=== PATIENT | female | born 1940 | race Caucasian/White ===

== ENCOUNTER → 2017-02-11 | Outpatient (CLI) | payer MEDICARE, BC ==
--- NOTE | 2017-02-12 15:02 | XR ---
EXAMINATION TYPE: XR chest 2V DATE OF EXAM: 02/11/2017 10:11 AM COMPARISON: 02/04/2014 INDICATION: Cough TECHNIQUE: Single frontal view of the chest is obtained. FINDINGS: The heart size is normal. The pulmonary vasculature is normal. The lungs are clear. Previous pleural effusions have resolved. IMPRESSION: 1. No acute pulmonary process.
== END | disposition home or self-care (01) ==
LOC: RADXRYALE 09:43
PROVIDERS: ATTEND Physician Assistant Medical
DX: R05 Cough (principal)
CPT/HCPCS: 71020

== ENCOUNTER → 2017-06-07 | Outpatient (CLI) | payer MEDICARE, BC ==
--- NOTE | 2017-06-07 09:02 | BD ---
EXAMINATION TYPE: MG DEXA axial skeleton. DATE OF EXAM: 06/07/2017 COMPARISON: NONE CLINICAL HISTORY: M85.80 OSTEOPENIA Height: 64 Weight: 149 FRAX RISK QUESTIONS: Alcohol (3 or more units per day): NO Family History (Parent hip fracture): NO Glucocorticoids (More than 3mos): NO (Ex: prednisone, prednisolone, methylprednisolone, dexamethasone, and hydrocortisone). History of Fracture in Adulthood: YES Secondary Osteoporosis: NO 1. Type 1 Diabetes: NO 2. Hyperthyroidism: NO 3. Menopause before 45: NO 4. Malnutrition: NO 5. Chronic liver disease: NO Rheumatoid Arthritis: NO Current Tobacco Use: NO RISK FACTORS HISTORY OF: LT ELBOW...>49 YRS OLD AT TIME Active: YES, SHE TRIES Diet low in dairy products/other sources of calcium: NO Postmenopausal woman: AT 51 Lost more than 2 inches in height since high school: UNSURE Hyperparathyroidism: NO Adrenal Insufficiency: NO MEDICATIONS: Additional Medications: VIT D 3, STATINS FOR CHOLESTEROL, Additional History: NONE TO NOTE EXAM MEASUREMENTS: Bone mineral densitometry was performed using the Multichannel System. Bone mineral density as measured about the Lumbar spine is: ----- L1-L4(G/cm2): 1.157 T Score Values are as follows: ----- L1: -1.2 ----- L2: -0.2 ----- L3: 0.4 ----- L4: -0.1 ----- L1-L4: -0.2 Bone mineral density THIS IS HER FIRST BONE DENSITY SCAN AT [facility] Bone mineral density about the R hip (g/cm2): 0.825 Bone mineral density about the L hip (g/cm2): 0.817 T Score values are as follows: -----R Neck: -1.7 -----L Neck: -1.9 -----R Total: -1.5 -----L Total: -1.5 Bone mineral density THIS IS HER FIRST BONE DENSITY AT [facility] FRAX%'S: THERE IS A 21.2% CHANCE OF A MAJOR OSTEOPOROTIC FX AND A 5.3% FOR A HIP FX.....PROBABILIT Y OF FX IN 10 YRS TIME IMPRESSION: Osteopenia (T Score between -2.5 and -1 as noted by T score values is identified in both hips. Bone d ensity felt falsely elevated in the low back due to reactive sclerosis at L2-L3 level. There is sligh tly increased risk of fracture and the patient may be considered for treatment. Re-Screen 2-5 years NOTE: T-SCORE=SD OF THE YOUNG ADULT MEAN.
== END | disposition home or self-care (01) ==
LOC: RADBDWWP 07:38
PROVIDERS: ATTEND Family Medicine
DX: M85.851 Other specified disorders of bone density and structure, right thigh (principal); M85.852 Other specified disorders of bone density and structure, left thigh; M89.9 Disorder of bone, unspecified
CPT/HCPCS: 77080

== ENCOUNTER → 2018-12-06 | Outpatient (CLI) | payer MEDICARE, BC ==
--- NOTE | 2018-12-06 15:42 | MR ---
EXAMINATION TYPE: MR brain wo con DATE OF EXAM: 12/06/2018 COMPARISON: NONE HISTORY: Cognitive impairment. Prior CVA. TECHNIQUE: Multiplanar, multisequence images of the brain and brainstem is performed without intravenous contras t. FINDINGS: Diffusion weighted images demonstrate no evidence of a recent infarct or other diffusion ab normality. There is no extra-axial fluid collection. There are scattered foci of T2/FLAIR hyperinten sity throughout the periventricular and subcortical white matter, mild burden. Additionally foci with in the right external capsule and left basal ganglia may relate to prior lacunar infarcts The ventric ular system and cisternal spaces are symmetrically prominent compatible with age-related volume loss. Midline structures demonstrate normal morphology. The craniocervical junction appears within normal limits. The dural venous sinuses appear patent. The visualized sinuses demonstrate scant mucosal thic kening in the ethmoid sinuses and a small left-sided nasal uskhwinder bullosa. Other words the visualized paranasal sinuses and mastoid air cells are well aerated. The globes are intact. IMPRESSION: 1. Mild burden nonspecific white matter change with foci in the right external capsule and left basal ganglia likely related to old lacunar infarcts. No acute infarct, midline shift or mass effect. 2. Mild age-related volume loss is seen. This is not out of proportion to the patient's age.
== END | disposition home or self-care (01) ==
LOC: RADMRIMAIN 12:04
PROVIDERS: ATTEND Family Medicine
DX: R90.89 Other abnormal findings on diagnostic imaging of central nervous system (principal); I69.311 Memory deficit following cerebral infarction
CPT/HCPCS: 70551

== ENCOUNTER → 2018-12-19 | Outpatient (CLI) | payer MEDICARE, BC ==
--- NOTE | 2018-12-19 14:58 | US ---
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 EXAM MEASUREMENTS: RIGHT: Peak Systolic Velocity (PSV) cm/sec ----- Right CCA: 63.5 ----- Right ICA: 52.7 ----- Right ECA: 130.0 ICA/CCA ratio: 0.82 RIGHT: End Diastole cm/sec ----- Right CCA: 10.3 ----- Right ICA: 22.3 ----- Right ECA: 0.0 LEFT: Peak Systolic Velocity (PSV) cm/sec ----- Left CCA: 64.7 ----- Left ICA: 96.0 ----- Left ECA: 91.3 ICA/CCA ratio: 1.5 LEFT: End Diastole cm/sec ----- Left CCA: 12.4 ----- Left ICA: 24.9 ----- Left ECA: 3.8 VERTEBRALS (direction of flow): Right Vertebral: Antegrade Left Vertebral: Antegrade Rhythm: Normal Mild atherosclerotic changes with no significant velocity increases. IMPRESSION: Mild atherosclerotic change bilaterally without hemodynamically significant stenosis see n in either internal carotid artery. Criteria for Assigning % of Stenosis / Diameter reduction (Estimation based on the indirect measurements of the internal carotid artery velocities (ICA PSV). 1. Normal (no stenosis)=ICA PSV < 125 cm/s: ratio < 2.0: ICA EDV<40 cm/s. 2. Less than 50% stenosis=ICA PSV < 125 cm/s: ratio < 2.0: ICA EDV<40 cm/s. 3. 50 to 69% stenosis=ICA PSV of 125 to 230 cm/s: ration 2.0 ? 4.0: ICA EDV 40-100 cm/s. 4. Greater than 70% stenosis to near occlusion= ICA PSV > 230 cm/s: ratio > 4.0: ICA EDV > 100 cm/s. 5. Near occlusion= ICA PSV velocities may be low or undetectable: variable ratio and ICA EDV. 6. Total occlusion=unable to detect flow.
== END ==
LOC: RADUSWWP 14:11
PROVIDERS: ATTEND Family Medicine
DX: I65.23 Occlusion and stenosis of bilateral carotid arteries (principal); I69.311 Memory deficit following cerebral infarction; G93.1 Anoxic brain damage, not elsewhere classified
CPT/HCPCS: 93880

== ENCOUNTER 2024-12-22 14:15 | Inpatient (IN) | payer MEDICARE, BC ==
--- NOTE | 2024-12-22 14:48 | ED ---
General Adult HPI - General Chief complaint: Fall Stated complaint: Fall Time Seen by Provider: 12/22/24 14:24 Source: EMS Mode of arrival: EMS Limitations: no limitations - History of Present Illness Initial comments: 84-year-old female presents to the emergency department for evaluation of fall with left hip injury. Patient states that today she went to get up from the couch when she fell. She states that she is not sure why she fell. She denies any preceding symptoms including dizziness, lightheadedness, chest pain, shortness of breath. She states that she "just fell"she states that there is pain in her hip only with movement. She had to crawl to the couch and called her son for help. She denies any head injury. Denies any blood thinners. Denies pain anywhere else besides her hip. - Related Data Previous Rx's Medication Instructions Recorded Apixaban [Eliquis] 2.5 mg PO BID 30 Days #60 tab 12/24/24 HYDROcodone/APAP 5-325MG [[place] 1 tab PO Q6HR PRN #28 tab 12/24/24 5-325] Sennosides [Senokot] 2 tab PO DAILY PRN #60 tablet 12/24/24 Allergies Allergy/AdvReac Type Severity Reaction Status Date / Time Sulfa (Sulfonamide Allergy Unknown Unknown Verified 12/22/24 16:02 Antibiotics) Review of Systems ROS Statement: Those systems with pertinent positive or pertinent negative responses have been documented in the HPI. ROS Other: All systems not noted in ROS Statement are negative. Past Medical History Past Medical History: GERD/Reflux, Hyperlipidemia, Pneumonia Additional Past Medical History / Comment(s): PERFORATED BOWEL, STATES "MY STATED I FLAT LINE FOR 8 MIN WHEN I WAS IN THE HOSPITAL IN 2013 AND HAD TO HAVE A TUBE DOWN MY THROAT AND NOW I HAVE A LITTLE TROUBLE WITH MY SPEECH" History of Any Multi-Drug Resistant Organisms: None Reported Past Surgical History: Bowel Resection, Tonsillectomy Additional Past Surgical History / Comment(s): bowel resection 01/23/2014 W/ PEG TUB PLACEMENT, PEG TUBE REMOVAL, rt cataract Past Anesthesia/Blood Transfusion Reactions: No Reported Reaction Past Psychological History: No Psychological Hx Reported Past Alcohol Use History: None Reported Past Drug Use History: None Reported - Past Family History Father Family Medical History: Cancer Additional Family Medical History / Comment(s): PROSTATE Mother Additional Family Medical History / Comment(s): HEART PROBLEMS General Exam Limitations: no limitations General appearance: alert, in no apparent distress Head exam: Present: atraumatic, normocephalic, normal inspection Eye exam: Present: normal appearance, PERRL, EOMI. Absent: scleral icterus, conjunctival injection, periorbital swelling ENT exam: Present: normal exam, mucous membranes moist Respiratory exam: Present: normal lung sounds bilaterally. Absent: respiratory distress, wheezes, rales, rhonchi, stridor Cardiovascular Exam: Present: regular rate, normal rhythm, normal heart sounds. Absent: systolic murmur, diastolic murmur, rubs, gallop, clicks GI/Abdominal exam: Present: soft, normal bowel sounds. Absent: distended, tenderness, guarding, rebound, rigid Extremities exam: Present: tenderness, normal capillary refill. Absent: full ROM (Decreased range of motion at the left hip with flexion and extension), pedal edema, joint swelling, calf tenderness Neurological exam: Present: alert, oriented X3 Psychiatric exam: Present: normal affect, normal mood Skin exam: Present: warm, dry, intact, normal color. Absent: rash Course Vital Signs 12/22/24 12/22/24 12/22/24 14:25 16:39 17:46 Temperature 98.1 F Pulse Rate 98 76 98 Respiratory 18 18 16 Rate Blood Pressure 153/76 128/71 144/72 O2 Sat by Pulse 95 95 95 Oximetry Medical Decision Making - Medical Decision Making Was pt. sent in by a medical professional or institution (, PA, CADASTRAL SURVEYOR, urgent care, hospital, or skilled nursing...) When possible be specific @ -No Did you speak to anyone other than the patient for history (EMS, parent, family, police, friend...)? What history was obtained from this source @ -No Did you review nursing and triage notes (agree or disagree)? Why? @ -I reviewed and agree with nursing and triage notes Were old charts reviewed (outside hosp., previous admission, EMS record, old EKG, old radiological studies, urgent care reports/EKG's, skilled nursing records)? Report findings @ -No old charts were reviewed Differential Diagnosis (chest pain, altered mental status, abdominal pain women, abdominal pain men, vaginal bleeding, weakness, fever, dyspnea, syncope, headache, dizziness, GI bleed, back pain, seizure, CVA, palpatations, mental health, musculoskeletal)? @ -Differential Musculoskeletal Muscular strain, contusion, ligament sprain, fracture, arthritis, septic arthritis, bursitis, cellulitis, muscle spasm, nerve compression, DVT, arterial occlusion, herpes zoster, electrolyte abnormality, tumor.... This is not meant to be in all inclusive list EKG interpreted by me (3pts min.). @ -EKG at X-rays interpreted by me (1pt min.). @ -X-ray of the left hip and pelvis show an acute mildly displaced left subcapital proximal femur fracture with shortening CT interpreted by me (1pt min.). @ -None done U/S interpreted by me (1pt. min.). @ -None done What testing was considered but not performed or refused? (CT, X-rays, U/S, labs)? Why? @ -None What meds were considered but not given or refused? Why? @ -None Did you discuss the management of the patient with other professionals (pr ofessionals i.e. , PA, CADASTRAL SURVEYOR, lab, RT, psych nurse, social work program coordinator, direct marketing specialist, teacher, training and development officer, case filler)? Give summary @ -Case discussed with orthopedics, Dr. Villeda who is accepting of the admission with medical consultation. Was smoking cessation discussed for >3mins.? @ -No Was critical care preformed (if so, how long)? @ -No Were there social determinants of health that impacted care today? How? (Homelessness, low income, unemployed, alcoholism, drug addiction, transportation, low edu. Level, literacy, decrease access to med. care, senior living, rehab)? @ -No Was there de-escalation of care discussed even if they declined (Discuss DNR or withdrawal of care, Hospice)? DNR status @ -No What co-morbidities impacted this encounter? (DM, HTN, Smoking, COPD, CAD, Cancer, CVA, ARF, Chemo, Hep., AIDS, mental health diagnosis, sleep apnea, morbid obesity)? @ -None Was patient admitted / discharged? Hospital course, mention meds given and route, prescriptions, significant lab abnormalities, going to OR and other pertinent info. @ -Admitted patient presented the emergency department for evaluation of left hip pain following a fall. Patient states that she "just fell" laboratory studies obtained revealing mild leukocytosis at 11.8; normal coagulation studies; CMP on actionable at this time. Chest x-ray shows no acute process.x- ray of the left hip and pelvis shows a mildly displaced left subcapital proximal femur fracture with shortening. Patient distally neurovascularly intact. Case was discussed with orthopedics, Dr. Villeda who accepts admission with medical consultation. Case discussed with Dr. Oconnor. Undiagnosed new problem with uncertain prognosis? @ -No Drug Therapy requiring intensive monitoring for toxicity (Heparin, Nitro, Insulin, Cardizem)? @ -No Were any procedures done? @ -No Diagnosis/symptom? @ -Hip fracture Acute, or Chronic, or Acute on Chronic? @ -Acute Uncomplicated (without systemic symptoms) or Complicated (systemic symptoms)? @ -uncomplicated Side effects of treatment? @ -No Exacerbation, Progression, or Severe Exacerbation? @ -No Poses a threat to life or bodily function? How? (Chest pain, USA, DE, pneumonia, PE, COPD, DKA, ARF, appy, cholecystitis, CVA, Diverticulitis, Homicidal, Suicidal, threat to staff... and all critical care pts) @ -No - Lab Data Result diagrams: 12/24/24 06:06 12/22/24 14:55 Lab Results 12/22/24 12/22/24 12/22/24 Range/Units 14:55 14:55 14:55 WBC 11.8 H (3.8-10.6) k/uL RBC 5.09 (3.80-5.40) m/uL Hgb 15.1 (11.4-16.0) gm/dL Hct 45.2 (34.0-46.0) % MCV 88.8 (80.0-100.0) fL MCH 29.7 (25.0-35.0) pg MCHC 33.4 (31.0-37.0) g/dL RDW 12.9 (11.5-15.5) % Plt Count 190 (150-450) k/uL MPV 7.8 Neutrophils % 88 % Lymphocytes % 5 % Monocytes % 7 % Eosinophils % 0 % Basophils % 0 % Neutrophils # 10.4 H (1.3-7.7) k/uL Lymphocytes # 0.5 L (1.0-4.8) k/uL Monocytes # 0.8 (0-1.0) k/uL Eosinophils # 0.0 (0-0.7) k/uL Basophils # 0.0 (0-0.2) k/uL PT 11.5 (10.0-12.5) sec INR 1.1 (<1.2) APTT 22.3 (22.0-30.0) sec Sodium 140 (137-145) mmol/L Potassium 3.7 (3.5-5.1) mmol/L Chloride 103 (98-107) mmol/L Carbon Dioxide 28 (22-30) mmol/L Anion Gap 9 mmol/L BUN 44 H (7-17) mg/dL Creatinine 0.82 (0.52-1.04) mg/dL Est GFR (CKD-EPI)AfAm 76 (>60 ml/min/1.73 sqM) Est GFR (CKD-EPI)NonAf 66 (>60 ml/min/1.73 sqM) Glucose 81 (74-99) mg/dL Calcium 9.7 (8.4-10.2) mg/dL Total Bilirubin 2.0 H (0.2-1.3) mg/dL AST 33 (14-36) U/L ALT 20 (4-34) U/L Alkaline Phosphatase 48 (38-126) U/L Total Protein 6.9 (6.3-8.2) g/dL Albumin 4.3 (3.5-5.0) g/dL Disposition Clinical Impression: Subcapital fracture of femur Disposition: ADMITTED IP TO THIS HOSP Condition: Stable Is patient prescribed a controlled substance at d/c from ED?: No
[2024-12-22 15:02] LABS: Basophils % (A) 0 %; Eosinophils % (A) 0 %; HCT 45.2 % (34.0-46.0); HGB 15.1 gm/dL (11.4-16.0); Lymphocytes # (A) 0.5 k/uL (1.0-4.8); Lymphocytes % (A) 5 %; MCH 29.7 pg (25.0-35.0); MCHC 33.4 g/dL (31.0-37.0); MCV 88.8 fL (80.0-100.0); Mean Platelet Volume 7.8; Monocytes # (A) 0.8 k/uL (0-1.0); Monocytes % (A) 7 %; Neutrophils # (A) 10.4 k/uL (1.3-7.7); Neutrophils % (A) 88 %; Platelet Count 190 k/uL (150-450); RBC 5.09 m/uL (3.80-5.40); RDW 12.9 % (11.5-15.5); WBC 11.8 k/uL (3.8-10.6)
[2024-12-22 15:17] LABS: ALT 20 U/L (4-34); AST 33 U/L (14-36); African American GFR (CKD) 76 (>60 ml/min/1.73 sqM); Albumin 4.3 g/dL (3.5-5.0); Alkaline Phosphatase 48 U/L (38-126); Anion Gap 9 mmol/L; Blood Urea Nitrogen 44 mg/dL (7-17); Calcium 9.7 mg/dL (8.4-10.2); Carbon Dioxide 28 mmol/L (22-30); Chloride 103 mmol/L (98-107); Glucose 81 mg/dL (74-99); Non-African American GFR(CKD) 66 (>60 ml/min/1.73 sqM); Potassium 3.7 mmol/L (3.5-5.1); Sodium 140 mmol/L (137-145); Total Protein 6.9 g/dL (6.3-8.2)
[2024-12-22 15:30] LABS: INR 1.1 (<1.2); Prothrombin Time 11.5 sec (10.0-12.5)
[2024-12-22 15:31] LABS: Partial Thromboplastin Time 22.3 sec (22.0-30.0)
--- NOTE | 2024-12-22 15:38 | XR ---
EXAMINATION TYPE: XR chest 1V DATE OF EXAM: 12/22/2024 3:29 PM COMPARISON: Chest radiographs from 02/11/2017 TECHNIQUE: XR chest 1V Frontal view of the chest. CLINICAL INDICATION:Female, 84 years old with history of fall; pain FINDINGS: Lungs/Pleura: There is no evidence of pleural effusion, focal consolidation, or pneumothorax. Staple Laster al appearing opacity overlying the right upper chest. Pulmonary vascularity: Unremarkable. Heart/mediastinum: Cardiomediastinal silhouette is unremarkable. Atherosclerotic calcifications are seen in the aorta. Musculoskeletal: No acute osseous pathology. IMPRESSION: No acute cardiopulmonary disease/process. [facility], , 12/22/2024 3:36 PM
--- NOTE | 2024-12-22 15:41 | XR ---
EXAMINATION TYPE: XR Hip LT and AP Pelvis DATE OF EXAM: 12/22/2024 3:29 PM INDICATION: Patient age:Female; 84 years old; Reason for study: fall; PHH. pain COMPARISON: None. TECHNIQUE: The left hip was examined in the frontal and lateral projections and a AP pelvis. FINDINGS: Acute mildly displaced left subcapital proximal femur fracture with shortening. No dislocat ion. Mild degenerative changes of the pubic symphysis. Pelvic phleboliths. No soft tissue swelling. IMPRESSION: Acute mildly displaced left subcapital proximal femur fracture with shortening. [facility], , 12/22/2024 3:38 PM
[2024-12-22] MEDS ORDERED: MORPHINE SULFATE 4 MG/ML SYRINGE IV PRN (16:02)
[2024-12-22] MEDS ORDERED: NALOXONE 0.4 MG/ML 1 ML VIAL IV PRN (16:02)
[2024-12-22 18:58] LABS: Appearance,Urine Clear (Clear); Bacteria,Urine Many /hpf; Bilirubin,Urine Negative (Negative); Blood,Urine Trace (Negative); Color,Urine Yellow; Glucose,Urine (UA) 3+ (Negative); Ketones,Urine Trace (Negative); Leukocyte Esterase,Urine Negative (Negative); Mucus,Urine Few /hpf; Nitrite,Urine Positive (Negative); PH, Urine 5.5 (5.0-8.0); Protein,Urine 1+ (Negative); RBC,Urine 1 /hpf (0-5); Specific Gravity,Urine 1.031 (1.001-1.035); Squamous Epithelial Cell,Urine <1 /hpf (0-4); Urobilinogen,Urine <2.0 mg/dL (<2.0); WBC,Urine 3 /hpf (0-5)
--- NOTE | 2024-12-22 20:43 | P.CONS ---
History of Present Illness - Reason for Consult Consult date: 12/22/24 - Chief Complaint hip fracture - History of Present Illness Patient is a 84-year-old female with PMX of GERD, hyperlipidemia presenting with left hip injury. She states she got up from her couch and lost her footing. She denies tripping over anything and denies any history of falling. She does not use ambulatory assistance devices. She denies any lightheadedness, dizziness, syncope, chest pain, shortness of breath preceding the event. Her son came in for a routine daily visit and was able to help her and called EMS. She denies taking any medications states she regularly follows up with her PCP. At time of the interview patient states pain levels have mostly alleviated after being given medication and says it does not hurt unless she moves. Denies any fever, chills, abdominal pain, urinary symptoms. Pertinent positives and negatives as discussed above, a complete review of systems was performed and all other systems are negative. Vitals: Signs Reviewed Physical Exam: General: nontoxic, no distress, appears at stated age Derm: warm, dry, intact Head: atraumatic, normocephalic, symmetric Eyes: EOMI, anicteric sclera Mouth: no lip lesion, mucus membranes moist Cardiovascular: S1 S2 reg, no murmur, rubs, or gallops Lungs: CTA bilateral, no rhonchi, no rales, no accessory muscle use Abdominal: soft, non-tender to palpataion, no appreciable organomegaly Extremities: Left hip tenderness and decreased ROM without overlying skin abnormalities noted, strength 5/5 in all extremities except proximal LLE due to pain, no gross muscle atrophy, no edema, no contractures Neuro: Alert, Oriented, CNII-XII grossly intact, gait normal Psych: well appearing, appropriate affect Data Received Today: Pertinent Labs: WBC 11.8, Hgb 15.1, platelet 198, INR 1.1, sodium 140, potassium 3.7, CO2 28, BUN 44, creatinine 0.82, glucose 81, total bili 2.0 Imaging: XR Left hip displaying mildly displaced left subcapital proximal fracture with shortening CXR independently interpreted no acute cardiopulmonary process test results EKG interpreted interpreted displaying sinus rhythm, rate 71 bpm, QTc 381 ms Assessment and Plan: Asymptomatic bacteriuria Patient denies any urinary frequency, urgency, dysuria UA positive urine nitrite, many urine bacteria, trace urine blood, trace urine ketones, plus glucose 1+ protein Leukocytosis Likely reactive in the setting of hip fracture with acute stress Left hip fracture Pain management, antibiotics, DVT prophylaxis being managed by primary orthopedic team Preoperative evaluation The patient lives by herself and is independent in all of her ADLs. She does not use any ambulatory assistance devices. Reports that she is able to climb multiple flights of stairs without any difficulty. Denies experiencing exertional dyspnea or chest discomfort. Denies any chronic medical history and does not take any medications at home. METS greater than 4. Denies coronary artery disease or CHF history. Also free of any additional complaints at the time of interview aside from left hip pain upon movement. The patient is currently optimized for left hip fracture repair with no obvious modifiable risk factors. The patient is however at moderate risk for perioperative complications in light of her advanced age. Barbara Johnson MD PGY-1 IM Dictation was produced using [employer] dictation software. please excuse any grammatical, word or spelling errors. Past Medical History Past Medical History: GERD/Reflux, Hyperlipidemia, Pneumonia Additional Past Medical History / Comment(s): PERFORATED BOWEL, STATES "MY STATED I FLAT LINE FOR 8 MIN WHEN I WAS IN THE HOSPITAL IN 2013 AND HAD TO HAVE A TUBE DOWN MY THROAT AND NOW I HAVE A LITTLE TROUBLE WITH MY SPEECH" History of Any Multi-Drug Resistant Organisms: None Reported Past Surgical History: Bowel Resection, Tonsillectomy Additional Past Surgical History / Comment(s): bowel resection 01/23/2014 W/ PEG TUB PLACEMENT, PEG TUBE REMOVAL, rt cataract Past Anesthesia/Blood Transfusion Reactions: No Reported Reaction Past Psychological History: No Psychological Hx Reported Smoking Status: Never smoker Past Alcohol Use History: None Reported Additional Past Alcohol Use History / Comment(s): QUIT SMOKING APPROX STARTED SMOKING 1960 APPROX Past Drug Use History: None Reported - Past Family History Father Family Medical History: Cancer Additional Family Medical History / Comment(s): PROSTATE Mother Additional Family Medical History / Comment(s): HEART PROBLEMS Medications and Allergies Home Medications Medication Instructions Recorded Confirmed Type No Known Home Medications 12/22/24 12/22/24 History Allergies Allergy/AdvReac Type Severity Reaction Status Date / Time Sulfa (Sulfonamide Allergy Unknown Unknown Verified 12/22/24 16:02 Antibiotics) Physical Exam Vitals: Vital Signs Temp Pulse Pulse Resp BP BP Pulse Ox 12/22/24 19:00 97.3 F L 115 H 19 129/61 95 12/22/24 17:46 98 16 144/72 95 12/22/24 16:39 76 18 128/71 95 12/22/24 14:25 98.1 F 98 18 153/76 95 Intake and Output 12/22/24 12/22/24 12/22/24 06:59 14:59 22:59 Intake Total 200 Output Total 200 Balance 0 Intake: Oral 200 Output: Urine 200 Other: Weight 63.503 kg 63.503 kg Results CBC & Chem 7: 12/22/24 14:55 12/22/24 14:55 Labs: Abnormal Lab Results - Last 24 Hours (Table) 12/22/24 12/22/24 12/22/24 Range/Units 14:55 14:55 18:11 WBC 11.8 H (3.8-10.6) k/uL Neutrophils # 10.4 H (1.3-7.7) k/uL Lymphocytes # 0.5 L (1.0-4.8) k/uL BUN 44 H (7-17) mg/dL Total Bilirubin 2.0 H (0.2-1.3) mg/dL Urine Protein 1+ H (Negative) Urine Glucose (UA) 3+ H (Negative) Urine Ketones Trace H (Negative) Urine Blood Trace H (Negative) Urine Nitrite Positive H (Negative) Urine Bacteria Many H (None) /hpf Urine Mucus Few H (None) /hpf
[2024-12-23] MEDS: LACTATED RINGERS 1,000 ML IV SCH (07:48)
[2024-12-23] MEDS: KETOROLAC 15 MG/ML 1 ML VIAL IVP PRN (10:27)
--- NOTE | 2024-12-23 11:04 | P.PN ---
Subjective Progress Note Date: 12/23/24 Subjective: Patient was seen and examined at bedside, her son present during exam. She has no active complaints, her pain does not bother her, no chest pain, shortness of breath, abdominal discomfort, troubles with urination. Plan for surgery this afternoon Pertinent positives and negatives as discussed above, a complete review of systems was performed and all other systems are negative. Vitals Signs Reviewed. General: nontoxic, no distress, appears at stated age Derm: warm, dry, intact Head: atraumatic, normocephalic, symmetric Eyes: EOMI, anicteric sclera Mouth: no lip lesion, mucus membranes moist Cardiovascular: S1 S2 reg, no murmur, rubs, or gallops Lungs: CTA bilateral, no rhonchi, no rales, no accessory muscle use Abdominal: soft, non-tender to palpataion, no appreciable organomegaly Extremities: Left hip tenderness and decreased ROM without overlying skin abnormalities noted, strength 5/5 in all extremities except proximal LLE due to pain, no gross muscle atrophy, no edema, no contractures Neuro: Alert, Oriented, CNII-XII grossly intact, gait normal Psych: well appearing, appropriate affect Data Reviewed Today: Pertinent Labs: No new blood work today Assessment and Plan: Asymptomatic bacteriuria -Monitor off antibiotics Leukocytosis, likely reactive -Monitor CBC, order placed, monitor for fevers Status post mechanical fall Left hip fracture -Your surgical management, antibiotics, DVT prophylaxis, pain management Objective - Vital Signs Vital signs: Vital Signs Temp 98.5 F 12/23/24 07:10 Pulse 93 12/23/24 07:10 Resp 17 12/23/24 07:10 BP 132/71 12/23/24 07:10 Pulse Ox 93 L 12/23/24 07:10 FiO2 Intake & Output 12/22/24 12/23/24 12/23/24 18:59 06:59 18:59 Intake Total 200 Output Total 200 200 Balance 0 -200 Weight 63.503 kg Intake: Oral 200 Output: Urine 200 200 Uretheral ([place]) 200 Other: Voiding Method Indwelling Catheter Indwelling Catheter # Bowel Movements 1 - Labs CBC & Chem 7: 12/22/24 14:55 12/22/24 14:55 Labs: Abnormal Lab Results - Last 24 Hours (Table) 03/25/25 03/25/25 03/25/25 Range/Units 14:55 14:55 18:11 WBC 11.8 H (3.8-10.6) k/uL Neutrophils # 10.4 H (1.3-7.7) k/uL Lymphocytes # 0.5 L (1.0-4.8) k/uL BUN 44 H (7-17) mg/dL Total Bilirubin 2.0 H (0.2-1.3) mg/dL Urine Protein 1+ H (Negative) Urine Glucose (UA) 3+ H (Negative) Urine Ketones Trace H (Negative) Urine Blood Trace H (Negative) Urine Nitrite Positive H (Negative) Urine Bacteria Many H (None) /hpf Urine Mucus Few H (None) /hpf
--- NOTE | 2024-12-23 12:48 | P.HPOR ---
History of Present Illness H&P Date: 12/23/24 This is an 84-year-old female who is admitted for a left hip fracture. Patient is seen and evaluated at bedside today and states that she fell at home on 12/22/2024. Patient states that she lives alone. Patient denies any loss of consciousness or known head injury. Patient's past medical history is significant for GERD and hyperlipidemia. Patient denies any fever/chills, chest pain, shortness breath, abdominal pain, numbness, weakness or tingling. Review of Systems See HPI. Past Medical History Past Medical History: GERD/Reflux, Hyperlipidemia, Pneumonia Additional Past Medical History / Comment(s): PERFORATED BOWEL, STATES "MY STATED I FLAT LINE FOR 8 MIN WHEN I WAS IN THE HOSPITAL IN 2013 AND HAD TO HAVE A TUBE DOWN MY THROAT AND NOW I HAVE A LITTLE TROUBLE WITH MY SPEECH" History of Any Multi-Drug Resistant Organisms: None Reported Past Surgical History: Bowel Resection, Tonsillectomy Additional Past Surgical History / Comment(s): bowel resection 01/23/2014 W/ PEG TUB PLACEMENT, PEG TUBE REMOVAL, rt cataract Past Anesthesia/Blood Transfusion Reactions: No Reported Reaction Past Psychological History: No Psychological Hx Reported Smoking Status: Never smoker Past Alcohol Use History: None Reported Additional Past Alcohol Use History / Comment(s): QUIT SMOKING APPROX STARTED SMOKING 1959 APPROX Past Drug Use History: None Reported - Past Family History Father Family Medical History: Cancer Additional Family Medical History / Comment(s): PROSTATE Mother Additional Family Medical History / Comment(s): HEART PROBLEMS Medications and Allergies Home Medications Medication Instructions Recorded Confirmed Type No Known Home Medications 12/22/24 12/22/24 History Allergies Allergy/AdvReac Type Severity Reaction Status Date / Time Sulfa (Sulfonamide Allergy Unknown Unknown Verified 12/22/24 16:02 Antibiotics) Physical Examination On exam patient is resting comfortably in bed in no acute distress. Patient is alert and oriented 3. Left lower extremity: Shortened and externally rotated. Skin is intact. Mild tenderness to palpation over the left hip area. There is no erythema or ec chymosis. Calf is soft and nontender to palpation. Patient has full range of motion of the left foot and ankle. Sensation intact. Neurovascular status and circulatory status are intact. Exams of the right lower extremity, bilateral upper extremities, head and neck are within normal limits. Results X-rays of the left hip dated 12/22/2024 reveal a subcapital fracture of the left femur. - Labs Labs: Abnormal Lab Results - Last 24 Hours (Table) 12/22/24 12/22/24 12/22/24 Range/Units 14:55 14:55 18:11 WBC 11.8 H (3.8-10.6) k/uL Neutrophils # 10.4 H (1.3-7.7) k/uL Lymphocytes # 0.5 L (1.0-4.8) k/uL BUN 44 H (7-17) mg/dL Total Bilirubin 2.0 H (0.2-1.3) mg/dL Urine Protein 1+ H (Negative) Urine Glucose (UA) 3+ H (Negative) Urine Ketones Trace H (Negative) Urine Blood Trace H (Negative) Urine Nitrite Positive H (Negative) Urine Bacteria Many H (None) /hpf Urine Mucus Few H (None) /hpf H & H 12/22/24 Range/Units 14:55 Hgb 15.1 (11.4-16.0) gm/dL Hct 45.2 (34.0-46.0) % Coagulation 12/22/24 Range/Units 14:55 INR 1.1 (<1.2) Result Diagrams: 12/22/24 14:55 12/22/24 14:55 Assessment and Plan (1) Fall Current Visit: Yes Status: Acute Code(s): W19.XXXA - UNSPECIFIED FALL, INITIAL ENCOUNTER SNOMED Code(s): 9902820 (2) Subcapital fracture of femur Current Visit: Yes Status: Acute Code(s): S72.019A - UNSP INTRACAPSULAR FRACTURE OF UNSP FEMUR, INIT FOR CLOS FX SNOMED Code(s): 990279126 Plan: 1. NPO 2. Continue bedrest and pain control. 3. Appreciate input from internal medicine. Patient has been medically cleared . 4. Treatment plan is discussed at bedside today with the patient and all questions are addressed. Planning for left hip hemiarthroplasty later this afternoon by Dr. Kyree Villeda pending patient consent.
[2024-12-23] MEDS: IV FLUID CONTINUATION 1,000 ML IV ONE (15:18)
[2024-12-23] MEDS: ONDANSETRON 4 MG/2 ML VIAL IVP STA (15:24)
[2024-12-23] MEDS ORDERED: ONDANSETRON 4 MG/2 ML VIAL IVP PRN (15:48)
[2024-12-23] MEDS ORDERED: NALOXONE 0.4 MG/ML 1 ML VIAL IV PRN (15:48)
[2024-12-23] MEDS ORDERED: MAGNESIUM HYDROXIDE 2,400 MG/30 ML CUP PO PRN (15:48)
[2024-12-23] MEDS ORDERED: HYDROcodone/APAP 5-325MG 1 EACH TAB PO PRN (15:48)
[2024-12-23] MEDS ORDERED: HYDROmorphone 0.5 MG/0.5 ML SYRINGE IVP PRN ×3 (15:48)
[2024-12-23] MEDS ORDERED: ACETAMINOPHEN TAB 325 MG TAB PO PRN (15:52)
[2024-12-23] MEDS ORDERED: PHENYLEPHRINE 10 MG/ML VIAL ONE (16:29)
[2024-12-23] MEDS ORDERED: KETAMINE HCL IN 0.9 % NACL 50 MG/5 ML SYRINGE ONE (16:29)
[2024-12-23] MEDS ORDERED: MIDAZOLAM 2 MG/2 ML VIAL ONE (16:29)
[2024-12-23] MEDS ORDERED: GLYCOPYRROLATE 0.2 MG/ML 2 ML VIAL ONE (16:29)
[2024-12-23] MEDS ORDERED: PROPOFOL 10 MG/ML 20 ML VIAL IV ONE (16:29)
[2024-12-23] MEDS ORDERED: TRANEXAMIC 1,000 MG/100ML-NACL PREMIX BAG ONE (16:29)
[2024-12-23] MEDS: ROPIVACAINE 5 MG/ML 30 ML VIAL MISCELLANE ONE (17:09)
[2024-12-23] MEDS: LACTATED RINGERS 1,000 ML IV ONE (17:41)
--- NOTE | 2024-12-23 17:53 | P.OP ---
Date of Procedure: 12/23/24 Preoperative Diagnosis: Subcapital fracture left hip Postoperative Diagnosis: Subcapital fracture left hip Procedure(s) Performed: Left hip hemiarthroplasty with an anterior approach Implants: Green and nephew Polarstem size 3 standard with a collar Green & Nephew tandem unipolar, 44 mm Green [employer] Nephew tandem unipolar 12/14 taper sleeve, +0 mm All components were press-fit. Anesthesia: spinal Surgeon: Kyree Villeda Estimated Blood Loss (ml): 100 Pathology: none sent Condition: stable Disposition: PACU Indications for Procedure: This is an 84-year-old female that sustained a ground-level fall at home. X- rays demonstrated displaced subcapital fracture of her left hip. After discussing the surgical and nonsurgical treatment options with her and her family at length, I recommended a left hip hemiarthroplasty with an anterior approach. Informed consent was obtained. Operative Findings: The operative findings are consistent with a subcapital fracture of the left hip Description of Procedure: The patient was seen and evaluated in the preoperative area and the consent was reviewed. The operative site was marked with a skin marker. The patient verified the procedure and operative site. A TOREY block was placed by anesthesia in the preoperative area. The patient was then brought to the operating room and given preoperative antibiotics intravenously. 1 g of Tranexamic acid was also given intravenously. A spinal anesthetic was administered by the anesthesia department. The patient was then placed on the Roby table with the bony prominences well-padded. The hip area was then prepped with a ChloraPrep solution and draped in the usual sterile fashion. A universal timeout was then performed, which confirmed the patient's name, surgical site, ALLERGIES, and procedure being performed on the consent. Next the incision site was located at 1 cm distal and 4 cm lateral to the anterior superior iliac spine. The skin and subcutaneous tissues were sharply incised. Incision was carefully dissected down to the fascia overlying the tensor fascia pati muscle. This fascia was then incised in line with the muscle fibers. Care was taken to stay laterally in order to avoid injuring the lateral femoral cutaneous nerve. Next, using blunt finger dissection, the tensor fascia pati muscle was dissected off its investing fascia. The muscle was then carefully retracted laterally with a cobra retractor over the lateral neck of the femur. Next, the circumflex vessels were identified and cauterized using the Aquamantis device. The anterior hip capsule was then exposed. The capsule was then opened and an inverted T fashion. The retractors were then placed intracapsularly. The retractors were maintained intracapsular throughout the procedure. The proximal femur was then visualized. A small amount of traction was placed on the leg. The femoral neck was then osteotomized at the appropriate level above the lesser trochanter. A small wedge of bone was then removed from the remaining femoral head. Next, using a corkscrew the femoral head was removed from the acetabulum. The femoral head was then measured. Attention was then turned to the acetabulum. The acetabulum was exposed and inspected. There was no evidence of any significant arthrosis. Attention was then directed to the femur. With the aid of the Roby table, the femur was externally rotated to approximately 130, extended, and adducted under the opposite leg. A side hook was then placed under the proximal femur, and the side hook elevator was used to elevate the proximal femur while releasing the capsule. Retractors were then placed. A capsular release was performed, as well as a release of the conjoined tendon, which afforded excellent visualization of the proximal femur. Next, a box osteotome was used to lateralize the proximal femur. A block hand was then used to locate the femoral canal. Sequential broaching was then performed with appropriate size which afforded excellent fixation in the proximal femur. A trial was then placed with appropriate head and neck, and the hip was gently reduced with the aid of the Roby table. Fluoroscopy was then used to check position of the components, as well as to evaluate the leg lengths and offset. The leg lengths and offset were measured as closely as possible to ensure stability of the hip. The hip was then gently dislocated and the trials were then removed. Final implants were then impacted and the hip was again reduced. Final fluoroscopic x-rays confirmed that the components were in anatomic position. The leg lengths and offset were measured and were found to coincide with the trial measurements. The hip was also taken through range of motion, and found to be stable. The hip was then copiously irrigated with antibiotic solution with pulsatile lavage. The hip was then irrigated with Irrisept solution. The soft tissues were then injected with a ropivacaine solution. A second dose of 1 g of Tranexamic acid was also given intravenously. The fascia was then closed with 2-0 strata fix suture. The subcutaneous tissue was closed with 3-0 Vicryl. The subcuticular tissue was closed with 3-0 strata fix suture. The skin was then closed with Exofin skin glue. After the glue and dried, and Optifoam silver impregnated dressing was applied. The patient was then transferred to the recovery room in stable condition.
--- NOTE | 2024-12-23 18:25 | FL ---
EXAMINATION TYPE: FL guidance operating room, XR Hip Limited LT DATE OF EXAM: 12/23/2024 CLINICAL INDICATION: Female, 84 years old with history of LEFT MERI ANTERIOR HIP, TECHNIQUE: Fluoroscopy. Limited intraoperative views left hip. COMPARISON: Pelvic and left hip x-ray one day earlier. FINDINGS: Fluoroscopic guidance was provided during left hip replacement procedure performed by Dr. Villeda. A total of 17.4 seconds of fluoroscopic time was utilized during the procedure and 2 spot images was acquired. Intraoperative images acquired show metallic artifact from left hip arthroplasty satisfactory in posi tion on frontal projection. TOTAL DAP = 0.5252 Gycm2. IMPRESSION: As Above. [facility], , 12/23/2024 6:23 PM
--- NOTE | 2024-12-23 18:32 | XR ---
EXAMINATION TYPE: XR Hip Limited LT DATE OF EXAM: 12/23/2024 CLINICAL INDICATION: Female, 84 years old with history of Status post hip surgery, assess surgical al ignment, hip pain and osteoarthritis. pain. Fracture. TECHNIQUE: Single AP portable view of left hip is obtained immediately postoperatively. COMPARISON: Pelvic and left hip x-ray one day earlier. FINDINGS: Metallic hardware from left hip arthroplasty is seen and appears satisfactory in alignment and position. There is evidence of recent surgery with subcutaneous gas and soft tissue swelling not ed laterally. IMPRESSION: Metallic hardware from left hip arthroplasty is satisfactory in position. [facility], , 12/23/2024 6:30 PM
[2024-12-23] MEDS: TRANEXAMIC 1,000 MG/100ML-NACL 1,000 MG in SALINE 1 100ML.BAG IVPB ONE (21:24)
[2024-12-23] MEDS: SODIUM CHLORIDE 0.9% 1,000 ML IV SCH (22:29)
[2024-12-23] MEDS: SENNOSIDES-DOCUSATE SODIUM 1 EACH TAB PO SCH (22:36)
[2024-12-24] MEDS: HYDROcodone/APAP 5-325MG 1 EACH TAB PO PRN (06:53)
[2024-12-24 08:50] LABS: Basophils # (A) 0.02 X 10*3/uL (0.00-0.10); Basophils % (A) 0.2 %; Eosinophils # (A) 0.04 X 10*3/uL (0.04-0.35); Eosinophils % (A) 0.4 %; HCT 34.9 % (37.2-46.3); HGB 11.5 g/dL (12.0-15.0); Lymphocytes # (A) 0.75 X 10*3/uL (0.90-5.00); Lymphocytes % (A) 7.7 %; MCH 30.3 pg (27.0-32.0); MCV 92.1 FL (80.0-97.0); Mean Platelet Volume 10.8 FL (9.5-12.2); Monocytes # (A) 0.83 X 10*3/uL (0.20-1.00); Monocytes % (A) 8.5 %; NRBC Per 100 WBC 0 X 10*3/uL (0.00-0.01); Neutrophils # (A) 8.02 X 10*3/uL (1.80-7.70); Neutrophils % (A) 82.4 %; Platelet Count 126 X 10*3/uL (140-440); RBC 3.79 X 10*6/uL (4.10-5.20); RDW 12.8 % (11.5-14.5); WBC 9.74 X 10*3/uL (4.50-10.00)
[2024-12-24 09:28] VITALS: RESP 18
--- NOTE | 2024-12-24 12:51 | P.PN ---
Subjective Progress Note Date: 12/24/24 This is an 84-year-old [fe]male who is status post left hip hemiarthroplasty with anterior approach. This is postoperative day #1 and patient is seen and evaluated at bedside today. Patient states that her pain is well-controlled and she denies any new complaints today. Objective - Vital Signs Vital signs: Vital Signs Temp 98.1 F 12/24/24 07:54 Pulse 70 12/24/24 07:54 Resp 18 12/24/24 09:17 BP 113/55 12/24/24 07:54 Pulse Ox 93 L 12/24/24 00:41 FiO2 Intake & Output 12/23/24 12/24/24 12/24/24 18:59 06:59 18:59 Intake Total 1050 Output Total 100 Balance 950 Intake: IV 1050 Output: Estimated Blood Loss 100 Other: Voiding Method Indwelling Catheter Indwelling Catheter Indwelling Catheter # Bowel Movements 1 - Exam Vital signs are stable. Patient is in no acute distress and is alert and o riented 3. Calf is soft and nontender to palpation. Dressing is clean, dry, and intact. Patient has full foot and ankle motion without pain or difficulty. Sensation intact. Neurovascular status and circulatory status are intact. - Labs CBC & Chem 7: 12/24/24 06:06 12/22/24 14:55 Labs: Abnormal Lab Results - Last 24 Hours (Table) 12/24/24 Range/Units 06:06 RBC 3.79 L (4.10-5.20) X 10*6/uL Hgb 11.5 L (12.0-15.0) g/dL Hct 34.9 L (37.2-46.3) % Plt Count 126 L (140-440) X 10*3/uL Immature Gran # 0.08 H (0.00-0.04) X 10*3/uL Neutrophils # 8.02 H (1.80-7.70) X 10*3/uL Lymphocytes # 0.75 L (0.90-5.00) X 10*3/uL Assessment and Plan Assessment: Status post left hip hemiarthroplasty with anterior approach. (1) Fall Current Visit: Yes Status: Acute Code(s): W19.XXXA - UNSPECIFIED FALL, INITIAL ENCOUNTER SNOMED Code(s): 1876644 (2) Subcapital fracture of femur Current Visit: Yes Status: Acute Code(s): S72.019A - UNSP INTRACAPSULAR FRACTURE OF UNSP FEMUR, INIT FOR CLOS FX SNOMED Code(s): 197683512 Plan: Continue routine postop care and pain control. Continue anticoagulation with Eliquis. Weightbearing as tolerated with a walker. Leave dressing in place for 7 days. Appreciate input from internal medicine. Anticipate discharge to ECF in the next 24-48 hours.
--- NOTE | 2024-12-24 14:03 | P.PN ---
Subjective Progress Note Date: 12/24/24 Subjective: Patient was seen and examined at bedside, her son present during exam. She has no active complaints, her pain does not bother her, no chest pain, shortness of breath, abdominal discomfort, troubles with urination. She is status post left hip hemiarthroplasty with an anterior approach, her dressing looks clean and dry, she was sitting in the recliner, plan for SNF in 24 to 48 hours Lab work significant for acute blood loss anemia with hemoglobin 11.5, expected after surgery Pertinent positives and negatives as discussed above, a complete review of systems was performed and all other systems are negative. Vitals Signs Reviewed. General: nontoxic, no distress, appears at stated age Derm: warm, dry, intact Head: atraumatic, normocephalic, symmetric Eyes: EOMI, anicteric sclera Mouth: no lip lesion, mucus membranes moist Cardiovascular: S1 S2 reg, no murmur, rubs, or gallops Lungs: CTA bilateral, no rhonchi, no rales, no accessory muscle use Abdominal: soft, non-tender to palpataion, no appreciable organomegaly Extremities: Left hip tenderness dressing clean and dry, strength 5/5 in all extremities except proximal LLE due to pain, no gross muscle atrophy, no edema, no contractures Neuro: Alert, Oriented, CNII-XII grossly intact, gait normal Psych: well appearing, appropriate affect Data Reviewed Today: Pertinent Labs: CBC remarkable for normal WBC and hemoglobin dropped to 11.5, platelet count 126 Assessment and Plan: Acute blood loss anemia expected after surgery Thrombocytopenia -Monitor CBC -No signs of active bleeding -Can continue with DVT prophylaxis as per orthopedic surgery -Medically stable for discharge Asymptomatic bacteriuria -Monitor off antibiotics Leukocytosis, likely reactive, resolved Status post mechanical fall Left hip fracture status post left hip hemiarthroplasty with an anterior approach 12/23 -Your surgical management, antibiotics, DVT prophylaxis, pain management Objective - Vital Signs Vital signs: Vital Signs Temp 98.0 F 12/24/24 12:50 Pulse 76 12/24/24 12:50 Resp 18 12/24/24 12:50 BP 135/56 12/24/24 12:50 Pulse Ox 93 L 12/24/24 12:50 FiO2 Intake & Output 12/23/24 12/24/24 12/24/24 18:59 06:59 18:59 Intake Total 1050 Output Total 100 300 Balance 950 -300 Intake: IV 1050 Output: Urine 300 Estimated Blood Loss 100 Other: Voiding Method Indwelling Catheter Indwelling Catheter Indwelling Catheter # Bowel Movements 1 - Labs CBC & Chem 7: 12/24/24 06:06 12/22/24 14:55 Labs: Abnormal Lab Results - Last 24 Hours (Table) 12/24/24 Range/Units 06:06 RBC 3.79 L (4.10-5.20) X 10*6/uL Hgb 11.5 L (12.0-15.0) g/dL Hct 34.9 L (37.2-46.3) % Plt Count 126 L (140-440) X 10*3/uL Immature Gran # 0.08 H (0.00-0.04) X 10*3/uL Neutrophils # 8.02 H (1.80-7.70) X 10*3/uL Lymphocytes # 0.75 L (0.90-5.00) X 10*3/uL
[2024-12-24] MEDS: APIXABAN 2.5 MG TABLET PO SCH (20:07)
[2024-12-25 08:18] VITALS: BP 146/72; PULSE 104; TEMP 98.5
--- NOTE | 2024-12-25 08:24 | P.PN ---
Subjective Progress Note Date: 12/25/24 No acute events overnight. Patient is doing well this morning. The pain denies any hip pain at rest. Per nursing staff patient has been denying pain medication during the day but will take in the morning and evening. They have walked to the bathroom with a walker and to person assistance. They deny chest pain or shortness of breath. Objective - Vital Signs Vital signs: Vital Signs Temp 98.5 F 12/25/24 07:39 Pulse 104 H 12/25/24 07:39 Resp 18 12/25/24 07:39 BP 146/72 12/25/24 07:39 Pulse Ox 94 L 12/25/24 08:13 FiO2 Intake & Output 12/24/24 12/25/24 12/25/24 18:59 06:59 18:59 Output Total 300 Balance -300 Output: Urine 300 Other: Voiding Method Indwelling Catheter # Voids 1 3 - Exam Patient was examined at bedside. Patient is resting comfortably in bed. No apparent distress. They are awake, alert and able to answer questions. Inspection: The surgical dressing is intact over the left hip, there is no drainage. The skin surrounding the dressing is free of erythema. There is mild swelling in the operative thigh. Palpation: The operative calf is soft to compression. No calf tenderness. Neurovascular: Operative femoral nerve function is intact. The patient is able to actively plantarflex and dorsiflex their operative ankle and toes. Operative extremity sensation is intact to light touch throughout. Their operative foot appears well perfused, palpable dorsalis pedis pulse, and capillary refill under 2 seconds. - Labs CBC & Chem 7: 12/24/24 06:06 12/22/24 14:55 Labs: Abnormal Lab Results - Last 24 Hours (Table) 12/24/24 Range/Units 06:06 RBC 3.79 L (4.10-5.20) X 10*6/uL Hgb 11.5 L (12.0-15.0) g/dL Hct 34.9 L (37.2-46.3) % Plt Count 126 L (140-440) X 10*3/uL Immature Gran # 0.08 H (0.00-0.04) X 10*3/uL Neutrophils # 8.02 H (1.80-7.70) X 10*3/uL Lymphocytes # 0.75 L (0.90-5.00) X 10*3/uL Assessment and Plan Assessment: 12/23/2024 status post left direct anterior Jose Eduardo hip arthroplasty by Dr. Kyree Villeda. Status post fall Status post left subcapital femoral neck fracture Plan: Continue routine postop care and pain control. Continue anticoagulation with Eliquis. Weightbearing as tolerated with a walker. Leave dressing in place for 7 days. Appreciate input from internal medicine. Anticipate discharge to ECF in the next 24-48 hours.
--- NOTE | 2024-12-25 09:38 | P.DS ---
Providers Date of admission: 12/22/24 16:08 Attending physician: Kyree Villeda Consults: 12/22/24 16:02 Consult Physician Routine Consulting Provider: Rudy Murcia Consult Reason/Comments: med management, hip fx Do you want consulting provider notified?: Yes [facility] care physician[facility] Course: This is a very pleasant 84-year-old female who is status post ground-level fall. In the emergency department x-rays of the hip and pelvis were taken and it was determined the patient had a left subcapital femoral neck fracture. Patient underwent left direct anterior hip hemiarthroplasty by Dr. Kyree Villeda on 12/23/2024. Patient tolerated the procedure well. Patient was transferred to the floor. Patient had severe difficulty ambulating and rehab was recommended at time of discharge. Patient was examined at bedside this morning. Patient's pain has been controlled with oral pain medication. Patient has declined pain medication during the day but will take in the morning and afternoon. She states she has no pain at rest but per nursing staff has pain with ambulation. Patient is prescribed Eliquis for DVT prophylaxis. Assessment: Status post left hip hemiarthroplasty for left subcapital femoral neck fracture on 12/23/2024 Left hip pain, controlled Status post fall Patient Condition at Discharge: Stable Plan - Discharge Summary Discharge Rx Participant: Yes New Discharge Prescriptions: New HYDROcodone/APAP 5-325MG [[place] 5-325] 1 tab PO Q6HR PRN #28 tab PRN Reason: Pain Apixaban [Eliquis] 2.5 mg PO BID 30 Days #60 tab Sennosides [Senokot] 2 tab PO DAILY PRN #60 tablet PRN Reason: Constipation Discharge Medication List Apixaban [Eliquis] 2.5 mg PO BID 30 Days #60 tab 12/24/24 [Rx] HYDROcodone/APAP 5-325MG [[place] 5-325] 1 tab PO Q6HR PRN #28 tab 12/24/24 [Rx] Sennosides [Senokot] 2 tab PO DAILY PRN #60 tablet 12/24/24 [Rx] Follow up Appointment(s)/Referral(s): Kyree Villeda DO [Doctor of Osteopathic Medicine] - 2 Weeks Kyree Franco DO [Primary Care Provider] - 1-2 days Activity/Diet/Wound Care/Special Instructions: Weightbearing as tolerated with walker. Leave dressing intact. Dressing may be removed by home care nurse or by patient in 7 days. Then change dressing twice daily until follow up. May shower with initial dressing intact and after removal. If dressing become saturated, please remove. Please take Eliquis twice daily for 30 days to prevent blood clots. Recommend use of compression stockings daily until follow up to help prevent swelling and blood clots. May remove at night before sleeping. Please follow[facility]up with [facility] in 2 weeks and call with any questions or concerns, . Discharge Disposition: TRANSFER TO SNF/ECF
[2024-12-25 10:42] LABS: Basophils # (A) 0.02 X 10*3/uL (0.00-0.10); Basophils % (A) 0.3 %; Eosinophils # (A) 0.14 X 10*3/uL (0.04-0.35); HCT 33.9 % (37.2-46.3); HGB 11.1 g/dL (12.0-15.0); Lymphocytes # (A) 0.75 X 10*3/uL (0.90-5.00); Lymphocytes % (A) 10.6 %; MCH 30.1 pg (27.0-32.0); MCHC 32.7 g/dL (32.0-37.0); MCV 91.9 FL (80.0-97.0); Mean Platelet Volume 11.2 FL (9.5-12.2); Monocytes # (A) 0.72 X 10*3/uL (0.20-1.00); Monocytes % (A) 10.2 %; NRBC Per 100 WBC 0 X 10*3/uL (0.00-0.01); Neutrophils # (A) 5.38 X 10*3/uL (1.80-7.70); Neutrophils % (A) 76.2 %; Platelet Count 133 X 10*3/uL (140-440); RBC 3.69 X 10*6/uL (4.10-5.20); RDW 12.5 % (11.5-14.5); WBC 7.06 X 10*3/uL (4.50-10.00)
--- NOTE | 2024-12-25 11:34 | P.PN ---
Subjective Progress Note Date: 12/25/24 Subjective: Patient was seen and examined at bedside, her son present during exam. She has no active complaints, her pain does not bother her, no chest pain, shortness of breath, abdominal discomfort, troubles with urination. She is status post left hip hemiarthroplasty with an anterior approach, her dressing looks clean and dry, she was sitting in the recliner, plan for SNF 12/25 Pertinent positives and negatives as discussed above, a complete review of systems was performed and all other systems are negative. Vitals Signs Reviewed. General: nontoxic, no distress, appears at stated age Derm: warm, dry, intact Head: atraumatic, normocephalic, symmetric Eyes: EOMI, anicteric sclera Mouth: no lip lesion, mucus membranes moist Cardiovascular: S1 S2 reg, no murmur, rubs, or gallops Lungs: CTA bilateral, no rhonchi, no rales, no accessory muscle use Abdominal: soft, non-tender to palpataion, no appreciable organomegaly Extremities: Left hip tenderness dressing clean and dry, strength 5/5 in all extremities except proximal LLE due to pain, no gross muscle atrophy, no edema, no contractures Neuro: Alert, Oriented, CNII-XII grossly intact, gait normal Psych: well appearing, appropriate affect Data Reviewed Today: Pertinent Labs: CBC remarkable for normal WBC and stable hemoglobin 11.3, stable platelet count 133 Assessment and Plan: Acute blood loss anemia expected after surgery Thrombocytopenia Stable -No signs of active bleeding -Can continue with DVT prophylaxis as per orthopedic surgery -Medically stable for discharge Asymptomatic bacteriuria -Monitor off antibiotics Leukocytosis, likely reactive, resolved Status post mechanical fall Left hip fracture status post left hip hemiarthroplasty with an anterior approach 12/23 -Your surgical management, antibiotics, DVT prophylaxis, pain management -med rec completed for d/c Objective - Vital Signs Vital signs: Vital Signs Temp 98.5 F 12/25/24 07:39 Pulse 104 H 12/25/24 07:39 Resp 18 12/25/24 07:39 BP 146/72 12/25/24 07:39 Pulse Ox 94 L 12/25/24 08:13 FiO2 Intake & Output 12/24/24 12/25/24 12/25/24 18:59 06:59 18:59 Output Total 300 250 Balance -300 -250 Output: Urine 300 250 Other: Voiding Method Indwelling Catheter Toilet # Voids 1 3 - Labs CBC & Chem 7: 12/25/24 06:19 12/22/24 14:55 Labs: Abnormal Lab Results - Last 24 Hours (Table) 12/25/24 Range/Units 06:19 RBC 3.69 L (4.10-5.20) X 10*6/uL Hgb 11.1 L (12.0-15.0) g/dL Hct 33.9 L (37.2-46.3) % Plt Count 133 L (140-440) X 10*3/uL Immature Gran # 0.05 H (0.00-0.04) X 10*3/uL Lymphocytes # 0.75 L (0.90-5.00) X 10*3/uL
== END 2024-12-25 13:11 | DRG 522 ==
LOC: EC 14:15 → 4SSUR 16:08
PROVIDERS: ADMIT Orthopaedic Surgery; ATTEND Orthopaedic Surgery
PROC: 0SRS0JA Replacement of Left Hip Joint, Femoral Surface with Synthetic Substitute, Uncemented, Open Approach (ICD-10-PCS; principal; 2024-12-23 08:30)
DX: S72.012A Unspecified intracapsular fracture of left femur, initial encounter for closed fracture (principal); D62 Acute posthemorrhagic anemia; D69.6 Thrombocytopenia, unspecified; E78.5 Hyperlipidemia, unspecified; W18.30XA Fall on same level, unspecified, initial encounter; Y92.009 Unspecified place in unspecified non-institutional (private) residence as the place of occurrence of the external cause; D72.829 Elevated white blood cell count, unspecified; Z79.01 Long term (current) use of anticoagulants; K21.9 Gastro-esophageal reflux disease without esophagitis; Z90.49 Acquired absence of other specified parts of digestive tract; Z87.01 Personal history of pneumonia (recurrent); Z88.2 Allergy status to sulfonamides; Z87.891 Personal history of nicotine dependence
CPT/HCPCS: 36415; 71045; 73501; 73502; 80053; 81001; 85025; 85610; 85730; 93005; 94760; 99285

== ENCOUNTER 2025-01-22 07:39 | Inpatient (IN) | payer MEDICARE, BC ==
--- NOTE | 2025-01-22 08:02 | ED ---
General Adult HPI - General Stated complaint: Bowel issue Time Seen by Provider: 01/22/25 07:39 Source: patient, EMS, RN notes reviewed Mode of arrival: EMS Limitations: no limitations - History of Present Illness Initial comments: Patient is an 84-year-old female present to the emergency department with concerns for low oxygen level. Patient reportedly had an oxygen level with saturation in the 80s last night. EMS found similar findings. Patient denies any dyspnea. No chest pain. No abdominal pain. No nausea or vomiting. Patient recently had an abdominal x-ray showing dilated loops of small bowel concerning for ileus versus small bowel obstruction. Patient states she is fine and has no complaints at all. - Related Data Home Medications Medication Instructions Recorded Confirmed Apixaban [Eliquis] 2.5 mg PO BID@0900,2100 01/22/25 01/22/25 HYDROcodone/APAP 5-325MG [[place] 1 tab PO DAILY@0900 01/22/25 01/22/25 5-325] Lactose-Reduced Food [Ensure Plus] 1 can PO DAILY@0900 01/22/25 01/22/25 Ondansetron [Zofran] 4 mg PO Q8H PRN 01/22/25 01/22/25 Sennosides [Senokot] 8.6 mg PO BID@0900,2100 01/22/25 01/22/25 Previous Rx's Medication Instructions Recorded HYDROcodone/APAP 5-325MG [[place] 1 tab PO Q6HR PRN #28 tab 12/24/24 5-325] Allergies Allergy/AdvReac Type Severity Reaction Status Date / Time Sulfa (Sulfonamide Allergy Unknown Unknown Verified 01/22/25 08:00 Antibiotics) Review of Systems ROS Statement: Those systems with pertinent positive or pertinent negative responses have been documented in the HPI. ROS Other: All systems not noted in ROS Statement are negative. Constitutional: Denies: fever Eyes: Denies: eye pain Respiratory: Reports: as per HPI. Denies: cough, dyspnea Cardiovascular: Denies: chest pain Gastrointestinal: Reports: as per HPI. Denies: abdominal pain Musculoskeletal: Denies: back pain Past Medical History Past Medical History: GERD/Reflux, Hyperlipidemia, Pneumonia Additional Past Medical History / Comment(s): PERFORATED BOWEL, STATES "MY STATED I FLAT LINE FOR 8 MIN WHEN I WAS IN THE HOSPITAL IN 2013 AND HAD TO HAVE A TUBE DOWN MY THROAT AND NOW I HAVE A LITTLE TROUBLE WITH MY SPEECH" History of Any Multi-Drug Resistant Organisms: None Reported Past Surgical History: Bowel Resection, Tonsillectomy Additional Past Surgical History / Comment(s): bowel resection 01/23/2014 W/ PEG TUB PLACEMENT, PEG TUBE REMOVAL, rt cataract Past Anesthesia/Blood Transfusion Reactions: No Reported Reaction Past Psychological History: No Psychological Hx Reported Past Alcohol Use History: None Reported Past Drug Use History: None Reported - Past Family History Father Family Medical History: Cancer Additional Family Medical History / Comment(s): PROSTATE Mother Additional Family Medical History / Comment(s): HEART PROBLEMS General Exam Limitations: no limitations General appearance: alert, in no apparent distress Head exam: Present: normocephalic Eye exam: Present: normal appearance Neck exam: Present: normal inspection Respiratory exam: Present: normal lung sounds bilaterally Cardiovascular Exam: Present: irregular rhythm GI/Abdominal exam: Present: soft, tenderness (Mild diffuse tenderness), normal bowel sounds. Absent: pulsatile mass Extremities exam: Present: normal inspection. Absent: pedal edema, calf tenderness Neurological exam: Present: alert. Absent: motor sensory deficit Expanded Patient oriented to: Present: person, place Psychiatric exam: Present: normal affect, normal mood Skin exam: Present: normal color Course Vital Signs 01/22/25 01/22/25 01/22/25 07:42 08:22 08:26 Temperature 97.9 F Pulse Rate 86 Pulse Rate [ Pulse Oximetery ] Respiratory 16 Rate Blood Pressure 115/59 Blood Pressure [Right Arm] O2 Sat by Pulse 100 84 L 97 Oximetry Fraction of Inspired Oxygen (FIO2) 01/22/25 01/22/25 01/22/25 08:33 10:37 13:16 Temperature 97.2 F L Pulse Rate 106 H 70 Pulse Rate [ 114 H Pulse Oximetery ] Respiratory 16 18 14 Rate Blood Pressure 105/64 Blood Pressure 103/50 [Right Arm] O2 Sat by Pulse 87 L 100 Oximetry Fraction of 100 Inspired Oxygen (FIO2) 01/22/25 01/22/25 01/22/25 13:25 13:30 13:45 Temperature Pulse Rate 67 92 Pulse Rate [ Pulse Oximetery ] Respiratory 14 18 Rate Blood Pressure 93/50 Blood Pressure [Right Arm] O2 Sat by Pulse 100 99 Oximetry Fraction of 100 Inspired Oxygen (FIO2) 01/22/25 14:00 Temperature Pulse Rate 101 H Pulse Rate [ Pulse Oximetery ] Respiratory 14 Rate Blood Pressure Blood Pressure [Right Arm] O2 Sat by Pulse 99 Oximetry Fraction of 50 Inspired Oxygen (FIO2) EKG Findings - EKG Results: EKG: interpreted by ERMD (Right axis. Artifact is present.), normal QRS, normal ST/T EKG shows: atrial fibrillation Medical Decision Making - Medical Decision Making See paper chart for continuation of chart as computer system went down - Lab Data Result diagrams: 01/22/25 08:23 01/22/25 08:23 Lab Results 01/22/25 01/22/25 01/22/25 Range/Units 08:23 08:23 08:23 WBC 10.03 H (4.50-10.00) 10*3/uL RBC 6.04 H (4.10-5.20) 10*6/uL Hgb 18.2 H (12.0-15.0) g/dL Hct 53.7 H (37.2-46.3) % MCV 88.9 (80.0-97.0) fL MCH 30.1 (27.0-32.0) pg MCHC 33.9 (32.0-37.0) g/dL Plt Count 213 (140-440) 10*3/uL MPV 10.3 (9.5-12.2) fL Immature Gran % (Auto) 0.3 % Neutrophils % (Manual) 78 % Band Neuts % (Manual) 2 % Lymphocytes % (Manual) 7 % Monocytes % (Manual) 13 % Immature Gran # 0.03 (0.00-0.04) 10*3/uL Neutrophils # (Manual) 8.02 H (1.3-7.7) k/uL Lymphocytes # (Manual) 0.70 L (1.0-4.8) k/uL Monocytes # (Manual) 1.30 H (0-1.0) k/uL Nucleated RBCs 0 (0-0) /100 WBC Manual Slide Review Performed PT 13.0 H (10.0-12.5) sec INR 1.2 H (<1.2) APTT 23.1 (22.0-30.0) sec Sample Site ABG pH (7.35-7.45) ABG pCO2 (35-45) mmHg ABG pO2 (83-108) mmHg ABG HCO3 (21-25) mmol/L ABG Total CO2 (19-24) mmol/L ABG O2 Saturation (94-97) % ABG Base Excess mmol/L Renaldo Test Hemoglobin (11.4-16.0) gm/dL FiO2 % Sodium 132 L (137-145) mmol/L Potassium 4.1 (3.5-5.1) mmol/L Chloride 87 L (98-107) mmol/L Carbon Dioxide 32 H (22-30) mmol/L Anion Gap 13 mmol/L BUN 64 H (7-17) mg/dL Creatinine 1.73 H (0.52-1.04) mg/dL Est GFR (CKD-EPI)AfAm 31 (>60 ml/min/1.73 sqM) Est GFR (CKD-EPI)NonAf 27 (>60 ml/min/1.73 sqM) Glucose 149 H (74-99) mg/dL Lactic Ac Sepsis Rflx Plasma Lactic Acid Rip (0.7-2.0) mmol/L Calcium 8.0 L (8.4-10.2) mg/dL Magnesium 2.1 (1.6-2.3) mg/dL Total Bilirubin 1.8 H (0.2-1.3) mg/dL AST 51 H (14-36) U/L ALT 29 (4-34) U/L Alkaline Phosphatase 49 (38-126) U/L Troponin I (0.000-0.034) ng/mL NT-Pro-B Natriuret Pep 3230 pg/mL Total Protein 5.4 L (6.3-8.2) g/dL Albumin 2.9 L (3.5-5.0) g/dL TSH 1.750 (0.465-4.680) mIU/L Free T4 2.18 (0.78-2.19) ng/dL Influenza Type A (PCR) (Not Detectd) Influenza Type B (PCR) (Not Detectd) RSV (PCR) (Not Detectd) SARS-CoV-2 (PCR) (Not Detectd) 01/22/25 01/22/25 01/22/25 Range/Units 08:23 08:23 08:23 WBC (4.50-10.00) 10*3/uL RBC (4.10-5.20) 10*6/uL Hgb (12.0-15.0) g/dL Hct (37.2-46.3) % MCV (80.0-97.0) fL MCH (27.0-32.0) pg MCHC (32.0-37.0) g/dL Plt Count (140-440) 10*3/uL MPV (9.5-12.2) fL Immature Gran % (Auto) % Neutrophils % (Manual) % Band Neuts % (Manual) % Lymphocytes % (Manual) % Monocytes % (Manual) % Immature Gran # (0.00-0.04) 10*3/uL Neutrophils # (Manual) (1.3-7.7) k/uL Lymphocytes # (Manual) (1.0-4.8) k/uL Monocytes # (Manual) (0-1.0) k/uL Nucleated RBCs (0-0) /100 WBC Manual Slide Review PT (10.0-12.5) sec INR (<1.2) APTT (22.0-30.0) sec Sample Site ABG pH (7.35-7.45) ABG pCO2 (35-45) mmHg ABG pO2 (83-108) mmHg ABG HCO3 (21-25) mmol/L ABG Total CO2 (19-24) mmol/L ABG O2 Saturation (94-97) % ABG Base Excess mmol/L Renaldo Test Hemoglobin (11.4-16.0) gm/dL FiO2 % Sodium (137-145) mmol/L Potassium (3.5-5.1) mmol/L Chloride (98-107) mmol/L Carbon Dioxide (22-30) mmol/L Anion Gap mmol/L BUN (7-17) mg/dL Creatinine (0.52-1.04) mg/dL Est GFR (CKD-EPI)AfAm (>60 ml/min/1.73 sqM) Est GFR (CKD-EPI)NonAf (>60 ml/min/1.73 sqM) Glucose (74-99) mg/dL Lactic Ac Sepsis Rflx Plasma Lactic Acid Rip 4.5 H* (0.7-2.0) mmol/L Calcium (8.4-10.2) mg/dL Magnesium (1.6-2.3) mg/dL Total Bilirubin (0.2-1.3) mg/dL AST (14-36) U/L ALT (4-34) U/L Alkaline Phosphatase (38-126) U/L Troponin I 0.090 H* (0.000-0.034) ng/mL NT-Pro-B Natriuret Pep pg/mL Total Protein (6.3-8.2) g/dL Albumin (3.5-5.0) g/dL TSH (0.465-4.680) mIU/L Free T4 (0.78-2.19) ng/dL Influenza Type A (PCR) Not Detected (Not Detectd) Influenza Type B (PCR) Not Detected (Not Detectd) RSV (PCR) Not Detected (Not Detectd) SARS-CoV-2 (PCR) Not Detected (Not Detectd) 01/22/25 01/22/25 Range/Units 08:25 09:24 WBC (4.50-10.00) 10*3/uL RBC (4.10-5.20) 10*6/uL Hgb (12.0-15.0) g/dL Hct (37.2-46.3) % MCV (80.0-97.0) fL MCH (27.0-32.0) pg MCHC (32.0-37.0) g/dL Plt Count (140-440) 10*3/uL MPV (9.5-12.2) fL Immature Gran % (Auto) % Neutrophils % (Manual) % Band Neuts % (Manual) % Lymphocytes % (Manual) % Monocytes % (Manual) % Immature Gran # (0.00-0.04) 10*3/uL Neutrophils # (Manual) (1.3-7.7) k/uL Lymphocytes # (Manual) (1.0-4.8) k/uL Monocytes # (Manual) (0-1.0) k/uL Nucleated RBCs (0-0) /100 WBC Manual Slide Review PT (10.0-12.5) sec INR (<1.2) APTT (22.0-30.0) sec Sample Site Right Radial ABG pH 7.49 H (7.35-7.45) ABG pCO2 51 H (35-45) mmHg ABG pO2 49 L* (83-108) mmHg ABG HCO3 39 H (21-25) mmol/L ABG Total CO2 40 H (19-24) mmol/L ABG O2 Saturation 83.8 L (94-97) % ABG Base Excess 12.6 mmol/L Renaldo Test Yes Hemoglobin 17.0 H (11.4-16.0) gm/dL FiO2 21 % Sodium (137-145) mmol/L Potassium (3.5-5.1) mmol/L Chloride (98-107) mmol/L Carbon Dioxide (22-30) mmol/L Anion Gap mmol/L BUN (7-17) mg/dL Creatinine (0.52-1.04) mg/dL Est GFR (CKD-EPI)AfAm (>60 ml/min/1.73 sqM) Est GFR (CKD-EPI)NonAf (>60 ml/min/1.73 sqM) Glucose (74-99) mg/dL Lactic Ac Sepsis Rflx Y Plasma Lactic Acid Rip (0.7-2.0) mmol/L Calcium (8.4-10.2) mg/dL Magnesium (1.6-2.3) mg/dL Total Bilirubin (0.2-1.3) mg/dL AST (14-36) U/L ALT (4-34) U/L Alkaline Phosphatase (38-126) U/L Troponin I (0.000-0.034) ng/mL NT-Pro-B Natriuret Pep pg/mL Total Protein (6.3-8.2) g/dL Albumin (3.5-5.0) g/dL TSH (0.465-4.680) mIU/L Free T4 (0.78-2.19) ng/dL Influenza Type A (PCR) (Not Detectd) Influenza Type B (PCR) (Not Detectd) RSV (PCR) (Not Detectd) SARS-CoV-2 (PCR) (Not Detectd) Disposition Clinical Impression: Ischemic bowel disease Disposition: ADMITTED IP TO THIS HOSP Condition: Critical Is patient prescribed a controlled substance at d/c from ED?: No
[2025-01-22 08:27] LABS: ABG Base Excess 12.6 mmol/L; ABG HCO3 39 mmol/L (21-25); ABG Oxygen Saturation 83.8 % (94-97); ABG PCO2 51 mmHg (35-45); ABG PH 7.49 (7.35-7.45); ABG TCO2 40 mmol/L (19-24); Allen Test Performed? Yes
[2025-01-22 08:32] LABS: ABG PO2 49 mmHg (83-108)
[2025-01-22 08:53] LABS: HCT 53.7 % (37.2-46.3); HGB 18.2 g/dL (12.0-15.0); MCH 30.1 pg (27.0-32.0); MCHC 33.9 g/dL (32.0-37.0); MCV 88.9 fL (80.0-97.0); Mean Platelet Volume 10.3 fL (9.5-12.2); Platelet Count 213 10*3/uL (140-440); RBC 6.04 10*6/uL (4.10-5.20); RDW 14.2 % (11.5-14.5); WBC 10.03 10*3/uL (4.50-10.00)
[2025-01-22 08:56] LABS: African American GFR (CKD) 31 (>60 ml/min/1.73 sqM); Anion Gap 13 mmol/L; Blood Urea Nitrogen 64 mg/dL (7-17); Carbon Dioxide 32 mmol/L (22-30); Chloride 87 mmol/L (98-107); Glucose 149 mg/dL (74-99); Magnesium 2.1 mg/dL (1.6-2.3); Non-African American GFR(CKD) 27 (>60 ml/min/1.73 sqM); Sodium 132 mmol/L (137-145); Total Bilirubin 1.8 mg/dL (0.2-1.3)
[2025-01-22 09:04] LABS: NT-Pro-B-Type Natriuretic Pept 3230 pg/mL
[2025-01-22 09:07] LABS: INR 1.2 (<1.2); Partial Thromboplastin Time 23.1 sec (22.0-30.0)
[2025-01-22 09:15] LABS: Influenza A Not Detected (Not Detectd); Influenza B Not Detected (Not Detectd); RSV Not Detected (Not Detectd)
--- NOTE | 2025-01-22 09:17 | XR ---
EXAMINATION TYPE: XR chest 2V DATE OF EXAM: 01/22/2025 9:10 AM COMPARISON: 12/22/2024 CLINICAL INDICATION: Female, 84 years old with history of difficulty breathing, TECHNIQUE: XR chest 2V view(s) obtained. FINDINGS: The heart size is normal. The pulmonary vasculature is normal. The lungs are clear. IMPRESSION: 1. No acute pulmonary process. [facility], Workstation: [facility], 01/22/2025 9:15 AM
[2025-01-22 09:19] LABS: ALT 29 U/L (4-34); AST 51 U/L (14-36); Albumin 2.9 g/dL (3.5-5.0); Alkaline Phosphatase 49 U/L (38-126); Potassium 4.1 mmol/L (3.5-5.1); Total Protein 5.4 g/dL (6.3-8.2)
--- NOTE | 2025-01-22 09:29 | CT ---
EXAMINATION TYPE: CT abdomen pelvis wo con DATE OF EXAM: 01/22/2025 9:09 AM COMPARISON: 01/21/2014 CLINICAL INDICATION: Female, 84 years old with history of abp, history of bowel obstruction, pain TECHNIQUE: Axial images were obtained from above the diaphragm to the pubic rami in the axial plane a t 5 mm thick sections. Reconstructed images are reviewed on the computer in the coronal plane. CONTRAST: mL of . Study performed without Oral Contrast DLP: 529.2 mGycm, Automated exposure control for dose reduction was used. FINDINGS: Limited CT sections are obtained the lung bases. The lung bases are clear. CT ABDOMEN: Some intraluminal air is present in the stomach. Multiple dilated small bowel loops with air fluid levels are present. The sigmoid colon is dilated. Note is made of multiple diverticuli with in the sigmoid colon. Liver: There is some peripheral air within the left lobe liver. Mesenteric ischemia should be conside red. Report was called to the emergency room physician by Dr. Valerio by telephone at the time of int erpretation 0917 hours 01/22/2025. Spleen: Normal Pancreas: Atrophic Adrenal glands: The adrenal glands are normal. Gallbladder: Normal Kidneys: No masses are evident. No hydronephrosis is present. No cysts are present. No renal stone s are identified Aorta: Vascular calcification is within the aorta. Inferior vena cava: Normal. CT PELVIS: Limitation within the pelvis due to beam hardening artifact from left hip prosthesis Multiple dilated small bowel loops with air-fluid levels are present. Stomach appears to have intralu brian gas. There is a left inguinal hernia containing nondilated bowel. This potentially could be res ult of transition no oral contrast was utilized Appendix: Not identified. No dilated tubular structure or inflammatory change and Urinary bladder: Normal but with limited visualization. Genitourinary structures: Uterus and adnexa appear normal Osseous structures: No suspicious lytic or sclerotic lesions. IMPRESSION: 1. Biliary air within the liver with pneumatosis intestinalis within the stomach wall. Mesenteric is chemia should be considered. Report was called to the ER. 2. Dilated fluid-filled small bowel loops. Some of transition may be a left inguinal hernia. [facility], Workstation: [facility], 01/22/2025 9:27 AM
[2025-01-22 10:03] LABS: Band Neutrophils % 2 %; Neutrophils # (M) 8.02 k/uL (1.3-7.7); Neutrophils % (M) 78 %; Nucleated Red Blood Cells 0 /100 WBC (0-0); Total Cells Counted 100
[2025-01-22 10:25] LABS: T4, Free (Free Thyroxine) 2.18 ng/dL (0.78-2.19)
--- NOTE | 2025-01-22 10:48 | P.GSHP ---
History of Present Illness H&P Date: 01/22/25 CHIEF COMPLAINT: Abdominal pain HISTORY OF PRESENT ILLNESS: This is a 84-year-old female who presented with abdominal pain. And she was having low oxygen per ER report. Patient has history of dementia unable to obtain history from her. She is currently at [facility] on the [place] for rehab for her recent left hip replacement. She is on Eliquis for that left hip. Last dose of Eliquis was last night. She has been having nausea and vomiting for the last 3 days with abdominal pain. The son reports is unsure if she has been having diarrhea or no bowel movement. He notes that she had multiple bowel movements on Saturday when he saw her. There is been no reports of blood noted in the stool. She does have a history of a perforated bowel with bowel resection in 2013. Patient is CT scan abdomen and pelvis completed that reported biliary air within the liver with pneumatosis intestinalis within the stomach wall. Mesenteric ischemia should be considered. Dilated fluid-filled small bowel loops. Some of transition may be in left inguinal hernia. PAST MEDICAL HISTORY: GERD, hyperlipidemia, pneumonia, perforated bowel. PAST SURGICAL HISTORY: Bowel resection 2013, PEG tube with PEG tube removal, Tonsillectomy MEDICATIONS: See below ALLERGIES: See below SOCIAL HISTORY: No illicit drug use. REVIEW OF SYSTEMS: CONSTITUTIONAL: Denies fever or chills. HEENT: Denies blurred vision, vision changes, or eye pain. Denies hemoptysis CARDIOVASCULAR: Denies chest pain or pressure. RESPIRATORY: No shortness of breath. GASTROINTESTINAL: See HPI for pertinent findings HEMATOLOGIC: Denies bleeding disorders. GENITOURINARY: Denies any blood in urine or increased urinary frequency. SKIN: Denies pruitis. Denies rash. PHYSICAL EXAM: VITAL SIGNS: Reviewed GENERAL: Well-developed in no acute distress. HEENT: No sclera icterus. Extraocular movements grossly intact. Moist buccal mucosa. Head is atraumatic, normocephalic. No nasal drainage. ABDOMEN: Soft. Distended. Tenderness palpation lower abdomen. Old midline scar. No guarding noted NEUROLOGIC: Awake and alert. Pleasantly confused. LABORATORY DATA: WBC 10.03 Hgb 18.2 platelets 213 INR 1.2 Sodium is 132 potassium 4.1 creatinine 1.73 Lactic acid 4.5 magnesium is 2.1 total bilirubin is 1.8 AST 51 ALT 29 alk phos 4 9 Troponin 0.090 BNP 3230 IMAGING: CT scan abdomen pelvis reports of biliary air within the liver with pneumatosis intestinalis within the stomach wall. Mesenteric ischemia should be considered. Dilated fluid-filled small bowel loops. Some of transition may be at left inguinal hernia. ASSESSMENT: 1. Abdominal pain with CT scan reporting biliary air within the liver with pneumatosis intestinalis within the stomach wall. Mesenteric ischemia should be considered PLAN: - Patient scheduled for exploratory laparotomy today with Dr. Stone Physician Aviculturist note has been reviewed by physician. Signing provider agrees with the documented findings, assessment, and plan of care. Past Medical History Past Medical History: GERD/Reflux, Hyperlipidemia, Pneumonia Additional Past Medical History / Comment(s): PERFORATED BOWEL, STATES "MY STATED I FLAT LINE FOR 8 MIN WHEN I WAS IN THE HOSPITAL IN 2013 AND HAD TO HAVE A TUBE DOWN MY THROAT AND NOW I HAVE A LITTLE TROUBLE WITH MY SPEECH" History of Any Multi-Drug Resistant Organisms: None Reported Past Surgical History: Bowel Resection, Tonsillectomy Additional Past Surgical History / Comment(s): bowel resection 01/23/2014 W/ PEG TUB PLACEMENT, PEG TUBE REMOVAL, rt cataract Past Anesthesia/Blood Transfusion Reactions: No Reported Reaction Past Psychological History: No Psychological Hx Reported Past Alcohol Use History: None Reported Past Drug Use History: None Reported - Past Family History Father Family Medical History: Cancer Additional Family Medical History / Comment(s): PROSTATE Mother Additional Family Medical History / Comment(s): HEART PROBLEMS Medications and Allergies Home Medications Medication Instructions Recorded Confirmed Type Apixaban [Eliquis] 2.5 mg PO BID 30 Days #60 tab 12/24/24 Rx HYDROcodone/APAP 5-325MG [[place] 1 tab PO Q6HR PRN #28 tab 12/24/24 Rx 5-325] Sennosides [Senokot] 2 tab PO DAILY PRN #60 tablet 12/24/24 Rx Allergies Allergy/AdvReac Type Severity Reaction Status Date / Time Sulfa (Sulfonamide Allergy Unknown Unknown Verified 01/22/25 08:00 Antibiotics) Surgical - Exam Vital Signs Temp Pulse Resp BP Pulse Ox 97.9 F 86 16 115/59 100 01/22/25 07:42 01/22/25 07:42 01/22/25 07:42 01/22/25 07:42 01/22/25 07:42 Results - Labs 01/22/25 08:23 01/22/25 08:23 Abnormal Lab Results - Last 24 Hours (Table) 01/22/25 01/22/25 01/22/25 Range/Units 08:23 08:23 08:23 WBC 10.03 H (4.50-10.00) 10*3/uL RBC 6.04 H (4.10-5.20) 10*6/uL Hgb 18.2 H (12.0-15.0) g/dL Hct 53.7 H (37.2-46.3) % Neutrophils # (Manual) 8.02 H (1.3-7.7) k/uL Lymphocytes # (Manual) 0.70 L (1.0-4.8) k/uL Monocytes # (Manual) 1.30 H (0-1.0) k/uL PT 13.0 H (10.0-12.5) sec INR 1.2 H (<1.2) ABG pH (7.35-7.45) ABG pCO2 (35-45) mmHg ABG pO2 (83-108) mmHg ABG HCO3 (21-25) mmol/L ABG Total CO2 (19-24) mmol/L ABG O2 Saturation (94-97) % Hemoglobin (11.4-16.0) gm/dL Sodium 132 L (137-145) mmol/L Chloride 87 L (98-107) mmol/L Carbon Dioxide 32 H (22-30) mmol/L BUN 64 H (7-17) mg/dL Creatinine 1.73 H (0.52-1.04) mg/dL Glucose 149 H (74-99) mg/dL Plasma Lactic Acid Rip (0.7-2.0) mmol/L Calcium 8.0 L (8.4-10.2) mg/dL Total Bilirubin 1.8 H (0.2-1.3) mg/dL Troponin I (0.000-0.034) ng/mL 01/22/25 01/22/25 01/22/25 Range/Units 08:23 08:23 08:25 WBC (4.50-10.00) 10*3/uL RBC (4.10-5.20) 10*6/uL Hgb (12.0-15.0) g/dL Hct (37.2-46.3) % Neutrophils # (Manual) (1.3-7.7) k/uL Lymphocytes # (Manual) (1.0-4.8) k/uL Monocytes # (Manual) (0-1.0) k/uL PT (10.0-12.5) sec INR (<1.2) ABG pH 7.49 H (7.35-7.45) ABG pCO2 51 H (35-45) mmHg ABG pO2 49 L* (83-108) mmHg ABG HCO3 39 H (21-25) mmol/L ABG Total CO2 40 H (19-24) mmol/L ABG O2 Saturation 83.8 L (94-97) % Hemoglobin 17.0 H (11.4-16.0) gm/dL Sodium (137-145) mmol/L Chloride (98-107) mmol/L Carbon Dioxide (22-30) mmol/L BUN (7-17) mg/dL Creatinine (0.52-1.04) mg/dL Glucose (74-99) mg/dL Plasma Lactic Acid Rip 4.5 H* (0.7-2.0) mmol/L Calcium (8.4-10.2) mg/dL Total Bilirubin (0.2-1.3) mg/dL Troponin I 0.090 H* (0.000-0.034) ng/mL Diabetes panel 01/22/25 Range/Units 08:23 Sodium 132 L (137-145) mmol/L Chloride 87 L (98-107) mmol/L Carbon Dioxide 32 H (22-30) mmol/L BUN 64 H (7-17) mg/dL Creatinine 1.73 H (0.52-1.04) mg/dL Glucose 149 H (74-99) mg/dL Calcium 8.0 L (8.4-10.2) mg/dL Thyroid panel 01/22/25 Range/Units 08:23 TSH 1.750 (0.465-4.680) mIU/L Calcium panel 01/22/25 Range/Units 08:23 Calcium 8.0 L (8.4-10.2) mg/dL Pituitary panel 01/22/25 Range/Units 08:23 Sodium 132 L (137-145) mmol/L Chloride 87 L (98-107) mmol/L Carbon Dioxide 32 H (22-30) mmol/L BUN 64 H (7-17) mg/dL Creatinine 1.73 H (0.52-1.04) mg/dL Glucose 149 H (74-99) mg/dL Calcium 8.0 L (8.4-10.2) mg/dL TSH 1.750 (0.465-4.680) mIU/L Adrenal panel 01/22/25 Range/Units 08:23 Sodium 132 L (137-145) mmol/L Chloride 87 L (98-107) mmol/L Carbon Dioxide 32 H (22-30) mmol/L BUN 64 H (7-17) mg/dL Creatinine 1.73 H (0.52-1.04) mg/dL Glucose 149 H (74-99) mg/dL Calcium 8.0 L (8.4-10.2) mg/dL Total Bilirubin 1.8 H (0.2-1.3) mg/dL
[2025-01-22] MEDS: IV FLUID CONTINUATION 1,000 ML IV ONE ×8 (10:49→11:59)
[2025-01-22] MEDS ORDERED: ROCURONIUM 10 MG/ML (5 ML VIAL) IV ONE (11:00)
[2025-01-22] MEDS ORDERED: fentaNYL (PF) 50 MCG/ML 2 ML AMP ONE (11:00)
[2025-01-22] MEDS ORDERED: SUCCINYLCHOLINE CHLORIDE 200 MG/10 ML VIAL IV ONE (11:00)
[2025-01-22] MEDS ORDERED: PROPOFOL 10 MG/ML 20 ML VIAL IV ONE (11:00)
[2025-01-22] MEDS ORDERED: PHENYLEPHRINE 10 MG/ML VIAL ONE (11:00)
[2025-01-22] MEDS ORDERED: LIDOCAINE 1% INJ 10MG/ML (20 ML MDV) ONE (11:00)
[2025-01-22] MEDS: LACTATED RINGERS 1,000 ML BAG IV STA (11:56)
--- NOTE | 2025-01-22 12:32 | P.OP ---
Date of Procedure: 01/22/25 Preoperative Diagnosis: ischemic bowel Acute abdomen Postoperative Diagnosis: strangulated right inguinal hernia Ischemic small bowel Left we will hernia Incisional hernia Procedure(s) Performed: repair of strangulated right inguinal hernia with small bowel resection Repair of left internal hernia Repair of incisional hernia Anesthesia: JADIEL Surgeon: Fam Stoen Estimated Blood Loss (ml): 25 Pathology: other (infarcted small bowel) Condition: stable Disposition: ICU Description of Procedure: patient was placed on the operative table in supine position. She had been fluid resuscitated by anesthesia. Anesthesia placed arterial lines and central venous catheter.fashion. Patient had obvious incisional hernia.her abdomen was prepped and draped usual sterile fashion. The abdomen was entered through midline incision. The small bowel appeared be dilated and mildly ischemic. The Bookwalter specimen. The small bowel was run down and in the right lower quadrant there was an incarcerated inguinal hernia. Small bowel was reduced. The small bowel appeared to be strangulate it. There was also a left internal hernia palpated. At this point a smaller sections performed. The ischemic segment of small bowel was divided proximally distally using LIZETH stapler. Using the Enseal device the mesentery the bowel was divided. Specimens of pathology. and then using LIZETH and TA staplers a [id number] functional end-to-end staple anastomosis created. 3-0 GI silk sutures using a crotch stitch. The window in the mesentery was closed with 3-0 GI silk suture. The right inguinal hernia was then repaired. The peritoneum was elevated over top the hernia. The hernia sac was reduced. And then using the 3-D Max Prolene mesh this was inserted into the [id number]. Space was then closed by closing the peritoneum with 3-0 Vicryl. The left internal hernia was repaired in identical fashion using the 3-D Max Prolene mesh. The abdomen was irrigated there is no bleeding seen. The bowel appeared viable. The fascia was closed with looped #1 PDS suture. The incisional hernia was repaired. The fascial closure. Skin was closed farhat. Patient was sent to the ICU in critical condition on the ventilator.
[2025-01-22 13:19] LABS: Glucose,Whole Blood 104 mg/dL (70-110)
--- NOTE | 2025-01-22 13:25 | P.ANPRN ---
Procedure Note - Anesthesia - Invasive Line Right Arterial Line Time Out Performed: Yes (1114) Date of Procedure: 01/22/25 Time of Procedure: 11:15 Location of Patient: OR Preparation: Sterile Prep, Sterile Dressing Arterial Line Location: Briachial (right) Ultrasound Used: Yes Purpose - Visualization and Identification of Vasculature: Yes Needle Guage: 20g Image Stored and Saved: Yes Narrative: Invasive line placement per sterile protocol utilized. Left brachial art line placed in 1 attempt with ultrasound. Left radial was attempted x 3 with no avail. Lumen was blood and flushed. Secured and dressed
--- NOTE | 2025-01-22 13:26 | P.ANPRN ---
Procedure Note - Anesthesia - Invasive Line Right Central Line Time Out Performed: Yes (1240) Date of Procedure: 01/22/25 Time of Procedure: 12:41 Location of Patient: OR Preparation: Sterile Prep, Sterile Dressing Central Line Location: Internal Jugular (Right) Ultrasound Used: Yes Purpose - Visualization and Identification of Vasculature: Yes Needle Guage: 18-gauge Image Stored and Saved: Yes Narrative: Invasive line placement per sterile protocol utilized. Anesthesia note Procedure: Right internal jugular central venous catheter insertion: Triple- lumen catheter Sterile protocol followed. Right neck prepped. Ultrasound used. Lidocaine 1% used. Using ultrasound local anesthetic was instilled site over right Internal Jugular vein. Angiocath was used to gain access via ultrasound. Once free flow non-pulsatile blood flow was confirmed, 12 inch extension tubing was then placed on Angiocath. Once central venous pressure was confirmed, J-wire was then placed through Angiocath. Angiocath was then withdrawn. Local was instilled at J-wire site. Small skin jill was then made with provided sterile scalpel. IJ triple-lumen catheter was then inserted over the wire while maintaining control of wire at all times after Uneventful dilation. Free flow nonpulsatile blood flow through catheter. Secured with suture. Dressings applied. Drapes Removed. Attempts x1.
[2025-01-22] MEDS ORDERED: NALOXONE 0.4 MG/ML 1 ML VIAL IV PRN (13:29)
[2025-01-22] MEDS: NOREPINEPHRINE 4 MG in SODIUM CHLORIDE 0.9% 250 ML IV SCH (13:57)
[2025-01-22] MEDS: LACTATED RINGERS 1,000 ML IV SCH (13:59)
[2025-01-22 14:02] LABS: ABG HCO3 31 mmol/L (21-25); ABG Oxygen Saturation >100.0 % (94-97); ABG PCO2 43 mmHg (35-45); ABG PH 7.46 (7.35-7.45); ABG PO2 341 mmHg (83-108); ABG TCO2 32 mmol/L (19-24)
[2025-01-22 14:04] LABS: Allen Test Performed? no
--- NOTE | 2025-01-22 14:10 | XR ---
EXAMINATION TYPE: XR chest 1V portable DATE OF EXAM: 01/22/2025 2:04 PM COMPARISON: Chest radiographs from 01/22/2025 TECHNIQUE: XR chest 1V portable Portable AP radiograph of the chest. CLINICAL INDICATION:Female, 84 years old with history of sob; FINDINGS: Lungs/Pleura: There is no evidence of pleural effusion, focal consolidation, or pneumothorax. Pulmonary vascularity: Unremarkable. Heart/mediastinum: Cardiomediastinal silhouette is unremarkable. Atherosclerotic calcifications are seen in the aorta. Musculoskeletal: No acute osseous pathology. Other findings: None Lines/Tubes: Endotracheal tube with distal tip 0.3 cm above the tess Nasogastric tube with its distal tip and side-port projecting under the diaphragm. Right IJ central venous catheter with distal tip terminating at the mid SVC. IMPRESSION: Support lines and tubes as described above. Recommend retraction of the endotracheal tube approximate ly 1 cm. [facility], , 01/22/2025 2:08 PM
[2025-01-22 14:54] LABS: HCT 44.4 % (37.2-46.3); MCH 30.4 pg (27.0-32.0); MCV 89.5 fL (80.0-97.0); Mean Platelet Volume 10.8 fL (9.5-12.2); Platelet Count 201 10*3/uL (140-440); RBC 4.96 10*6/uL (4.10-5.20); RDW 14.2 % (11.5-14.5); WBC 7.54 10*3/uL (4.50-10.00)
[2025-01-22 14:57] LABS: HGB 15.1 g/dL (12.0-15.0)
[2025-01-22 15:05] LABS: African American GFR (CKD) 30 (>60 ml/min/1.73 sqM); Anion Gap 8 mmol/L; Blood Urea Nitrogen 61 mg/dL (7-17); Calcium 7.2 mg/dL (8.4-10.2); Carbon Dioxide 28 mmol/L (22-30); Chloride 98 mmol/L (98-107); Glucose 137 mg/dL (74-99); Non-African American GFR(CKD) 26 (>60 ml/min/1.73 sqM); Potassium 3.3 mmol/L (3.5-5.1); Sodium 134 mmol/L (137-145)
[2025-01-22] MEDS ORDERED: Potassium Replacement Protocol 1 EACH MISC MISCELLANE PRN (15:15)
[2025-01-22 15:17] LABS: Band Neutrophils % 3 %; Lymphocytes # (M) 1.06 k/uL (1.0-4.8); Monocytes # (M) 0.23 k/uL (0-1.0); Neutrophils # (M) 6.25 k/uL (1.3-7.7); Neutrophils % (M) 80 %; Nucleated Red Blood Cells 0 /100 WBC (0-0); Total Cells Counted 100
[2025-01-22] MEDS: POTASSIUM CHLORIDE 20 MEQ in WATER FOR INJECTION 1 100ML.BAG IVPB SCH (15:39)
--- NOTE | 2025-01-22 15:50 | P.CNPUL ---
History of Present Illness Consult date: 01/22/25 Chief complaint: Acute abdomen History of present illness: This is a 84-year-old female patient who presented to the emergency department with acute abdomen. The patient had abdominal pain and she had a CT scan of the abdomen and pelvis done in the Emergency Department that showed evidence of biliary air within the liver with pneumatosis intestinalis within the stomach wall. Patient also had dilated fluid-filled small bowel and transition at the left inguinal hernia level. Based on that, the patient was taken to the operating room. Noted the patient had a DNR/DNI CODE STATUS. The CODE STATUS was switched for the sake of the procedure and she was placed on a full code. In the operating room, the patient underwent a exploratory laparotomy and the patient was found to have strangulated right inguinal hernia, ischemic small bowel and incisional hernia. The patient underwent a repair of the strangulated right inguinal hernia with small bowel resection and repair of the left internal hernia repair of the incisional hernia. Estimated blood loss was 20 cc. Noted postop, the patient was kept intubated and she was brought into the intensive care unit for further monitoring. At this point in time, the patient remains intubated on the mechanical ventilator. She is on propofol running at 55 mcg/kg/min. She has already received a total of 2 L of IV fluids and she is currently on lactated Ringer at rate of 150 cc an hour. The patient is on a rate of 14, tidal volume of 400, FiO2 of 100% with a PEEP of 5. The blood gases showed a pH of 7.46 with a YLV717 and PO2 of 341. Chest x-ray postop showed adequate expansion of both lungs. Orotracheal tube was just above the tess. NG tube was in place. No airspace disease. No consolidation. No pneumothorax. No pleural effusion. No noted air under the diaphragm. The patient is currently on no pressors. Hemodynamically stable. She is on no antibiotics for now. Blood work from this morning showed a WBC count of 10, hemoglobin of 18 and a platelet count of 213. Sodium is at 132, BUN 64 with a creatinine of 1.7 and a potassium level of 4.1 and a chloride is 87 with a bicarb level of 32. Initial lactic acid level was at 4.5. proBNP level is 3230. TSH was 1.7 with a free T4 of 2.1. The viral screen was negative. LFTs were normal. Troponin was 0.09. Review of Systems ROS unobtainable: due to endotracheal tube Past Medical History Past Medical History: GERD/Reflux, Hyperlipidemia, Pneumonia Additional Past Medical History / Comment(s): PERFORATED BOWEL, STATES "MY STATED I FLAT LINE FOR 8 MIN WHEN I WAS IN THE HOSPITAL IN 2013 AND HAD TO HAVE A TUBE DOWN MY THROAT AND NOW I HAVE A LITTLE TROUBLE WITH MY SPEECH" History of Any Multi-Drug Resistant Organisms: None Reported Past Surgical History: Bowel Resection, Tonsillectomy Additional Past Surgical History / Comment(s): bowel resection 01/23/2014 W/ PEG TUB PLACEMENT, PEG TUBE REMOVAL, rt cataract Past Anesthesia/Blood Transfusion Reactions: No Reported Reaction Past Psychological History: No Psychological Hx Reported Past Alcohol Use History: None Reported Past Drug Use History: None Reported - Past Family History Father Family Medical History: Cancer Additional Family Medical History / Comment(s): PROSTATE Mother Additional Family Medical History / Comment(s): HEART PROBLEMS Medications and Allergies Home Medications Medication Instructions Recorded Confirmed Type HYDROcodone/APAP 5-325MG [[place]rae [place] 1 tab PO Q6HR PRN #28 tab 12/24/24 01/22/25 Rx 5-325] Apixaban [Eliquis] 2.5 mg PO BID@0900,2100 01/22/25 01/22/25 History HYDROcodone/APAP 5-325MG [[place]rae [place] 1 tab PO DAILY@0900 01/22/25 01/22/25 History 5-325] Lactose-Reduced Food [Ensure Plus] 1 can PO DAILY@0900 01/22/25 01/22/25 History Ondansetron [Zofran] 4 mg PO Q8H PRN 01/22/25 01/22/25 History Sennosides [Senokot] 8.6 mg PO BID@0900,2100 01/22/25 01/22/25 History Allergies Allergy/AdvReac Type Severity Reaction Status Date / Time Sulfa (Sulfonamide Allergy Unknown Unknown Verified 01/22/25 08:00 Antibiotics) Physical Exam Vitals: Vital Signs Temp Pulse Pulse Resp BP BP Pulse Ox 01/22/25 14:00 101 H 14 99 01/22/25 13:45 92 18 99 01/22/25 13:30 67 14 93/50 100 01/22/25 13:25 04/25/25 13:16 70 14 100 01/22/25 10:37 97.2 F L 114 H 18 103/50 87 L 01/22/25 08:33 106 H 16 105/64 01/22/25 08:26 97 01/22/25 08:22 84 L 01/22/25 07:42 97.9 F 86 16 115/59 100 FiO2 01/22/25 14:00 50 01/22/25 13:45 01/22/25 13:30 01/22/25 13:25 100 01/22/25 13:16 100 01/22/25 10:37 01/22/25 08:33 01/22/25 08:26 01/22/25 08:22 01/22/25 07:42 Intake and Output 01/21/25 01/22/25 01/22/25 22:59 06:59 14:59 Intake Total 3113.083 Output Total 1430 Balance 1683.083 Intake: IV 3100 Lactated Ringers 1,000 ml 300 @ 150 mls/hr IV .Q6H40M DOM Rx#:[id number] Intake, IV Titration 13.083 Amount Norepinephrine 4 mg In 2.232 Sodium Chloride 0.9% 250 ml @ 0.03 MCG/KG/MIN 6. 377 mls/hr IV .Q24H DOM Rx#:[id number] propofoL 1,000 mg In 10.851 Empty Bag 1 bag @ 15 MCG/ KG/MIN 5.021 mls/hr IV . [id number] DOM Rx#:[id number] Output: Gastric Drainage 1200 Urine 205 Estimated Blood Loss 25 Other: Weight 55.792 kg ABP, PAP, CO, CI - Last 8 Hours Arterial Blood Pressure 80/43 Arterial Blood Pressure 126/70 Arterial Blood Pressure 98/41 The patient appeared well nourished and normally developed. Vital signs as documented. The patient is calm and comfortable, sedated on propofol. Orog astric and orotracheal tube are both in place. Head exam is unremarkable. No scleral icterus or corneal arcus noted. Neck is without jugular venous distension, thyromegaly, or carotid bruits. Carotid upstrokes are brisk bilaterally. Lungs are clear to auscultation and percussion. Cardiac exam reveals the PMI to be normally sized and situated. Rhythm is regular. First and second heart sounds normal. No murmurs, rubs or gallops. Abdominal exam reveals no masses, no organomegaly and no aortic enlargement. The patient has a mid abdominal incision with a wound VAC being placed. Bowel sounds are absent. Extremities are nonedematous and both femoral and pedal pulses are normal. Examination of the skin revealed no evidence of significant rashes, suspicious appearing nevi or other concerning lesions. Neurologically, the patient is a sedated. The patient apparently has an underlying dementia. Results - Laboratory Findings CBC and BMP: 01/22/25 14:37 01/22/25 14:37 ABG ABG pH 7.46 (7.35-7.45) H 01/22/25 13:57 ABG pCO2 43 mmHg (35-45) 01/22/25 13:57 ABG pO2 341 mmHg (83-108) H 01/22/25 13:57 ABG O2 Saturation >100.0 % (94-97) H 01/22/25 13:57 PT/INR, D-dimer PT 13.0 sec (10.0-12.5) H 01/22/25 08:23 INR 1.2 (<1.2) H 01/22/25 08:23 Abnormal lab findings: Abnormal Labs 01/22/25 01/22/25 01/22/25 08:23 08:23 08:23 WBC 10.03 H RBC 6.04 H Hgb 18.2 H Hct 53.7 H Neutrophils # (Manual) 8.02 H Lymphocytes # (Manual) 0.70 L Monocytes # (Manual) 1.30 H PT 13.0 H INR 1.2 H ABG pH ABG pCO2 ABG pO2 ABG HCO3 ABG Total CO2 ABG O2 Saturation Hemoglobin Sodium 132 L Chloride 87 L Carbon Dioxide 32 H BUN 64 H Creatinine 1.73 H Glucose 149 H Plasma Lactic Acid Rip Calcium 8.0 L Total Bilirubin 1.8 H AST 51 H Troponin I Total Protein 5.4 L Albumin 2.9 L 01/22/25 01/22/25 01/22/25 08:23 08:23 08:25 WBC RBC Hgb Hct Neutrophils # (Manual) Lymphocytes # (Manual) Monocytes # (Manual) PT INR ABG pH 7.49 H ABG pCO2 51 H ABG pO2 49 L* ABG HCO3 39 H ABG Total CO2 40 H ABG O2 Saturation 83.8 L Hemoglobin 17.0 H Sodium Chloride Carbon Dioxide BUN Creatinine Glucose Plasma Lactic Acid Rip 4.5 H* Calcium Total Bilirubin AST Troponin I 0.090 H* Total Protein Albumin 01/22/25 13:57 WBC RBC Hgb Hct Neutrophils # (Manual) Lymphocytes # (Manual) Monocytes # (Manual) PT INR ABG pH 7.46 H ABG pCO2 ABG pO2 341 H ABG HCO3 31 H ABG Total CO2 32 H ABG O2 Saturation >100.0 H Hemoglobin Sodium Chloride Carbon Dioxide BUN Creatinine Glucose Plasma Lactic Acid Rip Calcium Total Bilirubin AST Troponin I Total Protein Albumin - Diagnostic Findings Chest x-ray: image reviewed Assessment and Plan Plan: Acute abdomen, related to strangulated right with small bowel resection and repair of a with ischemic small bowel and the patient was found to have an incisional hernia. The patient is post expiratory laparotomy with repair of a strangulated right inguinal hernia with small bowel resection and repair of a left internal hernia and repair of an incisional hernia. The patient is currently postop day #0. Estimated blood loss is 25 cc. Patient was kept intubated on the mechanical ventilator. The patient is currently hemodynamically stable on no pressors. Received IV fluids. Acute respiratory failure, nonhypoxic and the patient was kept intubated on mechanical ventilator postop. Acute leukocytosis secondary to above Acute kidney injury Acute lactic acidosis secondary to above Mild troponin leak secondary to sepsis, type II myocardial ischemia Dementia History of paroxysmal atrial fibrillation current rhythm is sinus and the patient has been taking Eliquis on outpatient basis Hyperlipidemia History of fall and the patient was undergoing rehabilitation at the [facility] on the [place] post left hip fracture Previous history of bowel resection back in 2013 for a bowel perforation requiri ng subsequent PEG tube insertion and removal Plan Continue vent support Wean down FiO2 as tolerated to maintain saturation above 90% Continue lactated Ringer at rate of 150 cc an hour start the patient on IV Zosyn as an empiric antibiotic coverage Pressors if needed Monitor renal function urine output Keep the patient n.p.o. for now Hold anticoagulants and put the patient on heparin subcu for DVT prophylaxis Condition remains critical and will continue to follow make further recommendations based on the progress. Time with Patient: Greater than 30
[2025-01-22] MEDS: IPRATROPIUM-ALBUTEROL 3 ML NEB INHALATION SCH (16:28)
[2025-01-22] MEDS: HEPARIN SODIUM,PORCINE 5,000 UNIT/ML 1 ML VIAL SQ SCH (16:52)
[2025-01-22] MEDS: PIPERACILLIN-TAZOBACTAM 3.375 GM in SODIUM CHLORIDE 0.9% 100 ML IVPB SCH (16:58)
[2025-01-22] MEDS: AMIODARONE 360 MG in DEXTROSE 5% IN WATER 200 ML IV ONE (17:07)
[2025-01-22] MEDS: DEXTROSE 5% IN WATER 100 ML with AMIODARONE 150 MG IV ONE (17:08)
[2025-01-22] MEDS: SODIUM CHLORIDE 0.9% 1,000 ML IV ONE ×2 (17:30→21:44)
[2025-01-22 18:22] LABS: Glucose,Whole Blood 99 mg/dL (70-110)
[2025-01-22 22:18] LABS: ALT 18 U/L (4-34); AST 24 U/L (14-36); African American GFR (CKD) 26 (>60 ml/min/1.73 sqM); Albumin 1.7 g/dL (3.5-5.0); Alkaline Phosphatase 36 U/L (38-126); Anion Gap 7 mmol/L; Blood Urea Nitrogen 57 mg/dL (7-17); Calcium 6.8 mg/dL (8.4-10.2); Carbon Dioxide 25 mmol/L (22-30); Chloride 101 mmol/L (98-107); Glucose 156 mg/dL (74-99); Non-African American GFR(CKD) 23 (>60 ml/min/1.73 sqM); Potassium 4.1 mmol/L (3.5-5.1); Sodium 133 mmol/L (137-145); Total Bilirubin 1.4 mg/dL (0.2-1.3); Total Protein 3.4 g/dL (6.3-8.2)
[2025-01-22 22:19] LABS: HCT 40.3 % (37.2-46.3); HGB 13.7 g/dL (12.0-15.0); MCH 30.8 pg (27.0-32.0); MCV 90.6 fL (80.0-97.0); Mean Platelet Volume 11.6 fL (9.5-12.2); Platelet Count 198 10*3/uL (140-440); RBC 4.45 10*6/uL (4.10-5.20); WBC 13.51 10*3/uL (4.50-10.00)
[2025-01-22] MEDS: CHLORHEXIDINE GLUCONATE 15 ML CUP MUCOUS MEM SCH (22:40)
[2025-01-22] MEDS: AMIODARONE 450 MG in DEXTROSE 5% IN WATER 250 ML IV SCH (22:40)
[2025-01-22 22:49] LABS: Band Neutrophils % 78 %; Lymphocytes # (M) 0.95 k/uL (1.0-4.8); Monocytes # (M) 0.14 k/uL (0-1.0); Neutrophils # (M) 12.42 k/uL (1.3-7.7); Neutrophils % (M) 14 %; Nucleated Red Blood Cells 0 /100 WBC (0-0); Total Cells Counted 200; Toxic Granulation Present; Toxic Vacuolation Present
[2025-01-22] MEDS: HYDROmorphone 2 MG/ML 1 ML SYRINGE IVP PRN (22:56)
[2025-01-23 00:14] LABS: Glucose,Whole Blood 205 mg/dL (70-110)
[2025-01-23 05:11] LABS: ABG Base Excess 0.4 mmol/L; ABG HCO3 27 mmol/L (21-25); ABG Oxygen Saturation 96.4 % (94-97); ABG PCO2 50 mmHg (35-45); ABG PH 7.34 (7.35-7.45); ABG PO2 86 mmHg (83-108); ABG TCO2 28 mmol/L (19-24)
[2025-01-23 05:12] LABS: Allen Test Performed? No
[2025-01-23 05:30] LABS: HCT 39.8 % (37.2-46.3); HGB 13.2 g/dL (12.0-15.0); MCH 30.3 pg (27.0-32.0); MCHC 33.2 g/dL (32.0-37.0); MCV 91.3 fL (80.0-97.0); Mean Platelet Volume 11.4 fL (9.5-12.2); Platelet Count 193 10*3/uL (140-440); RBC 4.36 10*6/uL (4.10-5.20); RDW 14.1 % (11.5-14.5); WBC 15.12 10*3/uL (4.50-10.00)
[2025-01-23 06:11] LABS: African American GFR (CKD) 27 (>60 ml/min/1.73 sqM); Anion Gap 9 mmol/L; Blood Urea Nitrogen 57 mg/dL (7-17); Calcium 7.3 mg/dL (8.4-10.2); Carbon Dioxide 25 mmol/L (22-30); Chloride 99 mmol/L (98-107); Glucose 172 mg/dL (74-99); Magnesium 1.7 mg/dL (1.6-2.3); Non-African American GFR(CKD) 24 (>60 ml/min/1.73 sqM); Potassium 3.5 mmol/L (3.5-5.1); Sodium 133 mmol/L (137-145)
--- NOTE | 2025-01-23 08:42 | XR ---
EXAMINATION TYPE: XR chest 1V portable DATE OF EXAM: 01/23/2025 5:34 AM COMPARISON: Chest radiographs from 01/22/2025 TECHNIQUE: XR chest 1V portable Portable AP radiograph of the chest. CLINICAL INDICATION:Female, 84 years old with history of Tube placement; FINDINGS: Lungs/Pleura: There is no evidence of pleural effusion, focal consolidation, or pneumothorax. Pulmonary vascularity: Unremarkable. Heart/mediastinum: Cardiomediastinal silhouette is prominent in size. Atherosclerotic calcifications are seen in the aorta. Musculoskeletal: No acute osseous pathology. Other findings: None Lines/Tubes: Endotracheal tube with distal tip 2.0 cm above the tess Nasogastric tube with its distal tip and side-port projecting under the diaphragm. Right IJ central venous catheter with distal tip terminating at the mid SVC. IMPRESSION: 1. Appropriate position of support lines and tubes. 2. No focal consolidation. [facility], , 01/23/2025 8:40 AM
--- NOTE | 2025-01-23 09:47 | P.CONS ---
History of Present Illness - Reason for Consult Consult date: 01/23/25 Medical management - History of Present Illness History of present illness; patient is a 84-year-old lady with past medical history significant for GERD, hyperlipidemia who is a resident of [facility] who initially presented to the ER for nausea vomiting nominal pain for the last 3 days. Workup in the ER showed a CT scan showing biliary air within the liver with pneumatosis intestinalis within the stomach wall, Mesenteric ischemia should be considered,Dilated fluid-filled small bowel loops,Some of transition may be in left inguinal hernia. Patient was admitted under surgery and was taken for emergent exploratory laparotomy with repair of strangulated right inguinal hernia with small bowel resection,repair of left internal hernia and repair of incisional hernia. Postoperatively patient was intubated and was admitted to ICU REVIEW OF SYSTEMS: Cannot be obtained as patient currently intubated PHYSICAL EXAMINATION: GENERAL: The patient is in intubated HEENT: Pupils are round and equally reacting to light. EOMI. No scleral icterus. No conjunctival pallor. Normocephalic, atraumatic. No pharyngeal erythema. No thyromegaly. CARDIOVASCULAR: S1 and S2 present. No murmurs, rubs, or gallops. PULMONARY: Chest is clear to auscultation, no wheezing or crackles. ABDOMEN: Soft, abdominal incisions seen, wound VAC in place MUSCULOSKELETAL: No joint swelling or deformity. EXTREMITIES: No cyanosis, clubbing, or pedal edema. NEUROLOGICAL: Intubated SKIN: No rashes. Assessment and plan Acute abdomen due to ischemic bowel status post post expiratory laparotomy with repair of a strangulated right inguinal hernia with small bowel resection and repair of a left internal hernia and repair of an incisional hernia. Acute respiratory failure, nonhypoxic and the patient was kept intubated on [facility] anical ventilator postop. Acute leukocytosis secondary to above Acute kidney injury Acute lactic acidosis Mild troponin leak secondary to sepsis, type II myocardial ischemia Dementia History of paroxysmal atrial fibrillation current rhythm is sinus and the patient has been taking Eliquis on outpatient basis Hyperlipidemia History of fall Previous history of bowel resection back in 2013 for a bowel perforation requiring subsequent PEG tube insertion and removal Monitor vital signs Monitor CBC Monitor CMP Continue vent management Serial ABGs Serial chest x-rays Currently on IV Zosyn Currently on Levophed Continue pain management Surgery following Critical care following Labs and medication were reviewed.. Continue same treatment. Continue with symptomatic treatment. Resume home medication. Monitor labs and vitals. DVT and GI prophylaxis. Further recommendations as per clinical course of the patient Dictation was produced using [employer] dictation software. please excuse any grammatical, word or spelling errors. Past Medical History Past Medical History: GERD/Reflux, Hyperlipidemia, Pneumonia Additional Past Medical History / Comment(s): PERFORATED BOWEL, STATES "MY STATED I FLAT LINE FOR 8 MIN WHEN I WAS IN THE HOSPITAL IN 2013 AND HAD TO HAVE A TUBE DOWN MY THROAT AND NOW I HAVE A LITTLE TROUBLE WITH MY SPEECH" History of Any Multi-Drug Resistant Organisms: None Reported Past Surgical History: Bowel Resection, Tonsillectomy Additional Past Surgical History / Comment(s): bowel resection 01/23/2014 W/ PEG TUB PLACEMENT, PEG TUBE REMOVAL, rt cataract Past Anesthesia/Blood Transfusion Reactions: No Reported Reaction Past Psychological History: No Psychological Hx Reported Past Alcohol Use History: None Reported Past Drug Use History: None Reported - Past Family History Father Family Medical History: Cancer Additional Family Medical History / Comment(s): PROSTATE Mother Additional Family Medical History / Comment(s): HEART PROBLEMS Medications and Allergies Home Medications Medication Instructions Recorded Confirmed Type HYDROcodone/APAP 5-325MG [[place] 1 tab PO Q6HR PRN #28 tab 12/24/24 01/22/25 Rx 5-325] Apixaban [Eliquis] 2.5 mg PO BID@0900,209901/22/25 01/22/25 History HYDROcodone/APAP 5-325MG [[place] 1 tab PO DAILY@0900 01/22/25 01/22/25 History 5-325] Lactose-Reduced Food [Ensure Plus] 1 can PO DAILY@0900 01/22/25 01/22/25 History Ondansetron [Zofran] 4 mg PO Q8H PRN 01/22/25 01/22/25 History Sennosides [Senokot] 8.6 mg PO BID@0900,209901/22/25 01/22/25 History Allergies Allergy/AdvReac Type Severity Reaction Status Date / Time Sulfa (Sulfonamide Allergy Unknown Unknown Verified 01/22/25 08:00 Antibiotics) Physical Exam Vitals: Vital Signs Temp Pulse Pulse Resp BP BP Pulse Ox 01/23/25 05:17 90 01/23/25 05:06 91 01/23/25 05:04 01/23/25 04:15 113 H 14 109/49 96 01/23/25 04:00 98.8 F 110 H 14 95 01/23/25 03:45 116 H 14 95 01/23/25 03:30 116 H 14 96 01/23/25 03:15 108 H 14 95 01/23/25 03:00 122 H 14 98/47 95 01/23/25 02:45 126 H 19 94 L 01/23/25 02:30 128 H 14 95 01/23/25 02:15 130 H 15 103/46 95 01/23/25 02:00 129 H 14 94 L 01/23/25 01:51 01/23/25 01:45 135 H 14 93 L 01/23/25 01:30 120 H 14 106/51 93 L 01/23/25 01:15 110 H 14 102/43 93 L 01/23/25 01:00 96 14 95 01/23/25 00:45 92 14 96 01/23/25 00:30 87 14 95 01/23/25 00:15 90 16 92/46 96 01/23/25 00:00 98.2 F 87 14 98 01/22/25 23:45 87 14 98 01/22/25 23:40 87 01/22/25 23:37 01/22/25 23:30 88 16 98 01/22/25 23:15 89 14 104/49 96 01/22/25 23:00 87 14 97 01/22/25 22:45 85 17 94 L 01/22/25 22:30 80 20 98 01/22/25 22:15 74 16 107/45 94 L 01/22/25 22:00 76 14 95 01/22/25 21:45 86 17 97 01/22/25 21:35 80 01/22/25 21:30 87 17 95 01/22/25 21:25 85 01/22/25 21:20 01/22/25 21:15 81 14 97 01/22/25 21:00 81 14 96 01/22/25 20:45 83 14 97 01/22/25 20:30 82 20 01/22/25 20:15 80 16 96 01/22/25 20:00 98.4 F 80 15 95 01/22/25 19:45 83 15 96 04/25/25 19:30 82 21 97 01/22/25 19:15 81 16 96 01/22/25 19:00 83 16 96 01/22/25 18:45 83 14 97 01/22/25 18:30 86 14 97 01/22/25 18:15 84 14 96 01/22/25 18:00 86 16 97 01/22/25 17:45 84 14 96 01/22/25 17:30 81 15 97 01/22/25 17:15 93 14 96 01/22/25 17:00 96 14 97 01/22/25 16:45 96 15 96 01/22/25 16:41 100 01/22/25 16:30 105 H 21 98 01/22/25 16:29 01/22/25 16:28 106 H 01/22/25 16:15 96 14 98 01/22/25 16:00 98.0 F 100 14 98 01/22/25 15:55 01/22/25 15:45 98 14 97 01/22/25 15:30 98 14 96 01/22/25 15:15 101 H 14 96 01/22/25 15:00 106 H 14 96 01/22/25 14:45 112 H 14 98 01/22/25 14:30 103 H 19 97 01/22/25 14:15 100 17 98 01/22/25 14:00 97.6 F 101 H 14 99 01/22/25 13:45 92 18 99 01/22/25 13:30 67 14 93/50 100 01/22/25 13:25 01/22/25 13:16 70 14 100 01/22/25 10:37 97.2 F L 114 H 18 103/50 87 L 01/22/25 08:33 106 H 16 105/64 01/22/25 08:26 97 01/22/25 08:22 84 L 01/22/25 07:42 97.9 F 86 16 115/59 100 FiO2 01/23/25 05:17 01/23/25 05:06 01/23/25 05:04 40 01/23/25 04:15 01/23/25 04:00 40 01/23/25 03:45 01/23/25 03:30 01/23/25 03:15 01/23/25 03:00 40 01/23/25 02:45 01/23/25 02:30 01/23/25 02:15 01/23/25 02:00 40 01/23/25 01:51 40 01/23/25 01:45 01/23/25 01:30 01/23/25 01:15 01/23/25 01:00 40 01/23/25 00:45 01/23/25 00:30 01/23/25 00:15 01/23/25 00:00 40 01/22/25 23:45 01/22/25 23:40 01/22/25 23:37 40 01/22/25 23:30 01/22/25 23:15 01/22/25 23:00 40 01/22/25 22:45 01/22/25 22:30 01/22/25 22:15 01/22/25 22:00 40 01/22/25 21:45 01/22/25 21:35 01/22/25 21:30 01/22/25 21:25 01/22/25 21:20 40 01/22/25 21:15 01/22/25 21:00 40 01/22/25 20:45 01/22/25 20:30 01/22/25 20:15 01/22/25 20:00 40 01/22/25 19:45 01/22/25 19:30 01/22/25 19:15 01/22/25 19:00 01/22/25 18:45 01/22/25 18:30 01/22/25 18:15 01/22/25 18:00 01/22/25 17:45 01/22/25 17:30 01/22/25 17:15 01/22/25 17:00 01/22/25 16:45 01/22/25 16:41 01/22/25 16:30 01/22/25 16:29 40 01/22/25 16:28 01/22/25 16:15 01/22/25 16:00 40 01/22/25 15:55 40 01/22/25 15:45 01/22/25 15:30 01/22/25 15:15 01/22/25 15:00 01/22/25 14:45 01/22/25 14:30 01/22/25 14:15 01/22/25 14:00 50 01/22/25 13:45 01/22/25 13:30 01/22/25 13:25 100 01/22/25 13:16 100 01/22/25 10:37 01/22/25 08:33 01/22/25 08:26 01/22/25 08:22 01/22/25 07:42 Intake and Output 01/22/25 01/22/25 01/23/25 14:59 22:59 06:59 Intake Total 3134.148 3902.440 813.674 Output Total 1430 120 85 Balance 7693.468 7082.440 728.674 Intake: IV 3100 3500 750 Lactated Ringers 1,000 ml 300 1200 750 @ 150 mls/hr IV .Q6H40M DOM Rx#:[id number] Piperacillin-Tazobactam 3 100 .375 gm In Sodium Chloride 0.9% 100 ml @ 25 mls/hr IVPB Q12H DOM Rx# :[id number] Potassium Chloride 20 meq 200 In Water For Injection 1 100ml.bag @ 50 mls/hr IVPB Q2H DOM Rx#: [id number] Sodium Chloride 0.9% 1, 2000 000 ml @ 999 mls/hr IV . Q1H1M [facility] Rx#:[id number] Intake, IV Titration 34.148 402.440 63.674 Amount Norepinephrine 4 mg In 17.997 339.116 9.193 Sodium Chloride 0.9% 250 ml @ 0.03 MCG/KG/MIN 6. 377 mls/hr IV .Q24H DOM Rx#:[id number] propofoL 1,000 mg In 16.151 63.324 54.481 Empty Bag 1 bag @ 15 MCG/ KG/MIN 5.021 mls/hr IV . [id number] DOM Rx#:[id number] Output: Gastric Drainage 1200 Urine 205 120 85 Estimated Blood Loss 25 Other: Voiding Method Indwelling Catheter Indwelling Catheter Weight 55.792 kg 64.3 kg ABP, PAP, CO, CI - Last 8 Hours Arterial Blood Pressure 107/36 Arterial Blood Pressure 106/36 Arterial Blood Pressure 103/37 Arterial Blood Pressure 102/35 Arterial Blood Pressure 99/35 Arterial Blood Pressure 98/35 Arterial Blood Pressure 98/36 Arterial Blood Pressure 97/35 Arterial Blood Pressure 98/34 Arterial Blood Pressure 104/36 Arterial Blood Pressure 105/39 Arterial Blood Pressure 110/38 Arterial Blood Pressure 105/35 Arterial Blood Pressure 104/34 Arterial Blood Pressure 104/33 Arterial Blood Pressure 99/32 Arterial Blood Pressure 104/38 Arterial Blood Pressure 98/33 Arterial Blood Pressure 96/32 Arterial Blood Pressure 94/32 Arterial Blood Pressure 102/34 Arterial Blood Pressure 110/38 Arterial Blood Pressure 112/39 Arterial Blood Pressure 105/39 Results CBC & Chem 7: 01/23/25 04:45 01/23/25 04:45 Labs: Abnormal Lab Results - Last 24 Hours (Table) 01/22/25 01/22/25 01/22/25 Range/Units 08:23 08:23 08:23 WBC 10.03 H (4.50-10.00) 10*3/uL RBC 6.04 H (4.10-5.20) 10*6/uL Hgb 18.2 H (12.0-15.0) g/dL Hct 53.7 H (37.2-46.3) % Immature Gran # (0.00-0.04) 10*3/uL Neutrophils # (Manual) 8.02 H (1.3-7.7) k/uL Lymphocytes # (Manual) 0.70 L (1.0-4.8) k/uL Monocytes # (Manual) 1.30 H (0-1.0) k/uL PT 13.0 H (10.0-12.5) sec INR 1.2 H (<1.2) ABG pH (7.35-7.45) ABG pCO2 (35-45) mmHg ABG pO2 (83-108) mmHg ABG HCO3 (21-25) mmol/L ABG Total CO2 (19-24) mmol/L ABG O2 Saturation (94-97) % Hemoglobin (11.4-16.0) gm/dL Sodium 132 L (137-145) mmol/L Potassium (3.5-5.1) mmol/L Chloride 87 L (98-107) mmol/L Carbon Dioxide 32 H (22-30) mmol/L BUN 64 H (7-17) mg/dL Creatinine 1.73 H (0.52-1.04) mg/dL Glucose 149 H (74-99) mg/dL POC Glucose (mg/dL) (70-110) mg/dL Plasma Lactic Acid Rip (0.7-2.0) mmol/L Calcium 8.0 L (8.4-10.2) mg/dL Total Bilirubin 1.8 H (0.2-1.3) mg/dL AST 51 H (14-36) U/L Alkaline Phosphatase (38-126) U/L Troponin I (0.000-0.034) ng/mL Total Protein 5.4 L (6.3-8.2) g/dL Albumin 2.9 L (3.5-5.0) g/dL Free T3 pg/mL 1.40 L (2.30-4.20) pg/mL 01/22/25 01/22/25 01/22/25 Range/Units 08:23 08:23 08:25 WBC (4.50-10.00) 10*3/uL RBC (4.10-5.20) 10*6/uL Hgb (12.0-15.0) g/dL Hct (37.2-46.3) % Immature Gran # (0.00-0.04) 10*3/uL Neutrophils # (Manual) (1.3-7.7) k/uL Lymphocytes # (Manual) (1.0-4.8) k/uL Monocytes # (Manual) (0-1.0) k/uL PT (10.0-12.5) sec INR (<1.2) ABG pH 7.49 H (7.35-7.45) ABG pCO2 51 H (35-45) mmHg ABG pO2 49 L* (83-108) mmHg ABG HCO3 39 H (21-25) mmol/L ABG Total CO2 40 H (19-24) mmol/L ABG O2 Saturation 83.8 L (94-97) % Hemoglobin 17.0 H (11.4-16.0) gm/dL Sodium (137-145) mmol/L Potassium (3.5-5.1) mmol/L Chloride (98-107) mmol/L Carbon Dioxide (22-30) mmol/L BUN (7-17) mg/dL Creatinine (0.52-1.04) mg/dL Glucose (74-99) mg/dL POC Glucose (mg/dL) (70-110) mg/dL Plasma Lactic Acid Rip 4.5 H* (0.7-2.0) mmol/L Calcium (8.4-10.2) mg/dL Total Bilirubin (0.2-1.3) mg/dL AST (14-36) U/L Alkaline Phosphatase (38-126) U/L Troponin I 0.090 H* (0.000-0.034) ng/mL Total Protein (6.3-8.2) g/dL Albumin (3.5-5.0) g/dL Free T3 pg/mL (2.30-4.20) pg/mL 01/22/25 01/22/25 01/22/25 Range/Units 13:57 14:37 14:37 WBC (4.50-10.00) 10*3/uL RBC (4.10-5.20) 10*6/uL Hgb 15.1 H D (12.0-15.0) g/dL Hct (37.2-46.3) % Immature Gran # (0.00-0.04) 10*3/uL Neutrophils # (Manual) (1.3-7.7) k/uL Lymphocytes # (Manual) (1.0-4.8) k/uL Monocytes # (Manual) (0-1.0) k/uL PT (10.0-12.5) sec INR (<1.2) ABG pH 7.46 H (7.35-7.45) ABG pCO2 (35-45) mmHg ABG pO2 341 H (83-108) mmHg ABG HCO3 31 H (21-25) mmol/L ABG Total CO2 32 H (19-24) mmol/L ABG O2 Saturation >100.0 H (94-97) % Hemoglobin (11.4-16.0) gm/dL Sodium 134 L (137-145) mmol/L Potassium 3.3 L (3.5-5.1) mmol/L Chloride (98-107) mmol/L Carbon Dioxide (22-30) mmol/L BUN 61 H (7-17) mg/dL Creatinine 1.74 H (0.52-1.04) mg/dL Glucose 137 H (74-99) mg/dL POC Glucose (mg/dL) (70-110) mg/dL Plasma Lactic Acid Rip (0.7-2.0) mmol/L Calcium 7.2 L (8.4-10.2) mg/dL Total Bilirubin (0.2-1.3) mg/dL AST (14-36) U/L Alkaline Phosphatase (38-126) U/L Troponin I (0.000-0.034) ng/mL Total Protein (6.3-8.2) g/dL Albumin (3.5-5.0) g/dL Free T3 pg/mL (2.30-4.20) pg/mL 01/22/25 01/22/25 01/22/25 Range/Units 21::: WBC 13.51 H (4.50-10.00) 10*3/uL RBC (4.10-5.20) 10*6/uL Hgb (12.0-15.0) g/dL Hct (37.2-46.3) % Immature Gran # 0.10 H (0.00-0.04) 10*3/uL Neutrophils # (Manual) 12.42 H (1.3-7.7) k/uL Lymphocytes # (Manual) 0.95 L (1.0-4.8) k/uL Monocytes # (Manual) (0-1.0) k/uL PT (10.0-12.5) sec INR (<1.2) ABG pH (7.35-7.45) ABG pCO2 (35-45) mmHg ABG pO2 (83-108) mmHg ABG HCO3 (21-25) mmol/L ABG Total CO2 (19-24) mmol/L ABG O2 Saturation (94-97) % Hemoglobin (11.4-16.0) gm/dL Sodium 133 L (137-145) mmol/L Potassium (3.5-5.1) mmol/L Chloride (98-107) mmol/L Carbon Dioxide (22-30) mmol/L BUN 57 H (7-17) mg/dL Creatinine 1.97 H (0.52-1.04) mg/dL Glucose 156 H (74-99) mg/dL POC Glucose (mg/dL) (70-110) mg/dL Plasma Lactic Acid Rip 2.9 H* (0.7-2.0) mmol/L Calcium 6.8 L (8.4-10.2) mg/dL Total Bilirubin 1.4 H (0.2-1.3) mg/dL AST (14-36) U/L Alkaline Phosphatase 36 L (38-126) U/L Troponin I (0.000-0.034) ng/mL Total Protein 3.4 L (6.3-8.2) g/dL Albumin 1.7 L (3.5-5.0) g/dL Free T3 pg/mL (2.30-4.20) pg/mL 01/23/25 01/23/25 01/23/25 Range/Units 00:13 01:05 04:45 WBC (4.50-10.00) 10*3/uL RBC (4.10-5.20) 10*6/uL Hgb (12.0-15.0) g/dL Hct (37.2-46.3) % Immature Gran # (0.00-0.04) 10*3/uL Neutrophils # (Manual) (1.3-7.7) k/uL Lymphocytes # (Manual) (1.0-4.8) k/uL Monocytes # (Manual) (0-1.0) k/uL PT (10.0-12.5) sec INR (<1.2) ABG pH (7.35-7.45) ABG pCO2 (35-45) mmHg ABG pO2 (83-108) mmHg ABG HCO3 (21-25) mmol/L ABG Total CO2 (19-24) mmol/L ABG O2 Saturation (94-97) % Hemoglobin (11.4-16.0) gm/dL Sodium 133 L (137-145) mmol/L Potassium (3.5-5.1) mmol/L Chloride (98-107) mmol/L Carbon Dioxide (22-30) mmol/L BUN 57 H (7-17) mg/dL Creatinine 1.91 H (0.52-1.04) mg/dL Glucose 172 H (74-99) mg/dL POC Glucose (mg/dL) 205 H (70-110) mg/dL Plasma Lactic Acid Rip 3.4 H* (0.7-2.0) mmol/L Calcium 7.3 L (8.4-10.2) mg/dL Total Bilirubin (0.2-1.3) mg/dL AST (14-36) U/L Alkaline Phosphatase (38-126) U/L Troponin I (0.000-0.034) ng/mL Total Protein (6.3-8.2) g/dL Albumin (3.5-5.0) g/dL Free T3 pg/mL (2.30-4.20) pg/mL 01/23/25 01/23/25 Range/Units 04:45 05:06 WBC 15.12 H (4.50-10.00) 10*3/uL RBC (4.10-5.20) 10*6/uL Hgb (12.0-15.0) g/dL Hct (37.2-46.3) % Immature Gran # (0.00-0.04) 10*3/uL Neutrophils # (Manual) (1.3-7.7) k/uL Lymphocytes # (Manual) (1.0-4.8) k/uL Monocytes # (Manual) (0-1.0) k/uL PT (10.0-12.5) sec INR (<1.2) ABG pH 7.34 L (7.35-7.45) ABG pCO2 50 H (35-45) mmHg ABG pO2 (83-108) mmHg ABG HCO3 27 H (21-25) mmol/L ABG Total CO2 28 H (19-24) mmol/L ABG O2 Saturation (94-97) % Hemoglobin (11.4-16.0) gm/dL Sodium (137-145) mmol/L Potassium (3.5-5.1) mmol/L Chloride (98-107) mmol/L Carbon Dioxide (22-30) mmol/L BUN (7-17) mg/dL Creatinine (0.52-1.04) mg/dL Glucose (74-99) mg/dL POC Glucose (mg/dL) (70-110) mg/dL Plasma Lactic Acid Rip (0.7-2.0) mmol/L Calcium (8.4-10.2) mg/dL Total Bilirubin (0.2-1.3) mg/dL AST (14-36) U/L Alkaline Phosphatase (38-126) U/L Troponin I (0.000-0.034) ng/mL Total Protein (6.3-8.2) g/dL Albumin (3.5-5.0) g/dL Free T3 pg/mL (2.30-4.20) pg/mL
[2025-01-23] MEDS ORDERED: Magnesium Replacement Protocol 1 EACH MISC MISCELLANE PRN (09:55)
[2025-01-23] MEDS: VASOPRESSIN 20 UNIT in SODIUM CHLORIDE 0.9% 50 ML IV SCH (10:02)
[2025-01-23] MEDS: POTASSIUM CHLORIDE 20 MEQ in WATER FOR INJECTION 1 100ML.BAG IVPB SCH (10:53)
[2025-01-23] MEDS: MAGNESIUM SULFATE-D5W PMX 1 GM in DEXTROSE/WATER 1 100ML.BAG IVPB ONE (11:06)
[2025-01-23 11:43] LABS: Glucose,Whole Blood 136 mg/dL (70-110)
--- NOTE | 2025-01-23 13:27 | P.PN ---
Subjective Progress Note Date: 01/23/25 This is a 84-year-old female patient who presented to the emergency department with acute abdomen. The patient had abdominal pain and she had a CT scan of the abdomen and pelvis done in the Emergency Department that showed evidence of biliary air within the liver with pneumatosis intestinalis within the stomach wall. Patient also had dilated fluid-filled small bowel and transition at the left inguinal hernia level. Based on that, the patient was taken to the operating room. Noted the patient had a DNR/DNI CODE STATUS. The CODE STATUS was switched for the sake of the procedure and she was placed on a full code. In the operating room, the patient underwent a exploratory laparotomy and the patient was found to have strangulated right inguinal hernia, ischemic small bowel and incisional hernia. The patient underwent a repair of the strangulated right inguinal hernia with small bowel resection and repair of the left internal hernia repair of the incisional hernia. Estimated blood loss was 20 cc. Noted postop, the patient was kept intubated and she was brought into the intensive care unit for further monitoring. At this point in time, the patient remains intubated on the mechanical ventilator. She is on propofol running at 55 mcg/kg/min. She has already received a total of 2 L of IV fluids and she is currently on lactated Ringer at rate of 150 cc an hour. The patient is on a rate of 14, tidal volume of 400, FiO2 of 100% with a PEEP of 5. The blood gases showed a pH of 7.46 with a [id number] and PO2 of 341. Chest x-ray postop showed adequate expansion of both lungs. Orotracheal tube was just above the tess. NG tube was in place. No airspace disease. No consolidation. No pneumothorax. No pleural effusion. No noted air under the diaphragm. The patient is currently on no pressors. Hemodynamically stable. She is on no antibiotics for now. Blood work from this morning showed a WBC count of 10, hemoglobin of 18 and a platelet count of 213. Sodium is at 132, BUN 64 with a creatinine of 1.7 and a potassium level of 4.1 and a chloride is 87 with a bicarb level of 32. Initial lactic acid level was at 4.5. proBNP level is 3230. TSH was 1.7 with a free T4 of 2.1. The viral screen was negative. LFTs were normal. Troponin was 0.09. 01/23/2025, the patient remains intubated on mechanical ventilator. The patient is currently on propofol for respiratory. The patient is on assist-control mode of mechanical ventilation at rate of 14, tidal volume of 400, FiO2 40% with a PEEP of 5. Blood gas showed a pH of 7.34 with a [id number] and PO2 of 86. Remains on lactated Ringer at rate of 150 cc an hour. Net fluid balance is +6.3 L over the past 24 hours and the patient remains on norepinephrine running at 0.3 mcg/kg/min. The patient also went into atrial fibrillation with RVR. The patient was started on albuterol protocol. The patient converted to normal sinus rhythm. Amiodarone drip is still running at 0.5 mg/min. The patient's white cell count is 15 with a hemoglobin 15.20 platelet count of 183. Sodium is at 133, BUN is 57 with a creatinine of 0.9 and a potassium level of 3.5. Lactic acid level has returned to 1.7. Calcium is at 7.3. Surgical wound bed is dry clean and intact. No other significant events overnight. Objective - Vital Signs Vital signs: Vital Signs Temp 98.8 F 01/23/25 04:00 Pulse 101 H 01/23/25 08:48 Resp 14 01/23/25 08:48 BP 103/51 01/23/25 06:30 Pulse Ox 97 01/23/25 07:00 FiO2 40 01/23/25 08:43 Intake & Output 01/22/25 01/23/25 01/23/25 18:59 06:59 18:59 Intake Total 5359.362 3215.165 280.694 Output Total 1500 680 10 Balance 3859.362 2535.165 270.694 Weight 55.792 kg 64.3 kg Intake: IV 5150 2650 150 Lactated Ringers 1,000 ml 1050 1650 150 @ 150 mls/hr IV .Q6H40M DOM Rx#:[id number] Piperacillin-Tazobactam 3 100 .375 gm In Sodium Chloride 0.9% 100 ml @ 25 mls/hr IVPB Q12H DOM Rx# :[id number] Potassium Chloride 20 meq 200 In Water For Injection 1 100ml.bag @ 50 mls/hr IVPB Q2H DOM Rx#: [id number] Sodium Chloride 0.9% 1, 1000 1000 000 ml @ 999 mls/hr IV . Q1H1M ONE Rx#:[id number] Intake, IV Titration 209.362 565.165 130.694 Amount Norepinephrine 4 mg In 172.568 382.640 130.694 Sodium Chloride 0.9% 250 ml @ 0.03 MCG/KG/MIN 6. 377 mls/hr IV .Q24H DOM Rx#:[id number] propofoL 1,000 mg In 36.794 182.525 Empty Bag 1 bag @ 15 MCG/ KG/MIN 5.021 mls/hr IV . [id number] DOM Rx#:[id number] Output: Gastric Drainage 1200 500 Urine 275 180 10 Estimated Blood Loss 25 Other: Voiding Method Indwelling Catheter Indwelling Catheter ABP, PAP, CO, CI - Last Documented Arterial Blood Pressure 112/36 - Exam The patient appeared well nourished and normally developed. Vital signs as documented. The patient is calm and comfortable, sedated on propofol. Orogastric and orotracheal tube are both in place. Head exam is unremarkable. No scleral icterus or corneal arcus noted. Neck is without jugular venous distension, thyromegaly, or carotid bruits. Carotid upstrokes are brisk bilaterally. Lungs are clear to auscultation and percussion. Cardiac exam reveals the PMI to be normally sized and situated. Rhythm is regular. First and second heart sounds normal. No murmurs, rubs or gallops. Abdominal exam reveals no masses, no organomegaly and no aortic enlargement. The patient has a mid abdominal incision with a wound VAC being placed. Bowel sounds are absent. Extremities are nonedematous and both femoral and pedal pulses are normal. Examination of the skin revealed no evidence of significant rashes, suspicious a ppearing nevi or other concerning lesions. Neurologically, the patient is a sedated. The patient apparently has an underlying dementia. - Labs CBC & Chem 7: 01/23/25 04:45 01/23/25 04:45 Labs: Abnormal Lab Results - Last 24 Hours (Table) 01/22/25 01/22/25 01/22/25 Range/Units 08:23 08:23 13:57 WBC (4.50-10.00) 10*3/uL Hgb (12.0-15.0) g/dL Immature Gran # (0.00-0.04) 10*3/uL Neutrophils # (Manual) 8.02 H (1.3-7.7) k/uL Lymphocytes # (Manual) 0.70 L (1.0-4.8) k/uL Monocytes # (Manual) 1.30 H (0-1.0) k/uL ABG pH 7.46 H (7.35-7.45) ABG pCO2 (35-45) mmHg ABG pO2 341 H (83-108) mmHg ABG HCO3 31 H (21-25) mmol/L ABG Total CO2 32 H (19-24) mmol/L ABG O2 Saturation >100.0 H (94-97) % Sodium (137-145) mmol/L Potassium (3.5-5.1) mmol/L BUN (7-17) mg/dL Creatinine (0.52-1.04) mg/dL Glucose (74-99) mg/dL POC Glucose (mg/dL) (70-110) mg/dL Plasma Lactic Acid Rip (0.7-2.0) mmol/L Calcium (8.4-10.2) mg/dL Total Bilirubin (0.2-1.3) mg/dL AST 51 H (14-36) U/L Alkaline Phosphatase (38-126) U/L Total Protein 5.4 L (6.3-8.2) g/dL Albumin 2.9 L (3.5-5.0) g/dL Free T3 pg/mL 1.40 L (2.30-4.20) pg/mL 01/22/25 01/22/25 01/22/25 Range/Units 14:37 14:37 21:25 WBC (4.50-10.00) 10*3/uL Hgb 15.1 H D (12.0-15.0) g/dL Immature Gran # (0.00-0.04) 10*3/uL Neutrophils # (Manual) (1.3-7.7) k/uL Lymphocytes # (Manual) (1.0-4.8) k/uL Monocytes # (Manual) (0-1.0) k/uL ABG pH (7.35-7.45) ABG pCO2 (35-45) mmHg ABG pO2 (83-108) mmHg ABG HCO3 (21-25) mmol/L ABG Total CO2 (19-24) mmol/L ABG O2 Saturation (94-97) % Sodium 134 L (137-145) mmol/L Potassium 3.3 L (3.5-5.1) mmol/L BUN 61 H (7-17) mg/dL Creatinine 1.74 H (0.52-1.04) mg/dL Glucose 137 H (74-99) mg/dL POC Glucose (mg/dL) (70-110) mg/dL Plasma Lactic Acid Rip 2.9 H* (0.7-2.0) mmol/L Calcium 7.2 L (8.4-10.2) mg/dL Total Bilirubin (0.2-1.3) mg/dL AST (14-36) U/L Alkaline Phosphatase (38-126) U/L Total Protein (6.3-8.2) g/dL Albumin (3.5-5.0) g/dL Free T3 pg/mL (2.30-4.20) pg/mL 01/22/25 01/22/25 01/23/25 Range/Units 21:25 21:25 00:13 WBC 13.51 H (4.50-10.00) 10*3/uL Hgb (12.0-15.0) g/dL Immature Gran # 0.10 H (0.00-0.04) 10*3/uL Neutrophils # (Manual) 12.42 H (1.3-7.7) k/uL Lymphocytes # (Manual) 0.95 L (1.0-4.8) k/uL Monocytes # (Manual) (0-1.0) k/uL ABG pH (7.35-7.45) ABG pCO2 (35-45) mmHg ABG pO2 (83-108) mmHg ABG HCO3 (21-25) mmol/L ABG Total CO2 (19-24) mmol/L ABG O2 Saturation (94-97) % Sodium 133 L (137-145) mmol/L Potassium (3.5-5.1) mmol/L BUN 57 H (7-17) mg/dL Creatinine 1.97 H (0.52-1.04) mg/dL Glucose 156 H (74-99) mg/dL POC Glucose (mg/dL) 205 H (70-110) mg/dL Plasma Lactic Acid Rip (0.7-2.0) mmol/L Calcium 6.8 L (8.4-10.2) mg/dL Total Bilirubin 1.4 H (0.2-1.3) mg/dL AST (14-36) U/L Alkaline Phosphatase 36 L (38-126) U/L Total Protein 3.4 L (6.3-8.2) g/dL Albumin 1.7 L (3.5-5.0) g/dL Free T3 pg/mL (2.30-4.20) pg/mL 01/23/25 01/23/25 01/23/25 Range/Units 01:05 04:45 04:45 WBC (4.50-10.00) 10*3/uL Hgb (12.0-15.0) g/dL Immature Gran # (0.00-0.04) 10*3/uL Neutrophils # (Manual) (1.3-7.7) k/uL Lymphocytes # (Manual) (1.0-4.8) k/uL Monocytes # (Manual) (0-1.0) k/uL ABG pH (7.35-7.45) ABG pCO2 (35-45) mmHg ABG pO2 (83-108) mmHg ABG HCO3 (21-25) mmol/L ABG Total CO2 (19-24) mmol/L ABG O2 Saturation (94-97) % Sodium 133 L (137-145) mmol/L Potassium (3.5-5.1) mmol/L BUN 57 H (7-17) mg/dL Creatinine 1.91 H (0.52-1.04) mg/dL Glucose 172 H (74-99) mg/dL POC Glucose (mg/dL) (70-110) mg/dL Plasma Lactic Acid Rip 3.4 H* 3.6 H* (0.7-2.0) mmol/L Calcium 7.3 L (8.4-10.2) mg/dL Total Bilirubin (0.2-1.3) mg/dL AST (14-36) U/L Alkaline Phosphatase (38-126) U/L Total Protein (6.3-8.2) g/dL Albumin (3.5-5.0) g/dL Free T3 pg/mL (2.30-4.20) pg/mL 01/23/25 01/23/25 Range/Units 04:45 05:06 WBC 15.12 H (4.50-10.00) 10*3/uL Hgb (12.0-15.0) g/dL Immature Gran # (0.00-0.04) 10*3/uL Neutrophils # (Manual) (1.3-7.7) k/uL Lymphocytes # (Manual) (1.0-4.8) k/uL Monocytes # (Manual) (0-1.0) k/uL ABG pH 7.34 L (7.35-7.45) ABG pCO2 50 H (35-45) mmHg ABG pO2 (83-108) mmHg ABG HCO3 27 H (21-25) mmol/L ABG Total CO2 28 H (19-24) mmol/L ABG O2 Saturation (94-97) % Sodium (137-145) mmol/L Potassium (3.5-5.1) mmol/L BUN (7-17) mg/dL Creatinine (0.52-1.04) mg/dL Glucose (74-99) mg/dL POC Glucose (mg/dL) (70-110) mg/dL Plasma Lactic Acid Rip (0.7-2.0) mmol/L Calcium (8.4-10.2) mg/dL Total Bilirubin (0.2-1.3) mg/dL AST (14-36) U/L Alkaline Phosphatase (38-126) U/L Total Protein (6.3-8.2) g/dL Albumin (3.5-5.0) g/dL Free T3 pg/mL (2.30-4.20) pg/mL Assessment and Plan Plan: Acute abdomen, related to strangulated right with small bowel resection and repair of a with ischemic small bowel and the patient was found to have an incisional hernia. The patient is post expiratory laparotomy with repair of a strangulated right inguinal hernia with small bowel resection and repair of a left internal hernia and repair of an incisional hernia. The patient is currently postop day # 1 estimated blood loss is 25 cc. Patient was kept intubated on the mechanical ventilator. The patient remains septic and the patient remains hypotensive. Acute respiratory failure, nonhypoxic and the patient was kept intubated on mechanical ventilator postop. Septic shock secondary to above, remains on pressors. Aggressive resuscitative IV fluids. Remains on high-dose norepinephrine. Acute leukocytosis secondary to above Acute kidney injury, creatinine remains elevated at 1.9 Acute lactic acidosis secondary to above, improved Mild troponin leak secondary to sepsis, type II myocardial ischemia Dementia History of paroxysmal atrial fibrillation current rhythm is sinus and the patient is currently on amiodarone 0.5 mg/min and the patient is off Eliquis. The patient receiving heparin subcu for DVT prophylaxis. Hyperlipidemia History of fall and the patient was undergoing rehabilitation at the [facility] on the [place] [facility] left hip fracture Previous history of bowel resection back in 2013 for a bowel perforation requiring subsequent PEG tube insertion and removal Plan Continue vent support, no vent changes for today Check CVP Continue lactated Ringer at rate of 150 cc an hour Continue norepinephrine And vasopressin physiologic dose will administer more IV fluids if the CVP comes back low Continue amiodarone drip at 0.5 mg/min start the patient on IV Zosyn as an empiric antibiotic coverage Monitor renal function urine output Keep the patient n.p.o. for now Hold anticoagulants and put the patient on heparin subcu for DVT prophylaxis Condition remains critical and will continue to follow make further recommendations based on the progress. Surgical wound site is dry clean and intact Will continue to follow make further recommendations. Evaluation was done 33 minutes. Time with Patient: Greater than 30
--- NOTE | 2025-01-23 13:59 | CA ---
Transthoracic Echo Report Name: Amber Cook Age: 84 Gender: F : 1940 Exam Date: 01/23/2025 10:51 Exam Location: [facility] Ht (in): 64 Wt (lb): 141 Ordering Physician: Syd Hackett MD Attending/Referring Phys: Deicer Finisher Georgia Roman RDCS Procedure CPT: Indications: Hypotension Cardiac Hx: Technical Quality: Good Contrast 1: Total Dose (mL): Contrast 2: Total Dose (mL): MEASUREMENTS (Male / Female) Normal Values 2D ECHO LV Diastolic Diameter PLAX 4.0 cm 4.2 - 5.9 / 3.9 - 5.3 cm LV Systolic Diameter PLAX 2.4 cm IVS Diastolic Thickness 1.0 cm 0.6 - 1.0 / 0.6 - 0.9 cm LVPW Diastolic Thickness 0.8 cm 0.6 - 1.0 / 0.6 - 0.9 cm LV Relative Wall Thickness 0.5 RV Internal Dim ED PLAX 3.6 cm LA Systolic Diameter LX 2.8 cm 3.0 - 4.0 / 2.7 - 3.8 cm LV Diastolic Volume MOD BP 56.5 cm??? 67 - 155 / 56 - 104 cm??? LV Systolic Volume MOD BP 21.9 cm??? 22 - 58 / 19 - 49 cm??? LV Ejection Fraction MOD BP 61.3 % >= 55 % LV Cardiac Index MOD BP 1826.2 cm???/min???m??? LV Diastolic Volume MOD 4C 52.0 cm??? LV Systolic Volume MOD 4C 22.2 cm??? LV Ejection Fraction MOD 4C 57.2 % LV Cardiac Index MOD 4C 1567.3 cm???/min???m??? LV Diastolic Length 4C 6.2 cm LV Systolic Length 4C 5.2 cm LV Diastolic Volume MOD 2C 55.3 cm??? LV Systolic Volume MOD 2C 21.9 cm??? LV Ejection Fraction MOD 2C 60.5 % LV Cardiac Index MOD 2C 1763.3 cm???/min???m??? LV Diastolic Length 2C 6.9 cm LV Systolic Length 2C 5.3 cm M-MODE Aortic Root Diameter MM 3.2 cm AV Cusp Separation MM 2.0 cm DOPPLER AV Peak Velocity 127.1 cm/s AV Peak Gradient 6.5 mmHg MV Area PHT 3.7 cm??? Mitral E Point Velocity 74.2 cm/s Mitral A Point Velocity 90.4 cm/s Mitral E to A Ratio 0.8 MV Deceleration Time 205.3 ms TR Peak Velocity 251.1 cm/s TR Peak Gradient 25.2 mmHg Right Ventricular Systolic Press 29.4 mmHg FINDINGS Left Ventricle Left ventricular ejection fraction is estimated at 50-55 %. Mildly increased septal wall thickness. Left ventricular cavity size normal. Right Ventricle Mild right ventricular dilatation. Right ventricular systolic pressure within normal limits. Right Atrium Normal right atrial size. No right atrial thrombus or mass seen. Left Atrium Normal left atrial size. No left atrial thrombus or mass present. Mitral Valve Structurally normal mitral valve. No evidence for mitral valve prolapse. No mitral stenosis. Mild mitral regurgitation. Aortic Valve Trileaflet aortic valve. Thickened aortic valve without stenosis. No aortic regurgitation. Tricuspid Valve Structurally normal tricuspid valve. Mild tricuspid regurgitation. Pulmonic Valve Structurally normal pulmonic valve. Mild pulmonic regurgitation. Pericardium No pericardial effusion. Pleural effusion. Aorta Normal size aortic root and proximal ascending aorta. CONCLUSIONS LVEF 55% Mild concentric LVH No obvious regional wall motion abnormality Mild RV dilatation with normal systolic function Mild mitral regurgitation, mild tricuspid regurgitation Previewed by: Dr Alfredito Johnson (Electronically Signed) Final Date: 23 January 2025 13:58
--- NOTE | 2025-01-23 16:51 | P.PN ---
Subjective Progress Note Date: 01/23/25 Patient remains in the ICU on the ventilator. She is still requiring pressor support. The patient apparently went into A-fib last night. With rapid ventricular rate. This was converted. On exam vitals appear stable. Abdomen is soft. Incision is clean dry intact. Status post exploratory laparotomy for strangulated right inguinal hernia with small bowel resection and repair of bilateral inguinal hernias and incisional hernia. Patient will continue to receive supportive care. Objective - Vital Signs Vital signs: Vital Signs Temp 98.1 F 01/23/25 12:00 Pulse 93 01/23/25 16:20 Resp 14 01/23/25 16:20 BP 114/49 01/23/25 14:15 Pulse Ox 97 01/23/25 15:00 FiO2 40 01/23/25 16:17 Intake & Output 01/22/25 01/23/25 01/23/25 18:59 06:59 18:59 Intake Total 5359.362 3215.165 2659.592 Output Total 1500 680 275 Balance 3859.362 2535.165 2384.592 Weight 55.792 kg 64.3 kg 64.3 kg Intake: IV 5150 2650 1734 .9 kvo 160 Lactated Ringers 1,000 ml 1050 1650 1350 @ 150 mls/hr IV .Q6H40M DOM Rx#:[id number] Piperacillin-Tazobactam 3 100 .375 gm In Sodium Chloride 0.9% 100 ml @ 25 mls/hr IVPB Q12H DOM Rx# :[id number] Potassium Chloride 20 meq 200 200 In Water For Injection 1 100ml.bag @ 50 mls/hr IVPB Q2H DOM Rx#: [id number] Sodium Chloride 0.9% 1, 1000 1000 000 ml @ 999 mls/hr IV . Q1H1M ONE Rx#:[id number] a -line 24 Intake, IV Titration 209.362 565.165 925.592 Amount Amiodarone 450 mg In 243.616 Dextrose 5% in Water 250 ml @ 0.5 MG/MIN 16.667 mls/hr IV .Q15H DOM Rx#: [id number] Magnesium Sulfate-D5w Pmx 100 1 gm In Dextrose/Water 1 100ml.bag @ 100 mls/hr IVPB ONCE ONE Rx#: [id number] Norepinephrine 4 mg In 172.568 382.640 441.256 Sodium Chloride 0.9% 250 ml @ 0.03 MCG/KG/MIN 6. 377 mls/hr IV .Q24H DOM Rx#:[id number] Vasopressin 20 unit In 20.961 Sodium Chloride 0.9% 50 ml @ 0.03 UNITS/MIN 4.59 mls/hr IV .Q11H7M DOM Rx# :[id number] propofoL 1,000 mg In 36.794 182.525 119.759 Empty Bag 1 bag @ 15 MCG/ KG/MIN 5.021 mls/hr IV . [id number] DOM Rx#:[id number] Output: Gastric Drainage 1200 500 Urine 275 180 275 Estimated Blood Loss 25 Other: Voiding Method Indwelling Catheter Indwelling Catheter Indwelling Catheter ABP, PAP, CO, CI - Last Documented Arterial Blood Pressure 115/38 - Labs CBC & Chem 7: 01/23/25 04:45 01/23/25 04:45 Labs: Abnormal Lab Results - Last 24 Hours (Table) 01/22/25 01/22/25 01/22/25 Range/Units 21:25 21:25 21:25 WBC 13.51 H (4.50-10.00) 10*3/uL Immature Gran # 0.10 H (0.00-0.04) 10*3/uL Neutrophils # (Manual) 12.42 H (1.3-7.7) k/uL Lymphocytes # (Manual) 0.95 L (1.0-4.8) k/uL ABG pH (7.35-7.45) ABG pCO2 (35-45) mmHg ABG HCO3 (21-25) mmol/L ABG Total CO2 (19-24) mmol/L Sodium 133 L (137-145) mmol/L BUN 57 H (7-17) mg/dL Creatinine 1.97 H (0.52-1.04) mg/dL Glucose 156 H (74-99) mg/dL POC Glucose (mg/dL) (70-110) mg/dL Plasma Lactic Acid Rip 2.9 H* (0.7-2.0) mmol/L Calcium 6.8 L (8.4-10.2) mg/dL Total Bilirubin 1.4 H (0.2-1.3) mg/dL Alkaline Phosphatase 36 L (38-126) U/L Total Protein 3.4 L (6.3-8.2) g/dL Albumin 1.7 L (3.5-5.0) g/dL 01/23/25 01/23/25 01/23/25 Range/Units 00:13 01:05 04:45 WBC (4.50-10.00) 10*3/uL Immature Gran # (0.00-0.04) 10*3/uL Neutrophils # (Manual) (1.3-7.7) k/uL Lymphocytes # (Manual) (1.0-4.8) k/uL ABG pH (7.35-7.45) ABG pCO2 (35-45) mmHg ABG HCO3 (21-25) mmol/L ABG Total CO2 (19-24) mmol/L Sodium 133 L (137-145) mmol/L BUN 57 H (7-17) mg/dL Creatinine 1.91 H (0.52-1.04) mg/dL Glucose 172 H (74-99) mg/dL POC Glucose (mg/dL) 205 H (70-110) mg/dL Plasma Lactic Acid Rip 3.4 H* (0.7-2.0) mmol/L Calcium 7.3 L (8.4-10.2) mg/dL Total Bilirubin (0.2-1.3) mg/dL Alkaline Phosphatase (38-126) U/L Total Protein (6.3-8.2) g/dL Albumin (3.5-5.0) g/dL 01/23/25 01/23/25 01/23/25 Range/Units 04:45 04:45 05:06 WBC 15.12 H (4.50-10.00) 10*3/uL Immature Gran # (0.00-0.04) 10*3/uL Neutrophils # (Manual) (1.3-7.7) k/uL Lymphocytes # (Manual) (1.0-4.8) k/uL ABG pH 7.34 L (7.35-7.45) ABG pCO2 50 H (35-45) mmHg ABG HCO3 27 H (21-25) mmol/L ABG Total CO2 28 H (19-24) mmol/L Sodium (137-145) mmol/L BUN (7-17) mg/dL Creatinine (0.52-1.04) mg/dL Glucose (74-99) mg/dL POC Glucose (mg/dL) (70-110) mg/dL Plasma Lactic Acid Rip 3.6 H* (0.7-2.0) mmol/L Calcium (8.4-10.2) mg/dL Total Bilirubin (0.2-1.3) mg/dL Alkaline Phosphatase (38-126) U/L Total Protein (6.3-8.2) g/dL Albumin (3.5-5.0) g/dL 01/23/25 Range/Units 11:42 WBC (4.50-10.00) 10*3/uL Immature Gran # (0.00-0.04) 10*3/uL Neutrophils # (Manual) (1.3-7.7) k/uL Lymphocytes # (Manual) (1.0-4.8) k/uL ABG pH (7.35-7.45) ABG pCO2 (35-45) mmHg ABG HCO3 (21-25) mmol/L ABG Total CO2 (19-24) mmol/L Sodium (137-145) mmol/L BUN (7-17) mg/dL Creatinine (0.52-1.04) mg/dL Glucose (74-99) mg/dL POC Glucose (mg/dL) 136 H (70-110) mg/dL Plasma Lactic Acid Rip (0.7-2.0) mmol/L Calcium (8.4-10.2) mg/dL Total Bilirubin (0.2-1.3) mg/dL Alkaline Phosphatase (38-126) U/L Total Protein (6.3-8.2) g/dL Albumin (3.5-5.0) g/dL
[2025-01-23 17:57] LABS: Glucose,Whole Blood 157 mg/dL (70-110)
[2025-01-24 01:19] LABS: Glucose,Whole Blood 157 mg/dL (70-110)
[2025-01-24 03:45] LABS: HCT 35.1 % (37.2-46.3); HGB 11.6 g/dL (12.0-15.0); MCH 30.2 pg (27.0-32.0); MCV 91.4 fL (80.0-97.0); Mean Platelet Volume 11.2 fL (9.5-12.2); Platelet Count 174 10*3/uL (140-440); RBC 3.84 10*6/uL (4.10-5.20); RDW 13.9 % (11.5-14.5); WBC 12.53 10*3/uL (4.50-10.00)
[2025-01-24 04:00] LABS: African American GFR (CKD) 41 (>60 ml/min/1.73 sqM); Anion Gap 7 mmol/L; Blood Urea Nitrogen 51 mg/dL (7-17); Calcium 7.7 mg/dL (8.4-10.2); Carbon Dioxide 23 mmol/L (22-30); Chloride 101 mmol/L (98-107); Glucose 147 mg/dL (74-99); Magnesium 1.9 mg/dL (1.6-2.3); Non-African American GFR(CKD) 35 (>60 ml/min/1.73 sqM); Potassium 3.5 mmol/L (3.5-5.1); Sodium 131 mmol/L (137-145)
[2025-01-24 04:20] LABS: ABG Base Excess 0.4 mmol/L; ABG HCO3 27 mmol/L (21-25); ABG Oxygen Saturation 97.8 % (94-97); ABG PCO2 49 mmHg (35-45); ABG PH 7.35 (7.35-7.45); ABG PO2 93 mmHg (83-108); ABG TCO2 28 mmol/L (19-24)
[2025-01-24 04:21] LABS: Allen Test Performed? No
[2025-01-24] MEDS: POTASSIUM CHLORIDE 20 MEQ in WATER FOR INJECTION 1 100ML.BAG IVPB SCH (04:42)
[2025-01-24] MEDS: MAGNESIUM SULFATE-D5W PMX 1 GM in DEXTROSE/WATER 1 100ML.BAG IVPB ONE (04:42)
[2025-01-24 06:17] LABS: Glucose,Whole Blood 135 mg/dL (70-110)
[2025-01-24 06:45] LABS: Band Neutrophils % 18 %; Lymphocytes # (M) 0.88 k/uL (1.0-4.8); Monocytes # (M) 0.38 k/uL (0-1.0); Neutrophils % (M) 73 %; Nucleated Red Blood Cells 0 /100 WBC (0-0); Total Cells Counted 200
[2025-01-24 06:47] LABS: Anisocytosis (M) Present; Polychromasia Present
--- NOTE | 2025-01-24 08:19 | XR ---
EXAMINATION TYPE: XR chest 1V portable DATE OF EXAM: 01/24/2025 5:58 AM COMPARISON: Chest radiographs from 01/23/2025 TECHNIQUE: XR chest 1V portable Portable AP radiograph of the chest. CLINICAL INDICATION:Female, 84 years old with history of Tube placement; FINDINGS: Patient is rotated which limits evaluation. Lungs/Pleura: No pneumothorax. Small left pleural effusion with associated airspace opacities. Pulmonary vascularity: Unremarkable. Heart/mediastinum: Cardiomediastinal silhouette is prominent in size. Atherosclerotic calcifications are seen in the aorta. Musculoskeletal: No acute osseous pathology. Other findings: None Lines/Tubes: Endotracheal tube with distal tip 1.3 cm above the tess Nasogastric tube with its distal tip and side-port projecting under the diaphragm. Right IJ central venous catheter with distal tip terminating at the mid SVC. IMPRESSION: 1. Stable support lines and tubes. 2. Small left pleural effusion with associated atelectasis versus infiltrates. [facility], , 01/24/2025 8:16 AM
--- NOTE | 2025-01-24 10:23 | P.PN ---
Subjective Progress Note Date: 01/24/25 The patient remains in the ICU on the ventilator. She is still requiring significant pressor support. On exam vital signs appear stable. Abdomen soft. Incision is clean dry intact. Status post small bowel resection due to strangulated right inguinal hernia and repairs of right and left inguinal hernia and incisional hernia. Patient's condition is quite guarded. She will continue receive supportive care in the ICU. Objective - Vital Signs Vital signs: Vital Signs Temp 98.1 F 01/24/25 04:00 Pulse 99 01/24/25 09:15 Resp 14 01/24/25 07:00 BP 106/49 01/24/25 07:00 Pulse Ox 100 01/24/25 07:00 FiO2 40 01/24/25 08:55 Intake & Output 01/23/25 01/24/25 01/24/25 18:59 06:59 18:59 Intake Total 3410.382 3557.840 247.7 Output Total 375 385 240 Balance 3035.382 3172.840 7.7 Weight 64.3 kg 70.4 kg Intake: IV 2353 2176 173 .9 kvo 220 240 20 Lactated Ringers 1,000 ml 1800 1800 150 @ 150 mls/hr IV .Q6H40M [facility] Rx#:[id number] Piperacillin-Tazobactam 3 100 100 .375 gm In Sodium Chloride 0.9% 100 ml @ 25 mls/hr IVPB Q12H [facility] Rx# :[id number] Potassium Chloride 20 meq 200 In Water For Injection 1 100ml.bag @ 50 mls/hr IVPB Q2H [facility] Rx#: [id number] a -line 33 36 3 Intake, IV Titration 5094.232 0438.840 74.7 Amount Amiodarone 450 mg In 243.616 250 Dextrose 5% in Water 250 ml @ 0.5 MG/MIN 16.667 mls/hr IV .Q15H [facility] Rx#: [id number] Magnesium Sulfate-D5w Pmx 100 1 gm In Dextrose/Water 1 100ml.bag @ 100 mls/hr IVPB ONCE ONE Rx#: [id number] Magnesium Sulfate-D5w Pmx 100 1 gm In Dextrose/Water 1 100ml.bag @ 100 mls/hr IVPB ONCE ONE Rx#: [id number] Norepinephrine 4 mg In 573.046 538.310 74.7 Sodium Chloride 0.9% 250 ml @ 0.03 MCG/KG/MIN 6. 377 mls/hr IV .Q24H [facility] Rx#:[id number] Potassium Chloride 20 meq 200 In Water For Injection 1 100ml.bag @ 50 mls/hr IVPB Q2H [facility] Rx#: [id number] Vasopressin 20 unit In 20.961 51 Sodium Chloride 0.9% 50 ml @ 0.03 UNITS/MIN 4.59 mls/hr IV .Q11H7M [facility] Rx# :[id number] propofoL 1,000 mg In 119.759 242.530 Empty Bag 1 bag @ 15 MCG/ KG/MIN 5.021 mls/hr IV . [id number] [facility] Rx#:[id number] Output: Urine 375 385 40 Other 200 Other: Voiding Method Indwelling Catheter Indwelling Catheter ABP, PAP, CO, CI - Last Documented Arterial Blood Pressure 128/42 - Labs CBC & Chem 7: 01/24/25 03:15 01/24/25 03:15 Labs: Abnormal Lab Results - Last 24 Hours (Table) 01/23/25 01/23/25 01/24/25 Range/Units 11:42 17:56 01:17 WBC (4.50-10.00) 10*3/uL RBC (4.10-5.20) 10*6/uL Hgb (12.0-15.0) g/dL Hct (37.2-46.3) % Immature Gran # (0.00-0.04) 10*3/uL Neutrophils # (Manual) (1.3-7.7) k/uL Lymphocytes # (Manual) (1.0-4.8) k/uL ABG pCO2 (35-45) mmHg ABG HCO3 (21-25) mmol/L ABG Total CO2 (19-24) mmol/L ABG O2 Saturation (94-97) % Sodium (137-145) mmol/L BUN (7-17) mg/dL Creatinine (0.52-1.04) mg/dL Glucose (74-99) mg/dL POC Glucose (mg/dL) 136 H 157 H 157 H (70-110) mg/dL Calcium (8.4-10.2) mg/dL 01/24/25 01/24/25 01/24/25 Range/Units 03:15 03:15 04:16 WBC 12.53 H (4.50-10.00) 10*3/uL RBC 3.84 L (4.10-5.20) 10*6/uL Hgb 11.6 L (12.0-15.0) g/dL Hct 35.1 L (37.2-46.3) % Immature Gran # 0.19 H (0.00-0.04) 10*3/uL Neutrophils # (Manual) 11.40 H (1.3-7.7) k/uL Lymphocytes # (Manual) 0.88 L (1.0-4.8) k/uL ABG pCO2 49 H (35-45) mmHg ABG HCO3 27 H (21-25) mmol/L ABG Total CO2 28 H (19-24) mmol/L ABG O2 Saturation 97.8 H (94-97) % Sodium 131 L (137-145) mmol/L BUN 51 H (7-17) mg/dL Creatinine 1.37 H (0.52-1.04) mg/dL Glucose 147 H (74-99) mg/dL POC Glucose (mg/dL) (70-110) mg/dL Calcium 7.7 L (8.4-10.2) mg/dL 01/24/25 Range/Units 06:15 WBC (4.50-10.00) 10*3/uL RBC (4.10-5.20) 10*6/uL Hgb (12.0-15.0) g/dL Hct (37.2-46.3) % Immature Gran # (0.00-0.04) 10*3/uL Neutrophils # (Manual) (1.3-7.7) k/uL Lymphocytes # (Manual) (1.0-4.8) k/uL ABG pCO2 (35-45) mmHg ABG HCO3 (21-25) mmol/L ABG Total CO2 (19-24) mmol/L ABG O2 Saturation (94-97) % Sodium (137-145) mmol/L BUN (7-17) mg/dL Creatinine (0.52-1.04) mg/dL Glucose (74-99) mg/dL POC Glucose (mg/dL) 135 H (70-110) mg/dL Calcium (8.4-10.2) mg/dL Microbiology - Last 24 Hours (Table) 01/22/25 09:55 Blood Culture - Preliminary Blood
[2025-01-24 12:01] LABS: Glucose,Whole Blood 134 mg/dL (70-110)
--- NOTE | 2025-01-24 13:59 | P.PN ---
Subjective Progress Note Date: 01/24/25 patient is a 84-year-old lady with past medical history significant for GERD, hyperlipidemia who is a resident of [facility] who initially presented to the ER for nausea vomiting nominal pain for the last 3 days. Workup in the ER showed a CT scan showing biliary air within the liver with pneumatosis intestinalis within the stomach wall, Mesenteric ischemia should be considered,Dilated fluid-filled small bowel loops,Some of transition may be in left inguinal hernia. Patient was admitted under surgery and was taken for emergent exploratory laparotomy with repair of strangulated right inguinal hernia with small bowel resection,repair of left internal hernia and repair of incisional hernia. Postoperatively patient was intubated and was admitted to ICU 01/24. Patient seen and examined. Patient continues to be on mechanical ventilator, labs done this morning showedWBC 12.53, hemoglobin 11.6, sodium 131, potassium 3.5, BUN 15, creatinine 1.37, calcium 10.7. REVIEW OF SYSTEMS: Cannot be obtained as patient currently intubated PHYSICAL EXAMINATION: GENERAL: The patient is intubated HEENT: Pupils are round and equally reacting to light. EOMI. No scleral icterus. No conjunctival pallor. Normocephalic, atraumatic. No pharyngeal erythema. No thyromegaly. CARDIOVASCULAR: S1 and S2 present. No murmurs, rubs, or gallops. PULMONARY: Chest is clear to auscultation, no wheezing or crackles. ABDOMEN: Laparotomy surgical incisions seen, wound VAC in place MUSCULOSKELETAL: No joint swelling or deformity. EXTREMITIES: No cyanosis, clubbing, or pedal edema. NEUROLOGICAL: Intubated SKIN: No rashes. Assessment and plan Acute abdomen due to ischemic bowel status post post expiratory laparotomy with repair of a strangulated right inguinal hernia with small bowel resection and repair of a left internal hernia and repair of an incisional hernia. Acute respiratory failure, nonhypoxic and the patient was kept intubated on mechanical ventilator postop. Acute leukocytosis secondary to above Acute kidney injury Acute lactic acidosis Mild troponin leak secondary to sepsis, type II myocardial ischemia Dementia History of paroxysmal atrial fibrillation current rhythm is sinus and the patient has been taking Eliquis on outpatient basis Hyperlipidemia History of fall Previous history of bowel resection back in 2013 for a bowel perforation requiring subsequent PEG tube insertion and removal Monitor vital signs Monitor CBC Monitor CMP Continue vent management Continue tube feeding Continue Levophed and vasopressin Continue IV Zosyn Continue amiodarone Surgery following Labs and medication were reviewed.. Continue same treatment. Continue with sym ptomatic treatment. Resume home medication. Monitor labs and vitals. DVT and GI prophylaxis. Further recommendations as per clinical course of the patient Dictation was produced using [employer] dictation software. please excuse any grammatical, word or spelling errors. Objective - Vital Signs Vital signs: Vital Signs Temp 98.1 F 01/24/25 08:00 Pulse 88 01/24/25 11:55 Resp 14 01/24/25 11:55 BP 125/61 01/24/25 11:00 Pulse Ox 99 01/24/25 11:00 FiO2 40 01/24/25 12:00 Intake & Output 01/23/25 01/24/25 01/24/25 18:59 06:59 18:59 Intake Total 3410.382 3557.840 1316.975 Output Total 375 385 375 Balance 3035.382 3172.840 941.975 Weight 64.3 kg 70.4 kg Intake: IV 2353 2176 1008 .9 kvo 220 240 90 Lactated Ringers 1,000 ml 1800 1800 900 @ 150 mls/hr IV .Q6H40M [facility] Rx#:[id number] Piperacillin-Tazobactam 3 100 100 .375 gm In Sodium Chloride 0.9% 100 ml @ 25 mls/hr IVPB Q12H [facility] Rx# :[id number] Potassium Chloride 20 meq 200 In Water For Injection 1 100ml.bag @ 50 mls/hr IVPB Q2H [facility] Rx#: [id number] a -line 33 36 18 Intake, IV Titration 5408.855 7731.840 308.975 Amount Amiodarone 450 mg In 243.616 250 Dextrose 5% in Water 250 ml @ 0.5 MG/MIN 16.667 mls/hr IV .Q15H [facility] Rx#: [id number] Magnesium Sulfate-D5w Pmx 100 1 gm In Dextrose/Water 1 100ml.bag @ 100 mls/hr IVPB ONCE ONE Rx#: [id number] Magnesium Sulfate-D5w Pmx 100 1 gm In Dextrose/Water 1 100ml.bag @ 100 mls/hr IVPB ONCE ONE Rx#: [id number] Norepinephrine 4 mg In 573.046 538.310 228.885 Sodium Chloride 0.9% 250 ml @ 0.03 MCG/KG/MIN 6. 377 mls/hr IV .Q24H [facility] Rx#:[id number] Potassium Chloride 20 meq 200 In Water For Injection 1 100ml.bag @ 50 mls/hr IVPB Q2H [facility] Rx#: [id number] Vasopressin 20 unit In 20.961 51 Sodium Chloride 0.9% 50 ml @ 0.03 UNITS/MIN 4.59 mls/hr IV .Q11H7M [facility] Rx# :[id number] propofoL 1,000 mg In 119.759 242.530 80.09 Empty Bag 1 bag @ 15 MCG/ KG/MIN 5.021 mls/hr IV . [id number] [facility] Rx#:[id number] Output: Urine 375 385 175 Other 200 Other: Voiding Method Indwelling Catheter Indwelling Catheter Indwelling Catheter ABP, PAP, CO, CI - Last Documented Arterial Blood Pressure 137/47 - Labs CBC & Chem 7: 01/24/25 03:15 01/24/25 03:15 Labs: Abnormal Lab Results - Last 24 Hours (Table) 01/23/25 01/24/25 01/24/25 Range/Units 17:56 01:17 03:15 WBC 12.53 H (4.50-10.00) 10*3/uL RBC 3.84 L (4.10-5.20) 10*6/uL Hgb 11.6 L (12.0-15.0) g/dL Hct 35.1 L (37.2-46.3) % Immature Gran # 0.19 H (0.00-0.04) 10*3/uL Neutrophils # (Manual) 11.40 H (1.3-7.7) k/uL Lymphocytes # (Manual) 0.88 L (1.0-4.8) k/uL ABG pCO2 (35-45) mmHg ABG HCO3 (21-25) mmol/L ABG Total CO2 (19-24) mmol/L ABG O2 Saturation (94-97) % Sodium (137-145) mmol/L BUN (7-17) mg/dL Creatinine (0.52-1.04) mg/dL Glucose (74-99) mg/dL POC Glucose (mg/dL) 157 H 157 H (70-110) mg/dL Calcium (8.4-10.2) mg/dL 01/24/25 01/24/25 01/24/25 Range/Units 03:15 04:16 06:15 WBC (4.50-10.00) 10*3/uL RBC (4.10-5.20) 10*6/uL Hgb (12.0-15.0) g/dL Hct (37.2-46.3) % Immature Gran # (0.00-0.04) 10*3/uL Neutrophils # (Manual) (1.3-7.7) k/uL Lymphocytes # (Manual) (1.0-4.8) k/uL ABG pCO2 49 H (35-45) mmHg ABG HCO3 27 H (21-25) mmol/L ABG Total CO2 28 H (19-24) mmol/L ABG O2 Saturation 97.8 H (94-97) % Sodium 131 L (137-145) mmol/L BUN 51 H (7-17) mg/dL Creatinine 1.37 H (0.52-1.04) mg/dL Glucose 147 H (74-99) mg/dL POC Glucose (mg/dL) 135 H (70-110) mg/dL Calcium 7.7 L (8.4-10.2) mg/dL 01/24/25 Range/Units 12:00 WBC (4.50-10.00) 10*3/uL RBC (4.10-5.20) 10*6/uL Hgb (12.0-15.0) g/dL Hct (37.2-46.3) % Immature Gran # (0.00-0.04) 10*3/uL Neutrophils # (Manual) (1.3-7.7) k/uL Lymphocytes # (Manual) (1.0-4.8) k/uL ABG pCO2 (35-45) mmHg ABG HCO3 (21-25) mmol/L ABG Total CO2 (19-24) mmol/L ABG O2 Saturation (94-97) % Sodium (137-145) mmol/L BUN (7-17) mg/dL Creatinine (0.52-1.04) mg/dL Glucose (74-99) mg/dL POC Glucose (mg/dL) 134 H (70-110) mg/dL Calcium (8.4-10.2) mg/dL Microbiology - Last 24 Hours (Table) 01/22/25 09:55 Blood Culture - Preliminary Blood
[2025-01-24 17:42] LABS: Glucose,Whole Blood 147 mg/dL (70-110)
--- NOTE | 2025-01-24 18:29 | P.PN ---
Subjective Progress Note Date: 01/24/25 This is a 84-year-old female patient who presented to the emergency department with acute abdomen. The patient had abdominal pain and she had a CT scan of the abdomen and pelvis done in the Emergency Department that showed evidence of biliary air within the liver with pneumatosis intestinalis within the stomach wall. Patient also had dilated fluid-filled small bowel and transition at the left inguinal hernia level. Based on that, the patient was taken to the operating room. Noted the patient had a DNR/DNI CODE STATUS. The CODE STATUS was switched for the sake of the procedure and she was placed on a full code. In the operating room, the patient underwent a exploratory laparotomy and the patient was found to have strangulated right inguinal hernia, ischemic small bowel and incisional hernia. The patient underwent a repair of the strangulated right inguinal hernia with small bowel resection and repair of the left internal hernia repair of the incisional hernia. Estimated blood loss was 20 cc. Noted postop, the patient was kept intubated and she was brought into the intensive care unit for further monitoring. At this point in time, the patient remains intubated on the mechanical ventilator. She is on propofol running at 55 mcg/kg/min. She has already received a total of 2 L of IV fluids and she is currently on lactated Ringer at rate of 150 cc an hour. The patient is on a rate of 14, tidal volume of 400, FiO2 of 100% with a PEEP of 5. The blood gases showed a pH of 7.46 with a BKT674 and PO2 of 341. Chest x-ray postop showed adequate expansion of both lungs. Orotracheal tube was just above the tess. NG tube was in place. No airspace disease. No consolidation. No pneumothorax. No pleural effusion. No noted air under the diaphragm. The patient is currently on no pressors. Hemodynamically stable. She is on no antibiotics for now. Blood work from this morning showed a WBC count of 10, hemoglobin of 18 and a platelet count of 213. Sodium is at 132, BUN 64 with a creatinine of 1.7 and a potassium level of 4.1 and a chloride is 87 with a bicarb level of 32. Initial lactic acid level was at 4.5. proBNP level is 3230. TSH was 1.7 with a free T4 of 2.1. The viral screen was negative. LFTs were normal. Troponin was 0.09. 01/23/2025, the patient remains intubated on mechanical ventilator. The patient is currently on propofol for respiratory. The patient is on assist-control mode of mechanical ventilation at rate of 14, tidal volume of 400, FiO2 40% with a PEEP of 5. Blood gas showed a pH of 7.34 with a YKT833 and PO2 of 86. Remains on lactated Ringer at rate of 150 cc an hour. Net fluid balance is +6.3 L over the past 24 hours and the patient remains on norepinephrine running at 0.3 mcg/kg/min. The patient also went into atrial fibrillation with RVR. The patient was started on albuterol protocol. The patient converted to normal sinus rhythm. Amiodarone drip is still running at 0.5 mg/min. The patient's white cell count is 15 with a hemoglobin 15.20 platelet count of 183. Sodium is at 133, BUN is 57 with a creatinine of 0.9 and a potassium level of 3.5. Lactic acid level has returned to 1.7. Calcium is at 7.3. Surgical wound bed is dry clean and intact. No other significant events overnight. On 01/24/2025, the patient is being seen for a follow-up. The patient remains intubated on mechanical ventilator. The patient remains on propofol running at 45 mcg/kg/min. Calm and comfortable and pressor requirements have improved compared to yesterday. For now, and this morning, the patient remains on lactated Ringer at rate of 150 cc an hour. The patient is on norepinephrine at 0.18 mcg/kg/min and vasopressin physiologic dose. Fluid balance is +6.2 L over the past 24 hours as the patient received several fluid boluses yesterday. Current CVP is at 8. Also, the patient is on assist-control mode of mechanical ventilation at rate of 14, tidal volume of 400, FiO2 40% with a PEEP of 5. pH is 7.35 with a pCO2 of 49 and pO2 of 93. The patient is afebrile. The patient remains on a combination of Zosyn and vancomycin. The patient is also on amiodarone at 0.5 mL milligrams per minute regarding her atrial fibrillation which is essentially well-controlled for now. The white cell count is at 12.5, hemoglobin is 11.6 and the platelet count of 174. There is 73% neutrophilia. Sodium is at 131, potassium 3.5, BUN 51 with a creatinine of 1.3. Potassium is at 3.5. Renal function continues to improve and the serum bicarb is at 23. Blood sugars at 147. The patient's echocardiogram done on 01/23/2025 was reviewed and it shows a normal preserved LV function with ejection fraction of 50 to 55%. Mild MR, mild TR, no significant valvular heart disease. The patient remains NPO. No other significant events overnight. Objective - Vital Signs Vital signs: Vital Signs Temp 98.1 F 01/24/25 04:00 Pulse 99 01/24/25 09:15 Resp 14 01/24/25 07:00 BP 106/49 01/24/25 07:00 Pulse Ox 100 01/24/25 07:00 FiO2 40 01/24/25 08:55 Intake & Output 01/23/25 01/24/25 01/24/25 18:59 06:59 18:59 Intake Total 3410.382 3557.840 247.7 Output Total 375 385 240 Balance 3035.382 3172.840 7.7 Weight 64.3 kg 70.4 kg Intake: IV 2353 2176 173 .9 kvo 220 240 20 Lactated Ringers 1,000 ml 1800 1800 150 @ 150 mls/hr IV .Q6H40M [facility] Rx#:[id number] Piperacillin-Tazobactam 3 100 100 .375 gm In Sodium Chloride 0.9% 100 ml @ 25 mls/hr IVPB Q12H [facility] Rx# :[id number] Potassium Chloride 20 meq 200 In Water For Injection 1 100ml.bag @ 50 mls/hr IVPB Q2H [facility] Rx#: [id number] a -line 33 36 3 Intake, IV Titration 1646.016 3617.840 74.7 Amount Amiodarone 450 mg In 243.616 250 Dextrose 5% in Water 250 ml @ 0.5 MG/MIN 16.667 mls/hr IV .Q15H [facility] Rx#: [id number] Magnesium Sulfate-D5w Pmx 100 1 gm In Dextrose/Water 1 100ml.bag @ 100 mls/hr IVPB ONCE ONE Rx#: [id number] Magnesium Sulfate-D5w Pmx 100 1 gm In Dextrose/Water 1 100ml.bag @ 100 mls/hr IVPB ONCE ONE Rx#: [id number] Norepinephrine 4 mg In 573.046 538.310 74.7 Sodium Chloride 0.9% 250 ml @ 0.03 MCG/KG/MIN 6. 377 mls/hr IV .Q24H [facility] Rx#:[id number] Potassium Chloride 20 meq 200 In Water For Injection 1 100ml.bag @ 50 mls/hr IVPB Q2H [facility] Rx#: [id number] Vasopressin 20 unit In 20.961 51 Sodium Chloride 0.9% 50 ml @ 0.03 UNITS/MIN 4.59 mls/hr IV .Q11H7M [facility] Rx# :[id number] propofoL 1,000 mg In 119.759 242.530 Empty Bag 1 bag @ 15 MCG/ KG/MIN 5.021 mls/hr IV . [id number] [facility] Rx#:[id number] Output: Urine 375 385 40 Other 200 Other: Voiding Method Indwelling Catheter Indwelling Catheter ABP, PAP, CO, CI - Last Documented Arterial Blood Pressure 128/42 - Exam The patient appeared well nourished and normally developed. Vital signs as documented. The patient is calm and comfortable, sedated on propofol. Orogastric and orotracheal tube are both in place. Head exam is unremarkable. No scleral icterus or corneal arcus noted. Neck is without jugular venous distension, thyromegaly, or carotid bruits. Carotid upstrokes are brisk bilaterally. Lungs are clear to auscultation and percussion. Cardiac exam reveals the PMI to be normally sized and situated. Rhythm is regular. First and second heart sounds normal. No murmurs, rubs or gallops. Abdominal exam reveals no masses, no organomegaly and no aortic enlargement. The patient has a mid abdominal incision with a wound VAC being placed. Bowel sounds are absent. Extremities are nonedematous and both femoral and pedal pulses are normal. Examination of the skin revealed no evidence of significant rashes, suspicious appearing nevi or other concerning lesions. Neurologically, the patient is a sedated. The patient apparently has an underlying dementia. - Labs CBC & Chem 7: 01/24/25 03:15 01/24/25 03:15 Labs: Abnormal Lab Results - Last 24 Hours (Table) 01/23/25 01/23/25 01/24/25 Range/Units 11:42 17:56 01:17 WBC (4.50-10.00) 10*3/uL RBC (4.10-5.20) 10*6/uL Hgb (12.0-15.0) g/dL Hct (37.2-46.3) % Immature Gran # (0.00-0.04) 10*3/uL Neutrophils # (Manual) (1.3-7.7) k/uL Lymphocytes # (Manual) (1.0-4.8) k/uL ABG pCO2 (35-45) mmHg ABG HCO3 (21-25) mmol/L ABG Total CO2 (19-24) mmol/L ABG O2 Saturation (94-97) % Sodium (137-145) mmol/L BUN (7-17) mg/dL Creatinine (0.52-1.04) mg/dL Glucose (74-99) mg/dL POC Glucose (mg/dL) 136 H 157 H 157 H (70-110) mg/dL Calcium (8.4-10.2) mg/dL 01/24/25 01/24/25 01/24/25 Range/Units 03:15 03:15 04:16 WBC 12.53 H (4.50-10.00) 10*3/uL RBC 3.84 L (4.10-5.20) 10*6/uL Hgb 11.6 L (12.0-15.0) g/dL Hct 35.1 L (37.2-46.3) % Immature Gran # 0.19 H (0.00-0.04) 10*3/uL Neutrophils # (Manual) 11.40 H (1.3-7.7) k/uL Lymphocytes # (Manual) 0.88 L (1.0-4.8) k/uL ABG pCO2 49 H (35-45) mmHg ABG HCO3 27 H (21-25) mmol/L ABG Total CO2 28 H (19-24) mmol/L ABG O2 Saturation 97.8 H (94-97) % Sodium 131 L (137-145) mmol/L BUN 51 H (7-17) mg/dL Creatinine 1.37 H (0.52-1.04) mg/dL Glucose 147 H (74-99) mg/dL POC Glucose (mg/dL) (70-110) mg/dL Calcium 7.7 L (8.4-10.2) mg/dL 01/24/25 Range/Units 06:15 WBC (4.50-10.00) 10*3/uL RBC (4.10-5.20) 10*6/uL Hgb (12.0-15.0) g/dL Hct (37.2-46.3) % Immature Gran # (0.00-0.04) 10*3/uL Neutrophils # (Manual) (1.3-7.7) k/uL Lymphocytes # (Manual) (1.0-4.8) k/uL ABG pCO2 (35-45) mmHg ABG HCO3 (21-25) mmol/L ABG Total CO2 (19-24) mmol/L ABG O2 Saturation (94-97) % Sodium (137-145) mmol/L BUN (7-17) mg/dL Creatinine (0.52-1.04) mg/dL Glucose (74-99) mg/dL POC Glucose (mg/dL) 135 H (70-110) mg/dL Calcium (8.4-10.2) mg/dL Microbiology - Last 24 Hours (Table) 01/22/25 09:55 Blood Culture - Preliminary Blood Assessment and Plan Plan: Acute abdomen, related to strangulated right with small bowel resection and repair of a with ischemic small bowel and the patient was found to have an incisional hernia. The patient is post expiratory laparotomy with repair of a strangulated right inguinal hernia with small bowel resection and repair of a left internal hernia and repair of an incisional hernia. The patient is currently postop day # 2 estimated blood loss is 25 cc. Patient was kept intubated on the mechanical ventilator. The patient remains septic and the patient remains hypotensive. Clinically more stable and the pressor requirements have improved compared to yesterday. Acute respiratory failure, nonhypoxic and the patient was kept intubated on mechanical ventilator postop. Septic shock secondary to above, remains on pressors. Aggressive resuscitative IV fluids. Remains on high-dose norepinephrine. Acute leukocytosis secondary to above Acute kidney injury, creatinine continues to improve Acute lactic acidosis secondary to above, improved Mild troponin leak secondary to sepsis, type II myocardial ischemia Dementia History of paroxysmal atrial fibrillation current rhythm is sinus and the patient is currently on amiodarone 0.5 mg/min and the patient is off Eliquis. The patient receiving heparin subcu for DVT prophylaxis. Echo showed a preserved LV function without any significant valvular abnormalities. Hyperlipidemia History of fall and the patient was undergoing rehabilitation at the [facility] on the [place] left hip fracture Previous history of bowel resection back in 2013 for a bowel perforation requiring subsequent PEG tube insertion and removal Plan Continue vent support, no vent changes for today Check CVP at 8 Continue lactated Ringer at rate of 150 cc an hour Continue norepinephrine vasopressin physiologic dose Continue amiodarone drip at 0.5 mg/min IV Zosyn as an empiric antibiotic coverage Monitor renal function urine output Keep the patient n.p.o. for now Hold anticoagulants and put the patient on heparin subcu for DVT prophylaxis Condition remains critical and will continue to follow make further trish mmendations based on the progress. Surgical wound site is dry clean and intact Will continue to follow make further recommendations. Evaluation was done 33 minutes. Time with Patient: Greater than 30
[2025-01-24 19:00] LABS: Glucose,Whole Blood 123 mg/dL (70-110)
[2025-01-24 23:44] LABS: Glucose,Whole Blood 118 mg/dL (70-110)
[2025-01-25] MEDS: PIPERACILLIN-TAZOBACTAM 3.375 GM in SODIUM CHLORIDE 0.9% 100 ML IVPB SCH (02:00)
[2025-01-25 04:28] LABS: ABG Base Excess 5.1 mmol/L; ABG HCO3 30 mmol/L (21-25); ABG Oxygen Saturation 99.7 % (94-97); ABG PCO2 44 mmHg (35-45); ABG PH 7.44 (7.35-7.45); ABG PO2 130 mmHg (83-108); ABG TCO2 31 mmol/L (19-24)
[2025-01-25 04:30] LABS: Allen Test Performed? No
[2025-01-25 04:55] LABS: Basophils # (A) 0.08 10*3/uL (0.00-0.10); Basophils % (A) 0.8 %; Eosinophils # (A) 0.02 10*3/uL (0.04-0.35); Eosinophils % (A) 0.2 %; HCT 33.6 % (37.2-46.3); HGB 11.1 g/dL (12.0-15.0); Lymphocytes # (A) 0.69 10*3/uL (0.90-5.00); Lymphocytes % (A) 6.9 %; MCV 90.8 fL (80.0-97.0); Mean Platelet Volume 10.3 fL (9.5-12.2); Monocytes # (A) 0.96 10*3/uL (0.20-1.00); Monocytes % (A) 9.6 %; Neutrophils # (A) 8.13 10*3/uL (1.80-7.70); Neutrophils % (A) 81.1 %; Platelet Count 142 10*3/uL (140-440); RDW 13.7 % (11.5-14.5); WBC 10.02 10*3/uL (4.50-10.00)
[2025-01-25 05:37] LABS: African American GFR (CKD) 61 (>60 ml/min/1.73 sqM); Anion Gap 4 mmol/L; Blood Urea Nitrogen 41 mg/dL (7-17); Calcium 8.1 mg/dL (8.4-10.2); Carbon Dioxide 28 mmol/L (22-30); Chloride 100 mmol/L (98-107); Glucose 91 mg/dL (74-99); Non-African American GFR(CKD) 53 (>60 ml/min/1.73 sqM); Potassium 3.2 mmol/L (3.5-5.1); Sodium 132 mmol/L (137-145)
[2025-01-25 06:09] LABS: Glucose,Whole Blood 79 mg/dL (70-110)
[2025-01-25] MEDS: POTASSIUM CHLORIDE 10 MEQ in WATER FOR INJECTION 1 100ML.BAG IVPB SCH ×2 (06:18→14:06)
--- NOTE | 2025-01-25 08:40 | XR ---
EXAMINATION TYPE: XR chest 1V portable DATE OF EXAM: 01/25/2025 5:28 AM COMPARISON: 01/24/2025 CLINICAL INDICATION: Female, 84 years old with history of Tube placement, , FINDINGS: ET tube tip is low, 9 mm from the tess versus 1.3 cm, previously. NG tube courses below the diaphra gm. Cardiomegaly limits of normal in size. Hazy densities remain at the left mid and lower lung with obscuration of the left hemidiaphragm. Mild patchy density remains at the right base. Right IJ CVC ti p at the lower SVC level. IMPRESSION: 1. ET tube remains low, tip 9 mm from the tess. Pull back 2.5 cm and reassessed at follow-up. 2. Similar small to moderate partially layering left and trace right pleural effusion with adjacent a telectasis and/or consolidation. [facility], , 01/25/2025 8:38 AM
[2025-01-25] MEDS: PANTOPRAZOLE 40 MG/10 ML VIAL IVP SCH (11:07)
[2025-01-25 11:59] LABS: Glucose,Whole Blood 106 mg/dL (70-110)
--- NOTE | 2025-01-25 13:04 | P.PN ---
Subjective Progress Note Date: 01/25/25 patient is a 84-year-old lady with past medical history significant for GERD, hyperlipidemia who is a resident of [facility] who initially presented to the ER for nausea vomiting nominal pain for the last 3 days. Workup in the ER showed a CT scan showing biliary air within the liver with pneumatosis intestinalis within the stomach wall, Mesenteric ischemia should be considered,Dilated fluid-filled small bowel loops,Some of transition may be in left inguinal hernia. Patient was admitted under surgery and was taken for emergent exploratory laparotomy with repair of strangulated right inguinal hernia with small bowel resection,repair of left internal hernia and repair of incisional hernia. Postoperatively patient was intubated and was admitted to ICU 01/24. Patient seen and examined. Patient continues to be on mechanical ventilator, labs done this morning showedWBC 12.53, hemoglobin 11.6, sodium 131, potassium 3.5, BUN 15, creatinine 1.37, calcium 10.7. 01/25. Patient seen and examined. Continues to be on mechanical ventilation. Currently on amiodarone drip. Patient also on IV Levophed and vasopressin. Continue IV Zosyn. REVIEW OF SYSTEMS: Cannot be obtained as patient currently intubated PHYSICAL EXAMINATION: GENERAL: The patient is intubated HEENT: Pupils are round and equally reacting to light. EOMI. No scleral icterus. No conjunctival pallor. Normocephalic, atraumatic. No pharyngeal erythema. No thyromegaly. CARDIOVASCULAR: S1 and S2 present. No murmurs, rubs, or gallops. PULMONARY: Chest is clear to auscultation, no wheezing or crackles. ABDOMEN: Laparotomy surgical incisions seen, wound VAC in place MUSCULOSKELETAL: No joint swelling or deformity. EXTREMITIES: No cyanosis, clubbing, or pedal edema. NEUROLOGICAL: Intubated SKIN: No rashes. Assessment and plan Acute abdomen due to ischemic bowel status post post expiratory laparotomy with repair of a strangulated right inguinal hernia with small bowel resection and repair of a left internal hernia and repair of an incisional hernia. Acute respiratory failure, nonhypoxic and the patient was kept intubated on mechanical ventilator postop. Acute leukocytosis secondary to above Acute kidney injury Acute lactic acidosis Mild troponin leak secondary to sepsis, type II myocardial ischemia Dementia History of paroxysmal atrial fibrillation current rhythm is sinus and the patient has been taking Eliquis on outpatient basis Hyperlipidemia History of fall Previous history of bowel resection back in 2013 for a bowel perforation requiring subsequent PEG tube insertion and removal Monitor vital signs Monitor CBC Monitor CMP Continue vent management Continue tube feeding Continue Levophed and vasopressin Continue IV Zosyn Continue amiodarone Surgery following Labs and medication were reviewed.. Continue same treatment. Continue with symptomatic treatment. Resume home medication. Monitor labs and vitals. DVT and GI prophylaxis. Further recommendations as per clinical course of the patient Dictation was produced using [employer] dictation software. please excuse any grammatical, word or spelling errors. Objective - Vital Signs Vital signs: Vital Signs Temp 98.3 F 01/25/25 08:00 Pulse 86 01/25/25 09:03 Resp 16 01/25/25 09:00 BP 119/55 01/25/25 09:00 Pulse Ox 97 01/25/25 09:00 FiO2 30 01/25/25 09:54 Intake & Output 01/24/25 01/25/25 01/25/25 18:59 06:59 18:59 Intake Total 2642.315 2695.507 Output Total 550 1525 Balance 2092.315 1170.507 Weight 71.1 kg Intake: IV 2146 2346 .9 kvo 210 260 Lactated Ringers 1,000 ml 1800 1950 @ 150 mls/hr IV .Q6H40M [facility] Rx#:[id number] Piperacillin-Tazobactam 3 100 100 .375 gm In Sodium Chloride 0.9% 100 ml @ 25 mls/hr IVPB Q12H [facility] Rx# :[id number] a -line 36 36 Intake, IV Titration 496.315 349.507 Amount Amiodarone 450 mg In 248.616 Dextrose 5% in Water 250 ml @ 0.5 MG/MIN 16.667 mls/hr IV .Q15H [facility] Rx#: [id number] Norepinephrine 4 mg In 345.315 4.146 Sodium Chloride 0.9% 250 ml @ 0.03 MCG/KG/MIN 6. 377 mls/hr IV .Q24H [facility] Rx#:[id number] Vasopressin 20 unit In 51 48.348 Sodium Chloride 0.9% 50 ml @ 0.03 UNITS/MIN 4.59 mls/hr IV .Q11H7M [facility] Rx# :[id number] propofoL 1,000 mg In 100.000 48.397 Empty Bag 1 bag @ 15 MCG/ KG/MIN 5.021 mls/hr IV . [id number] [facility] Rx#:[id number] Output: Gastric Drainage 1050 Urine 350 475 Other 200 Other: Voiding Method Indwelling Catheter Indwelling Catheter Indwelling Catheter ABP, PAP, CO, CI - Last Documented Arterial Blood Pressure 151/55 - Labs CBC & Chem 7: 01/25/25 04:45 01/25/25 04:45 Labs: Abnormal Lab Results - Last 24 Hours (Table) 01/24/25 01/24/25 01/24/25 Range/Units 12:00 17:41 18:59 WBC (4.50-10.00) 10*3/uL RBC (4.10-5.20) 10*6/uL Hgb (12.0-15.0) g/dL Hct (37.2-46.3) % Immature Gran # (0.00-0.04) 10*3/uL Neutrophils # (1.80-7.70) 10*3/uL Lymphocytes # (0.90-5.00) 10*3/uL Eosinophils # (0.04-0.35) 10*3/uL ABG pO2 (83-108) mmHg ABG HCO3 (21-25) mmol/L ABG Total CO2 (19-24) mmol/L ABG O2 Saturation (94-97) % Sodium (137-145) mmol/L Potassium (3.5-5.1) mmol/L BUN (7-17) mg/dL POC Glucose (mg/dL) 134 H 147 H 123 H (70-110) mg/dL Calcium (8.4-10.2) mg/dL 01/24/25 01/25/25 01/25/25 Range/Units 23:42 04:03 04:45 WBC 10.02 H (4.50-10.00) 10*3/uL RBC 3.70 L (4.10-5.20) 10*6/uL Hgb 11.1 L (12.0-15.0) g/dL Hct 33.6 L (37.2-46.3) % Immature Gran # 0.14 H (0.00-0.04) 10*3/uL Neutrophils # 8.13 H (1.80-7.70) 10*3/uL Lymphocytes # 0.69 L (0.90-5.00) 10*3/uL Eosinophils # 0.02 L (0.04-0.35) 10*3/uL ABG pO2 130 H (83-108) mmHg ABG HCO3 30 H (21-25) mmol/L ABG Total CO2 31 H (19-24) mmol/L ABG O2 Saturation 99.7 H (94-97) % Sodium (137-145) mmol/L Potassium (3.5-5.1) mmol/L BUN (7-17) mg/dL POC Glucose (mg/dL) 118 H (70-110) mg/dL Calcium (8.4-10.2) mg/dL 01/25/25 Range/Units 04:45 WBC (4.50-10.00) 10*3/uL RBC (4.10-5.20) 10*6/uL Hgb (12.0-15.0) g/dL Hct (37.2-46.3) % Immature Gran # (0.00-0.04) 10*3/uL Neutrophils # (1.80-7.70) 10*3/uL Lymphocytes # (0.90-5.00) 10*3/uL Eosinophils # (0.04-0.35) 10*3/uL ABG pO2 (83-108) mmHg ABG HCO3 (21-25) mmol/L ABG Total CO2 (19-24) mmol/L ABG O2 Saturation (94-97) % Sodium 132 L (137-145) mmol/L Potassium 3.2 L (3.5-5.1) mmol/L BUN 41 H (7-17) mg/dL POC Glucose (mg/dL) (70-110) mg/dL Calcium 8.1 L (8.4-10.2) mg/dL Microbiology - Last 24 Hours (Table) 01/22/25 09:55 Blood Culture - Preliminary Blood
--- NOTE | 2025-01-25 13:50 | P.PN ---
Subjective Progress Note Date: 01/25/25 Principal diagnosis: Acute abdomen with acute ischemic small bowel related to strangulated right inguinal hernia. Patient is status post right inguinal hernia repair, and resection of small bowel postoperative day #3 This is a 84-year-old female patient who presented to the emergency department with acute abdomen. The patient had abdominal pain and she had a CT scan of the abdomen and pelvis done in the Emergency Department that showed evidence of biliary air within the liver with pneumatosis intestinalis within the stomach wall. Patient also had dilated fluid-filled small bowel and transition at the left inguinal hernia level. Based on that, the patient was taken to the operating room. Noted the patient had a DNR/DNI CODE STATUS. The CODE STATUS was switched for the sake of the procedure and she was placed on a full code. In the operating room, the patient underwent a exploratory laparotomy and the patient was found to have strangulated right inguinal hernia, ischemic small bowel and incisional hernia. The patient underwent a repair of the strangulated right inguinal hernia with small bowel resection and repair of the left internal hernia repair of the incisional hernia. Estimated blood loss was 20 cc. Noted postop, the patient was kept intubated and she was brought into the intensive care unit for further monitoring. At this point in time, the patient remains intubated on the mechanical ventilator. She is on propofol running at 55 mcg/kg/min. She has already received a total of 2 L of IV fluids and she is currently on lactated Ringer at rate of 150 cc an hour. The patient is on a rate of 14, tidal volume of 400, FiO2 of 100% with a PEEP of 5. The blood gases showed a pH of 7.46 with a CLI216 and PO2 of 341. Chest x-ray postop showed adequate expansion of both lungs. Orotracheal tube was just above the tess. NG tube was in place. No airspace disease. No consolidation. No pneumothorax. No pleural effusion. No noted air under the diaphragm. The patient is currently on no pressors. Hemodynamically stable. She is on no antibiotics for now. Blood work from this morning showed a WBC count of 10, hemoglobin of 18 and a platelet count of 213. Sodium is at 132, BUN 64 with a creatinine of 1.7 and a potassium level of 4.1 and a chloride is 87 with a bicarb level of 32. Initial lactic acid level was at 4.5. proBNP level is 3230. TSH was 1.7 with a free T4 of 2.1. The viral screen was negative. LFTs were normal. Troponin was 0.09. 01/23/2025, the patient remains intubated on mechanical ventilator. The patient is currently on propofol for respiratory. The patient is on assist-control mode of mechanical ventilation at rate of 14, tidal volume of 400, FiO2 40% with a PEEP of 5. Blood gas showed a pH of 7.34 with a [id number] and PO2 of 86. Remains on lactated Ringer at rate of 150 cc an hour. Net fluid balance is +6.3 L over the past 24 hours and the patient remains on norepinephrine running at 0.3 mcg /kg/min. The patient also went into atrial fibrillation with RVR. The patient was started on albuterol protocol. The patient converted to normal sinus rhythm. Amiodarone drip is still running at 0.5 mg/min. The patient's white cell count is 15 with a hemoglobin 15.20 platelet count of 183. Sodium is at 133, BUN is 57 with a creatinine of 0.9 and a potassium level of 3.5. Lactic acid level has returned to 1.7. Calcium is at 7.3. Surgical wound bed is dry clean and intact. No other significant events overnight. On 01/24/2025, the patient is being seen for a follow-up. The patient remains intubated on mechanical ventilator. The patient remains on propofol running at 45 mcg/kg/min. Calm and comfortable and pressor requirements have improved compared to yesterday. For now, and this morning, the patient remains on lactated Ringer at rate of 150 cc an hour. The patient is on norepinephrine at 0.18 mcg/kg/min and vasopressin physiologic dose. Fluid balance is +6.2 L over the past 24 hours as the patient received several fluid boluses yesterday. Current CVP is at 8. Also, the patient is on assist-control mode of mechanical ventilation at rate of 14, tidal volume of 400, FiO2 40% with a PEEP of 5. pH is 7.35 with a pCO2 of 49 and pO2 of 93. The patient is afebrile. The patient remains on a combination of Zosyn and vancomycin. The patient is also on amiodarone at 0.5 mL milligrams per minute regarding her atrial fibrillation which is essentially well-controlled for now. The white cell count is at 12.5, hemoglobin is 11.6 and the platelet count of 174. There is 73% neutrophilia. Sodium is at 131, potassium 3.5, BUN 51 with a creatinine of 1.3. Potassium is at 3.5. Renal function continues to improve and the serum bicarb is at 23. Blood sugars at 147. The patient's echocardiogram done on 01/23/2025 was reviewed and it shows a normal preserved LV function with ejection fraction of 50 to 55%. Mild MR, mild TR, no significant valvular heart disease. The patient remains NPO. No other significant events overnight. Seen today on 01/25/2025, patient remains in the ICU intubated and mechanically ventilated, she is now postoperative day #3 on assist-control rate 14 tidal volume 400 FiO2 40% PEEP of 5 ABG showed a pO2 of 130 pCO2 44 pH of 7.44 and her FiO2 was cut down to 30%. Patient remains on LR at 150 mL/h propofol at 15 mcg/kg/min amiodarone at 0.5 mg/min. Empirically remains on Zosyn for her abdominal sepsis. Patient has underlying dementia and she is F resident. Patient is sedated, does not seem to be opening her eyes with verbal stimuli or deep painful stimuli, I am planning to give the patient today a sedation holiday and assess mental status off sedation. WBC count is 10.0 hemoglobin 11.1. Platelets are 1 42,000. Potassium is a little low at 3.2, renal profile is normal BUN 41 creatinine 0.98 blood sugar is 106 chest x-ray showed endotracheal tube to be lying low close to the tess, there is a small moderate left pleural effusion and small right pleural effusion with atelectasis. Objective - Vital Signs Vital signs: Vital Signs Temp 98.7 F 01/25/25 12:00 Pulse 84 01/25/25 13:03 Resp 18 01/25/25 13:00 BP 123/59 01/25/25 13:00 Pulse Ox 97 01/25/25 13:00 FiO2 30 01/25/25 12:51 Intake & Output 01/24/25 01/25/25 01/25/25 18:59 06:59 18:59 Intake Total 2642.315 2695.507 982.399 Output Total 550 1525 150 Balance 2092.315 1170.507 832.399 Weight 71.1 kg 71.1 kg Intake: IV 2146 2346 687 .9 kvo 210 260 Lactated Ringers 1,000 ml 1800 1950 600 @ 150 mls/hr IV .Q6H40M [facility] Rx#:[id number] Piperacillin-Tazobactam 3 100 100 75 .375 gm In Sodium Chloride 0.9% 100 ml @ 25 mls/hr IVPB Q12H [facility] Rx# :[id number] a -line 36 36 12 Intake, IV Titration 496.315 349.507 295.399 Amount Amiodarone 450 mg In 248.616 250 Dextrose 5% in Water 250 ml @ 0.5 MG/MIN 16.667 mls/hr IV .Q15H [facility] Rx#: [id number] Norepinephrine 4 mg In 345.315 4.146 Sodium Chloride 0.9% 250 ml @ 0.03 MCG/KG/MIN 6. 377 mls/hr IV .Q24H [facility] Rx#:[id number] Vasopressin 20 unit In 51 48.348 Sodium Chloride 0.9% 50 ml @ 0.03 UNITS/MIN 4.59 mls/hr IV .Q11H7M [facility] Rx# :[id number] propofoL 1,000 mg In 100.000 48.397 45.399 Empty Bag 1 bag @ 15 MCG/ KG/MIN 5.021 mls/hr IV . [id number] [facility] Rx#:[id number] Output: Gastric Drainage 1050 Urine 350 475 150 Other 200 Other: Voiding Method Indwelling Catheter Indwelling Catheter Indwelling Catheter ABP, PAP, CO, CI - Last Documented Arterial Blood Pressure 139/48 - Exam Physical exam revealed 84-year-old female intubated mechanically ventilated in no distress. Head: Atraumatic normocephalic HEENT: PERRLA, EOMI, anicteric, no neck masses, orogastric tube and orotracheal tube noted Neck supple no neck masses no JVD no stridor Lungs clear bilaterally diminished at the bases no rhonchi no wheezes Cardiac: Distant S1-S2, no S3 gallop, no murmur Abdomen: Soft nontender no megaly no rebound no guarding Extremities: No clubbing 1+ bipedal edema no cyanosis Neurologic: Could not assess patient is sedated on propofol, supposedly patient has underlying dementia. Psychiatric: Could not assess. Skin: No rashes. - Labs CBC & Chem 7: 01/25/25 04:45 01/25/25 13:27 Labs: Abnormal Lab Results - Last 24 Hours (Table) 01/24/25 01/24/25 01/24/25 Range/Units 17:41 18:59 23:42 WBC (4.50-10.00) 10*3/uL RBC (4.10-5.20) 10*6/uL Hgb (12.0-15.0) g/dL Hct (37.2-46.3) % Immature Gran # (0.00-0.04) 10*3/uL Neutrophils # (1.80-7.70) 10*3/uL Lymphocytes # (0.90-5.00) 10*3/uL Eosinophils # (0.04-0.35) 10*3/uL ABG pO2 (83-108) mmHg ABG HCO3 (21-25) mmol/L ABG Total CO2 (19-24) mmol/L ABG O2 Saturation (94-97) % Sodium (137-145) mmol/L Potassium (3.5-5.1) mmol/L BUN (7-17) mg/dL POC Glucose (mg/dL) 147 H 123 H 118 H (70-110) mg/dL Calcium (8.4-10.2) mg/dL 01/25/25 01/25/25 01/25/25 Range/Units 04:03 04:45 04:45 WBC 10.02 H (4.50-10.00) 10*3/uL RBC 3.70 L (4.10-5.20) 10*6/uL Hgb 11.1 L (12.0-15.0) g/dL Hct 33.6 L (37.2-46.3) % Immature Gran # 0.14 H (0.00-0.04) 10*3/uL Neutrophils # 8.13 H (1.80-7.70) 10*3/uL Lymphocytes # 0.69 L (0.90-5.00) 10*3/uL Eosinophils # 0.02 L (0.04-0.35) 10*3/uL ABG pO2 130 H (83-108) mmHg ABG HCO3 30 H (21-25) mmol/L ABG Total CO2 31 H (19-24) mmol/L ABG O2 Saturation 99.7 H (94-97) % Sodium 132 L (137-145) mmol/L Potassium 3.2 L (3.5-5.1) mmol/L BUN 41 H (7-17) mg/dL POC Glucose (mg/dL) (70-110) mg/dL Calcium 8.1 L (8.4-10.2) mg/dL Microbiology - Last 24 Hours (Table) 01/22/25 09:55 Blood Culture - Preliminary Blood Assessment and Plan Assessment: Impression: Acute abdomen Acute ischemic bowel Strangulated right inguinal hernia Status post exploratory laparotomy, repair of strangulated inguinal hernia and small bowel resection with a left internal hernia repair and repair of incis ional hernia postoperative day #3 Acute respiratory failure nonhypoxic, patient was kept intubated post surgery and remains intubated, seems to be difficult to wean mostly because of her mental status Suspect septic shock secondary to abdominal sepsis, patient required norepinephrine in spite of fluid boluses. Acute kidney injury, improving Acute lactic acidosis secondary to ischemic small bowel, improved Acute troponin leak secondary to sepsis type II myocardial ischemia Underlying dementia Dyslipidemia History of previous bowel resection in 2013 and bowel perforation requiring PEG tube placement at the time. Recommendation: Continue ventilatory support Continue fluids Continue GI DVT prophylaxis Hemodynamic support if needed/pressors. Titrate pressors accordingly Continue amiodarone as per cardiology Continue Zosyn/empiric coverage antibiotics Continue to monitor daily labs and renal profile continue to monitor I's and O's closely Keep patient n.p.o. for now, consider TPN Patient remains critically ill Critical care time is 34 minutes Will continue to follow Time with Patient: Greater than 30
--- NOTE | 2025-01-25 14:10 | P.PN ---
Subjective Progress Note Date: 01/25/25 SURGICAL PROGRESS NOTE CHIEF COMPLAINT: Strangulated right inguinal hernia, ischemic small bowel HISTORY OF PRESENT ILLNESS: Postop day #3 status post repair of strangulated right inguinal hernia with small bowel resection, repair of left internal hernia and repair of incisional hernia. Patient remains in the ICU intubated and sedated. Afebrile. WBC is down from 12-10. PHYSICAL EXAM: VITAL SIGNS: Reviewed. GENERAL: Well-developed in no acute distress. HEENT: No sclera icterus. Extraocular movements grossly intact. Moist buccal mucosa. Head is atraumatic, normocephalic. ABDOMEN: Soft. Nondistended. Nontender. NEUROLOGIC: Alert and oriented. Cranial nerves II through XII grossly intact. ASSESSMENT: 1. Strangulated right inguinal hernia, ischemic small bowel, left internal hernia, incisional hernia PLAN: - Continue ICU management - Continue supportive care - Overall prognosis guarded Physician [employer] Super[employer] note has been reviewed by physician. Signing provider agrees with the documented findings, assessment, and plan of care. Objective - Vital Signs Vital signs: Vital Signs Temp 98.7 F 01/25/25 12:00 Pulse 84 01/25/25 13:03 Resp 18 01/25/25 13:00 BP 123/59 01/25/25 13:00 Pulse Ox 97 01/25/25 13:00 FiO2 30 01/25/25 12:51 Intake & Output 01/24/25 01/25/25 01/25/25 18:59 06:59 18:59 Intake Total 2642.315 2695.507 982.399 Output Total 550 1525 150 Balance 2092.315 1170.507 832.399 Weight 71.1 kg 71.1 kg Intake: IV 2146 2346 687 .9 kvo 210 260 Lactated Ringers 1,000 ml 1800 1950 600 @ 150 mls/hr IV .Q6H40M [facility] Rx#:[id number] Piperacillin-Tazobactam 3 100 100 75 .375 gm In Sodium Chloride 0.9% 100 ml @ 25 mls/hr IVPB Q12H [facility] Rx# :[id number] a -line 36 36 12 Intake, IV Titration 496.315 349.507 295.399 Amount Amiodarone 450 mg In 248.616 250 Dextrose 5% in Water 250 ml @ 0.5 MG/MIN 16.667 mls/hr IV .Q15H [facility] Rx#: [id number] Norepinephrine 4 mg In 345.315 4.146 Sodium Chloride 0.9% 250 ml @ 0.03 MCG/KG/MIN 6. 377 mls/hr IV .Q24H [facility] Rx#:[id number] Vasopressin 20 unit In 51 48.348 Sodium Chloride 0.9% 50 ml @ 0.03 UNITS/MIN 4.59 mls/hr IV .Q11H7M [facility] Rx# :[id number] propofoL 1,000 mg In 100.000 48.397 45.399 Empty Bag 1 bag @ 15 MCG/ KG/MIN 5.021 mls/hr IV . [id number] [facility] Rx#:[id number] Output: Gastric Drainage 1050 Urine 350 475 150 Other 200 Other: Voiding Method Indwelling Catheter Indwelling Catheter Indwelling Catheter ABP, PAP, CO, CI - Last Documented Arterial Blood Pressure 139/48 - Labs CBC & Chem 7: 01/25/25 04:45 01/25/25 13:27 Labs: Abnormal Lab Results - Last 24 Hours (Table) 01/24/25 01/24/25 01/24/25 Range/Units 17:41 18:59 23:42 WBC (4.50-10.00) 10*3/uL RBC (4.10-5.20) 10*6/uL Hgb (12.0-15.0) g/dL Hct (37.2-46.3) % Immature Gran # (0.00-0.04) 10*3/uL Neutrophils # (1.80-7.70) 10*3/uL Lymphocytes # (0.90-5.00) 10*3/uL Eosinophils # (0.04-0.35) 10*3/uL ABG pO2 (83-108) mmHg ABG HCO3 (21-25) mmol/L ABG Total CO2 (19-24) mmol/L ABG O2 Saturation (94-97) % Sodium (137-145) mmol/L Potassium (3.5-5.1) mmol/L BUN (7-17) mg/dL POC Glucose (mg/dL) 147 H 123 H 118 H (70-110) mg/dL Calcium (8.4-10.2) mg/dL 01/25/25 01/25/25 01/25/25 Range/Units 04:03 04:45 04:45 WBC 10.02 H (4.50-10.00) 10*3/uL RBC 3.70 L (4.10-5.20) 10*6/uL Hgb 11.1 L (12.0-15.0) g/dL Hct 33.6 L (37.2-46.3) % Immature Gran # 0.14 H (0.00-0.04) 10*3/uL Neutrophils # 8.13 H (1.80-7.70) 10*3/uL Lymphocytes # 0.69 L (0.90-5.00) 10*3/uL Eosinophils # 0.02 L (0.04-0.35) 10*3/uL ABG pO2 130 H (83-108) mmHg ABG HCO3 30 H (21-25) mmol/L ABG Total CO2 31 H (19-24) mmol/L ABG O2 Saturation 99.7 H (94-97) % Sodium 132 L (137-145) mmol/L Potassium 3.2 L (3.5-5.1) mmol/L BUN 41 H (7-17) mg/dL POC Glucose (mg/dL) (70-110) mg/dL Calcium 8.1 L (8.4-10.2) mg/dL Microbiology - Last 24 Hours (Table) 01/22/25 09:55 Blood Culture - Preliminary Blood
[2025-01-25 18:57] LABS: Glucose,Whole Blood 94 mg/dL (70-110)
[2025-01-25 23:42] LABS: Glucose,Whole Blood 87 mg/dL (70-110)
[2025-01-26 04:43] LABS: ABG Base Excess 4.1 mmol/L; ABG HCO3 29 mmol/L (21-25); ABG Oxygen Saturation 96.7 % (94-97); ABG PCO2 41 mmHg (35-45); ABG PH 7.45 (7.35-7.45); ABG PO2 76 mmHg (83-108); ABG TCO2 30 mmol/L (19-24)
[2025-01-26 05:08] LABS: Basophils # (A) 0.02 10*3/uL (0.00-0.10); Basophils % (A) 0.2 %; Eosinophils # (A) 0.04 10*3/uL (0.04-0.35); Eosinophils % (A) 0.4 %; HCT 31.7 % (37.2-46.3); HGB 10.6 g/dL (12.0-15.0); Lymphocytes # (A) 0.89 10*3/uL (0.90-5.00); Lymphocytes % (A) 8.7 %; MCH 30.5 pg (27.0-32.0); MCHC 33.4 g/dL (32.0-37.0); MCV 91.4 fL (80.0-97.0); Mean Platelet Volume 10.1 fL (9.5-12.2); Monocytes # (A) 1.03 10*3/uL (0.20-1.00); Monocytes % (A) 10.1 %; Neutrophils # (A) 7.79 10*3/uL (1.80-7.70); Neutrophils % (A) 76.3 %; Platelet Count 139 10*3/uL (140-440); RBC 3.47 10*6/uL (4.10-5.20); RDW 14.1 % (11.5-14.5); WBC 10.21 10*3/uL (4.50-10.00)
[2025-01-26 05:17] LABS: Allen Test Performed? no
[2025-01-26 05:35] LABS: African American GFR (CKD) 87 (>60 ml/min/1.73 sqM); Anion Gap 3 mmol/L; Blood Urea Nitrogen 25 mg/dL (7-17); Calcium 7.9 mg/dL (8.4-10.2); Carbon Dioxide 27 mmol/L (22-30); Chloride 101 mmol/L (98-107); Glucose 80 mg/dL (74-99); Non-African American GFR(CKD) 76 (>60 ml/min/1.73 sqM); Potassium 3.8 mmol/L (3.5-5.1); Sodium 131 mmol/L (137-145)
[2025-01-26 05:49] LABS: Glucose,Whole Blood 75 mg/dL (70-110)
[2025-01-26] MEDS: POTASSIUM CHLORIDE 10 MEQ in WATER FOR INJECTION 1 100ML.BAG IVPB SCH (05:56)
--- NOTE | 2025-01-26 06:40 | XR ---
EXAMINATION TYPE: XR chest 1V portable DATE OF EXAM: 01/26/2025 5:16 AM COMPARISON: 01/25/2025 CLINICAL INDICATION: Female, 84 years old with history of pt. intubated, FINDINGS: Indwelling tubes and catheters are unchanged. No change in bibasilar opacities. Stable appearance of the cardio-mediastinal structures at this time. Pleural effusion unchanged. IMPRESSION: 1. Stable portable chest. Clinical correlation and follow up until resolution is recommended. [facility], , 01/26/2025 6:38 AM
--- NOTE | 2025-01-26 11:39 | P.PN ---
Subjective Progress Note Date: 01/26/25 Principal diagnosis: Acute abdomen with acute ischemic small bowel related to strangulated right inguinal hernia. Patient is status post right inguinal hernia repair, and resection of small bowel postoperative day #4 This is a 84-year-old female patient who presented to the emergency department with acute abdomen. The patient had abdominal pain and she had a CT scan of the abdomen and pelvis done in the Emergency Department that showed evidence of biliary air within the liver with pneumatosis intestinalis within the stomach wall. Patient also had dilated fluid-filled small bowel and transition at the left inguinal hernia level. Based on that, the patient was taken to the operating room. Noted the patient had a DNR/DNI CODE STATUS. The CODE STATUS was switched for the sake of the procedure and she was placed on a full code. In the operating room, the patient underwent a exploratory laparotomy and the patient was found to have strangulated right inguinal hernia, ischemic small bowel and incisional hernia. The patient underwent a repair of the strangulated right inguinal hernia with small bowel resection and repair of the left internal hernia repair of the incisional hernia. Estimated blood loss was 20 cc. Noted postop, the patient was kept intubated and she was brought into the intensive care unit for further monitoring. At this point in time, the patient remains intubated on the mechanical ventilator. She is on propofol running at 55 mcg/kg/min. She has already received a total of 2 L of IV fluids and she is currently on lactated Ringer at rate of 150 cc an hour. The patient is on a rate of 14, tidal volume of 400, FiO2 of 100% with a PEEP of 5. The blood gases showed a pH of 7.46 with a DLM327 and PO2 of 341. Chest x-ray postop showed adequate expansion of both lungs. Orotracheal tube was just above the tess. NG tube was in place. No airspace disease. No consolidation. No pneumothorax. No pleural effusion. No noted air under the diaphragm. The patient is currently on no pressors. Hemodynamically stable. She is on no antibiotics for now. Blood work from this morning showed a WBC count of 10, hemoglobin of 18 and a platelet count of 213. Sodium is at 132, BUN 64 with a creatinine of 1.7 and a potassium level of 4.1 and a chloride is 87 with a bicarb level of 32. Initial lactic acid level was at 4.5. proBNP level is 3230. TSH was 1.7 with a free T4 of 2.1. The viral screen was negative. LFTs were normal. Troponin was 0.09. 01/23/2025, the patient remains intubated on mechanical ventilator. The patient is currently on propofol for respiratory. The patient is on assist-control mode of mechanical ventilation at rate of 14, tidal volume of 400, FiO2 40% with a PEEP of 5. Blood gas showed a pH of 7.34 with a DEM420 and PO2 of 86. Remains on lactated Ringer at rate of 150 cc an hour. Net fluid balance is +6.3 L over the past 24 hours and the patient remains on norepinephrine running at 0.3 mcg /kg/min. The patient also went into atrial fibrillation with RVR. The patient was started on albuterol protocol. The patient converted to normal sinus rhythm. Amiodarone drip is still running at 0.5 mg/min. The patient's white cell count is 15 with a hemoglobin 15.20 platelet count of 183. Sodium is at 133, BUN is 57 with a creatinine of 0.9 and a potassium level of 3.5. Lactic acid level has returned to 1.7. Calcium is at 7.3. Surgical wound bed is dry clean and intact. No other significant events overnight. On 01/24/2025, the patient is being seen for a follow-up. The patient remains intubated on mechanical ventilator. The patient remains on propofol running at 45 mcg/kg/min. Calm and comfortable and pressor requirements have improved compared to yesterday. For now, and this morning, the patient remains on lactated Ringer at rate of 150 cc an hour. The patient is on norepinephrine at 0.18 mcg/kg/min and vasopressin physiologic dose. Fluid balance is +6.2 L over the past 24 hours as the patient received several fluid boluses yesterday. Current CVP is at 8. Also, the patient is on assist-control mode of mechanical ventilation at rate of 14, tidal volume of 400, FiO2 40% with a PEEP of 5. pH is 7.35 with a pCO2 of 49 and pO2 of 93. The patient is afebrile. The patient remains on a combination of Zosyn and vancomycin. The patient is also on amiodarone at 0.5 mL milligrams per minute regarding her atrial fibrillation which is essentially well-controlled for now. The white cell count is at 12.5, hemoglobin is 11.6 and the platelet count of 174. There is 73% neutrophilia. Sodium is at 131, potassium 3.5, BUN 51 with a creatinine of 1.3. Potassium is at 3.5. Renal function continues to improve and the serum bicarb is at 23. Blood sugars at 147. The patient's echocardiogram done on 01/23/2025 was reviewed and it shows a normal preserved LV function with ejection fraction of 50 to 55%. Mild MR, mild TR, no significant valvular heart disease. The patient remains NPO. No other significant events overnight. Seen today on 01/25/2025, patient remains in the ICU intubated and mechanically ventilated, she is now postoperative day #3 on assist-control rate 14 tidal volume 400 FiO2 40% PEEP of 5 ABG showed a pO2 of 130 pCO2 44 pH of 7.44 and her FiO2 was cut down to 30%. Patient remains on LR at 150 mL/h propofol at 15 mcg/kg/min amiodarone at 0.5 mg/min. Empirically remains on Zosyn for her abdominal sepsis. Patient has underlying dementia and she is F resident. Patient is sedated, does not seem to be opening her eyes with verbal stimuli or deep painful stimuli, I am planning to give the patient today a sedation holiday and assess mental status off sedation. WBC count is 10.0 hemoglobin 11.1. Platelets are 1 42,000. Potassium is a little low at 3.2, renal profile is normal BUN 41 creatinine 0.98 blood sugar is 106 chest x-ray showed endotracheal tube to be lying low close to the tess, there is a small moderate left pleural effusion and small right pleural effusion with atelectasis. Patient was seen today on 01/26/2025, remains in the ICU intubated and mechanically ventilated. On assist-control rate 14 tidal volume 400 FiO2 30% and PEEP of 5 ABG showed a pO2 of 76 pCO2 41 pH of 7.45, hence no ventilator changes were made. Chest x-ray showed minimal pleural effusions, and mild interstitial prominence, with minimal basilar opacities/atelectasis. Patient is on amiodarone drip at 0.5 mg/min propofol 25 mcg/kg/min LR at 75 cc/h remains on Zosyn remains on heparin subcu and the patient remains DNR. WBC count is 10.2 hemoglobin 10.6, basic metabolic profile is normal BUN is 25 creatinine 0.73. Medications limon remains on multiple meds as listed patient is also on GI and DVT prophylaxis not requiring any pressors today. Patient is quite sedated, yesterday we attempted to awaken the patient and give the patient a weaning trial however the patient was having intermittent episodes of vomiting hence we held back on further weaning. We will initiate that again today and if tolerated may go to pressure support trial and CPAP. Objective - Vital Signs Vital signs: Vital Signs Temp 97.9 F 01/26/25 08:00 Pulse 76 01/26/25 11:21 Resp 22 01/26/25 11:00 BP 116/53 01/26/25 10:30 Pulse Ox 97 01/26/25 11:00 FiO2 30 01/26/25 11:02 Intake & Output 01/25/25 01/26/25 01/26/25 18:59 06:59 18:59 Intake Total 2576.972 2631.934 774.806 Output Total 470 1525 285 Balance 2106.972 1106.934 489.806 Weight 71.1 kg 92.9 kg Intake: IV 2258 2146 742 .9 kvo 50 160 30 Lactated Ringers 1,000 ml 1550 1800 600 @ 75 mls/hr IV .[id number] DOM Rx#:[id number] Piperacillin-Tazobactam 3 125 50 .375 gm In Sodium Chloride 0.9% 100 ml @ 25 mls/hr IVPB Q12H DOM Rx# :[id number] Potassium Chloride 10 meq 500 100 100 In Water For Injection 1 100ml.bag @ 100 mls/hr IVPB Q1HR DOM Rx#: [id number] a -line 33 36 12 Intake, IV Titration 318.972 485.934 32.806 Amount Amiodarone 450 mg In 250 232.505 Dextrose 5% in Water 250 ml @ 0.5 MG/MIN 16.667 mls/hr IV .Q15H DOM Rx#: [id number] Piperacillin-Tazobactam 3 100 .375 gm In Sodium Chloride 0.9% 100 ml @ 25 mls/hr IVPB Q8H DOM Rx#: [id number] propofoL 1,000 mg In 68.972 153.429 32.806 Empty Bag 1 bag @ 15 MCG/ KG/MIN 5.021 mls/hr IV . [id number] DOM Rx#:[id number] Output: Gastric Drainage 900 Urine 470 625 285 Other: Voiding Method Indwelling Catheter Indwelling Catheter Indwelling Catheter ABP, PAP, CO, CI - Last Documented Arterial Blood Pressure 123/43 - Exam Physical exam revealed 84-year-old female intubated mechanically ventilated in no distress. Head: Atraumatic normocephalic HEENT: PERRLA, EOMI, anicteric, no neck masses, orogastric tube and orotracheal tube noted Neck supple no neck masses no JVD no stridor Lungs clear bilaterally diminished at the bases no rhonchi no wheezes Cardiac: Distant S1-S2, no S3 gallop, no murmur Abdomen: Soft nontender no megaly no rebound no guarding, wound VAC is noted Extremities: No clubbing 1+ bipedal edema no cyanosis Neurologic: Could not assess patient is sedated on propofol, supposedly patient has underlying dementia. Psychiatric: Could not assess. Skin: No rashes. - Labs CBC & Chem 7: 01/26/25 05:00 01/26/25 05:00 Labs: Abnormal Lab Results - Last 24 Hours (Table) 01/26/25 01/26/25 01/26/25 Range/Units 04:13 05:00 05:00 WBC 10.21 H (4.50-10.00) 10*3/uL RBC 3.47 L (4.10-5.20) 10*6/uL Hgb 10.6 L (12.0-15.0) g/dL Hct 31.7 L (37.2-46.3) % Plt Count 139 L (140-440) 10*3/uL Immature Gran # 0.44 H (0.00-0.04) 10*3/uL Neutrophils # 7.79 H (1.80-7.70) 10*3/uL Lymphocytes # 0.89 L (0.90-5.00) 10*3/uL Monocytes # 1.03 H (0.20-1.00) 10*3/uL ABG pO2 76 L (83-108) mmHg ABG HCO3 29 H (21-25) mmol/L ABG Total CO2 30 H (19-24) mmol/L Hemoglobin 10.9 L (11.4-16.0) gm/dL Sodium 131 L (137-145) mmol/L BUN 25 H (7-17) mg/dL Calcium 7.9 L (8.4-10.2) mg/dL Microbiology - Last 24 Hours (Table) 01/22/25 09:55 Blood Culture - Preliminary Blood Assessment and Plan Assessment: Impression: Acute abdomen Acute ischemic bowel Strangulated right inguinal hernia Status post exploratory laparotomy, repair of strangulated inguinal hernia and small bowel resection with a left internal hernia repair and repair of incisional hernia postoperative day #4 Acute respiratory failure nonhypoxic, patient was kept intubated post surgery and remains intubated, seems to be difficult to wean mostly because of her mental status Suspect septic shock secondary to abdominal sepsis, patient required norepinephrine in spite of fluid boluses. Acute kidney injury, improving Acute lactic acidosis secondary to ischemic small bowel, improved Acute troponin leak secondary to sepsis type II myocardial ischemia Underlying dementia Dyslipidemia History of previous bowel resection in 2013 and bowel perforation requiring PEG tube placement at the time. Recommendation: Continue ventilatory support however the patient will be given a sedation interruption/holiday today, and address mental status address possibly weaning trials Continue fluids, cut down LR to 75 cc/h Continue GI DVT prophylaxis Hemodynamic support if necessary Titrate pressors accordingly, presently off pressors Continue amiodarone as per cardiology Continue Zosyn/empiric coverage antibiotics Continue to monitor daily labs and renal profile continue to monitor I's and O's closely Consult dietitian for TPN Patient remains critically ill Critical care time is 32 minutes Will continue to follow Time with Patient: Greater than 30
[2025-01-26 12:23] LABS: Glucose,Whole Blood 74 mg/dL (70-110)
[2025-01-26] MEDS ORDERED: DEXTROSE 50% SYRINGE 50 ML IVP PRN ×2 (12:33)
--- NOTE | 2025-01-26 13:10 | P.PN ---
Subjective Progress Note Date: 01/26/25 patient is a 84-year-old lady with past medical history significant for GERD, hyperlipidemia who is a resident of [facility] who initially presented to the ER for nausea vomiting nominal pain for the last 3 days. Workup in the ER showed a CT scan showing biliary air within the liver with pneumatosis intestinalis within the stomach wall, Mesenteric ischemia should be considered,Dilated fluid-filled small bowel loops,Some of transition may be in left inguinal hernia. Patient was admitted under surgery and was taken for emergent exploratory laparotomy with repair of strangulated right inguinal hernia with small bowel resection,repair of left internal hernia and repair of incisional hernia. Postoperatively patient was intubated and was admitted to ICU 01/24. Patient seen and examined. Patient continues to be on mechanical ventilator, labs done this morning showedWBC 12.53, hemoglobin 11.6, sodium 131, potassium 3.5, BUN 15, creatinine 1.37, calcium 10.7. 01/25. Patient seen and examined. Continues to be on mechanical ventilation. Currently on amiodarone drip. Patient also on IV Levophed and vasopressin. Continue IV Zosyn. 01/26. Patient seen and examined. Labs done today showed WBC 10.21, hemoglobin 10.6, platelet count 139, sodium 131, potassium 3.8, BUN 25, creatinine 0.73 patient was extubated this morning REVIEW OF SYSTEMS: Denies any chest pain. Denies shortness of breath PHYSICAL EXAMINATION: GENERAL: The patient is alert HEENT: Pupils are round and equally reacting to light. EOMI. No scleral icterus. No conjunctival pallor. Normocephalic, atraumatic. No pharyngeal erythema. No thyromegaly. CARDIOVASCULAR: S1 and S2 present. No murmurs, rubs, or gallops. PULMONARY: Chest is clear to auscultation, no wheezing or crackles. ABDOMEN: Laparotomy surgical incisions seen, wound VAC in place MUSCULOSKELETAL: No joint swelling or deformity. EXTREMITIES: No cyanosis, clubbing, or pedal edema. NEUROLOGICAL: Intubated SKIN: No rashes. Assessment and plan Acute abdomen due to ischemic bowel status post post expiratory laparotomy with repair of a strangulated right inguinal hernia with small bowel resection and repair of a left internal hernia and repair of an incisional hernia. Acute respiratory failure, nonhypoxic and the patient was kept intubated on mechanical ventilator postop. Acute leukocytosis secondary to above Acute kidney injury Acute lactic acidosis Mild troponin leak secondary to sepsis, type II myocardial ischemia Dementia History of paroxysmal atrial fibrillation current rhythm is sinus and the patient has been taking Eliquis on outpatient basis Hyperlipidemia History of fall Previous history of bowel resection back in 2013 for a bowel perforation requiring subsequent PEG tube insertion and removal Monitor vital signs Monitor CBC Monitor CMP Continue oxygen supplementation aggressive bronchopulmonary hygiene Continue Levophed and vasopressin Continue IV Zosyn Continue amiodarone Surgery following Labs and medication were reviewed.. Continue same treatment. Continue with symptomatic treatment. Resume home medication. Monitor labs and vitals. DVT and GI prophylaxis. Further recommendations as per clinical course of the patient Dictation was produced using [employer] dictation software. please excuse any grammatical, word or spelling errors. Objective - Vital Signs Vital signs: Vital Signs Temp 98.2 F 01/26/25 04:00 Pulse 77 01/26/25 08:13 Resp 15 01/26/25 07:00 BP 107/45 01/26/25 07:00 Pulse Ox 98 01/26/25 07:00 FiO2 30 01/26/25 08:03 Intake & Output 01/25/25 01/26/25 01/26/25 18:59 06:59 18:59 Intake Total 2576.972 2631.934 278.525 Output Total 470 1525 50 Balance 2106.972 1106.934 228.525 Weight 71.1 kg 92.9 kg Intake: IV 2258 2146 253 .9 kvo 50 160 Lactated Ringers 1,000 ml 1550 1800 150 @ 150 mls/hr IV .[id number] DOM Rx#:[id number] Piperacillin-Tazobactam 3 125 50 .375 gm In Sodium Chloride 0.9% 100 ml @ 25 mls/hr IVPB Q12H DOM Rx# :[id number] Potassium Chloride 10 meq 500 100 100 In Water For Injection 1 100ml.bag @ 100 mls/hr IVPB Q1HR DOM Rx#: [id number] a -line 33 36 3 Intake, IV Titration 318.972 485.934 25.525 Amount Amiodarone 450 mg In 250 232.505 Dextrose 5% in Water 250 ml @ 0.5 MG/MIN 16.667 mls/hr IV .Q15H DOM Rx#: [id number] Piperacillin-Tazobactam 3 100 .375 gm In Sodium Chloride 0.9% 100 ml @ 25 mls/hr IVPB Q8H DOM Rx#: [id number] propofoL 1,000 mg In 68.972 153.429 25.525 Empty Bag 1 bag @ 15 MCG/ KG/MIN 5.021 mls/hr IV . [id number] DOM Rx#:[id number] Output: Gastric Drainage 900 Urine 470 625 50 Other: Voiding Method Indwelling Catheter Indwelling Catheter ABP, PAP, CO, CI - Last Documented Arterial Blood Pressure 130/45 - Labs CBC & Chem 7: 01/26/25 05:00 01/26/25 05:00 Labs: Abnormal Lab Results - Last 24 Hours (Table) 01/26/25 01/26/25 01/26/25 Range/Units 04:13 05:00 05:00 WBC 10.21 H (4.50-10.00) 10*3/uL RBC 3.47 L (4.10-5.20) 10*6/uL Hgb 10.6 L (12.0-15.0) g/dL Hct 31.7 L (37.2-46.3) % Plt Count 139 L (140-440) 10*3/uL Immature Gran # 0.44 H (0.00-0.04) 10*3/uL Neutrophils # 7.79 H (1.80-7.70) 10*3/uL Lymphocytes # 0.89 L (0.90-5.00) 10*3/uL Monocytes # 1.03 H (0.20-1.00) 10*3/uL ABG pO2 76 L (83-108) mmHg ABG HCO3 29 H (21-25) mmol/L ABG Total CO2 30 H (19-24) mmol/L Hemoglobin 10.9 L (11.4-16.0) gm/dL Sodium 131 L (137-145) mmol/L BUN 25 H (7-17) mg/dL Calcium 7.9 L (8.4-10.2) mg/dL Microbiology - Last 24 Hours (Table) 01/22/25 09:55 Blood Culture - Preliminary Blood
--- NOTE | 2025-01-26 13:50 | P.PN ---
Subjective Progress Note Date: 01/26/25 SURGICAL PROGRESS NOTE CHIEF COMPLAINT: Strangulated right inguinal hernia, ischemic small bowel HISTORY OF PRESENT ILLNESS: Postop day #4 status post repair of strangulated right inguinal hernia with small bowel resection, repair of left internal hernia and repair of incisional hernia. Patient is undergoing sedation holiday. They are arranging TPN for nutrition support. About 1200 output through the NG tube yesterday. Afebrile. WBC is 10.2 Hgb 10.6 PHYSICAL EXAM: VITAL SIGNS: Reviewed. GENERAL: Well-developed in no acute distress. ABDOMEN: Soft. Nondistended. Nontender. NEUROLOGIC: Currently intubated ASSESSMENT: 1. Strangulated right inguinal hernia, ischemic small bowel, left internal hernia, incisional hernia 2. Severe protein calorie malnutrition PLAN: - Vent management per pulmonary service - Agree with TPN for nutrition support - Keep n.p.o. - Continue ICU management - Continue supportive care - Overall prognosis guarded Physician Test Pilot note has been reviewed by physician. Signing provider agrees with the documented findings, assessment, and plan of care. Objective - Vital Signs Vital signs: Vital Signs Temp 98.1 F 01/26/25 12:00 Pulse 82 01/26/25 12:00 Resp 25 H 01/26/25 12:00 BP 120/79 01/26/25 12:00 Pulse Ox 99 01/26/25 12:00 FiO2 30 01/26/25 11:02 Intake & Output 01/25/25 01/26/25 01/26/25 18:59 06:59 18:59 Intake Total 2576.972 2631.934 862.806 Output Total 470 1525 315 Balance 2106.972 1106.934 547.806 Weight 71.1 kg 92.9 kg Intake: IV 2258 2146 830 .9 kvo 50 160 40 Lactated Ringers 1,000 ml 1550 1800 675 @ 75 mls/hr IV .[id number] DOM Rx#:[id number] Piperacillin-Tazobactam 3 125 50 .375 gm In Sodium Chloride 0.9% 100 ml @ 25 mls/hr IVPB Q12H DOM Rx# :[id number] Potassium Chloride 10 meq 500 100 100 In Water For Injection 1 100ml.bag @ 100 mls/hr IVPB Q1HR DOM Rx#: [id number] a -line 33 36 15 Intake, IV Titration 318.972 485.934 32.806 Amount Amiodarone 450 mg In 250 232.505 Dextrose 5% in Water 250 ml @ 0.5 MG/MIN 16.667 mls/hr IV .Q15H DOM Rx#: [id number] Piperacillin-Tazobactam 3 100 .375 gm In Sodium Chloride 0.9% 100 ml @ 25 mls/hr IVPB Q8H DOM Rx#: [id number] propofoL 1,000 mg In 68.972 153.429 32.806 Empty Bag 1 bag @ 15 MCG/ KG/MIN 5.021 mls/hr IV . [id number] DOM Rx#:[id number] Output: Gastric Drainage 900 Urine 470 625 315 Other: Voiding Method Indwelling Catheter Indwelling Catheter Indwelling Catheter ABP, PAP, CO, CI - Last Documented Arterial Blood Pressure 125/43 - Labs CBC & Chem 7: 01/26/25 05:00 01/26/25 05:00 Labs: Abnormal Lab Results - Last 24 Hours (Table) 01/26/25 01/26/25 01/26/25 Range/Units 04:13 05:00 05:00 WBC 10.21 H (4.50-10.00) 10*3/uL RBC 3.47 L (4.10-5.20) 10*6/uL Hgb 10.6 L (12.0-15.0) g/dL Hct 31.7 L (37.2-46.3) % Plt Count 139 L (140-440) 10*3/uL Immature Gran # 0.44 H (0.00-0.04) 10*3/uL Neutrophils # 7.79 H (1.80-7.70) 10*3/uL Lymphocytes # 0.89 L (0.90-5.00) 10*3/uL Monocytes # 1.03 H (0.20-1.00) 10*3/uL ABG pO2 76 L (83-108) mmHg ABG HCO3 29 H (21-25) mmol/L ABG Total CO2 30 H (19-24) mmol/L Hemoglobin 10.9 L (11.4-16.0) gm/dL Sodium 131 L (137-145) mmol/L BUN 25 H (7-17) mg/dL Calcium 7.9 L (8.4-10.2) mg/dL Microbiology - Last 24 Hours (Table) 01/22/25 09:55 Blood Culture - Preliminary Blood
[2025-01-26 18:02] LABS: Glucose,Whole Blood 73 mg/dL (70-110)
[2025-01-26] MEDS ORDERED: HYDROmorphone 1 MG/ML 1 ML SYRINGE IVP PRN (20:12)
[2025-01-26 23:42] LABS: Glucose,Whole Blood 74 mg/dL (70-110)
[2025-01-27 04:17] LABS: Basophils # (A) 0.06 10*3/uL (0.00-0.10); Basophils % (A) 0.6 %; Eosinophils # (A) 0.03 10*3/uL (0.04-0.35); Eosinophils % (A) 0.3 %; HCT 33.6 % (37.2-46.3); HGB 10.9 g/dL (12.0-15.0); Lymphocytes # (A) 0.81 10*3/uL (0.90-5.00); Lymphocytes % (A) 8.4 %; MCH 29.8 pg (27.0-32.0); MCHC 32.4 g/dL (32.0-37.0); MCV 91.8 fL (80.0-97.0); Mean Platelet Volume 10.2 fL (9.5-12.2); Monocytes % (A) 11.4 %; Neutrophils # (A) 6.92 10*3/uL (1.80-7.70); Neutrophils % (A) 71.4 %; Platelet Count 184 10*3/uL (140-440); RBC 3.66 10*6/uL (4.10-5.20); RDW 13.8 % (11.5-14.5); WBC 9.69 10*3/uL (4.50-10.00)
[2025-01-27 04:31] LABS: African American GFR (CKD) >90 (>60 ml/min/1.73 sqM); Anion Gap 7 mmol/L; Blood Urea Nitrogen 19 mg/dL (7-17); Carbon Dioxide 26 mmol/L (22-30); Chloride 102 mmol/L (98-107); Glucose 77 mg/dL (74-99); Non-African American GFR(CKD) 83 (>60 ml/min/1.73 sqM); Potassium 4.1 mmol/L (3.5-5.1); Sodium 135 mmol/L (137-145)
[2025-01-27 05:24] LABS: Glucose,Whole Blood 79 mg/dL (70-110)
--- NOTE | 2025-01-27 08:35 | XR ---
EXAMINATION TYPE: XR chest 1V portable DATE OF EXAM: 01/27/2025 8:18 AM COMPARISON: 01/26/2025 CLINICAL INDICATION: Female, 84 years old with history of cough/sob, , FINDINGS: Right IJ CVC tip lower SVC. Interval extubation. NG tube courses below the diaphragm. Heart normal si ze. Interstitial densities persist. Small to moderate left and small right pleural effusions persist but with increasing adjacent patchy bibasilar opacities. IMPRESSION: Small to moderate left and small right pleural effusions persist but with increasing adjacent patchy bibasilar atelectasis and/or consolidation. [facility], Workstation: [id number], 01/27/2025 8:32 AM
[2025-01-27] MEDS: FUROSEMIDE 10 MG/ML 4 ML VIAL IV STA (09:46)
[2025-01-27 11:36] LABS: Glucose,Whole Blood 73 mg/dL (70-110)
--- NOTE | 2025-01-27 11:39 | P.PN ---
Subjective Progress Note Date: 01/27/25 Principal diagnosis: Acute abdomen with acute ischemic small bowel related to strangulated right inguinal hernia. Patient is status post right inguinal hernia repair, and resection of small bowel postoperative day #5 This is a 84-year-old female patient who presented to the emergency department with acute abdomen. The patient had abdominal pain and she had a CT scan of the abdomen and pelvis done in the Emergency Department that showed evidence of biliary air within the liver with pneumatosis intestinalis within the stomach wall. Patient also had dilated fluid-filled small bowel and transition at the left inguinal hernia level. Based on that, the patient was taken to the operating room. Noted the patient had a DNR/DNI CODE STATUS. The CODE STATUS was switched for the sake of the procedure and she was placed on a full code. In the operating room, the patient underwent a exploratory laparotomy and the patient was found to have strangulated right inguinal hernia, ischemic small bowel and incisional hernia. The patient underwent a repair of the strangulated right inguinal hernia with small bowel resection and repair of the left internal hernia repair of the incisional hernia. Estimated blood loss was 20 cc. Noted postop, the patient was kept intubated and she was brought into the intensive care unit for further monitoring. At this point in time, the patient remains intubated on the mechanical ventilator. She is on propofol running at 55 mcg/kg/min. She has already received a total of 2 L of IV fluids and she is currently on lactated Ringer at rate of 150 cc an hour. The patient is on a rate of 14, tidal volume of 400, FiO2 of 100% with a PEEP of 5. The blood gases showed a pH of 7.46 with a [id number] and PO2 of 341. Chest x-ray postop showed adequate expansion of both lungs. Orotracheal tube was just above the tess. NG tube was in place. No airspace disease. No consolidation. No pneumothorax. No pleural effusion. No noted air under the diaphragm. The patient is currently on no pressors. Hemodynamically stable. She is on no antibiotics for now. Blood work from this morning showed a WBC count of 10, hemoglobin of 18 and a platelet count of 213. Sodium is at 132, BUN 64 with a creatinine of 1.7 and a potassium level of 4.1 and a chloride is 87 with a bicarb level of 32. Initial lactic acid level was at 4.5. proBNP level is 3230. TSH was 1.7 with a free T4 of 2.1. The viral screen was negative. LFTs were normal. Troponin was 0.09. 01/23/2025, the patient remains intubated on mechanical ventilator. The patient is currently on propofol for respiratory. The patient is on assist-control mode of mechanical ventilation at rate of 14, tidal volume of 400, FiO2 40% with a PEEP of 5. Blood gas showed a pH of 7.34 with a [id number] and PO2 of 86. Remains on lactated Ringer at rate of 150 cc an hour. Net fluid balance is +6.3 L over the past 24 hours and the patient remains on norepinephrine running at 0.3 mcg /kg/min. The patient also went into atrial fibrillation with RVR. The patient was started on albuterol protocol. The patient converted to normal sinus rhythm. Amiodarone drip is still running at 0.5 mg/min. The patient's white cell count is 15 with a hemoglobin 15.20 platelet count of 183. Sodium is at 133, BUN is 57 with a creatinine of 0.9 and a potassium level of 3.5. Lactic acid level has returned to 1.7. Calcium is at 7.3. Surgical wound bed is dry clean and intact. No other significant events overnight. On 01/24/2025, the patient is being seen for a follow-up. The patient remains intubated on mechanical ventilator. The patient remains on propofol running at 45 mcg/kg/min. Calm and comfortable and pressor requirements have improved compared to yesterday. For now, and this morning, the patient remains on lactated Ringer at rate of 150 cc an hour. The patient is on norepinephrine at 0.18 mcg/kg/min and vasopressin physiologic dose. Fluid balance is +6.2 L over the past 24 hours as the patient received several fluid boluses yesterday. Current CVP is at 8. Also, the patient is on assist-control mode of mechanical ventilation at rate of 14, tidal volume of 400, FiO2 40% with a PEEP of 5. pH is 7.35 with a pCO2 of 49 and pO2 of 93. The patient is afebrile. The patient remains on a combination of Zosyn and vancomycin. The patient is also on amiodarone at 0.5 mL milligrams per minute regarding her atrial fibrillation which is essentially well-controlled for now. The white cell count is at 12.5, hemoglobin is 11.6 and the platelet count of 174. There is 73% neutrophilia. Sodium is at 131, potassium 3.5, BUN 51 with a creatinine of 1.3. Potassium is at 3.5. Renal function continues to improve and the serum bicarb is at 23. Blood sugars at 147. The patient's echocardiogram done on 01/23/2025 was reviewed and it shows a normal preserved LV function with ejection fraction of 50 to 55%. Mild MR, mild TR, no significant valvular heart disease. The patient remains NPO. No other significant events overnight. Seen today on 01/25/2025, patient remains in the ICU intubated and mechanically ventilated, she is now postoperative day #3 on assist-control rate 14 tidal volume 400 FiO2 40% PEEP of 5 ABG showed a pO2 of 130 pCO2 44 pH of 7.44 and her FiO2 was cut down to 30%. Patient remains on LR at 150 mL/h propofol at 15 mcg/kg/min amiodarone at 0.5 mg/min. Empirically remains on Zosyn for her abdominal sepsis. Patient has underlying dementia and she is F resident. Patient is sedated, does not seem to be opening her eyes with verbal stimuli or deep painful stimuli, I am planning to give the patient today a sedation holiday and assess mental status off sedation. WBC count is 10.0 hemoglobin 11.1. Platelets are 1 42,000. Potassium is a little low at 3.2, renal profile is normal BUN 41 creatinine 0.98 blood sugar is 106 chest x-ray showed endotracheal tube to be lying low close to the tess, there is a small moderate left pleural effusion and small right pleural effusion with atelectasis. Patient was seen today on 01/26/2025, remains in the ICU intubated and mechanically ventilated. On assist-control rate 14 tidal volume 400 FiO2 30% and PEEP of 5 ABG showed a pO2 of 76 pCO2 41 pH of 7.45, hence no ventilator changes were made. Chest x-ray showed minimal pleural effusions, and mild interstitial prominence, with minimal basilar opacities/atelectasis. Patient is on amiodarone drip at 0.5 mg/min propofol 25 mcg/kg/min LR at 75 cc/h remains on Zosyn remains on heparin subcu and the patient remains DNR. WBC count is 10.2 hemoglobin 10.6, basic metabolic profile is normal BUN is 25 creatinine 0.73. Medications limon remains on multiple meds as listed patient is also on GI and DVT prophylaxis not requiring any pressors today. Patient is quite sedated, yesterday we attempted to awaken the patient and give the patient a weaning trial however the patient was having intermittent episodes of vomiting hence we held back on further weaning. We will initiate that again today and if tolerated may go to pressure support trial and CPAP. Seen today on 01/27/2025, remains in the ICU, patient was extubated yesterday she is now on nasal cannula, at 2 L/min. Her nasogastric tube will be discontinued today. Patient has a CVP of 6 today, urine output is about 40 cc/h hence I recommended 1 dose of Lasix 40 mg IV push since her chest x-ray is showing interstitial edema. Patient is to be given TPN today after nasogastric tube discontinuation. And this should be addressed by dietitian. Patient looks frail, chronically ill, weak, but nonetheless she seems to be tolerating the extubation rather well and better than expected. WBC count is 9.7 hemoglobin 10.9 electrolytes are normal renal profile is normal BUN is 19 creatinine 0.61, chest x-ray showed moderate left and small right-sided pleural effusion with bi basilar interstitial opacities. Objective - Vital Signs Vital signs: Vital Signs Temp 97.8 F 01/27/25 08:00 Pulse 73 01/27/25 10:30 Resp 20 01/27/25 11:00 BP 134/69 01/27/25 11:00 Pulse Ox 97 01/27/25 11:00 FiO2 21 01/27/25 07:49 Intake & Output 01/26/25 01/27/25 01/27/25 18:59 06:59 18:59 Intake Total 3803.146 6631.616 510 Output Total 1100 865 870 Balance 595.755 391.616 -360 Weight 79.3 kg 79.3 kg Intake: IV 1446 928 510 .9 kvo 110 70 20 CVP 36 33 15 Lactated Ringers 1,000 ml 1200 825 375 @ 75 mls/hr IV .[id number] [facility] Rx#:[id number] Piperacillin-Tazobactam 3 100 .375 gm In Sodium Chloride 0.9% 100 ml @ 25 mls/hr IVPB Q12H DOM Rx# :[id number] Potassium Chloride 10 meq 100 In Water For Injection 1 100ml.bag @ 100 mls/hr IVPB Q1HR DOM Rx#: [id number] Intake, IV Titration 249.755 328.616 Amount Amiodarone 450 mg In 216.949 228.616 Dextrose 5% in Water 250 ml @ 0.5 MG/MIN 16.667 mls/hr IV .Q15H DOM Rx#: [id number] Piperacillin-Tazobactam 3 100 .375 gm In Sodium Chloride 0.9% 100 ml @ 25 mls/hr IVPB Q8H DOM Rx#: [id number] propofoL 1,000 mg In 32.806 Empty Bag 1 bag @ 15 MCG/ KG/MIN 5.021 mls/hr IV . [id number] DOM Rx#:[id number] Output: Gastric Drainage 150 Urine 1100 715 870 Other: Voiding Method Indwelling Catheter Indwelling Catheter Indwelling Catheter ABP, PAP, CO, CI - Last Documented Arterial Blood Pressure 136/41 - Exam Physical exam revealed 84-year-old female on nasal cannula, not in distress Head: Atraumatic normocephalic HEENT: PERRLA, EOMI, anicteric, no neck masses, nasogastric tube remains in place, will be removed after rounds. Neck supple no neck masses no JVD no stridor Lungs clear bilaterally diminished at the bases no rhonchi no wheezes Cardiac: Distant S1-S2, no S3 gallop, no murmur Abdomen: Soft nontender no megaly no rebound no guarding, wound VAC is noted Extremities: No clubbing 1+ bipedal edema no cyanosis Neurologic: Arousable, weak, follows simple instructions Psychiatric: Normal mood affect and confused mental status. Skin: No rashes. - Labs CBC & Chem 7: 01/27/25 04:00 01/27/25 04:00 Labs: Abnormal Lab Results - Last 24 Hours (Table) 01/27/25 01/27/25 Range/Units 04:00 04:00 RBC 3.66 L (4.10-5.20) 10*6/uL Hgb 10.9 L (12.0-15.0) g/dL Hct 33.6 L (37.2-46.3) % Immature Gran # 0.77 H (0.00-0.04) 10*3/uL Lymphocytes # 0.81 L (0.90-5.00) 10*3/uL Monocytes # 1.10 H (0.20-1.00) 10*3/uL Eosinophils # 0.03 L (0.04-0.35) 10*3/uL Sodium 135 L (137-145) mmol/L BUN 19 H (7-17) mg/dL Calcium 8.0 L (8.4-10.2) mg/dL Assessment and Plan Assessment: Impression: Acute abdomen Acute ischemic bowel Strangulated right inguinal hernia Status post exploratory laparotomy, repair of strangulated inguinal hernia and small bowel resection with a left internal hernia repair and repair of incisional hernia postoperative day #4 Acute respiratory failure nonhypoxic, patient was kept intubated post surgery and remains intubated, seems to be difficult to wean mostly because of her mental status Suspect septic shock secondary to abdominal sepsis, patient required norepinephrine in spite of fluid boluses. Acute kidney injury, improving Acute lactic acidosis secondary to ischemic small bowel, improved Acute troponin leak secondary to sepsis type II myocardial ischemia Underlying dementia Dyslipidemia History of previous bowel resection in 2013 and bowel perforation requiring PEG tube placement at the time. Recommendation: Continue to monitor in the ICU for the next 24 hours Start nutritional support/TPN Continue GI DVT prophylaxis Discontinue amiodarone, patient is in sinus rhythm today. Continue Zosyn/empiric coverage antibiotics Continue to monitor daily labs patient remains marginal at best, and relatively quite ill, prognosis remains guarded considering her multiple comorbidities. Will continue to follow Time with Patient: Less than 30
--- NOTE | 2025-01-27 13:21 | P.PN ---
Subjective Progress Note Date: 01/27/25 SURGICAL PROGRESS NOTE CHIEF COMPLAINT: Strangulated right inguinal hernia, ischemic small bowel HISTORY OF PRESENT ILLNESS: Postop day #5 status post repair of strangulated right inguinal hernia with small bowel resection, repair of left internal hernia and repair of incisional hernia. Patient is extubated. NG tube with Soria 150 mL output. No bowel activity. Afebrile. WBC normalized at 9.69 Hgb 10.9 PHYSICAL EXAM: VITAL SIGNS: Reviewed. GENERAL: Well-developed in no acute distress. ABDOMEN: Soft. Nondistended. Nontender. NEUROLOGIC: Currently intubated ASSESSMENT: 1. Strangulated right inguinal hernia, ischemic small bowel, left internal hernia, incisional hernia 2. Severe protein calorie malnutrition PLAN: -Discontinue NG tube -Dietitian consulted for TPN -Consult IR service for PICC line placement for TPN -Keep patient n.p.o. -Continue ICU management -Continue supportive care -DVT prophylaxis subcu heparin Physician Vocational Training Instructor note has been reviewed by physician. Signing provider agrees with the documented findings, assessment, and plan of care. Objective - Vital Signs Vital signs: Vital Signs Temp 98.6 F 01/27/25 12:00 Pulse 82 01/27/25 13:00 Resp 16 01/27/25 13:00 BP 111/43 01/27/25 13:00 Pulse Ox 97 01/27/25 13:00 FiO2 21 01/27/25 07:49 Intake & Output 01/26/25 01/27/25 01/27/25 18:59 06:59 18:59 Intake Total 5949.610 6973.616 676 Output Total 7466 268 5737 Balance 595.755 391.616 -1194 Weight 79.3 kg 79.3 kg Intake: IV 1446 928 676 .9 kvo 110 70 30 CVP 36 33 21 Lactated Ringers 1,000 ml 1200 825 525 @ 75 mls/hr IV .[id number] [facility] Rx#:[id number] Piperacillin-Tazobactam 3 100 .375 gm In Sodium Chloride 0.9% 100 ml @ 25 mls/hr IVPB Q12H [facility] Rx# :[id number] Potassium Chloride 10 meq 100 In Water For Injection 1 100ml.bag @ 100 mls/hr IVPB Q1HR [facility] Rx#: [id number] Intake, IV Titration 249.755 328.616 Amount Amiodarone 450 mg In 216.949 228.616 Dextrose 5% in Water 250 ml @ 0.5 MG/MIN 16.667 mls/hr IV .Q15H [facility] Rx#: [id number] Piperacillin-Tazobactam 3 100 .375 gm In Sodium Chloride 0.9% 100 ml @ 25 mls/hr IVPB Q8H [facility] Rx#: [id number] propofoL 1,000 mg In 32.806 Empty Bag 1 bag @ 15 MCG/ KG/MIN 5.021 mls/hr IV . [id number] [facility] Rx#:[id number] Output: Gastric Drainage 150 Urine 2212 510 9585 Other: Voiding Method Indwelling Catheter Indwelling Catheter Indwelling Catheter ABP, PAP, CO, CI - Last Documented Arterial Blood Pressure 136/41 - Labs CBC & Chem 7: 01/27/25 04:00 01/27/25 04:00 Labs: Abnormal Lab Results - Last 24 Hours (Table) 01/27/25 01/27/25 Range/Units 04:00 04:00 RBC 3.66 L (4.10-5.20) 10*6/uL Hgb 10.9 L (12.0-15.0) g/dL Hct 33.6 L (37.2-46.3) % Immature Gran # 0.77 H (0.00-0.04) 10*3/uL Lymphocytes # 0.81 L (0.90-5.00) 10*3/uL Monocytes # 1.10 H (0.20-1.00) 10*3/uL Eosinophils # 0.03 L (0.04-0.35) 10*3/uL Sodium 135 L (137-145) mmol/L BUN 19 H (7-17) mg/dL Calcium 8.0 L (8.4-10.2) mg/dL
[2025-01-27 15:56] LABS: Ionized Calcium 4.4 mg/dL (4.5-5.3)
[2025-01-27 16:03] LABS: Magnesium 1.6 mg/dL (1.6-2.3)
[2025-01-27] MEDS: MVI, ADULT NO.4 WITH VIT K 10 ML, TRACE (CONC-1ML/DOSE) 1 ML in AMINO ACID 5%-D15W+LYTE... IV ONE (17:25)
[2025-01-27] MEDS: FAT EMULSION 20% 250 ML IV SCH (17:25)
[2025-01-27] MEDS ORDERED: MVI, ADULT NO.4 WITH VIT K 10 ML, TRACE (CONC-1ML/DOSE) 1 ML in AMINO ACID 5%-D15W+LYTE... IV SCH (18:00)
[2025-01-27 18:04] LABS: Glucose,Whole Blood 84 mg/dL (70-110)
--- NOTE | 2025-01-27 20:13 | CDI ---
Date: 01/27/2025 From: Janki [email or web address] Email: [email or web address] Admit Date: 01/22/2025 10:40:00 AM Patient Name: Amber Cook Visit Number: [id number] Discharge Date: N/A ATTENTION: The Clinical Documentation Specialists (CDI) and [facility] Coding Staff appreciate your assistance in clarifying documentation. Please respond to the clarification below the line at the bottom and electronically sign. The CDI & [facility] Coding staff will review the response and follow-up if needed. Please note: Queries are made part of the Legal Health Record. If you have any questions, please contact the author of this message via ITS. Dr. Skylar Carrion, Sepsis is documented in your consultation note on 01/23/2025 - which may lack sufficient clinical evidence/support in the medical record. Additional clarification is requested. History/Risk Factors: 84-year-old female presented to [facility] ED for evaluation due to reported low oxygen levels. PMH: GERD, hyperlipidemia, recent left hip replacement, dementia Clinical Indicators: Vital Sign Trend: Date Time Temperature HR RR BP SpO2 01/22/2025 07:42 97.9 F (Oral) 86 16 115/59 100% on 10L NRB 01/22/2025 10:37 97.2 F (Temporal) 114 18 103/50 87% on 4L NC 01/22/2025 14:00 97.6 F (Axillary) 101 14 80/43 99% on Ventilator (Intubated for Surgical Procedure) 01/23/2025 08:00 98.1 F (Oral) 91 14 120/41 98% on Ventilator 01/24/2025 08:00 98.1 F (Oral) 80 17 109/50 100% on Ventilator 01/25/2025 08:00 98.3 F (Oral) 85 14 142/44 97% on Ventilator 01/26/2025 08:00 97.9 F (Oral) 61 14 99/47 99% on Ventilator 01/27/2025 08:00 97.8 F (Oral) 73 25 120/55 98% on Room Air Lab Results: 01/22/2025 01/23/2025 01/24/2025 01/25/202501/27/2025 WBC 10.03 7.54 13.51 15.12 12.53 10.02 10.21 9.69 Other Clinical Indicators: Blood Cultures (Collected on 01/22/2025): No growth after 5 days Lactic Acid: (01/22/2025) 4.5 2.9 (01/23/2025) 3.4 3.6 1.7 Pulmonology/ICU Progress Note (01/23/2025): o Acute abdomen, related to strangulated right with small bowel resection and repair of an ischemic small bowel and the patient was found to have an incisional hernia. The patient is post expiratory laparotomy with repair of a strangulated right inguinal hernia with small bowel resection and repair of a left internal hernia and repair of an incisional herniaThe patient remains septic and the patient remains hypotensive o Septic shock secondary to above, remains on pressors. Aggressive resuscitative IV fluids. Remains on high-dose Norepinephrine o Acute lactic acidosis secondary to above, improved. Acute leukocytosis secondary to above Pulmonology/ICU Progress Note (01/27/2025): Continue Zosyn/empiric coverage antibiotics Treatment: 0.9% Sodium Chloride IV Bolus x 2 Liters Lactated Ringers IV Infusion @ 75mL/hr. Zosyn 3.375g IVPB Every 12 Hours Every 8 Hours ICU Admission Small Bowel Resection Other Treatments this Admission: Levophed IV Infusion Vasopressin IV Infusion After work up and study, please clarify which diagnosis is most appropriate? [ ] Sepsis has been ruled out [ x ] Sepsis (not present on admission) is a valid diagnosis as evidence by the following (please add rationale): __ischemic bowl [ ] Other, please specify [ ] Unable to determine SIRS Criteria (2 or more of the following may indicate SIRS): Temperature < 96.8F (36C) or > 101.0F (38.3C) Heart Rate > 90 bpm Respiratory Rate > 20 breaths/min or PaCO2 < 32 mmHg White Blood Cell Count > 12,000 or < 4,000 cells/mm3 or > 10% bands MTDD
--- NOTE | 2025-01-27 20:17 | CDI ---
Date: 01/27/2025 From: Janki [email or web address] Email: [email or web address] Admit Date: 01/22/2025 10:40:00 AM Patient Name: Amber Cook Visit Number: [id number] Discharge Date: N/A ATTENTION: The Clinical Documentation Specialists (CDI) and [facility] Coding Staff appreciate your assistance in clarifying documentation. Please respond to the clarification below the line at the bottom and electronically sign. The CDI & [facility] Coding staff will review the response and follow-up if needed. Please note: Queries are made part of the Legal Health Record. If you have any questions, please contact the author of this message via ITS. Dr. Skylar Carrion, Conflicting documentation has been found in the medical record. As attending physician, please provide clarification. ED Report (01/22/2025): Patient reportedly had an oxygen level with saturation in the 80s last night. EMS found similar findings Internal Medicine Consult Note (01/23/2025): Acute respiratory failure, non-hypoxic and the patient was kept intubated on mechanical ventilator postop History/Risk Factors: 84-year-old female presented to [facility] ED for evaluation due to reported low oxygen levels. PMH: GERD, hyperlipidemia, recent left hip replacement, dementia Clinical Indicators: ICU Consult Note (01/23/2025): Noted postop, the patient was kept intubated and she was brought into the intensive care unit for further monitoring. At this point in time, the patient remains intubated on the mechanical ventilator...The patient is on a rate of 14, tidal volume of 400, FiO2 of 100% with a PEEP of 5. The blood gases showed a pH of 7.46 with a JUV102 and PO2 of 341. Chest x-ray postop showed adequate expansion of both lungs. Kayy-tracheal tube was just above the tess. NG tube was in place. No airspace disease. No consolidation. No pneumothorax. No pleural effusion. No noted air under the diaphragm Chest X-Ray (01/22/2025): No acute pulmonary process Vital Sign Trend: Date Time Temperature HR RR BP SpO2 01/22/2025 07:42 97.9 F (Oral) 86 16 115/59 100% on 10L NRB 01/22/2025 08:22 N/A N/A N/A N/A 84% on Room Air 97% on 4L NC 01/22/2025 10:37 97.2 F (Temporal) 114 18 103/50 87% on 4L NC 01/22/2025 13:16 N/A 70 14 N/A 100% on Ventilator (Intubated for Surgical Procedure) 01/27/2025 16:00 97.6 F (Axillary) 95 23 114/48 98% on 2L NC Treatment: Supplemental Oxygen Continuous Pulse Oximetry Pulmonology/ICU Consultation Serial Chest X-Rays Serial ABGs Please clarify which diagnosis is most appropriate: [x ] Acute hypoxic respiratory failure requiring supplemental oxygen, present on admission (intubated for surgical procedure only) [ ] Respiratory failure ruled out (intubated for surgical procedure only with extended duration not related to respiratory failure) [ ] Other (please specify) [ ] Unable to determine MTDD
--- NOTE | 2025-01-27 20:22 | CDI ---
Date: 01/27/2025 From: Janki Callejas1 Email: [email or web address] Admit Date: 01/22/2025 10:40:00 AM Patient Name: Amber Cook Visit Number: [id number] Discharge Date: N/A ATTENTION: The Clinical Documentation Specialists (CDI) and [facility] Coding Staff appreciate your assistance in clarifying documentation. Please respond to the clarification below the line at the bottom and electronically sign. The CDI & [facility] Coding staff will review the response and follow-up if needed. Please note: Queries are made part of the Legal Health Record. If you have any questions, please contact the author of this message via ITS. Dr. Skylar Carrion, Conflicting documentation has been found in the medical record. As attending physician, please provide clarification. Internal Medicine Consult Note (01/23/2025): o Mild troponin leak secondary to sepsis o Type II myocardial ischemia History/Risk Factors: 84-year-old female presented to [facility] ED for evaluation due to reported low oxygen levels. PMH: GERD, hyperlipidemia, recent left hip replacement, dementia Clinical indicators: Troponin Trend: (01/22/2025) 0.090 No Additional Results Noted EKG (01/22/2025): Rate 76 bpm. Atrial fibrillation with aberrant conduction or ventricular premature complexes. Borderline right axis deviation (QRS axis > 90). Abnormal rhythm ECG. Echocardiogram (01/23/2025): Left ventricular ejection fraction is estimated at 50-55%. Mild concentric LVH. Mild RV dilatation with normal systolic function. Mild mitral regurgitation, mild tricuspid regurgitation. ED Report (01/22/2025): o Denies chest pain o EKG: interpreted by ER MD. (Right axis. Artifact is present), normal QRS, normal ST/T. EKG shows: atrial fibrillation Internal Medicine Consult Note (01/23/2025): o Acute abdomen due to ischemic bowel status-post exploratory laparotomy with repair of a strangulated right inguinal hernia with small bowel resection and repair of a left internal hernia and repair of an incisional hernia o Acute respiratory failure, non-hypoxic and the patient was kept intubated on mechanical ventilator postop o Acute leukocytosis secondary to above o Acute kidney injury o Acute lactic acidosis o Mild troponin leak secondary to sepsis, type II myocardial ischemia Other Clinical Indicators: Lactic Acid: (01/22/2025) 4.5 2.9 (01/23/2025) 3.4 3.6 1.7 Treatment: Telemetry Monitoring/ICU Admission Other Treatments this Admission: Levophed IV Infusion Vasopressin IV Infusion Heparin Subcutaneous Injection 5000u Every 8 Hours Please clarify which diagnosis is most appropriate: [ ] Non-CA troponin elevation (myocardial infarction ruled out) [ ] Type 2 myocardial infarction secondary to (please specify etiology) as evidenced by: [ ] Other (please specify) [ ] Unable to determine Reference: [employer] Fourth [place] Definition of Myocardial Infraction Type II CA is indicated when an acute myocardial injury in the setting of an abnormal troponin with a rise and fall and clinical indicators suggestive of an imbalance between myocardial oxygen supply demand with acute myocardial ischemia unrelated to coronary thrombosis as evidenced by one of the following: Symptoms of myocardial ischemia New ischemic ECG changes Development of pathological Q waves Imaging evidence of new loss of viable myocardium or new regional wall motion abnormality in a pattern consistent with an ischemic etiology This query is not needed type II CA and not on myocardial infarction elevation of troponin is the same MTDD
--- NOTE | 2025-01-27 20:30 | CDI ---
Date: 01/27/2025 From: Janki Callejas1 Email: [email or web address] Admit Date: 01/22/2025 10:40:00 AM Patient Name: Amber Cook Visit Number: [id number] Discharge Date: N/A ATTENTION: The Clinical Documentation Specialists (CDI) and [facility] Coding Staff appreciate your assistance in clarifying documentation. Please respond to the clarification below the line at the bottom and electronically sign. The CDI & [facility] Coding staff will review the response and follow-up if needed. Please note: Queries are made part of the Legal Health Record. If you have any questions, please contact the author of this message via ITS. Dr. Fam Stone, Severe protein-calorie malnutrition is documented in the Surgery Progress Note on 01/26/2025 - which may lack sufficient clinical evidence/support in the medical record per ASPEN criteria recommendations (see reference below). Additional clarification is requested. History/Risk Factors: 84-year-old female presented to [facility] ED for evaluation due to reported low oxygen levels. PMH: GERD, hyperlipidemia, recent left hip replacement, dementia Clinical Indicators: Current BMI: 30.0 Registered Dietitian Consult/Assessment (01/27/2025): o Nutrition Intake: Poor o Inadequate energy intake related to decreased ability to consume suff icient energy as evidenced by NPO diet order Surgical H&P Report (01/22/2025): She has been having nausea and vomiting for the last 3 days with abdominal pain ICU Progress Note (01/27/2025): o Acute ischemic bowel. Strangulated right inguinal hernia. Status-post exploratory exploratory laparotomy, repair of strangulated inguinal hernia and small bowel resection with a left internal hernia repair and repair of incisional hernia postoperative day #4 o Patient is to be given TPN today after nasogastric tube discontinua tion. And this should be addressed by dietitian. Patient looks frail, chronically ill, weak Treatment: Registered Dietitian Consultation Total Parenteral Nutrition Please clarify if severe protein-calorie malnutrition is a valid diagnosis? [ ] No, malnutrition is ruled out [ ] Yes, severe protein-calorie malnutrition is present as evidenced by (additional clinical support): [ ] Other (please specify diagnosis) [ ] Unable to determine MTDD
[2025-01-28 00:04] LABS: Glucose,Whole Blood 135 mg/dL (70-110)
[2025-01-28 05:19] LABS: HGB 10.1 g/dL (12.0-15.0); MCH 29.7 pg (27.0-32.0); MCHC 32.6 g/dL (32.0-37.0); MCV 91.2 fL (80.0-97.0); Mean Platelet Volume 10.5 fL (9.5-12.2); Platelet Count 219 10*3/uL (140-440); RDW 13.7 % (11.5-14.5)
[2025-01-28 05:29] LABS: ALT 17 U/L (4-34); AST 24 U/L (14-36); African American GFR (CKD) >90 (>60 ml/min/1.73 sqM); Albumin 1.7 g/dL (3.5-5.0); Alkaline Phosphatase 46 U/L (38-126); Anion Gap 0 mmol/L; Blood Urea Nitrogen 21 mg/dL (7-17); Calcium 7.6 mg/dL (8.4-10.2); Carbon Dioxide 32 mmol/L (22-30); Chloride 102 mmol/L (98-107); Glucose 134 mg/dL (74-99); Magnesium 1.5 mg/dL (1.6-2.3); Non-African American GFR(CKD) 80 (>60 ml/min/1.73 sqM); Potassium 3.4 mmol/L (3.5-5.1); Sodium 134 mmol/L (137-145); Total Bilirubin 0.4 mg/dL (0.2-1.3); Total Protein 3.6 g/dL (6.3-8.2)
[2025-01-28] MEDS: POTASSIUM CHLORIDE 20 MEQ in WATER FOR INJECTION 1 100ML.BAG IVPB SCH (07:05)
[2025-01-28 07:48] LABS: Nucleated Red Blood Cells 0 /100 WBC (0-0)
[2025-01-28] MEDS: IPRATROPIUM-ALBUTEROL 3 ML NEB INHALATION SCH (07:55)
[2025-01-28] MEDS: MAGNESIUM SULFATE-D5W PMX 1 GM in DEXTROSE/WATER 1 100ML.BAG IVPB SCH (07:58)
--- NOTE | 2025-01-28 08:13 | XR ---
EXAMINATION TYPE: XR chest 1V portable DATE OF EXAM: 01/28/2025 7:44 AM COMPARISON: 01/27/2025 CLINICAL INDICATION: Female, 84 years old with history of SOB, , FINDINGS: Right IJ CVC tip lower SVC level. Right PICC tip within the right atrium. Left heart margin obscured by adjacent pleural parenchymal opacity. Ongoing now moderate left and small right pleural effusions with adjacent bibasilar opacities. Mild interstitial prominence persists as well. IMPRESSION: Slight increasing now moderate left and small right pleural effusions with adjacent atelectasis and/o r consolidation. Possible background pulmonary vascular congestion. [facility], Workstation: [id number], 01/28/2025 8:11 AM
[2025-01-28 08:30] LABS: Neutrophils % (M) 77 %
[2025-01-28 08:36] LABS: Lymphocytes # (M) 1.44 k/uL (1.0-4.8); Monocytes # (M) 0.72 k/uL (0-1.0)
[2025-01-28 08:37] LABS: Eosinophils # (M) 0.21 k/uL (0-0.7); Total Cells Counted 100
[2025-01-28] MEDS: FUROSEMIDE 10 MG/ML 2 ML VIAL IV ONE (08:57)
[2025-01-28 09:29] LABS: Neutrophils # (M) 7.93 k/uL (1.3-7.7)
--- NOTE | 2025-01-28 10:20 | P.PN ---
Subjective Progress Note Date: 01/27/25 patient is a 84-year-old lady with past medical history significant for GERD, hyperlipidemia who is a resident of [facility] who initially presented to the ER for nausea vomiting nominal pain for the last 3 days. Workup in the ER showed a CT scan showing biliary air within the liver with pneumatosis intestinalis within the stomach wall, Mesenteric ischemia should be considered,Dilated fluid-filled small bowel loops,Some of transition may be in left inguinal hernia. Patient was admitted under surgery and was taken for emergent exploratory laparotomy with repair of strangulated right inguinal hernia with small bowel resection,repair of left internal hernia and repair of incisional hernia. Postoperatively patient was intubated and was admitted to ICU 01/24. Patient seen and examined. Patient continues to be on mechanical ventilator, labs done this morning showedWBC 12.53, hemoglobin 11.6, sodium 131, potassium 3.5, BUN 15, creatinine 1.37, calcium 10.7. 01/25. Patient seen and examined. Continues to be on mechanical ventilation. Currently on amiodarone drip. Patient also on IV Levophed and vasopressin. Continue IV Zosyn. 01/26. Patient seen and examined. Labs done today showed WBC 10.21, hemoglobin 10.6, platelet count 139, sodium 131, potassium 3.8, BUN 25, creatinine 0.73 patient was extubated this morning 01/27/2025 Patient is seen in follow-up continues to be in the ICU was recently extubated maintained on 2 L via nasal cannula. Patient remains n.p.o. and awaiting enteral nutrition with TPN. Multiple consultations following as patient remains in the ICU and is postop day #5 from resection and small bowel inguinal hernia repair. Chest x-ray showing some edema and vascular congestion is being given a dose of Lasix and recommend monitoring kidney functions closely, current BUN is 19 with a creatinine of 0.6. Patient was continued on IV Zosyn and is being discontinued being closely monitored off IV antibiotics. Prognosis remains extremely guarded at this time and patient is in no code. Magnesium is 1.6 today and will monitor and follow-up with repeat labs and replace per protocol. REVIEW OF SYSTEMS: Unable to obtain as patient is lethargic PHYSICAL EXAMINATION: GENERAL: The patient is asleep, alert and oriented x1-2. Well-developed, elderly appearing, ill-appearing, obese HEENT: Pupils are round and equally reacting to light. EOMI. No scleral icterus. No conjunctival pallor. Normocephalic, atraumatic. No pharyngeal erythema. No thyromegaly. CARDIOVASCULAR: S1 and S2 muffled PULMONARY: Diminished breath sounds bilaterally with faint crackles and scattered rhonchi noted. ABDOMEN: Laparotomy surgical incisions seen, wound VAC in place MUSCULOSKELETAL: No joint swelling or deformity. EXTREMITIES: No cyanosis, clubbing, or pedal edema. NEUROLOGICAL: Unable to completely assess as patient is lethargic although arousable, diffusely weak SKIN: No rashes. Assessment: Acute abdomen due to ischemic bowel status post post expiratory laparotomy with repair of a strangulated right inguinal hernia with small bowel resection and repair of a left internal hernia and repair of an incisional hernia. Acute respiratory failure, nonhypoxic and the patient was kept intubated on mechanical ventilator postop due to mentation Acute metabolic encephalopathy due to sepsis with concerns of septic shock. Acute leukocytosis secondary to above Acute kidney injury Acute lactic acidosis Mild troponin elevation, likely type II myocardial ischemia mismatch secondary to sepsis History of dementia History of paroxysmal atrial fibrillation current rhythm is sinus and the patient has been taking Eliquis on outpatient basis Hyperlipidemia History of fall Previous history of bowel resection back in 2013 for a bowel perforation requiring subsequent PEG tube insertion and removal GI prophylaxis DVT prophylaxis No code Plan: Patient continues in the ICU with multiple consultations following. Patient was on IV Zosyn which is being discontinued and closely monitored off antibiotic therapy Patient has been extubated successfully currently on 2 L, wean FiO2 as tolerated. Patient would benefit from incentive spirometer although significantly weak and unsure if patient can tolerate using Patient is currently n.p.o. and surgery initiating TPN for nutrition Encourage PT/OT therapy evaluation and recommend daily for continued weakness Adjustments to medications being made as patient is currently sinus rhythm Patient being transferred to medicine service with general surgery following Due to multiple significant complex medical issues, overall prognosis is guarded. CODE STATUS is no code at this time The impression and plan of care has been dictated by Tamika Juarez, Nurse Practitioner as directed. Dr. Sheyla MD I have performed a history and examination and MDM of this patient, discussed the same with the dictator, and agree with the dictator's assessment and plan as written ,documented as a scribe. Based on total visit time, I have performed more than 50% of the visit. Objective - Vital Signs Vital signs: Vital Signs Temp 98.6 F 01/27/25 12:00 Pulse 68 01/27/25 12:08 Resp 18 01/27/25 12:00 BP 121/47 01/27/25 12:00 Pulse Ox 100 01/27/25 12:00 FiO2 21 01/27/25 07:49 Intake & Output 01/26/25 01/27/25 01/27/25 18:59 06:59 18:59 Intake Total 8503.716 6969.616 588 Output Total 7439 074 8815 Balance 595.755 391.616 -982 Weight 79.3 kg 79.3 kg Intake: IV 1446 928 588 .9 kvo 110 70 20 CVP 36 33 18 Lactated Ringers 1,000 ml 1200 825 450 @ 75 mls/hr IV .[id number] DOM Rx#:[id number] Piperacillin-Tazobactam 3 100 .375 gm In Sodium Chloride 0.9% 100 ml @ 25 mls/hr IVPB Q12H [facility] Rx# :[id number] Potassium Chloride 10 meq 100 In Water For Injection 1 100ml.bag @ 100 mls/hr IVPB Q1HR [facility] Rx#: [id number] Intake, IV Titration 249.755 328.616 Amount Amiodarone 450 mg In 216.949 228.616 Dextrose 5% in Water 250 ml @ 0.5 MG/MIN 16.667 mls/hr IV .Q15H [facility] Rx#: [id number] Piperacillin-Tazobactam 3 100 .375 gm In Sodium Chloride 0.9% 100 ml @ 25 mls/hr IVPB Q8H [facility] Rx#: [id number] propofoL 1,000 mg In 32.806 Empty Bag 1 bag @ 15 MCG/ KG/MIN 5.021 mls/hr IV . [id number] DOM Rx#:[id number] Output: Gastric Drainage 150 Urine 0723 729 0138 Other: Voiding Method Indwelling Catheter Indwelling Catheter Indwelling Catheter ABP, PAP, CO, CI - Last Documented Arterial Blood Pressure 136/41 - Labs CBC & Chem 7: 01/28/25 03:58 01/28/25 03:58 Labs: Abnormal Lab Results - Last 24 Hours (Table) 01/27/25 01/27/25 Range/Units 04:00 04:00 RBC 3.66 L (4.10-5.20) 10*6/uL Hgb 10.9 L (12.0-15.0) g/dL Hct 33.6 L (37.2-46.3) % Immature Gran # 0.77 H (0.00-0.04) 10*3/uL Lymphocytes # 0.81 L (0.90-5.00) 10*3/uL Monocytes # 1.10 H (0.20-1.00) 10*3/uL Eosinophils # 0.03 L (0.04-0.35) 10*3/uL Sodium 135 L (137-145) mmol/L BUN 19 H (7-17) mg/dL Calcium 8.0 L (8.4-10.2) mg/dL
[2025-01-28 10:23] VITALS: BMI 31.4
[2025-01-28 11:55] LABS: Glucose,Whole Blood 169 mg/dL (70-110)
--- NOTE | 2025-01-28 12:15 | P.PN ---
Subjective Progress Note Date: 01/28/25 SURGICAL PROGRESS NOTE CHIEF COMPLAINT: Strangulated right inguinal hernia, ischemic small bowel HISTORY OF PRESENT ILLNESS: Postop day #6 status post repair of strangulated right inguinal hernia with small bowel resection, repair of left internal hernia and repair of incisional hernia. Patient remains in the ICU but has been downgraded to MedSur.patient had bowel movement. She is on TPN for nutrition support. WBC is 10.3 Hgb 10.1 potassium 3.4 magnesium 1.5 PHYSICAL EXAM: VITAL SIGNS: Reviewed. GENERAL: Well-developed in no acute distress. ABDOMEN: Soft. Nondistended. Nontender. NEUROLOGIC: Currently intubated ASSESSMENT: 1. Strangulated right inguinal hernia, ischemic small bowel, left internal hernia, incisional hernia 2. Severe protein calorie malnutrition PLAN: -Advance diet to clear liquids -Continue TPN for nutrition support for now -Electrolytes being replaced -DVT prophylaxis subcu heparin Physician Electrostatic Paint Operator note has been reviewed by physician. Signing provider agrees with the documented findings, assessment, and plan of care. Objective - Vital Signs Vital signs: Vital Signs Temp 97.4 F L 01/28/25 08:00 Pulse 100 01/28/25 11:11 Resp 18 01/28/25 11:00 BP 118/48 01/28/25 09:00 Pulse Ox 96 01/28/25 11:00 FiO2 21 01/27/25 07:49 Intake & Output 01/27/25 01/28/25 01/28/25 18:59 06:59 18:59 Intake Total 1386 1467 634 Output Total 3795 455 1390 Balance -2409 1012 -756 Weight 79.3 kg 83.2 kg 83.2 kg Intake: IV 1284 948 544 .9 kvo 70 90 10 CVP 39 33 9 Lactated Ringers 1,000 ml 975 825 225 @ 75 mls/hr IV .[id number] DOM Rx#:[id number] Magnesium Sulfate-D5w Pmx 200 1 gm In Dextrose/Water 1 100ml.bag @ 100 mls/hr IVPB Q1H DOM Rx#: [id number] Piperacillin-Tazobactam 3 200 .375 gm In Sodium Chloride 0.9% 100 ml @ 25 mls/hr IVPB Q12H [facility] Rx# :[id number] Potassium Chloride 20 meq 100 In Water For Injection 1 100ml.bag @ 50 mls/hr IVPB Q2H [facility] Rx#: [id number] TPN/PPN 102 519 90 Fat Emulsion 20% 250 ml @ 42 189 20.833 mls/hr IV Q72H [facility] Rx#:[id number] Mvi, Adult No.4 with Vit 60 330 90 K 10 ml Trace (Conc-1Ml/ Dose) 1 ml In Amino Acid 5%-D15w+Lytes*E* 1,000 ml @ 30 mls/hr IV .Q24H ONE Rx#:[id number] Output: Urine 3795 455 1390 Other: Voiding Method Indwelling Catheter Indwelling Catheter Indwelling Catheter # Bowel Movements 1 ABP, PAP, CO, CI - Last Documented Arterial Blood Pressure 136/41 - Labs CBC & Chem 7: 01/28/25 03:58 01/28/25 03:58 Labs: Abnormal Lab Results - Last 24 Hours (Table) 01/27/25 01/28/25 01/28/25 Range/Units 15:45 00:03 03:58 WBC 10.30 H (4.50-10.00) 10*3/uL RBC 3.40 L (4.10-5.20) 10*6/uL Hgb 10.1 L (12.0-15.0) g/dL Hct 31.0 L (37.2-46.3) % Immature Gran # 0.99 H (0.00-0.04) 10*3/uL Neutrophils # (Manual) 7.93 H (1.3-7.7) k/uL Sodium (137-145) mmol/L Potassium (3.5-5.1) mmol/L Carbon Dioxide (22-30) mmol/L BUN (7-17) mg/dL Glucose (74-99) mg/dL POC Glucose (mg/dL) 135 H (70-110) mg/dL Calcium (8.4-10.2) mg/dL Ionized Calcium Morgan 4.4 L (4.5-5.3) mg/dL Magnesium (1.6-2.3) mg/dL Total Protein (6.3-8.2) g/dL Albumin (3.5-5.0) g/dL 01/28/25 01/28/25 01/28/25 Range/Units 03:58 03:58 11:53 WBC (4.50-10.00) 10*3/uL RBC (4.10-5.20) 10*6/uL Hgb (12.0-15.0) g/dL Hct (37.2-46.3) % Immature Gran # (0.00-0.04) 10*3/uL Neutrophils # (Manual) (1.3-7.7) k/uL Sodium 134 L (137-145) mmol/L Potassium 3.4 L (3.5-5.1) mmol/L Carbon Dioxide 32 H (22-30) mmol/L BUN 21 H (7-17) mg/dL Glucose 134 H (74-99) mg/dL POC Glucose (mg/dL) 169 H (70-110) mg/dL Calcium 7.6 L (8.4-10.2) mg/dL Ionized Calcium Morgan (4.5-5.3) mg/dL Magnesium 1.5 L (1.6-2.3) mg/dL Total Protein 3.6 L (6.3-8.2) g/dL Albumin 1.7 L (3.5-5.0) g/dL Microbiology - Last 24 Hours (Table) 01/22/25 09:55 Blood Culture - Final Blood
--- NOTE | 2025-01-28 12:47 | P.PN ---
Subjective Progress Note Date: 01/28/25 Principal diagnosis: Acute abdomen with acute ischemic small bowel related to strangulated right inguinal hernia. Patient is status post right inguinal hernia repair, and resection of small bowel postoperative day #6 This is a 84-year-old female patient who presented to the emergency department with acute abdomen. The patient had abdominal pain and she had a CT scan of the abdomen and pelvis done in the Emergency Department that showed evidence of biliary air within the liver with pneumatosis intestinalis within the stomach wall. Patient also had dilated fluid-filled small bowel and transition at the left inguinal hernia level. Based on that, the patient was taken to the operating room. Noted the patient had a DNR/DNI CODE STATUS. The CODE STATUS was switched for the sake of the procedure and she was placed on a full code. In the operating room, the patient underwent a exploratory laparotomy and the patient was found to have strangulated right inguinal hernia, ischemic small bowel and incisional hernia. The patient underwent a repair of the strangulated right inguinal hernia with small bowel resection and repair of the left internal hernia repair of the incisional hernia. Estimated blood loss was 20 cc. Noted postop, the patient was kept intubated and she was brought into the intensive care unit for further monitoring. At this point in time, the patient remains intubated on the mechanical ventilator. She is on propofol running at 55 mcg/kg/min. She has already received a total of 2 L of IV fluids and she is currently on lactated Ringer at rate of 150 cc an hour. The patient is on a rate of 14, tidal volume of 400, FiO2 of 100% with a PEEP of 5. The blood gases showed a pH of 7.46 with a [id number] and PO2 of 341. Chest x-ray postop showed adequate expansion of both lungs. Orotracheal tube was just above the tess. NG tube was in place. No airspace disease. No consolidation. No pneumothorax. No pleural effusion. No noted air under the diaphragm. The patient is currently on no pressors. Hemodynamically stable. She is on no antibiotics for now. Blood work from this morning showed a WBC count of 10, hemoglobin of 18 and a platelet count of 213. Sodium is at 132, BUN 64 with a creatinine of 1.7 and a potassium level of 4.1 and a chloride is 87 with a bicarb level of 32. Initial lactic acid level was at 4.5. proBNP level is 3230. TSH was 1.7 with a free T4 of 2.1. The viral screen was negative. LFTs were normal. Troponin was 0.09. 01/23/2025, the patient remains intubated on mechanical ventilator. The patient is currently on propofol for respiratory. The patient is on assist-control mode of mechanical ventilation at rate of 14, tidal volume of 400, FiO2 40% with a PEEP of 5. Blood gas showed a pH of 7.34 with a DEL599 and PO2 of 86. Remains on lactated Ringer at rate of 150 cc an hour. Net fluid balance is +6.3 L over the past 24 hours and the patient remains on norepinephrine running at 0.3 mcg /kg/min. The patient also went into atrial fibrillation with RVR. The patient was started on albuterol protocol. The patient converted to normal sinus rhythm. Amiodarone drip is still running at 0.5 mg/min. The patient's white cell count is 15 with a hemoglobin 15.20 platelet count of 183. Sodium is at 133, BUN is 57 with a creatinine of 0.9 and a potassium level of 3.5. Lactic acid level has returned to 1.7. Calcium is at 7.3. Surgical wound bed is dry clean and intact. No other significant events overnight. On 01/24/2025, the patient is being seen for a follow-up. The patient remains intubated on mechanical ventilator. The patient remains on propofol running at 45 mcg/kg/min. Calm and comfortable and pressor requirements have improved compared to yesterday. For now, and this morning, the patient remains on lactated Ringer at rate of 150 cc an hour. The patient is on norepinephrine at 0.18 mcg/kg/min and vasopressin physiologic dose. Fluid balance is +6.2 L over the past 24 hours as the patient received several fluid boluses yesterday. Current CVP is at 8. Also, the patient is on assist-control mode of mechanical ventilation at rate of 14, tidal volume of 400, FiO2 40% with a PEEP of 5. pH is 7.35 with a pCO2 of 49 and pO2 of 93. The patient is afebrile. The patient remains on a combination of Zosyn and vancomycin. The patient is also on amiodarone at 0.5 mL milligrams per minute regarding her atrial fibrillation which is essentially well-controlled for now. The white cell count is at 12.5, hemoglobin is 11.6 and the platelet count of 174. There is 73% neutrophilia. Sodium is at 131, potassium 3.5, BUN 51 with a creatinine of 1.3. Potassium is at 3.5. Renal function continues to improve and the serum bicarb is at 23. Blood sugars at 147. The patient's echocardiogram done on 01/23/2025 was reviewed and it shows a normal preserved LV function with ejection fraction of 50 to 55%. Mild MR, mild TR, no significant valvular heart disease. The patient remains NPO. No other significant events overnight. Seen today on 01/25/2025, patient remains in the ICU intubated and mechanically ventilated, she is now postoperative day #3 on assist-control rate 14 tidal volume 400 FiO2 40% PEEP of 5 ABG showed a pO2 of 130 pCO2 44 pH of 7.44 and her FiO2 was cut down to 30%. Patient remains on LR at 150 mL/h propofol at 15 mcg/kg/min amiodarone at 0.5 mg/min. Empirically remains on Zosyn for her abdominal sepsis. Patient has underlying dementia and she is F resident. Patient is sedated, does not seem to be opening her eyes with verbal stimuli or deep painful stimuli, I am planning to give the patient today a sedation holiday and assess mental status off sedation. WBC count is 10.0 hemoglobin 11.1. Platelets are 1 42,000. Potassium is a little low at 3.2, renal profile is normal BUN 41 creatinine 0.98 blood sugar is 106 chest x-ray showed endotracheal tube to be lying low close to the tess, there is a small moderate left pleural effusion and small right pleural effusion with atelectasis. Patient was seen today on 01/26/2025, remains in the ICU intubated and mechanically ventilated. On assist-control rate 14 tidal volume 400 FiO2 30% and PEEP of 5 ABG showed a pO2 of 76 pCO2 41 pH of 7.45, hence no ventilator changes were made. Chest x-ray showed minimal pleural effusions, and mild interstitial prominence, with minimal basilar opacities/atelectasis. Patient is on amiodarone drip at 0.5 mg/min propofol 25 mcg/kg/min LR at 75 cc/h remains on Zosyn remains on heparin subcu and the patient remains DNR. WBC count is 10.2 hemoglobin 10.6, basic metabolic profile is normal BUN is 25 creatinine 0.73. Medications limon remains on multiple meds as listed patient is also on GI and DVT prophylaxis not requiring any pressors today. Patient is quite sedated, yesterday we attempted to awaken the patient and give the patient a weaning trial however the patient was having intermittent episodes of vomiting hence we held back on further weaning. We will initiate that again today and if tolerated may go to pressure support trial and CPAP. Seen today on 01/27/2025, remains in the ICU, patient was extubated yesterday she is now on nasal cannula, at 2 L/min. Her nasogastric tube will be discontinued today. Patient has a CVP of 6 today, urine output is about 40 cc/h hence I recommended 1 dose of Lasix 40 mg IV push since her chest x-ray is showing interstitial edema. Patient is to be given TPN today after nasogastric tube discontinuation. And this should be addressed by dietitian. Patient looks frail, chronically ill, weak, but nonetheless she seems to be tolerating the extubation rather well and better than expected. WBC count is 9.7 hemoglobin 10.9 electrolytes are normal renal profile is normal BUN is 19 creatinine 0.61, chest x-ray showed moderate left and small right-sided pleural effusion with bi basilar interstitial opacities. Patient was seen today on 01/28/2025, remains on 2 L nasal cannula, not in any distress, patient diuresed well yesterday, she is -4.2 L in the last 24 hours, however her chest x-ray continues to show worsening interstitial edema, hence more Lasix will be given today 20 mg IV push. Patient seems to be frail, extremely weak, but arousable, follows simple instructions. Labs today were reviewed WBC count is 10.3 hemoglobin 10.1 electrolytes are normal except for low potassium 3.4 renal profile is normal Objective - Vital Signs Vital signs: Vital Signs Temp 97.4 F L 01/28/25 08:00 Pulse 100 01/28/25 11:11 Resp 18 01/28/25 11:00 BP 118/48 01/28/25 09:00 Pulse Ox 96 01/28/25 11:00 FiO2 21 01/27/25 07:49 Intake & Output 01/27/25 01/28/25 01/28/25 18:59 06:59 18:59 Intake Total 1386 1467 634 Output Total 3795 455 1390 Balance -2409 1012 -756 Weight 79.3 kg 83.2 kg 83.2 kg Intake: IV 1284 948 544 .9 kvo 70 90 10 CVP 39 33 9 Lactated Ringers 1,000 ml 975 825 225 @ 75 mls/hr IV .[id number] [facility] Rx#:[id number] Magnesium Sulfate-D5w Pmx 200 1 gm In Dextrose/Water 1 100ml.bag @ 100 mls/hr IVPB Q1H [facility] Rx#: [id number] Piperacillin-Tazobactam 3 200 .375 gm In Sodium Chloride 0.9% 100 ml @ 25 mls/hr IVPB Q12H [facility] Rx# :[id number] Potassium Chloride 20 meq 100 In Water For Injection 1 100ml.bag @ 50 mls/hr IVPB Q2H [facility] Rx#: [id number] TPN/PPN 102 519 90 Fat Emulsion 20% 250 ml @ 42 189 20.833 mls/hr IV Q72H [facility] Rx#:[id number] Mvi, Adult No.4 with Vit 60 330 90 K 10 ml Trace (Conc-1Ml/ Dose) 1 ml In Amino Acid 5%-D15w+Lytes*E* 1,000 ml @ 30 mls/hr IV .Q24H [facility] Rx#:[id number] Output: Urine 3795 455 1390 Other: Voiding Method Indwelling Catheter Indwelling Catheter Indwelling Catheter # Bowel Movements 1 ABP, PAP, CO, CI - Last Documented Arterial Blood Pressure 136/41 - Exam Physical exam revealed 84-year-old female on 2 L nasal cannula, not in distress, looks frail, weak and chronically ill. Head: Atraumatic normocephalic HEENT: PERRLA, EOMI, anicteric, no neck masses, nasogastric tube remains in place, will be removed after rounds. Neck supple no neck masses no JVD no stridor Lungs clear bilaterally diminished at the bases no rhonchi no wheezes Cardiac: Distant S1-S2, no S3 gallop, no murmur Abdomen: Soft nontender no megaly no rebound no guarding, wound VAC is noted Extremities: No clubbing 1+ bipedal edema no cyanosis Neurologic: Arousable, weak, follows simple instructions Psychiatric: Normal mood affect and confused mental status. Skin: No rashes. - Labs CBC & Chem 7: 01/28/25 03:58 01/28/25 03:58 Labs: Abnormal Lab Results - Last 24 Hours (Table) 01/27/25 01/28/25 01/28/25 Range/Units 15:45 00:03 03:58 WBC 10.30 H (4.50-10.00) 10*3/uL RBC 3.40 L (4.10-5.20) 10*6/uL Hgb 10.1 L (12.0-15.0) g/dL Hct 31.0 L (37.2-46.3) % Immature Gran # 0.99 H (0.00-0.04) 10*3/uL Neutrophils # (Manual) 7.93 H (1.3-7.7) k/uL Sodium (137-145) mmol/L Potassium (3.5-5.1) mmol/L Carbon Dioxide (22-30) mmol/L BUN (7-17) mg/dL Glucose (74-99) mg/dL POC Glucose (mg/dL) 135 H (70-110) mg/dL Calcium (8.4-10.2) mg/dL Ionized Calcium Morgan 4.4 L (4.5-5.3) mg/dL Magnesium (1.6-2.3) mg/dL Total Protein (6.3-8.2) g/dL Albumin (3.5-5.0) g/dL 01/28/25 01/28/25 01/28/25 Range/Units 03:58 03:58 11:53 WBC (4.50-10.00) 10*3/uL RBC (4.10-5.20) 10*6/uL Hgb (12.0-15.0) g/dL Hct (37.2-46.3) % Immature Gran # (0.00-0.04) 10*3/uL Neutrophils # (Manual) (1.3-7.7) k/uL Sodium 134 L (137-145) mmol/L Potassium 3.4 L (3.5-5.1) mmol/L Carbon Dioxide 32 H (22-30) mmol/L BUN 21 H (7-17) mg/dL Glucose 134 H (74-99) mg/dL POC Glucose (mg/dL) 169 H (70-110) mg/dL Calcium 7.6 L (8.4-10.2) mg/dL Ionized Calcium Morgan (4.5-5.3) mg/dL Magnesium 1.5 L (1.6-2.3) mg/dL Total Protein 3.6 L (6.3-8.2) g/dL Albumin 1.7 L (3.5-5.0) g/dL Microbiology - Last 24 Hours (Table) 01/22/25 09:55 Blood Culture - Final Blood Assessment and Plan Assessment: Impression: Acute abdomen Acute ischemic bowel Strangulated right inguinal hernia Status post exploratory laparotomy, repair of strangulated inguinal hernia and small bowel resection with a left internal hernia repair and repair of incisional hernia postoperative day #5 Acute respiratory failure nonhypoxic, patient was kept intubated post surgery and remains intubated, seems to be difficult to wean mostly because of her mental status Suspect septic shock secondary to abdominal sepsis, patient required norepinephrine in spite of fluid boluses. Acute kidney injury, improving Acute lactic acidosis secondary to ischemic small bowel, improved Acute troponin leak secondary to sepsis type II myocardial ischemia Underlying dementia Dyslipidemia History of previous bowel resection in 2013 and bowel perforation requiring PEG tube placement at the time. Recommendation: Transfer patient out of the ICU to medical surgical floor Start nutritional support/TPN Continue GI DVT prophylaxis Continue Zosyn/empiric coverage antibiotics Continue to monitor daily labs Remains marginal and prognosis is poor CODE STATUS is DNR Will continue to follow Time with Patient: Less than 30
[2025-01-28] MEDS ORDERED: MVI, ADULT NO.4 WITH VIT K 10 ML, TRACE (CONC-1ML/DOSE) 1 ML in AMINO ACID 5%-D15W+LYTE... IV SCH (18:00)
[2025-01-28 18:42] LABS: Glucose,Whole Blood 121 mg/dL (70-110)
[2025-01-28] MEDS: MVI, ADULT NO.4 WITH VIT K 10 ML, TRACE (CONC-1ML/DOSE) 1 ML, SODIUM CHLORIDE 4MEQ/ML V... IV SCH (22:52)
[2025-01-29 00:23] LABS: Glucose,Whole Blood 127 mg/dL (70-110)
[2025-01-29 06:21] LABS: Glucose,Whole Blood 126 mg/dL (70-110)
[2025-01-29 06:48] LABS: HCT 32.6 % (37.2-46.3); HGB 10.8 g/dL (12.0-15.0); MCH 30.2 pg (27.0-32.0); MCHC 33.1 g/dL (32.0-37.0); MCV 91.1 fL (80.0-97.0); Mean Platelet Volume 10.1 fL (9.5-12.2); Platelet Count 213 10*3/uL (140-440); RBC 3.58 10*6/uL (4.10-5.20); RDW 13.4 % (11.5-14.5); WBC 10.04 10*3/uL (4.50-10.00)
[2025-01-29 07:10] LABS: ALT 26 U/L (4-34); AST 31 U/L (14-36); African American GFR (CKD) >90 (>60 ml/min/1.73 sqM); Albumin 1.8 g/dL (3.5-5.0); Albumin/Globulin Ratio 0.9; Alkaline Phosphatase 51 U/L (38-126); Anion Gap 0 mmol/L; Blood Urea Nitrogen 22 mg/dL (7-17); Calcium 7.5 mg/dL (8.4-10.2); Carbon Dioxide 34 mmol/L (22-30); Chloride 100 mmol/L (98-107); Globulin 2.1 g/dL; Glucose 133 mg/dL (74-99); Magnesium 1.8 mg/dL (1.6-2.3); Non-African American GFR(CKD) 86 (>60 ml/min/1.73 sqM); Phosphorus 2.7 mg/dL (2.5-4.5); Potassium 3.5 mmol/L (3.5-5.1); Sodium 134 mmol/L (137-145); Total Bilirubin 0.4 mg/dL (0.2-1.3); Total Protein 3.9 g/dL (6.3-8.2)
[2025-01-29 09:25] LABS: Band Neutrophils % 1 %; Metamyelocytes % 3 %; Myelocytes % 2 %; Neutrophils # (M) 8.63 k/uL (1.3-7.7); Neutrophils % (M) 85 %; Nucleated Red Blood Cells 1 /100 WBC (0-0); Total Cells Counted 200
[2025-01-29 09:27] LABS: Hypochromasia (M) Present
--- NOTE | 2025-01-29 10:28 | P.PN ---
Subjective Progress Note Date: 01/28/25 patient is a 84-year-old lady with past medical history significant for GERD, hyperlipidemia who is a resident of [facility] who initially presented to the ER for nausea vomiting nominal pain for the last 3 days. Workup in the ER showed a CT scan showing biliary air within the liver with pneumatosis intestinalis within the stomach wall, Mesenteric ischemia should be considered,Dilated fluid-filled small bowel loops,Some of transition may be in left inguinal hernia. Patient was admitted under surgery and was taken for emergent exploratory laparotomy with repair of strangulated right inguinal hernia with small bowel resection,repair of left internal hernia and repair of incisional hernia. Postoperatively patient was intubated and was admitted to ICU 01/24. Patient seen and examined. Patient continues to be on mechanical ventilator, labs done this morning showedWBC 12.53, hemoglobin 11.6, sodium 131, potassium 3.5, BUN 15, creatinine 1.37, calcium 10.7. 01/25. Patient seen and examined. Continues to be on mechanical ventilation. Currently on amiodarone drip. Patient also on IV Levophed and vasopressin. Continue IV Zosyn. 01/26. Patient seen and examined. Labs done today showed WBC 10.21, hemoglobin 10.6, platelet count 139, sodium 131, potassium 3.8, BUN 25, creatinine 0.73 patient was extubated this morning 01/27/2025 Patient is seen in follow-up continues to be in the ICU was recently extubated maintained on 2 L via nasal cannula. Patient remains n.p.o. and awaiting enteral nutrition with TPN. Multiple consultations following as patient remains in the ICU and is postop day #5 from resection and small bowel inguinal hernia repair. Chest x-ray showing some edema and vascular congestion is being given a dose of Lasix and recommend monitoring kidney functions closely, current BUN is 19 with a creatinine of 0.6. Patient was continued on IV Zosyn and is being discontinued being closely monitored off IV antibiotics. Prognosis remains extremely guarded at this time and patient is in no code. Magnesium is 1.6 today and will monitor and follow-up with repeat labs and replace per protocol. 01/28/2025 Patient is seen in follow-up today lethargic although arousable and more alert today. Patient is responding appropriately and following commands although lethargic and fatigues easily. Patient continued on 2 L via nasal cannula and remains n.p.o. although being evaluated by speech and being started on a diet and will continue on TPN for now and will be weaned slowly. Patient is afebrile with no reports of chest pain or shortness of breath. Patient is having bowel movements and general surgery following closely. Patient is a downgrade from the ICU to [facility]. Magnesium is slightly low at 1.6 and potassium and is being replaced per protocol. Will follow-up on repeat labs. Plan will be for returning to [facility] once cleared by consultations in stable. Review of systems: Constitutional: reports of fatigue, no fever, or chills Cardiovascular: No reports of chest pain or palpitations Respiratory: No reports of shortness of breath or cough GI: No reports of nausea, vomiting, or diarrhea : No reports of dysuria or retention Neurovascular: reports of generalized weakness All medications have been reviewed PHYSICAL EXAMINATION: GENERAL: The patient is asleep although more arousable today, alert and oriented x2. Well-developed, elderly appearing, ill-appearing, obese HEENT: Pupils are round and equally reacting to light. EOMI. No scleral icterus. No conjunctival pallor. Normocephalic, atraumatic. No pharyngeal erythema. No thyromegaly. CARDIOVASCULAR: S1 and S2 muffled PULMONARY: Diminished breath sounds bilaterally with faint crackles and scattered rhonchi noted. ABDOMEN: Laparotomy surgical incisions seen, wound VAC in place MUSCULOSKELETAL: No joint swelling or deformity. EXTREMITIES: No cyanosis, clubbing, or pedal edema. NEUROLOGICAL: Unable to completely assess as patient is lethargic although arousable, diffusely weak SKIN: No rashes. Assessment: Acute abdomen due to ischemic bowel status post post expiratory laparotomy with repair of a strangulated right inguinal hernia with small bowel resection and repair of a left internal hernia and repair of an incisional hernia. Acute respiratory failure, nonhypoxic and the patient was kept intubated on mechanical ventilator postop due to mentation, improving currently on 2 L via nasal cannula Acute metabolic encephalopathy due to sepsis with concerns of septic shock. Improving Acute leukocytosis secondary to above Acute kidney injury Acute lactic acidosis Mild troponin elevation, likely type II myocardial ischemia mismatch secondary to sepsis History of dementia History of paroxysmal atrial fibrillation current rhythm is sinus and the patient has been taking Eliquis on outpatient basis Hyperlipidemia History of fall Previous history of bowel resection back in 2013 for a bowel perforation requiring subsequent PEG tube insertion and removal GI prophylaxis DVT prophylaxis No code Plan: Patient continues in the ICU with multiple consultations following. Patient is a downgrade to [facility] once a bed becomes available. Patient has received adequate IV Zosyn which is being discontinued and closely monitored off anti biotic therapy Patient has been extubated successfully currently on 2 L, wean FiO2 as tolerated. Patient would benefit from incentive spirometer although significantly weak and unsure if patient can tolerate using Patient is currently n.p.o. and maintained on TPN for nutrition, being evaluated by speech will be started on a liquid diet Encourage PT/OT therapy evaluation and recommend daily for continued weakness. Patient will be returning to [facility] once cleared by consultations and stabilized Adjustments to medications being made as patient is currently sinus rhythm Patient being transferred to medicine service with general surgery following Due to multiple significant complex medical issues, overall prognosis is guarded. CODE STATUS is no code at this time The impression and plan of care has been dictated by Tamika Juarez, Nurse Practitioner as directed. Dr. Sheyla MD I have performed a history and examination and MDM of this patient, discussed the same with the dictator, and agree with the dictator's assessment and plan as written ,documented as a scribe. Based on total visit time, I have performed more than 50% of the visit. Objective - Vital Signs Vital signs: Vital Signs Temp 97.4 F L 01/28/25 08:00 Pulse 98 01/28/25 09:00 Resp 27 H 01/28/25 09:00 BP 118/48 01/28/25 09:00 Pulse Ox 95 01/28/25 09:00 FiO2 21 01/27/25 07:49 Intake & Output 01/27/25 01/28/25 01/28/25 18:59 06:59 18:59 Intake Total 1386 1467 634 Output Total 3795 455 90 Balance -2409 1012 544 Weight 79.3 kg 83.2 kg Intake: IV 1284 948 544 .9 kvo 70 90 10 CVP 39 33 9 Lactated Ringers 1,000 ml 975 825 225 @ 75 mls/hr IV .[id number] [facility] Rx#:[id number] Magnesium Sulfate-D5w Pmx 200 1 gm In Dextrose/Water 1 100ml.bag @ 100 mls/hr IVPB Q1H [facility] Rx#: [id number] Piperacillin-Tazobactam 3 200 .375 gm In Sodium Chloride 0.9% 100 ml @ 25 mls/hr IVPB Q12H [facility] Rx# :[id number] Potassium Chloride 20 meq 100 In Water For Injection 1 100ml.bag @ 50 mls/hr IVPB Q2H [facility] Rx#: [id number] TPN/PPN 102 519 90 Fat Emulsion 20% 250 ml @ 42 189 20.833 mls/hr IV Q72H [facility] Rx#:[id number] Mvi, Adult No.4 with Vit 60 330 90 K 10 ml Trace (Conc-1Ml/ Dose) 1 ml In Amino Acid 5%-D15w+Lytes*E* 1,000 ml @ 30 mls/hr IV .Q24H [facility] Rx#:[id number] Output: Urine 3795 455 90 Other: Voiding Method Indwelling Catheter Indwelling Catheter Indwelling Catheter # Bowel Movements 1 ABP, PAP, CO, CI - Last Documented Arterial Blood Pressure 136/41 - Labs CBC & Chem 7: 01/29/25 06:13 01/29/25 06:10 Labs: Abnormal Lab Results - Last 24 Hours (Table) 01/27/25 01/28/25 01/28/25 Range/Units 15:45 00:03 03:58 WBC 10.30 H (4.50-10.00) 10*3/uL RBC 3.40 L (4.10-5.20) 10*6/uL Hgb 10.1 L (12.0-15.0) g/dL Hct 31.0 L (37.2-46.3) % Immature Gran # 0.99 H (0.00-0.04) 10*3/uL Neutrophils # (Manual) 7.93 H (1.3-7.7) k/uL Sodium (137-145) mmol/L Potassium (3.5-5.1) mmol/L Carbon Dioxide (22-30) mmol/L BUN (7-17) mg/dL Glucose (74-99) mg/dL POC Glucose (mg/dL) 135 H (70-110) mg/dL Calcium (8.4-10.2) mg/dL Ionized Calcium Morgan 4.4 L (4.5-5.3) mg/dL Magnesium (1.6-2.3) mg/dL Total Protein (6.3-8.2) g/dL Albumin (3.5-5.0) g/dL 01/28/25 01/28/25 Range/Units 03:58 03:58 WBC (4.50-10.00) 10*3/uL RBC (4.10-5.20) 10*6/uL Hgb (12.0-15.0) g/dL Hct (37.2-46.3) % Immature Gran # (0.00-0.04) 10*3/uL Neutrophils # (Manual) (1.3-7.7) k/uL Sodium 134 L (137-145) mmol/L Potassium 3.4 L (3.5-5.1) mmol/L Carbon Dioxide 32 H (22-30) mmol/L BUN 21 H (7-17) mg/dL Glucose 134 H (74-99) mg/dL POC Glucose (mg/dL) (70-110) mg/dL Calcium 7.6 L (8.4-10.2) mg/dL Ionized Calcium Morgan (4.5-5.3) mg/dL Magnesium 1.5 L (1.6-2.3) mg/dL Total Protein 3.6 L (6.3-8.2) g/dL Albumin 1.7 L (3.5-5.0) g/dL Microbiology - Last 24 Hours (Table) 01/22/25 09:55 Blood Culture - Final Blood
--- NOTE | 2025-01-29 11:56 | P.PN ---
Subjective Progress Note Date: 01/29/25 This is a 84-year-old female patient who presented to the emergency department with acute abdomen. The patient had abdominal pain and she had a CT scan of the abdomen and pelvis done in the Emergency Department that showed evidence of biliary air within the liver with pneumatosis intestinalis within the stomach wall. Patient also had dilated fluid-filled small bowel and transition at the left inguinal hernia level. Based on that, the patient was taken to the operating room. Noted the patient had a DNR/DNI CODE STATUS. The CODE STATUS was switched for the sake of the procedure and she was placed on a full code. In the operating room, the patient underwent a exploratory laparotomy and the patient was found to have strangulated right inguinal hernia, ischemic small bowel and incisional hernia. The patient underwent a repair of the strangulated right inguinal hernia with small bowel resection and repair of the left internal hernia repair of the incisional hernia. Estimated blood loss was 20 cc. Noted postop, the patient was kept intubated and she was brought into the intensive care unit for further monitoring. At this point in time, the patient remains intubated on the mechanical ventilator. She is on propofol running at 55 mcg/kg/min. She has already received a total of 2 L of IV fluids and she is currently on lactated Ringer at rate of 150 cc an hour. The patient is on a r ate of 14, tidal volume of 400, FiO2 of 100% with a PEEP of 5. The blood gases showed a pH of 7.46 with a [id number] and PO2 of 341. Chest x-ray postop showed adequate expansion of both lungs. Orotracheal tube was just above the tess. NG tube was in place. No airspace disease. No consolidation. No pneumothorax. No pleural effusion. No noted air under the diaphragm. The patient is currently on no pressors. Hemodynamically stable. She is on no antibiotics for now. Blood work from this morning showed a WBC count of 10, hemoglobin of 18 and a platelet count of 213. Sodium is at 132, BUN 64 with a creatinine of 1.7 and a potassium level of 4.1 and a chloride is 87 with a bicarb level of 32. Initial lactic acid level was at 4.5. proBNP level is 3230. TSH was 1.7 with a free T4 of 2.1. The viral screen was negative. LFTs were normal. Troponin was 0.09. 01/23/2025, the patient remains intubated on mechanical ventilator. The patient is currently on propofol for respiratory. The patient is on assist-control mode of mechanical ventilation at rate of 14, tidal volume of 400, FiO2 40% with a PEEP of 5. Blood gas showed a pH of 7.34 with a [id number] and PO2 of 86. Remains on lactated Ringer at rate of 150 cc an hour. Net fluid balance is +6.3 L over the past 24 hours and the patient remains on norepinephrine running at 0.3 mcg/kg/min. The patient also went into atrial fibrillation with RVR. The patient was started on albuterol protocol. The patient converted to normal sinus rhythm. Amiodarone drip is still running at 0.5 mg/min. The patient's white cell count is 15 with a hemoglobin 15.20 platelet count of 183. Sodium is at 133, BUN is 57 with a creatinine of 0.9 and a potassium level of 3.5. Lactic acid level has returned to 1.7. Calcium is at 7.3. Surgical wound bed is dry clean and intact. No other significant events overnight. On 01/24/2025, the patient is being seen for a follow-up. The patient remains intubated on mechanical ventilator. The patient remains on propofol running at 45 mcg/kg/min. Calm and comfortable and pressor requirements have improved compared to yesterday. For now, and this morning, the patient remains on lactated Ringer at rate of 150 cc an hour. The patient is on norepinephrine at 0.18 mcg/kg/min and vasopressin physiologic dose. Fluid balance is +6.2 L over the past 24 hours as the patient received several fluid boluses yesterday. Current CVP is at 8. Also, the patient is on assist-control mode of mechanical ventilation at rate of 14, tidal volume of 400, FiO2 40% with a PEEP of 5. pH is 7.35 with a pCO2 of 49 and pO2 of 93. The patient is afebrile. The patient remains on a combination of Zosyn and vancomycin. The patient is also on amiodarone at 0.5 mL milligrams per minute regarding her atrial fibrillation which is essentially well-controlled for now. The white cell count is at 12.5, hemoglobin is 11.6 and the platelet count of 174. There is 73% neutrophilia. Sodium is at 131, potassium 3.5, BUN 51 with a creatinine of 1.3. Potassium is at 3.5. Renal function continues to improve and the serum bicarb is at 23. Blood sugars at 147. The patient's echocardiogram done on 01/23/2025 was reviewed and it shows a normal preserved LV function with ejection fraction of 50 to 55%. Mild MR, mild TR, no significant valvular heart disease. The patient remains NPO. No other significant events overnight. Seen today on 01/25/2025, patient remains in the ICU intubated and mechanically ventilated, she is now postoperative day #3 on assist-control rate 14 tidal volume 400 FiO2 40% PEEP of 5 ABG showed a pO2 of 130 pCO2 44 pH of 7.44 and her FiO2 was cut down to 30%. Patient remains on LR at 150 mL/h propofol at 15 mcg/kg/min amiodarone at 0.5 mg/min. Empirically remains on Zosyn for her abdominal sepsis. Patient has underlying dementia and she is F resident. Patient is sedated, does not seem to be opening her eyes with verbal stimuli or deep painful stimuli, I am planning to give the patient today a sedation holiday and assess mental status off sedation. WBC count is 10.0 hemoglobin 11.1. Platelets are 1 42,000. Potassium is a little low at 3.2, renal profile is normal BUN 41 creatinine 0.98 blood sugar is 106 chest x-ray showed endotracheal tube to be lying low close to the tess, there is a small moderate left pleural effusion and small right pleural effusion with atelectasis. Patient was seen today on 01/26/2025, remains in the ICU intubated and mechanically ventilated. On assist-control rate 14 tidal volume 400 FiO2 30% and PEEP of 5 ABG showed a pO2 of 76 pCO2 41 pH of 7.45, hence no ventilator changes were made. Chest x-ray showed minimal pleural effusions, and mild interstitial prominence, with minimal basilar opacities/atelectasis. Patient is on amiodarone drip at 0.5 mg/min propofol 25 mcg/kg/min LR at 75 cc/h remains on Zosyn remains on heparin subcu and the patient remains DNR. WBC count is 10.2 hemoglobin 10.6, basic metabolic profile is normal BUN is 25 creatinine 0.73. Medications limon remains on multiple meds as listed patient is also on GI and DVT prophylaxis not requiring any pressors today. Patient is quite sedated, yesterday we attempted to awaken the patient and give the patient a weaning trial however the patient was having intermittent episodes of vomiting hence we held back on further weaning. We will initiate that again today and if tolerated may go to pressure support trial and CPAP. Seen today on 01/27/2025, remains in the ICU, patient was extubated yesterday she is now on nasal cannula, at 2 L/min. Her nasogastric tube will be discontinued today. Patient has a CVP of 6 today, urine output is about 40 cc/h hence I recommended 1 dose of Lasix 40 mg IV push since her chest x-ray is showing interstitial edema. Patient is to be given TPN today after nasogastric tube discontinuation. And this should be addressed by dietitian. Patient looks frail, chronically ill, weak, but nonetheless she seems to be tolerating the extubation rather well and better than expected. WBC count is 9.7 hemoglobin 10.9 electrolytes are normal renal profile is normal BUN is 19 creatinine 0.61, chest x-ray showed moderate left and small right-sided pleural effusion with bibasilar interstitial opacities. Patient was seen today on 01/28/2025, remains on 2 L nasal cannula, not in any distress, patient diuresed well yesterday, she is -4.2 L in the last 24 hours, however her chest x-ray continues to show worsening interstitial edema, hence more Lasix will be given today 20 mg IV push. Patient seems to be frail, extre nicci weak, but arousable, follows simple instructions. Labs today were reviewed WBC count is 10.3 hemoglobin 10.1 electrolytes are normal except for low potassium 3.4 renal profile is normal The patient is seen today January 29, 2025 in follow-up on the regular medical floor. She was transferred out of the intensive care unit yesterday. She is currently sitting up in bed. Awake and alert in no acute distress. She remains quite weak and debilitated. Maintaining good O2 saturations in the 90s on 2 L/min per nasal cannula. She is afebrile. Hemodynamically stable. Blood culture revealed no growth. White count 10.0. Hemoglobin 10.8. Platelets 213. Sodium 134. Potassium 3.5. Bicarb 34. BUN 22. Creatinine 0.54. Glucose 133. She is being nourished with TPN at 30 mL/h along with lipids every 72 hours. Heparin for DVT prophylaxis. Remains on bronchodilators. Remains on Protonix. Antibiotics in the form of Zosyn. Objective - Vital Signs Vital signs: Vital Signs Temp 98.2 F 01/29/25 07:49 Pulse 70 01/29/25 08:35 Resp 18 01/29/25 07:49 BP 154/68 01/29/25 07:49 Pulse Ox 97 01/29/25 08:20 FiO2 21 01/27/25 07:49 Intake & Output 01/28/25 01/29/25 01/29/25 18:59 06:59 18:59 Intake Total 1194 1551 Output Total 2190 401 1 Balance -996 1150 -1 Weight 83.2 kg Intake: IV 904 .9 kvo 10 CVP 9 Lactated Ringers 1,000 ml 225 @ 75 mls/hr IV .[id number] [facility] Rx#:[id number] Magnesium Sulfate-D5w Pmx 200 1 gm In Dextrose/Water 1 100ml.bag @ 100 mls/hr IVPB Q1H [facility] Rx#: [id number] Mvi, Adult No.4 with Vit 360 K 10 ml Trace (Conc-1Ml/ Dose) 1 ml In Amino Acid 5%-D15w+Lytes*E* 1,000 ml @ 30 mls/hr IV .Q24H [facility] Rx#:[id number] Potassium Chloride 20 meq 100 In Water For Injection 1 100ml.bag @ 50 mls/hr IVPB Q2H [facility] Rx#: [id number] Intake, IV Titration 200 1011 Amount Mvi, Adult No.4 with Vit 1011 K 10 ml Trace (Conc-1Ml/ Dose) 1 ml In Amino Acid 5%-D15w+Lytes*E* 1,000 ml @ 30 mls/hr IV .Q24H [facility] Rx#:[id number] Piperacillin-Tazobactam 3 200 .375 gm In Sodium Chloride 0.9% 100 ml @ 25 mls/hr IVPB Q8H [facility] Rx#: [id number] Oral 540 TPN/PPN 90 Mvi, Adult No.4 with Vit 90 K 10 ml Trace (Conc-1Ml/ Dose) 1 ml In Amino Acid 5%-D15w+Lytes*E* 1,000 ml @ 30 mls/hr IV .Q24H [facility] Rx#:[id number] Output: Urine 2190 400 Stool 1 1 Other: Voiding Method Indwelling Catheter Indwelling Catheter Indwelling Catheter # Bowel Movements 1 1 ABP, PAP, CO, CI - Last Documented Arterial Blood Pressure 136/41 - Exam GENERAL EXAM: Alert, frail, debilitated 84-year-old female, on 2 L nasal cannula, fairly comfortable in no apparent distress. HEAD: Normocephalic. EYES: Normal reaction of pupils, equal size. NOSE: Clear with pink turbinates. THROAT: No erythema or exudates. NECK: No masses, no JVD. CHEST: No chest wall deformity. LUNGS: Equal air entry with no crackles, wheeze, rhonchi or dullness. CVS: S1 and S2 normal with no audible murmur, regular rhythm. ABDOMEN: Prevena wound VAC in place. No hepatosplenomegaly, normal bowel sounds, no guarding or rigidity. SPINE: No scoliosis or deformity SKIN: No rashes CENTRAL NERVOUS SYSTEM: No focal deficits, tone is normal in all 4 extremities. EXTREMITIES: There is no peripheral edema. No clubbing, no cyanosis. Peripheral pulses are intact. - Labs CBC & Chem 7: 01/29/25 06:13 01/29/25 06:10 Labs: Abnormal Lab Results - Last 24 Hours (Table) 01/28/25 01/28/25 01/29/25 Range/Units 11:53 18:40 00:20 WBC (4.50-10.00) 10*3/uL RBC (4.10-5.20) 10*6/uL Hgb (12.0-15.0) g/dL Hct (37.2-46.3) % Immature Gran # (0.00-0.04) 10*3/uL Neutrophils # (Manual) (1.3-7.7) k/uL Lymphocytes # (Manual) (1.0-4.8) k/uL Metamyelocytes # (Man) (0) k/uL Myelocytes # (Manual) (0) k/uL Nucleated RBCs (0-0) /100 WBC Sodium (137-145) mmol/L Carbon Dioxide (22-30) mmol/L BUN (7-17) mg/dL Glucose (74-99) mg/dL POC Glucose (mg/dL) 169 H 121 H 127 H (70-110) mg/dL Calcium (8.4-10.2) mg/dL Total Protein (6.3-8.2) g/dL Albumin (3.5-5.0) g/dL 01/29/25 01/29/25 01/29/25 Range/Units 06:10 06:13 06:20 WBC 10.04 H (4.50-10.00) 10*3/uL RBC 3.58 L (4.10-5.20) 10*6/uL Hgb 10.8 L (12.0-15.0) g/dL Hct 32.6 L (37.2-46.3) % Immature Gran # 0.94 H (0.00-0.04) 10*3/uL Neutrophils # (Manual) 8.63 H (1.3-7.7) k/uL Lymphocytes # (Manual) 0.70 L (1.0-4.8) k/uL Metamyelocytes # (Man) 0.30 H (0) k/uL Myelocytes # (Manual) 0.20 H (0) k/uL Nucleated RBCs 1 H (0-0) /100 WBC Sodium 134 L (137-145) mmol/L Carbon Dioxide 34 H (22-30) mmol/L BUN 22 H (7-17) mg/dL Glucose 133 H (74-99) mg/dL POC Glucose (mg/dL) 126 H (70-110) mg/dL Calcium 7.5 L (8.4-10.2) mg/dL Total Protein 3.9 L (6.3-8.2) g/dL Albumin 1.8 L (3.5-5.0) g/dL Assessment and Plan Assessment: Acute abdomen secondary to an acute ischemic bowel and strangulated right inguinal hernia. Status post exploratory laparotomy, repair of strangulated ingu inal hernia and small bowel resection with a left internal hernia repair and repair of incisional hernia on 01/22/2025 Acute respiratory failure non hypoxic, patient was kept intubated post surgery and subsequently extubated Suspect septic shock secondary to abdominal sepsis, patient required norep inephrine in spite of fluid boluses recovered Acute kidney injury, improved Acute lactic acidosis secondary to ischemic small bowel, improved Acute troponin leak secondary to sepsis type II myocardial ischemia Underlying dementia Dyslipidemia History of previous bowel resection in 2013 and bowel perforation requiring PEG tube placement at the time Plan: The patient was seen and evaluated Labs and medications reviewed Stable on 2 L nasal cannula Titrate down/off the oxygen as tolerated Remains on bronchodilators Continue to educate use of the incentive spirometer Heparin for DVT prophylaxis Protonix for GI prophylaxis Continued on Zosyn Continue TPN/lipids for nutritional support Diet advanced to regular this evening per surgical services Plan is to return to [facility] at discharge This patient was seen independently by the pulmonary nurse practitioner addressing pulmonary issues I have personally seen and examined the patient, performed the documentation and the assessment and plan as written. Number of minutes spent on the visit: 25 Dictation was produced using [employer] dictation software. Please excuse any grammatical, word or spelling errors.
[2025-01-29] MEDS: MAGNESIUM SULFATE-D5W PMX 1 GM in DEXTROSE/WATER 1 100ML.BAG IVPB ONE (12:01)
[2025-01-29] MEDS: ACETAMINOPHEN TAB 325 MG TAB PO PRN (12:13)
[2025-01-29] MEDS: POTASSIUM CHLORIDE 20 MEQ in WATER FOR INJECTION 1 100ML.BAG IVPB SCH (13:20)
--- NOTE | 2025-01-29 13:57 | P.PN ---
Subjective Progress Note Date: 01/29/25 SURGICAL PROGRESS NOTE CHIEF COMPLAINT: Strangulated right inguinal hernia, ischemic small bowel HISTORY OF PRESENT ILLNESS: Postop day #7 status post repair of strangulated right inguinal hernia with small bowel resection, repair of left internal hernia and repair of incisional hernia. Patient transferred out of the ICU to regular medical floor. She is lying in bed comfortably. Per nursing staff patient did have loose bowel movements that were dark in color. Stools are dark likely due to old blood. Hemoglobin stable. Patient's appetite has been poor. No nausea or vomiting reported. Afebrile. WBC 10.04 Hgb 10.8 platelets 213 sodium 134 potassium 3.5 creatinine 0.54 Patient seen and examined with Dr. Stone PHYSICAL EXAM: VITAL SIGNS: Reviewed. GENERAL: Well-developed in no acute distress. ABDOMEN: Soft. Nondistended. Minimal tenderness at incision site. Prevena wound VAC intact. ASSESSMENT: 1. Strangulated right inguinal hernia, ischemic small bowel, left internal he rnia, incisional hernia 2. Severe protein calorie malnutrition PLAN: -Advance diet to regular -Continue TPN for now until oral intake improves -Discontinue IV fluids -Remove Prevena wound VAC dressing. Clean incision with chlorhexidine wipe. Remove every other staple. Cover incision with ABD. - Encourage increase activity level - Discharge per medicine service to [facility] -Continue antibiotics -DVT prophylaxis subcu heparin - Dr. Stone will be out of town starting tomorrow. Dr. Nguyen will forklift picker coverage on 02/01/2025. Physician [employer] note has been reviewed by physician. Signing provider agrees with the documented findings, assessment, and plan of care. Objective - Vital Signs Vital signs: Vital Signs Temp 98.1 F 01/29/25 13:30 Pulse 81 01/29/25 13:30 Resp 16 01/29/25 13:30 BP 117/53 01/29/25 13:30 Pulse Ox 97 01/29/25 13:30 FiO2 21 01/27/25 07:49 Intake & Output 01/28/25 01/29/25 01/29/25 18:59 06:59 18:59 Intake Total 1194 1551 Output Total 2190 401 1 Balance -996 1150 -1 Weight 83.2 kg Intake: IV 904 .9 kvo 10 CVP 9 Lactated Ringers 1,000 ml 225 @ 75 mls/hr IV .[id number] [facility] Rx#:[id number] Magnesium Sulfate-D5w Pmx 200 1 gm In Dextrose/Water 1 100ml.bag @ 100 mls/hr IVPB Q1H [facility] Rx#: [id number] Mvi, Adult No.4 with Vit 360 K 10 ml Trace (Conc-1Ml/ Dose) 1 ml In Amino Acid 5%-D15w+Lytes*E* 1,000 ml @ 30 mls/hr IV .Q24H [facility] Rx#:[id number] Potassium Chloride 20 meq 100 In Water For Injection 1 100ml.bag @ 50 mls/hr IVPB Q2H [facility] Rx#: [id number] Intake, IV Titration 200 1011 Amount Mvi, Adult No.4 with Vit 1011 K 10 ml Trace (Conc-1Ml/ Dose) 1 ml In Amino Acid 5%-D15w+Lytes*E* 1,000 ml @ 30 mls/hr IV .Q24H [facility] Rx#:[id number] Piperacillin-Tazobactam 3 200 .375 gm In Sodium Chloride 0.9% 100 ml @ 25 mls/hr IVPB Q8H [facility] Rx#: [id number] Oral 540 TPN/PPN 90 Mvi, Adult No.4 with Vit 90 K 10 ml Trace (Conc-1Ml/ Dose) 1 ml In Amino Acid 5%-D15w+Lytes*E* 1,000 ml @ 30 mls/hr IV .Q24H [facility] Rx#:[id number] Output: Urine 2190 400 Stool 1 1 Other: Voiding Method Indwelling Catheter Indwelling Catheter Indwelling Catheter # Bowel Movements 1 1 1 ABP, PAP, CO, CI - Last Documented Arterial Blood Pressure 136/41 - Labs CBC & Chem 7: 01/29/25 06:13 01/29/25 06:10 Labs: Abnormal Lab Results - Last 24 Hours (Table) 01/28/25 01/29/25 01/29/25 Range/Units 18:40 00:20 06:10 WBC (4.50-10.00) 10*3/uL RBC (4.10-5.20) 10*6/uL Hgb (12.0-15.0) g/dL Hct (37.2-46.3) % Immature Gran # (0.00-0.04) 10*3/uL Neutrophils # (Manual) (1.3-7.7) k/uL Lymphocytes # (Manual) (1.0-4.8) k/uL Metamyelocytes # (Man) (0) k/uL Myelocytes # (Manual) (0) k/uL Nucleated RBCs (0-0) /100 WBC Sodium 134 L (137-145) mmol/L Carbon Dioxide 34 H (22-30) mmol/L BUN 22 H (7-17) mg/dL Glucose 133 H (74-99) mg/dL POC Glucose (mg/dL) 121 H 127 H (70-110) mg/dL Calcium 7.5 L (8.4-10.2) mg/dL Total Protein 3.9 L (6.3-8.2) g/dL Albumin 1.8 L (3.5-5.0) g/dL 01/29/25 01/29/25 Range/Units 06:13 06:20 WBC 10.04 H (4.50-10.00) 10*3/uL RBC 3.58 L (4.10-5.20) 10*6/uL Hgb 10.8 L (12.0-15.0) g/dL Hct 32.6 L (37.2-46.3) % Immature Gran # 0.94 H (0.00-0.04) 10*3/uL Neutrophils # (Manual) 8.63 H (1.3-7.7) k/uL Lymphocytes # (Manual) 0.70 L (1.0-4.8) k/uL Metamyelocytes # (Man) 0.30 H (0) k/uL Myelocytes # (Manual) 0.20 H (0) k/uL Nucleated RBCs 1 H (0-0) /100 WBC Sodium (137-145) mmol/L Carbon Dioxide (22-30) mmol/L BUN (7-17) mg/dL Glucose (74-99) mg/dL POC Glucose (mg/dL) 126 H (70-110) mg/dL Calcium (8.4-10.2) mg/dL Total Protein (6.3-8.2) g/dL Albumin (3.5-5.0) g/dL
[2025-01-29 18:14] LABS: Glucose,Whole Blood 130 mg/dL (70-110)
[2025-01-30 00:01] LABS: Glucose,Whole Blood 127 mg/dL (70-110)
[2025-01-30 05:57] LABS: Glucose,Whole Blood 110 mg/dL (70-110)
[2025-01-30 06:07] LABS: ALT 32 U/L (4-34); AST 36 U/L (14-36); African American GFR (CKD) >90 (>60 ml/min/1.73 sqM); Albumin 1.8 g/dL (3.5-5.0); Albumin/Globulin Ratio 0.9; Alkaline Phosphatase 45 U/L (38-126); Anion Gap -1 mmol/L; Blood Urea Nitrogen 23 mg/dL (7-17); Calcium 7.8 mg/dL (8.4-10.2); Carbon Dioxide 35 mmol/L (22-30); Chloride 99 mmol/L (98-107); Glucose 118 mg/dL (74-99); Magnesium 1.9 mg/dL (1.6-2.3); Non-African American GFR(CKD) 90 (>60 ml/min/1.73 sqM); Phosphorus 2.4 mg/dL (2.5-4.5); Potassium 3.9 mmol/L (3.5-5.1); Sodium 133 mmol/L (137-145); Total Bilirubin 0.3 mg/dL (0.2-1.3); Total Protein 3.8 g/dL (6.3-8.2)
[2025-01-30 06:26] LABS: HCT 31.2 % (37.2-46.3); HGB 10.5 g/dL (12.0-15.0); MCH 29.9 pg (27.0-32.0); MCHC 33.7 g/dL (32.0-37.0); MCV 88.9 fL (80.0-97.0); Mean Platelet Volume 10.2 fL (9.5-12.2); Platelet Count 205 10*3/uL (140-440); RBC 3.51 10*6/uL (4.10-5.20); RDW 13.8 % (11.5-14.5); WBC 11.17 10*3/uL (4.50-10.00)
[2025-01-30] MEDS: NYSTATIN 100,000 UNIT/GM POWD 15 GM TOPICAL PRN (06:51)
--- NOTE | 2025-01-30 08:09 | P.PN ---
Subjective Progress Note Date: 01/29/25 patient is a 84-year-old lady with past medical history significant for GERD, hyperlipidemia who is a resident of [facility] who initially presented to the ER for nausea vomiting nominal pain for the last 3 days. Workup in the ER showed a CT scan showing biliary air within the liver with pneumatosis intestinalis within the stomach wall, Mesenteric ischemia should be considered,Dilated fluid-filled small bowel loops,Some of transition may be in left inguinal hernia. Patient was admitted under surgery and was taken for emergent exploratory laparotomy with repair of strangulated right inguinal hernia with small bowel resection,repair of left internal hernia and repair of incisional hernia. Postoperatively patient was intubated and was admitted to ICU 01/24. Patient seen and examined. Patient continues to be on mechanical ventilator, labs done this morning showedWBC 12.53, hemoglobin 11.6, sodium 131, potassium 3.5, BUN 15, creatinine 1.37, calcium 10.7. 01/25. Patient seen and examined. Continues to be on mechanical ventilation. Currently on amiodarone drip. Patient also on IV Levophed and vasopressin. Continue IV Zosyn. 01/26. Patient seen and examined. Labs done today showed WBC 10.21, hemoglobin 10.6, platelet count 139, sodium 131, potassium 3.8, BUN 25, creatinine 0.73 patient was extubated this morning 01/27/2025 Patient is seen in follow-up continues to be in the ICU was recently extubated maintained on 2 L via nasal cannula. Patient remains n.p.o. and awaiting enteral nutrition with TPN. Multiple consultations following as patient remains in the ICU and is postop day #5 from resection and small bowel inguinal hernia repair. Chest x-ray showing some edema and vascular congestion is being given a dose of Lasix and recommend monitoring kidney functions closely, current BUN is 19 with a creatinine of 0.6. Patient was continued on IV Zosyn and is being discontinued being closely monitored off IV antibiotics. Prognosis remains extremely guarded at this time and patient is in no code. Magnesium is 1.6 today and will monitor and follow-up with repeat labs and replace per protocol. 01/28/2025 Patient is seen in follow-up today lethargic although arousable and more alert today. Patient is responding appropriately and following commands although lethargic and fatigues easily. Patient continued on 2 L via nasal cannula and remains n.p.o. although being evaluated by speech and being started on a diet and will continue on TPN for now and will be weaned slowly. Patient is afebrile with no reports of chest pain or shortness of breath. Patient is having bowel movements and general surgery following closely. Patient is a downgrade from the ICU to [facility]. Magnesium is slightly low at 1.6 and potassium and is being replaced per protocol. Will follow-up on repeat labs. Plan will be for returning to [facility] once cleared by consultations in stable. 01/29/2025 Patient is seen in follow-up today with son at the bedside okay does awaken and respond appropriately and follows commands although fatigues easily and falls asleep. Patient is denying any chest pain or shortness of breath. Patient has been started on a diet and tolerating thus far still not eating much and is maintained on TPN. Patient did have magnesium and potassium replaced which are within normal limits and will follow-up on repeat labs and replace per protocol. Patient is extremely weak and will be going to [facility] on discharge. Will attempt to wean TPN and encourage oral intake over the weekend and discuss further with consultations regarding possible discharge planning to [facility] next week. Review of systems: Constitutional: reports of fatigue, no fever, or chills Cardiovascular: No reports of chest pain or palpitations Respiratory: No reports of shortness of breath or cough GI: No reports of nausea, vomiting, or diarrhea : No reports of dysuria or retention Neurovascular: reports of generalized weakness All medications have been reviewed PHYSICAL EXAMINATION: GENERAL: The patient is asleep although more arousable today, alert and oriented x2. Patient fatigues easily and falls asleep. Well-developed, elderly appe aring, ill-appearing, obese HEENT: Pupils are round and equally reacting to light. EOMI. No scleral icterus. No conjunctival pallor. Normocephalic, atraumatic. No pharyngeal erythema. No thyromegaly. CARDIOVASCULAR: S1 and S2 muffled PULMONARY: Diminished breath sounds bilaterally with faint crackles and scattered rhonchi noted. ABDOMEN: Laparotomy surgical incisions seen, and dressing is dry and intact MUSCULOSKELETAL: No joint swelling or deformity. EXTREMITIES: No cyanosis, clubbing, or pedal edema. Generalized edema noted of upper and lower extremities NEUROLOGICAL: Unable to completely assess as patient is lethargic although arousable, diffusely weak SKIN: No rashes. Assessment: Acute abdomen due to ischemic bowel status post post expiratory laparotomy with repair of a strangulated right inguinal hernia with small bowel resection and repair of a left internal hernia and repair of an incisional hernia. Acute respiratory failure, nonhypoxic and the patient was kept intubated on mechanical ventilator postop due to mentation, improving currently on 2 L via nasal cannula Acute metabolic encephalopathy due to sepsis with concerns of septic shock. Improving Acute leukocytosis secondary to above Acute kidney injury Acute lactic acidosis, improved Mild troponin elevation, likely type II myocardial ischemia mismatch secondary to sepsis History of dementia History of paroxysmal atrial fibrillation current rhythm is sinus and the patient has been taking Eliquis on outpatient basis Hyperlipidemia History of fall Previous history of bowel resection back in 2013 for a bowel perforation requiring subsequent PEG tube insertion and removal GI prophylaxis DVT prophylaxis No code Plan: Patient has been transferred out of the ICU on the medical floor with multiple consultations following. Patient is continued on IV Zosyn Patient has been extubated successfully currently on 2 L, wean FiO2 as tolerated. Patient would benefit from incentive spirometer although signifi cantly weak and unsure if patient can tolerate using Patient is currently n.p.o. and maintained on TPN for nutrition, being evaluated by speech will be started on a liquid diet. Tolerating some diet thus far although not eating much recommend supplements between meals and monitoring for aspiration precautions with head of the bed elevated 30 to 45 degrees Encourage PT/OT therapy evaluation and recommend daily for continued weakness. Patient will be returning to [facility] once cleared by consultations and stabilized Adjustments to medications being made as patient is currently sinus rhythm Patient has been transferred to medicine service with general surgery following Due to multiple significant complex medical issues, overall prognosis is guarded. CODE STATUS is no code at this time The impression and plan of care has been dictated by Tamika Juarez Nurse Practitioner as directed. Dr. Sheyla MD I have performed a history and examination and MDM of this patient, discussed the same with the dictator, and agree with the dictator's assessment and plan as written ,documented as a scribe. Based on total visit time, I have performed more than 50% of the visit. Objective - Vital Signs Vital signs: Vital Signs Temp 98.2 F 01/29/25 07:49 Pulse 70 01/29/25 08:35 Resp 18 01/29/25 07:49 BP 154/68 01/29/25 07:49 Pulse Ox 97 01/29/25 08:20 FiO2 21 01/27/25 07:49 Intake & Output 01/28/25 01/29/25 01/29/25 18:59 06:59 18:59 Intake Total 1194 1551 Output Total 2190 401 Balance -996 1150 Weight 83.2 kg Intake: IV 904 .9 kvo 10 CVP 9 Lactated Ringers 1,000 ml 225 @ 75 mls/hr IV .[id number] [facility] Rx#:[id number] Magnesium Sulfate-D5w Pmx 200 1 gm In Dextrose/Water 1 100ml.bag @ 100 mls/hr IVPB Q1H [facility] Rx#: [id number] Mvi, Adult No.4 with Vit 360 K 10 ml Trace (Conc-1Ml/ Dose) 1 ml In Amino Acid 5%-D15w+Lytes*E* 1,000 ml @ 30 mls/hr IV .Q24H [facility] Rx#:[id number] Potassium Chloride 20 meq 100 In Water For Injection 1 100ml.bag @ 50 mls/hr IVPB Q2H [facility] Rx#: [id number] Intake, IV Titration 200 1011 Amount Mvi, Adult No.4 with Vit 1011 K 10 ml Trace (Conc-1Ml/ Dose) 1 ml In Amino Acid 5%-D15w+Lytes*E* 1,000 ml @ 30 mls/hr IV .Q24H [facility] Rx#:[id number] Piperacillin-Tazobactam 3 200 .375 gm In Sodium Chloride 0.9% 100 ml @ 25 mls/hr IVPB Q8H [facility] Rx#: [id number] Oral 540 TPN/PPN 90 Mvi, Adult No.4 with Vit 90 K 10 ml Trace (Conc-1Ml/ Dose) 1 ml In Amino Acid 5%-D15w+Lytes*E* 1,000 ml @ 30 mls/hr IV .Q24H [facility] Rx#:[id number] Output: Urine 2190 400 Stool 1 Other: Voiding Method Indwelling Catheter Indwelling Catheter # Bowel Movements 1 1 ABP, PAP, CO, CI - Last Documented Arterial Blood Pressure 136/41 - Labs CBC & Chem 7: 01/30/25 05:08 01/30/25 05:08 Labs: Abnormal Lab Results - Last 24 Hours (Table) 01/28/25 01/28/25 01/29/25 Range/Units 11:53 18:40 00:20 WBC (4.50-10.00) 10*3/uL RBC (4.10-5.20) 10*6/uL Hgb (12.0-15.0) g/dL Hct (37.2-46.3) % Immature Gran # (0.00-0.04) 10*3/uL Neutrophils # (Manual) (1.3-7.7) k/uL Lymphocytes # (Manual) (1.0-4.8) k/uL Metamyelocytes # (Man) (0) k/uL Myelocytes # (Manual) (0) k/uL Nucleated RBCs (0-0) /100 WBC Sodium (137-145) mmol/L Carbon Dioxide (22-30) mmol/L BUN (7-17) mg/dL Glucose (74-99) mg/dL POC Glucose (mg/dL) 169 H 121 H 127 H (70-110) mg/dL Calcium (8.4-10.2) mg/dL Total Protein (6.3-8.2) g/dL Albumin (3.5-5.0) g/dL 01/29/25 01/29/25 01/29/25 Range/Units 06:10 06:13 06:20 WBC 10.04 H (4.50-10.00) 10*3/uL RBC 3.58 L (4.10-5.20) 10*6/uL Hgb 10.8 L (12.0-15.0) g/dL Hct 32.6 L (37.2-46.3) % Immature Gran # 0.94 H (0.00-0.04) 10*3/uL Neutrophils # (Manual) 8.63 H (1.3-7.7) k/uL Lymphocytes # (Manual) 0.70 L (1.0-4.8) k/uL Metamyelocytes # (Man) 0.30 H (0) k/uL Myelocytes # (Manual) 0.20 H (0) k/uL Nucleated RBCs 1 H (0-0) /100 WBC Sodium 134 L (137-145) mmol/L Carbon Dioxide 34 H (22-30) mmol/L BUN 22 H (7-17) mg/dL Glucose 133 H (74-99) mg/dL POC Glucose (mg/dL) 126 H (70-110) mg/dL Calcium 7.5 L (8.4-10.2) mg/dL Total Protein 3.9 L (6.3-8.2) g/dL Albumin 1.8 L (3.5-5.0) g/dL
[2025-01-30 09:40] LABS: Lymphocytes # (M) 0.67 k/uL (1.0-4.8); Monocytes # (M) 0.22 k/uL (0-1.0); Neutrophils # (M) 10.28 k/uL (1.3-7.7); Neutrophils % (M) 92 %; Nucleated Red Blood Cells 0 /100 WBC (0-0); Total Cells Counted 100
--- NOTE | 2025-01-30 12:00 | P.PN ---
Subjective Progress Note Date: 01/30/25 This is a 84-year-old female patient who presented to the emergency department with acute abdomen. The patient had abdominal pain and she had a CT scan of the abdomen and pelvis done in the Emergency Department that showed evidence of biliary air within the liver with pneumatosis intestinalis within the stomach wall. Patient also had dilated fluid-filled small bowel and transition at the left inguinal hernia level. Based on that, the patient was taken to the operating room. Noted the patient had a DNR/DNI CODE STATUS. The CODE STATUS was switched for the sake of the procedure and she was placed on a full code. In the operating room, the patient underwent a exploratory laparotomy and the patient was found to have strangulated right inguinal hernia, ischemic small bowel and incisional hernia. The patient underwent a repair of the strangulated right inguinal hernia with small bowel resection and repair of the left internal hernia repair of the incisional hernia. Estimated blood loss was 20 cc. Noted postop, the patient was kept intubated and she was brought into the intensive care unit for further monitoring. At this point in time, the patient remains intubated on the mechanical ventilator. She is on propofol running at 55 mcg/kg/min. She has already received a total of 2 L of IV fluids and she is currently on lactated Ringer at rate of 150 cc an hour. The patient is on a r ate of 14, tidal volume of 400, FiO2 of 100% with a PEEP of 5. The blood gases showed a pH of 7.46 with a [id number] and PO2 of 341. Chest x-ray postop showed adequate expansion of both lungs. Orotracheal tube was just above the tess. NG tube was in place. No airspace disease. No consolidation. No pneumothorax. No pleural effusion. No noted air under the diaphragm. The patient is currently on no pressors. Hemodynamically stable. She is on no antibiotics for now. Blood work from this morning showed a WBC count of 10, hemoglobin of 18 and a platelet count of 213. Sodium is at 132, BUN 64 with a creatinine of 1.7 and a potassium level of 4.1 and a chloride is 87 with a bicarb level of 32. Initial lactic acid level was at 4.5. proBNP level is 3230. TSH was 1.7 with a free T4 of 2.1. The viral screen was negative. LFTs were normal. Troponin was 0.09. 01/23/2025, the patient remains intubated on mechanical ventilator. The patient is currently on propofol for respiratory. The patient is on assist-control mode of mechanical ventilation at rate of 14, tidal volume of 400, FiO2 40% with a PEEP of 5. Blood gas showed a pH of 7.34 with a [id number] and PO2 of 86. Remains on lactated Ringer at rate of 150 cc an hour. Net fluid balance is +6.3 L over the past 24 hours and the patient remains on norepinephrine running at 0.3 mcg/kg/min. The patient also went into atrial fibrillation with RVR. The patient was started on albuterol protocol. The patient converted to normal sinus rhythm. Amiodarone drip is still running at 0.5 mg/min. The patient's white cell count is 15 with a hemoglobin 15.20 platelet count of 183. Sodium is at 133, BUN is 57 with a creatinine of 0.9 and a potassium level of 3.5. Lactic acid level has returned to 1.7. Calcium is at 7.3. Surgical wound bed is dry clean and intact. No other significant events overnight. On 01/24/2025, the patient is being seen for a follow-up. The patient remains intubated on mechanical ventilator. The patient remains on propofol running at 45 mcg/kg/min. Calm and comfortable and pressor requirements have improved compared to yesterday. For now, and this morning, the patient remains on lactated Ringer at rate of 150 cc an hour. The patient is on norepinephrine at 0.18 mcg/kg/min and vasopressin physiologic dose. Fluid balance is +6.2 L over the past 24 hours as the patient received several fluid boluses yesterday. Current CVP is at 8. Also, the patient is on assist-control mode of mechanical ventilation at rate of 14, tidal volume of 400, FiO2 40% with a PEEP of 5. pH is 7.35 with a pCO2 of 49 and pO2 of 93. The patient is afebrile. The patient remains on a combination of Zosyn and vancomycin. The patient is also on amiodarone at 0.5 mL milligrams per minute regarding her atrial fibrillation which is essentially well-controlled for now. The white cell count is at 12.5, hemoglobin is 11.6 and the platelet count of 174. There is 73% neutrophilia. Sodium is at 131, potassium 3.5, BUN 51 with a creatinine of 1.3. Potassium is at 3.5. Renal function continues to improve and the serum bicarb is at 23. Blood sugars at 147. The patient's echocardiogram done on 01/23/2025 was reviewed and it shows a normal preserved LV function with ejection fraction of 50 to 55%. Mild MR, mild TR, no significant valvular heart disease. The patient remains NPO. No other significant events overnight. Seen today on 01/25/2025, patient remains in the ICU intubated and mechanically ventilated, she is now postoperative day #3 on assist-control rate 14 tidal volume 400 FiO2 40% PEEP of 5 ABG showed a pO2 of 130 pCO2 44 pH of 7.44 and her FiO2 was cut down to 30%. Patient remains on LR at 150 mL/h propofol at 15 mcg/kg/min amiodarone at 0.5 mg/min. Empirically remains on Zosyn for her abdominal sepsis. Patient has underlying dementia and she is F resident. Patient is sedated, does not seem to be opening her eyes with verbal stimuli or deep painful stimuli, I am planning to give the patient today a sedation holiday and assess mental status off sedation. WBC count is 10.0 hemoglobin 11.1. Platelets are 1 42,000. Potassium is a little low at 3.2, renal profile is normal BUN 41 creatinine 0.98 blood sugar is 106 chest x-ray showed endotracheal tube to be lying low close to the tess, there is a small moderate left pleural effusion and small right pleural effusion with atelectasis. Patient was seen today on 01/26/2025, remains in the ICU intubated and mechanically ventilated. On assist-control rate 14 tidal volume 400 FiO2 30% and PEEP of 5 ABG showed a pO2 of 76 pCO2 41 pH of 7.45, hence no ventilator changes were made. Chest x-ray showed minimal pleural effusions, and mild interstitial prominence, with minimal basilar opacities/atelectasis. Patient is on amiodarone drip at 0.5 mg/min propofol 25 mcg/kg/min LR at 75 cc/h remains on Zosyn remains on heparin subcu and the patient remains DNR. WBC count is 10.2 hemoglobin 10.6, basic metabolic profile is normal BUN is 25 creatinine 0.73. Medications limon remains on multiple meds as listed patient is also on GI and DVT prophylaxis not requiring any pressors today. Patient is quite sedated, yesterday we attempted to awaken the patient and give the patient a weaning trial however the patient was having intermittent episodes of vomiting hence we held back on further weaning. We will initiate that again today and if tolerated may go to pressure support trial and CPAP. Seen today on 01/27/2025, remains in the ICU, patient was extubated yesterday she is now on nasal cannula, at 2 L/min. Her nasogastric tube will be discontinued today. Patient has a CVP of 6 today, urine output is about 40 cc/h hence I recommended 1 dose of Lasix 40 mg IV push since her chest x-ray is showing interstitial edema. Patient is to be given TPN today after nasogastric tube discontinuation. And this should be addressed by dietitian. Patient looks frail, chronically ill, weak, but nonetheless she seems to be tolerating the extubation rather well and better than expected. WBC count is 9.7 hemoglobin 10.9 electrolytes are normal renal profile is normal BUN is 19 creatinine 0.61, chest x-ray showed moderate left and small right-sided pleural effusion with bibasilar interstitial opacities. Patient was seen today on 01/28/2025, remains on 2 L nasal cannula, not in any distress, patient diuresed well yesterday, she is -4.2 L in the last 24 hours, however her chest x-ray continues to show worsening interstitial edema, hence more Lasix will be given today 20 mg IV push. Patient seems to be frail, extre nicci weak, but arousable, follows simple instructions. Labs today were reviewed WBC count is 10.3 hemoglobin 10.1 electrolytes are normal except for low potassium 3.4 renal profile is normal The patient is seen today January 29, 2025 in follow-up on the regular medical floor. She was transferred out of the intensive care unit yesterday. She is currently sitting up in bed. Awake and alert in no acute distress. She remains quite weak and debilitated. Maintaining good O2 saturations in the 90s on 2 L/min per nasal cannula. She is afebrile. Hemodynamically stable. Blood culture revealed no growth. White count 10.0. Hemoglobin 10.8. Platelets 213. Sodium 134. Potassium 3.5. Bicarb 34. BUN 22. Creatinine 0.54. Glucose 133. She is being nourished with TPN at 30 mL/h along with lipids every 72 hours. Heparin for DVT prophylaxis. Remains on bronchodilators. Remains on Protonix. Antibiotics in the form of Zosyn. The patient is seen today January 30, 2025 in follow-up on the regular medical floor. She is currently resting in bed. Awake and alert in no acute distress. Maintaining O2 saturations in the 90s on 2 L/min per nasal cannula. She has been afebrile. Hemodynamically stable. 205. Sodium 133. Potassium 3.9. Bicarb 35. BUN 23. Creatinine 0.48. Glucose 118. She is continued on DuoNeb and elations. Heparin for DVT prophylaxis. Continued on Zosyn. Remains on TPN and lipids for nutritional support. Her diet has been advanced to regular per surgical services. Objective - Vital Signs Vital signs: Vital Signs Temp 98.2 F 01/30/25 07:19 Pulse 93 01/30/25 08:51 Resp 24 01/30/25 07:19 BP 152/64 01/30/25 07:19 Pulse Ox 94 L 01/30/25 08:41 FiO2 21 01/27/25 07:49 Intake & Output 01/29/25 01/30/25 01/30/25 18:59 06:59 18:59 Intake Total 714 Output Total 1 800 300 Balance - -300 Weight 83.2 kg Intake: Intake, IV Titration 714 Amount Mvi, Adult No.4 with Vit 714 K 10 ml Trace (Conc-1Ml/ Dose) 1 ml Sodium Chloride 4Meq/ml Vial 12 meq Potassium Chloride 6 meq In Amino Acid 5%-D15w +Lytes*E* 1,000 ml @ 30 mls/hr IV .Q24H [facility] Rx#: [id number] Output: Urine 800 300 Stool 1 Other: Voiding Method Indwelling Catheter Indwelling Catheter Indwelling Catheter # Bowel Movements 1 ABP, PAP, CO, CI - Last Documented Arterial Blood Pressure 136/41 - Exam GENERAL EXAM: Alert, frail, 84-year-old female, on 2 L nasal cannula, comfortable in no apparent distress. HEAD: Normocephalic. EYES: Normal reaction of pupils, equal size. NOSE: Clear with pink turbinates. THROAT: No erythema or exudates. NECK: No masses, no JVD. CHEST: No chest wall deformity. LUNGS: Equal air entry with no crackles, wheeze, rhonchi or dullness. CVS: S1 and S2 normal with no audible murmur, regular rhythm. ABDOMEN: Prevena wound VAC in place. No hepatosplenomegaly, normal bowel sounds, no guarding or rigidity. SPINE: No scoliosis or deformity SKIN: No rashes CENTRAL NERVOUS SYSTEM: No focal deficits, tone is normal in all 4 extremities. EXTREMITIES: There is no peripheral edema. No clubbing, no cyanosis. Peripheral pulses are intact. - Labs CBC & Chem 7: 01/30/25 05:08 01/30/25 05:08 Labs: Abnormal Lab Results - Last 24 Hours (Table) 01/29/25 01/29/25 01/30/25 Range/Units 18:12 23:59 05:08 WBC 11.17 H (4.50-10.00) 10*3/uL RBC 3.51 L (4.10-5.20) 10*6/uL Hgb 10.5 L (12.0-15.0) g/dL Hct 31.2 L (37.2-46.3) % Immature Gran # 0.57 H (0.00-0.04) 10*3/uL Neutrophils # (Manual) 10.28 H (1.3-7.7) k/uL Lymphocytes # (Manual) 0.67 L (1.0-4.8) k/uL Sodium (137-145) mmol/L Carbon Dioxide (22-30) mmol/L BUN (7-17) mg/dL Creatinine (0.52-1.04) mg/dL Glucose (74-99) mg/dL POC Glucose (mg/dL) 130 H 127 H (70-110) mg/dL Calcium (8.4-10.2) mg/dL Phosphorus (2.5-4.5) mg/dL Total Protein (6.3-8.2) g/dL Albumin (3.5-5.0) g/dL 01/30/25 Range/Units 05:08 WBC (4.50-10.00) 10*3/uL RBC (4.10-5.20) 10*6/uL Hgb (12.0-15.0) g/dL Hct (37.2-46.3) % Immature Gran # (0.00-0.04) 10*3/uL Neutrophils # (Manual) (1.3-7.7) k/uL Lymphocytes # (Manual) (1.0-4.8) k/uL Sodium 133 L (137-145) mmol/L Carbon Dioxide 35 H (22-30) mmol/L BUN 23 H (7-17) mg/dL Creatinine 0.48 L (0.52-1.04) mg/dL Glucose 118 H (74-99) mg/dL POC Glucose (mg/dL) (70-110) mg/dL Calcium 7.8 L (8.4-10.2) mg/dL Phosphorus 2.4 L (2.5-4.5) mg/dL Total Protein 3.8 L (6.3-8.2) g/dL Albumin 1.8 L (3.5-5.0) g/dL Assessment and Plan Assessment: Acute abdomen secondary to an acute ischemic bowel and strangulated right inguinal hernia. Status post exploratory laparotomy, repair of strangulated inguinal hernia and small bowel resection with a left internal hernia repair and repair of incisional hernia on 01/22/2025 Acute respiratory failure non hypoxic, patient was kept intubated post surgery and subsequently extubated Suspect septic shock secondary to abdominal sepsis, patient required norepinephrine in spite of fluid boluses recovered Acute kidney injury, improved Acute lactic acidosis secondary to ischemic small bowel, improved Acute troponin leak secondary to sepsis type II myocardial ischemia Underlying dementia Dyslipidemia History of previous bowel resection in 2013 and bowel perforation requiring PEG tube placement at the time Plan: The patient was seen and evaluated Labs and medications reviewed Remains on bronchodilators Continue to utilize the incentive spirometer Heparin for DVT prophylaxis Protonix for GI prophylaxis Continued on Zosyn Continue TPN/lipids for nutritional support Diet advanced to regular per surgical services DNR CODE STATUS Plan is to return to [facility] at discharge This patient was seen independently by the pulmonary nurse practitioner addressing pulmonary issues I have personally seen and examined the patient, performed the documentation and the assessment and plan as written. Number of minutes spent on the visit: 24 Dictation was produced using [employer] dictation software. Please excuse any grammatical, word or spelling errors.
[2025-01-30 12:01] LABS: Glucose,Whole Blood 114 mg/dL (70-110)
--- NOTE | 2025-01-30 16:14 | P.PN ---
Subjective Progress Note Date: 01/30/25 patient is a 84-year-old lady with past medical history significant for GERD, hyperlipidemia who is a resident of [facility] who initially presented to the ER for nausea vomiting nominal pain for the last 3 days. Workup in the ER showed a CT scan showing biliary air within the liver with pneumatosis intestinalis within the stomach wall, Mesenteric ischemia should be considered,Dilated fluid-filled small bowel loops,Some of transition may be in left inguinal hernia. Patient was admitted under surgery and was taken for emergent exploratory laparotomy with repair of strangulated right inguinal hernia with small bowel resection,repair of left internal hernia and repair of incisional hernia. Postoperatively patient was intubated and was admitted to ICU 01/24. Patient seen and examined. Patient continues to be on mechanical ventilator, labs done this morning showedWBC 12.53, hemoglobin 11.6, sodium 131, potassium 3.5, BUN 15, creatinine 1.37, calcium 10.7. 01/25. Patient seen and examined. Continues to be on mechanical ventilation. Currently on amiodarone drip. Patient also on IV Levophed and vasopressin. Continue IV Zosyn. 01/26. Patient seen and examined. Labs done today showed WBC 10.21, hemoglobin 10.6, platelet count 139, sodium 131, potassium 3.8, BUN 25, creatinine 0.73 patient was extubated this morning 01/27/2025 Patient is seen in follow-up continues to be in the ICU was recently extubated maintained on 2 L via nasal cannula. Patient remains n.p.o. and awaiting enteral nutrition with TPN. Multiple consultations following as patient remains in the ICU and is postop day #5 from resection and small bowel inguinal hernia repair. Chest x-ray showing some edema and vascular congestion is being given a dose of Lasix and recommend monitoring kidney functions closely, current BUN is 19 with a creatinine of 0.6. Patient was continued on IV Zosyn and is being discontinued being closely monitored off IV antibiotics. Prognosis remains extremely guarded at this time and patient is in no code. Magnesium is 1.6 today and will monitor and follow-up with repeat labs and replace per protocol. 01/28/2025 Patient is seen in follow-up today lethargic although arousable and more alert today. Patient is responding appropriately and following commands although lethargic and fatigues easily. Patient continued on 2 L via nasal cannula and remains n.p.o. although being evaluated by speech and being started on a diet and will continue on TPN for now and will be weaned slowly. Patient is afebrile with no reports of chest pain or shortness of breath. Patient is having bowel movements and general surgery following closely. Patient is a downgrade from the ICU to [facility]. Magnesium is slightly low at 1.6 and potassium and is being replaced per protocol. Will follow-up on repeat labs. Plan will be for returning to [facility] once cleared by consultations in stable. 01/29/2025 Patient is seen in follow-up today with son at the bedside okay does awaken and respond appropriately and follows commands although fatigues easily and falls asleep. Patient is denying any chest pain or shortness of breath. Patient has been started on a diet and tolerating thus far still not eating much and is maintained on TPN. Patient did have magnesium and potassium replaced which are within normal limits and will follow-up on repeat labs and replace per protocol. Patient is extremely weak and will be going to [facility] on discharge. Will attempt to wean TPN and encourage oral intake over the weekend and discuss further with consultations regarding possible discharge planning to [facility] next week. 01/30/2025 Patient is evaluated in follow-up in the medical floor. She is awake alert and oriented. She does continue to fall asleep easily. Family at the bedside states that they will help encourage her to be awake and to eat meals. She re tobin on TPN at this time as she is continued to have poor oral intake. White blood cell count today 11.17, hemoglobin 10.5, sodium 133, BUN of 23 creatinine of 0.48. Patient is currently afebrile and is maintaining oxygen saturations on 2 L of oxygen via nasal cannula. Review of systems: Constitutional: reports of fatigue, no fever, or chills Cardiovascular: No reports of chest pain or palpitations Respiratory: No reports of shortness of breath or cough GI: No reports of nausea, vomiting, or diarrhea : No reports of dysuria or retention Neurovascular: reports of generalized weakness All medications have been reviewed PHYSICAL EXAMINATION: GENERAL: The patient is asleep although more arousable today, alert and oriented x2. Patient fatigues easily and falls asleep. Well-developed, elderly appearing, ill-appearing, obese HEENT: Pupils are round and equally reacting to light. EOMI. No scleral icterus. No conjunctival pallor. Normocephalic, atraumatic. No pharyngeal erythema. No thyromegaly. CARDIOVASCULAR: S1 and S2 muffled PULMONARY: Diminished breath sounds bilaterally with faint crackles and scattered rhonchi noted. ABDOMEN: Laparotomy surgical incisions seen, and dressing is dry and intact MUSCULOSKELETAL: No joint swelling or deformity. EXTREMITIES: No cyanosis, clubbing, or pedal edema. Generalized edema noted of upper and lower extremities NEUROLOGICAL: Unable to completely assess as patient is lethargic although arousable, diffusely weak SKIN: No rashes. Assessment: Acute abdomen due to ischemic bowel status post post expiratory laparotomy with repair of a strangulated right inguinal hernia with small bowel resection and repair of a left internal hernia and repair of an incisional hernia. Acute respiratory failure, nonhypoxic and the patient was kept intubated on mechanical ventilator postop due to mentation, improving currently on 2 L via n daren cannula Acute metabolic encephalopathy due to sepsis with concerns of septic shock. Improving Acute leukocytosis secondary to above Acute kidney injury Acute lactic acidosis, improved Mild troponin elevation, likely type II myocardial ischemia mismatch secondary to sepsis History of dementia History of paroxysmal atrial fibrillation current rhythm is sinus and the patient has been taking Eliquis on outpatient basis Hyperlipidemia History of fall Previous history of bowel resection back in 2013 for a bowel perforation requiring subsequent PEG tube insertion and removal GI prophylaxis DVT prophylaxis No code Plan: Patient has been transferred out of the ICU on the medical floor with multiple consultations following. Patient is continued on IV Zosyn Patient has been extubated successfully currently on 2 L, wean FiO2 as tolerated. Patient would benefit from incentive spirometer although significantly weak and unsure if patient can tolerate using Patient is currently n.p.o. and maintained on TPN for nutrition, being evaluated by speech will be started on a liquid diet. Tolerating some diet thus far although not eating much recommend supplements between meals and monitoring for aspiration precautions with head of the bed elevated 30 to 45 degrees Encourage PT/OT therapy evaluation and recommend daily for continued weakness. Patient will be returning to [facility] once cleared by consultations and stabilized Adjustments to medications being made as patient is currently sinus rhythm Patient has been transferred to medicine service with general surgery following Due to multiple significant complex medical issues, overall prognosis is guarded. CODE STATUS is no code at this time The impression and plan of care has been dictated by Lesly Guerrero, Nurse Practitioner as directed. Dr. Sheyla MD I have performed a history and examination and MDM of this patient, discussed the same with the dictator, and agree with the dictator's assessment and plan as written ,documented as a scribe. Based on total visit time, I have performed more than 50% of the visit. Objective - Vital Signs Vital signs: Vital Signs Temp 98.3 F 01/30/25 12:42 Pulse 91 01/30/25 12:42 Resp 20 01/30/25 12:42 BP 124/70 01/30/25 12:42 Pulse Ox 95 01/30/25 12:42 FiO2 21 01/27/25 07:49 Intake & Output 01/29/25 01/30/25 01/30/25 18:59 06:59 18:59 Intake Total 714 Output Total 1 800 300 Balance -1 -86 -300 Weight 83.2 kg Intake: Intake, IV Titration 714 Amount Mvi, Adult No.4 with Vit 714 K 10 ml Trace (Conc-1Ml/ Dose) 1 ml Sodium Chloride 4Meq/ml Vial 12 meq Potassium Chloride 6 meq In Amino Acid 5%-D15w +Lytes*E* 1,000 ml @ 30 mls/hr IV .Q24H [facility] Rx#: [id number] Output: Urine 800 300 Stool 1 Other: Voiding Method Indwelling Catheter Indwelling Catheter Indwelling Catheter # Bowel Movements 1 ABP, PAP, CO, CI - Last Documented Arterial Blood Pressure 136/41 - Labs CBC & Chem 7: 01/30/25 05:08 01/30/25 05:08 Labs: Abnormal Lab Results - Last 24 Hours (Table) 01/29/25 01/29/25 01/30/25 Range/Units 18:12 23:59 05:08 WBC 11.17 H (4.50-10.00) 10*3/uL RBC 3.51 L (4.10-5.20) 10*6/uL Hgb 10.5 L (12.0-15.0) g/dL Hct 31.2 L (37.2-46.3) % Immature Gran # 0.57 H (0.00-0.04) 10*3/uL Neutrophils # (Manual) 10.28 H (1.3-7.7) k/uL Lymphocytes # (Manual) 0.67 L (1.0-4.8) k/uL Sodium (137-145) mmol/L Carbon Dioxide (22-30) mmol/L BUN (7-17) mg/dL Creatinine (0.52-1.04) mg/dL Glucose (74-99) mg/dL POC Glucose (mg/dL) 130 H 127 H (70-110) mg/dL Calcium (8.4-10.2) mg/dL Phosphorus (2.5-4.5) mg/dL Total Protein (6.3-8.2) g/dL Albumin (3.5-5.0) g/dL 01/30/25 01/30/25 Range/Units 05:08 12:00 WBC (4.50-10.00) 10*3/uL RBC (4.10-5.20) 10*6/uL Hgb (12.0-15.0) g/dL Hct (37.2-46.3) % Immature Gran # (0.00-0.04) 10*3/uL Neutrophils # (Manual) (1.3-7.7) k/uL Lymphocytes # (Manual) (1.0-4.8) k/uL Sodium 133 L (137-145) mmol/L Carbon Dioxide 35 H (22-30) mmol/L BUN 23 H (7-17) mg/dL Creatinine 0.48 L (0.52-1.04) mg/dL Glucose 118 H (74-99) mg/dL POC Glucose (mg/dL) 114 H (70-110) mg/dL Calcium 7.8 L (8.4-10.2) mg/dL Phosphorus 2.4 L (2.5-4.5) mg/dL Total Protein 3.8 L (6.3-8.2) g/dL Albumin 1.8 L (3.5-5.0) g/dL Assessment and Plan Time with Patient: Less than 30
[2025-01-30 18:22] LABS: Glucose,Whole Blood 114 mg/dL (70-110)
[2025-01-30] MEDS: MVI, ADULT NO.4 WITH VIT K 10 ML, TRACE (CONC-1ML/DOSE) 1 ML, SODIUM CHLORIDE 4MEQ/ML V... IV SCH (23:13)
[2025-01-31 00:16] LABS: Glucose,Whole Blood 113 mg/dL (70-110)
[2025-01-31 05:13] LABS: ALT 34 U/L (4-34); AST 31 U/L (14-36); African American GFR (CKD) >90 (>60 ml/min/1.73 sqM); Albumin 1.9 g/dL (3.5-5.0); Albumin/Globulin Ratio 0.9; Alkaline Phosphatase 50 U/L (38-126); Anion Gap -1 mmol/L; Blood Urea Nitrogen 24 mg/dL (7-17); Calcium 7.7 mg/dL (8.4-10.2); Carbon Dioxide 34 mmol/L (22-30); Chloride 100 mmol/L (98-107); Globulin 2.1 g/dL; Glucose 130 mg/dL (74-99); Magnesium 1.8 mg/dL (1.6-2.3); Non-African American GFR(CKD) 89 (>60 ml/min/1.73 sqM); Phosphorus 2.4 mg/dL (2.5-4.5); Potassium 3.8 mmol/L (3.5-5.1); Sodium 133 mmol/L (137-145); Total Bilirubin 0.4 mg/dL (0.2-1.3)
[2025-01-31 05:21] LABS: Basophils # (A) 0.02 10*3/uL (0.00-0.10); Basophils % (A) 0.2 %; Eosinophils # (A) 0.12 10*3/uL (0.04-0.35); HGB 10.6 g/dL (12.0-15.0); Lymphocytes # (A) 0.79 10*3/uL (0.90-5.00); Lymphocytes % (A) 6.7 %; MCHC 33.1 g/dL (32.0-37.0); MCV 90.7 fL (80.0-97.0); Monocytes # (A) 0.73 10*3/uL (0.20-1.00); Monocytes % (A) 6.2 %; Neutrophils # (A) 9.83 10*3/uL (1.80-7.70); Neutrophils % (A) 83.5 %; Platelet Count 272 10*3/uL (140-440); RBC 3.53 10*6/uL (4.10-5.20); RDW 13.6 % (11.5-14.5); WBC 11.77 10*3/uL (4.50-10.00)
[2025-01-31 06:05] LABS: Glucose,Whole Blood 168 mg/dL (70-110)
[2025-01-31] MEDS: IPRATROPIUM-ALBUTEROL 3 ML NEB INHALATION PRN (06:30)
--- NOTE | 2025-01-31 07:03 | XR ---
EXAMINATION TYPE: XR chest 1V portable DATE OF EXAM: 01/31/2025 CLINICAL INDICATION: Female, 84 years old with history of shortness of breath, progress study. TECHNIQUE: Single AP portable upright view of the chest is obtained. COMPARISON: Chest x-ray from 3 days earlier FINDINGS: Stable right-sided PICC line. Interval removal of right internal jugular central venous ca theter. Persistent mild cardiomegaly with Central vascular congestion and left greater than right pleural eff usions and associated bibasilar opacities. Osseous structures are intact. IMPRESSION: Persistent central vascular congestion with small to moderate size left greater than righ t pleural effusions. Correlate for fluid overload state. [facility], , 01/31/2025 7:01 AM
[2025-01-31] MEDS: FUROSEMIDE 10 MG/ML 4 ML VIAL IV STA (07:15)
[2025-01-31 07:19] LABS: Glucose,Whole Blood 133 mg/dL (70-110)
[2025-01-31] MEDS: PANTOPRAZOLE 40 MG/10 ML VIAL IVP SCH (09:27)
--- NOTE | 2025-01-31 12:01 | P.PN ---
Subjective Progress Note Date: 01/31/25 This is a 84-year-old female patient who presented to the emergency department with acute abdomen. The patient had abdominal pain and she had a CT scan of the abdomen and pelvis done in the Emergency Department that showed evidence of biliary air within the liver with pneumatosis intestinalis within the stomach wall. Patient also had dilated fluid-filled small bowel and transition at the left inguinal hernia level. Based on that, the patient was taken to the operating room. Noted the patient had a DNR/DNI CODE STATUS. The CODE STATUS was switched for the sake of the procedure and she was placed on a full code. In the operating room, the patient underwent a exploratory laparotomy and the patient was found to have strangulated right inguinal hernia, ischemic small bowel and incisional hernia. The patient underwent a repair of the strangulated right inguinal hernia with small bowel resection and repair of the left internal hernia repair of the incisional hernia. Estimated blood loss was 20 cc. Noted postop, the patient was kept intubated and she was brought into the intensive care unit for further monitoring. At this point in time, the patient remains intubated on the mechanical ventilator. She is on propofol running at 55 mcg/kg/min. She has already received a total of 2 L of IV fluids and she is currently on lactated Ringer at rate of 150 cc an hour. The patient is on a r ate of 14, tidal volume of 400, FiO2 of 100% with a PEEP of 5. The blood gases showed a pH of 7.46 with a [id number] and PO2 of 341. Chest x-ray postop showed adequate expansion of both lungs. Orotracheal tube was just above the tess. NG tube was in place. No airspace disease. No consolidation. No pneumothorax. No pleural effusion. No noted air under the diaphragm. The patient is currently on no pressors. Hemodynamically stable. She is on no antibiotics for now. Blood work from this morning showed a WBC count of 10, hemoglobin of 18 and a platelet count of 213. Sodium is at 132, BUN 64 with a creatinine of 1.7 and a potassium level of 4.1 and a chloride is 87 with a bicarb level of 32. Initial lactic acid level was at 4.5. proBNP level is 3230. TSH was 1.7 with a free T4 of 2.1. The viral screen was negative. LFTs were normal. Troponin was 0.09. 01/23/2025, the patient remains intubated on mechanical ventilator. The patient is currently on propofol for respiratory. The patient is on assist-control mode of mechanical ventilation at rate of 14, tidal volume of 400, FiO2 40% with a PEEP of 5. Blood gas showed a pH of 7.34 with a [id number] and PO2 of 86. Remains on lactated Ringer at rate of 150 cc an hour. Net fluid balance is +6.3 L over the past 24 hours and the patient remains on norepinephrine running at 0.3 mcg/kg/min. The patient also went into atrial fibrillation with RVR. The patient was started on albuterol protocol. The patient converted to normal sinus rhythm. Amiodarone drip is still running at 0.5 mg/min. The patient's white cell count is 15 with a hemoglobin 15.20 platelet count of 183. Sodium is at 133, BUN is 57 with a creatinine of 0.9 and a potassium level of 3.5. Lactic acid level has returned to 1.7. Calcium is at 7.3. Surgical wound bed is dry clean and intact. No other significant events overnight. On 01/24/2025, the patient is being seen for a follow-up. The patient remains intubated on mechanical ventilator. The patient remains on propofol running at 45 mcg/kg/min. Calm and comfortable and pressor requirements have improved compared to yesterday. For now, and this morning, the patient remains on lactated Ringer at rate of 150 cc an hour. The patient is on norepinephrine at 0.18 mcg/kg/min and vasopressin physiologic dose. Fluid balance is +6.2 L over the past 24 hours as the patient received several fluid boluses yesterday. Current CVP is at 8. Also, the patient is on assist-control mode of mechanical ventilation at rate of 14, tidal volume of 400, FiO2 40% with a PEEP of 5. pH is 7.35 with a pCO2 of 49 and pO2 of 93. The patient is afebrile. The patient remains on a combination of Zosyn and vancomycin. The patient is also on amiodarone at 0.5 mL milligrams per minute regarding her atrial fibrillation which is essentially well-controlled for now. The white cell count is at 12.5, hemoglobin is 11.6 and the platelet count of 174. There is 73% neutrophilia. Sodium is at 131, potassium 3.5, BUN 51 with a creatinine of 1.3. Potassium is at 3.5. Renal function continues to improve and the serum bicarb is at 23. Blood sugars at 147. The patient's echocardiogram done on 01/23/2025 was reviewed and it shows a normal preserved LV function with ejection fraction of 50 to 55%. Mild MR, mild TR, no significant valvular heart disease. The patient remains NPO. No other significant events overnight. Seen today on 01/25/2025, patient remains in the ICU intubated and mechanically ventilated, she is now postoperative day #3 on assist-control rate 14 tidal volume 400 FiO2 40% PEEP of 5 ABG showed a pO2 of 130 pCO2 44 pH of 7.44 and her FiO2 was cut down to 30%. Patient remains on LR at 150 mL/h propofol at 15 mcg/kg/min amiodarone at 0.5 mg/min. Empirically remains on Zosyn for her abdominal sepsis. Patient has underlying dementia and she is F resident. Patient is sedated, does not seem to be opening her eyes with verbal stimuli or deep painful stimuli, I am planning to give the patient today a sedation holiday and assess mental status off sedation. WBC count is 10.0 hemoglobin 11.1. Platelets are 1 42,000. Potassium is a little low at 3.2, renal profile is normal BUN 41 creatinine 0.98 blood sugar is 106 chest x-ray showed endotracheal tube to be lying low close to the tess, there is a small moderate left pleural effusion and small right pleural effusion with atelectasis. Patient was seen today on 01/26/2025, remains in the ICU intubated and mechanically ventilated. On assist-control rate 14 tidal volume 400 FiO2 30% and PEEP of 5 ABG showed a pO2 of 76 pCO2 41 pH of 7.45, hence no ventilator changes were made. Chest x-ray showed minimal pleural effusions, and mild interstitial prominence, with minimal basilar opacities/atelectasis. Patient is on amiodarone drip at 0.5 mg/min propofol 25 mcg/kg/min LR at 75 cc/h remains on Zosyn remains on heparin subcu and the patient remains DNR. WBC count is 10.2 hemoglobin 10.6, basic metabolic profile is normal BUN is 25 creatinine 0.73. Medications limon remains on multiple meds as listed patient is also on GI and DVT prophylaxis not requiring any pressors today. Patient is quite sedated, yesterday we attempted to awaken the patient and give the patient a weaning trial however the patient was having intermittent episodes of vomiting hence we held back on further weaning. We will initiate that again today and if tolerated may go to pressure support trial and CPAP. Seen today on 01/27/2025, remains in the ICU, patient was extubated yesterday she is now on nasal cannula, at 2 L/min. Her nasogastric tube will be discontinued today. Patient has a CVP of 6 today, urine output is about 40 cc/h hence I recommended 1 dose of Lasix 40 mg IV push since her chest x-ray is showing interstitial edema. Patient is to be given TPN today after nasogastric tube discontinuation. And this should be addressed by dietitian. Patient looks frail, chronically ill, weak, but nonetheless she seems to be tolerating the extubation rather well and better than expected. WBC count is 9.7 hemoglobin 10.9 electrolytes are normal renal profile is normal BUN is 19 creatinine 0.61, chest x-ray showed moderate left and small right-sided pleural effusion with bibasilar interstitial opacities. Patient was seen today on 01/28/2025, remains on 2 L nasal cannula, not in any distress, patient diuresed well yesterday, she is -4.2 L in the last 24 hours, however her chest x-ray continues to show worsening interstitial edema, hence more Lasix will be given today 20 mg IV push. Patient seems to be frail, extre nicci weak, but arousable, follows simple instructions. Labs today were reviewed WBC count is 10.3 hemoglobin 10.1 electrolytes are normal except for low potassium 3.4 renal profile is normal The patient is seen today January 29, 2025 in follow-up on the regular medical floor. She was transferred out of the intensive care unit yesterday. She is currently sitting up in bed. Awake and alert in no acute distress. She remains quite weak and debilitated. Maintaining good O2 saturations in the 90s on 2 L/min per nasal cannula. She is afebrile. Hemodynamically stable. Blood culture revealed no growth. White count 10.0. Hemoglobin 10.8. Platelets 213. Sodium 134. Potassium 3.5. Bicarb 34. BUN 22. Creatinine 0.54. Glucose 133. She is being nourished with TPN at 30 mL/h along with lipids every 72 hours. Heparin for DVT prophylaxis. Remains on bronchodilators. Remains on Protonix. Antibiotics in the form of Zosyn. The patient is seen today January 30, 2025 in follow-up on the regular medical floor. She is currently resting in bed. Awake and alert in no acute distress. Maintaining O2 saturations in the 90s on 2 L/min per nasal cannula. She has been afebrile. Hemodynamically stable. 205. Sodium 133. Potassium 3.9. Bicarb 35. BUN 23. Creatinine 0.48. Glucose 118. She is continued on DuoNeb and elations. Heparin for DVT prophylaxis. Continued on Zosyn. Remains on TPN and lipids for nutritional support. Her diet has been advanced to regular per surgical services. The patient is seen today January 31, 2025 in follow-up on the regular medical floor. She is currently awake and alert. A rapid response team was called on her early this morning due to increasing shortness of breath. X-ray revealed persistent central venous congestion with small left pleural effusion and tiny right pleural effusion. She was given Lasix 40 mg IVP x 1. She was monitored on the floor for 30 minutes and showing signs of improvement. Lung sounds improved. She was maintaining good O2 saturations in the 90s on 3 L/min per nasal cannula. Presently she is resting comfortably in bed. No worsening shortness of breath, cough or congestion. She is afebrile. Hemodynamically sta ble. She remains on DuoNeb inhalations. Being nourished with TPN at 30 mL/h. Lipids every 72 hours. Remains antibiotics in the form of Zosyn. White count 11.7. Hemoglobin 10.6. Platelets 272. Sodium 133. Potassium 3.8. Bicarb 34. BUN 24. Creatinine 0.49. Glucose 130. Stool for occult blood was positive. Objective - Vital Signs Vital signs: Vital Signs Temp 98.4 F 01/31/25 09:42 Pulse 91 01/31/25 09:42 Resp 20 01/31/25 09:42 BP 135/67 01/31/25 09:42 Pulse Ox 96 01/31/25 09:42 FiO2 21 01/27/25 07:49 Intake & Output 01/30/25 01/31/25 01/31/25 18:59 06:59 18:59 Intake Total 390 480 Output Total 600 400 750 Balance -210 80 -750 Intake: Oral 390 480 Output: Urine 600 400 750 Uretheral (Soria) 400 Other: Voiding Method Indwelling Catheter Indwelling Catheter # Bowel Movements 1 1 ABP, PAP, CO, CI - Last Documented Arterial Blood Pressure 136/41 - Exam GENERAL EXAM: Alert, frail, 84-year-old female, sitting up in bed, on 3 L nasal cannula, in no apparent distress. HEAD: Normocephalic. EYES: Normal reaction of pupils, equal size. NOSE: Clear with pink turbinates. THROAT: No erythema or exudates. NECK: No masses, no JVD. CHEST: No chest wall deformity. LUNGS: Equal air entry with crackles in the bilateral bases. CVS: S1 and S2 normal with no audible murmur, regular rhythm. ABDOMEN: Prevena wound VAC in place. No hepatosplenomegaly, normal bowel sounds, no guarding or rigidity. SPINE: No scoliosis or deformity SKIN: No rashes CENTRAL NERVOUS SYSTEM: No focal deficits, tone is normal in all 4 extremities. EXTREMITIES: There is no peripheral edema. No clubbing, no cyanosis. Peripheral pulses are intact. - Labs CBC & Chem 7: 01/31/25 04:40 01/31/25 04:40 Labs: Abnormal Lab Results - Last 24 Hours (Table) 01/30/25 01/30/25 01/31/25 Range/Units 12:00 18:20 00:14 WBC (4.50-10.00) 10*3/uL RBC (4.10-5.20) 10*6/uL Hgb (12.0-15.0) g/dL Hct (37.2-46.3) % Immature Gran # (0.00-0.04) 10*3/uL Neutrophils # (1.80-7.70) 10*3/uL Lymphocytes # (0.90-5.00) 10*3/uL Sodium (137-145) mmol/L Carbon Dioxide (22-30) mmol/L BUN (7-17) mg/dL Creatinine (0.52-1.04) mg/dL Glucose (74-99) mg/dL POC Glucose (mg/dL) 114 H 114 H 113 H (70-110) mg/dL Calcium (8.4-10.2) mg/dL Phosphorus (2.5-4.5) mg/dL Total Protein (6.3-8.2) g/dL Albumin (3.5-5.0) g/dL Stool Occult Blood (Negative) 01/31/25 01/31/25 01/31/25 Range/Units 04:00 04:40 04:40 WBC 11.77 H (4.50-10.00) 10*3/uL RBC 3.53 L (4.10-5.20) 10*6/uL Hgb 10.6 L (12.0-15.0) g/dL Hct 32.0 L (37.2-46.3) % Immature Gran # 0.28 H (0.00-0.04) 10*3/uL Neutrophils # 9.83 H (1.80-7.70) 10*3/uL Lymphocytes # 0.79 L (0.90-5.00) 10*3/uL Sodium 133 L (137-145) mmol/L Carbon Dioxide 34 H (22-30) mmol/L BUN 24 H (7-17) mg/dL Creatinine 0.49 L (0.52-1.04) mg/dL Glucose 130 H (74-99) mg/dL POC Glucose (mg/dL) (70-110) mg/dL Calcium 7.7 L (8.4-10.2) mg/dL Phosphorus 2.4 L (2.5-4.5) mg/dL Total Protein 4.0 L (6.3-8.2) g/dL Albumin 1.9 L (3.5-5.0) g/dL Stool Occult Blood Positive H (Negative) 01/31/25 01/31/25 Range/Units 06:03 07:18 WBC (4.50-10.00) 10*3/uL RBC (4.10-5.20) 10*6/uL Hgb (12.0-15.0) g/dL Hct (37.2-46.3) % Immature Gran # (0.00-0.04) 10*3/uL Neutrophils # (1.80-7.70) 10*3/uL Lymphocytes # (0.90-5.00) 10*3/uL Sodium (137-145) mmol/L Carbon Dioxide (22-30) mmol/L BUN (7-17) mg/dL Creatinine (0.52-1.04) mg/dL Glucose (74-99) mg/dL POC Glucose (mg/dL) 168 H 133 H (70-110) mg/dL Calcium (8.4-10.2) mg/dL Phosphorus (2.5-4.5) mg/dL Total Protein (6.3-8.2) g/dL Albumin (3.5-5.0) g/dL Stool Occult Blood (Negative) Assessment and Plan Assessment: Acute abdomen secondary to an acute ischemic bowel and strangulated right inguinal hernia. Status post exploratory laparotomy, repair of strangulated inguinal hernia and small bowel resection with a left internal hernia repair and repair of incisional hernia on 01/22/2025. Kept on the ventilator in the ICU postoperatively. Subsequently extubated Acute hypoxic respiratory failure secondary to fluid volume overload, responding well to diuretics Suspect septic shock secondary to abdominal sepsis, patient required norepinephrine in spite of fluid boluses recovered Acute kidney injury, improved Acute lactic acidosis secondary to ischemic small bowel, improved Acute troponin leak secondary to sepsis type II myocardial ischemia Underlying dementia Dyslipidemia History of previous bowel resection in 2013 and bowel perforation requiring PEG tube placement at the time Poor overall functional performance based on the above-mentioned multiple comorbidities Plan: The patient was seen and evaluated Chest x-ray, labs and medications reviewed Received Lasix 40 mg IVP x 1 Remains on O2 at 3 L/min per nasal cannula Remains on antibiotics in the form of Zosyn Remains on bronchodilators Continue to utilize the incentive spirometer Heparin for DVT prophylaxis Protonix for GI prophylaxis Continue TPN/lipids for nutritional support Diet advanced to regular per surgical services DNR CODE STATUS Prognosis remains poor Plan is to return to [facility] at discharge This patient was seen independently by the pulmonary nurse practitioner addressing pulmonary issues I have personally seen and examined the patient, performed the documentation and the assessment and plan as written. Number of minutes spent on the visit: 25 Dictation was produced using [employer]ovo dictation software. Please excuse any grammatical, word or spelling errors.
[2025-01-31 12:04] LABS: Glucose,Whole Blood 121 mg/dL (70-110)
--- NOTE | 2025-01-31 13:01 | CT ---
EXAMINATION TYPE: CT brain wo con DATE OF EXAM: 01/31/2025 COMPARISON: CT brain September 03, 2014 CLINICAL INDICATION: Female, 84 years old with history of AMS, AMS TECHNIQUE: CT scan of the head is performed without contrast. CT DLP: 1001.4 mGycm. Automated Exposure Control for Dose Reduction was Utilized. FINDINGS: There is no acute intracranial hemorrhage or midline shift identified. There is mild to m oderate diffuse ventricular and sulcal prominence. There is mild low-attenuation in the periventricu lar white matter. Bilateral aphakia is seen. More prominent soft tissue density in bilateral media center assistant al auditory canal likely reflects cerumen. Correlate with direct visualization is advised to confirm. Patchy opacity left mastoid air cells, correlate for mild acute mastoiditis with point tenderness. T he paranasal sinuses are grossly clear. Nasal septum is deviated to right of midline. Area of low att enuation left frontal lobe axial image 23 is nonspecific but suggestive of subacute or chronic infarc t. IMPRESSION: No acute intracranial hemorrhage or midline shift. If concern for acute infarct, MRI follow may be warranted. [facility], , 01/31/2025 12:59 PM
--- NOTE | 2025-01-31 13:55 | P.PN ---
Subjective Progress Note Date: 01/31/25 patient is a 84-year-old lady with past medical history significant for GERD, hyperlipidemia who is a resident of [facility] who initially presented to the ER for nausea vomiting nominal pain for the last 3 days. Workup in the ER showed a CT scan showing biliary air within the liver with pneumatosis intestinalis within the stomach wall, Mesenteric ischemia should be considered,Dilated fluid-filled small bowel loops,Some of transition may be in left inguinal hernia. Patient was admitted under surgery and was taken for emergent exploratory laparotomy with repair of strangulated right inguinal hernia with small bowel resection,repair of left internal hernia and repair of incisional hernia. Postoperatively patient was intubated and was admitted to ICU 01/24. Patient seen and examined. Patient continues to be on mechanical ventilator, labs done this morning showedWBC 12.53, hemoglobin 11.6, sodium 131, potassium 3.5, BUN 15, creatinine 1.37, calcium 10.7. 01/25. Patient seen and examined. Continues to be on mechanical ventilation. Currently on amiodarone drip. Patient also on IV Levophed and vasopressin. Continue IV Zosyn. 01/26. Patient seen and examined. Labs done today showed WBC 10.21, hemoglobin 10.6, platelet count 139, sodium 131, potassium 3.8, BUN 25, creatinine 0.73 patient was extubated this morning 01/27/2025 Patient is seen in follow-up continues to be in the ICU was recently extubated maintained on 2 L via nasal cannula. Patient remains n.p.o. and awaiting enteral nutrition with TPN. Multiple consultations following as patient remains in the ICU and is postop day #5 from resection and small bowel inguinal hernia repair. Chest x-ray showing some edema and vascular congestion is being given a dose of Lasix and recommend monitoring kidney functions closely, current BUN is 19 with a creatinine of 0.6. Patient was continued on IV Zosyn and is being discontinued being closely monitored off IV antibiotics. Prognosis remains extremely guarded at this time and patient is in no code. Magnesium is 1.6 today and will monitor and follow-up with repeat labs and replace per protocol. 01/28/2025 Patient is seen in follow-up today lethargic although arousable and more alert today. Patient is responding appropriately and following commands although lethargic and fatigues easily. Patient continued on 2 L via nasal cannula and remains n.p.o. although being evaluated by speech and being started on a diet and will continue on TPN for now and will be weaned slowly. Patient is afebrile with no reports of chest pain or shortness of breath. Patient is having bowel movements and general surgery following closely. Patient is a downgrade from the ICU to [facility]. Magnesium is slightly low at 1.6 and potassium and is being replaced per protocol. Will follow-up on repeat labs. Plan will be for returning to [facility] once cleared by consultations in stable. 01/29/2025 Patient is seen in follow-up today with son at the bedside okay does awaken and respond appropriately and follows commands although fatigues easily and falls asleep. Patient is denying any chest pain or shortness of breath. Patient has been started on a diet and tolerating thus far still not eating much and is maintained on TPN. Patient did have magnesium and potassium replaced which are within normal limits and will follow-up on repeat labs and replace per protocol. Patient is extremely weak and will be going to [facility] on discharge. Will attempt to wean TPN and encourage oral intake over the weekend and discuss further with consultations regarding possible discharge planning to [facility] next week. 01/30/2025 Patient is evaluated in follow-up in the medical floor. She is awake alert and oriented. She does continue to fall asleep easily. Family at the bedside states that they will help encourage her to be awake and to eat meals. She re tobin on TPN at this time as she is continued to have poor oral intake. White blood cell count today 11.17, hemoglobin 10.5, sodium 133, BUN of 23 creatinine of 0.48. Patient is currently afebrile and is maintaining oxygen saturations on 2 L of oxygen via nasal cannula. 01/31/2025 Patient is evaluated today in follow up on the medical floor. She is confused and lethargic today; appears to be encephalopathic. Chest xray done showing CHF and given a dose of IV lasix. Does have lower extremity edema however lungs are essentially clear. Remains on TPN. Brain CT was completed as patient is curre ntly dysarthric which has been a change from yesterday, The brain CT dose reveal a questionable area in the left frontal lobe of possible subacute or chronic infarct; Review of systems: Unable to complete due to patients current mentation All medications have been reviewed PHYSICAL EXAMINATION: GENERAL: The patient is lethargic, alert and oriented x1. Patient fatigues easily and falls asleep. Well-developed, elderly appearing, ill-appearing, obese HEENT: Pupils are round and equally reacting to light. EOMI. No scleral icterus. No conjunctival pallor. Normocephalic, atraumatic. No pharyngeal erythema. No thyromegaly. CARDIOVASCULAR: S1 and S2 muffled PULMONARY: Diminished breath sounds bilaterally with faint crackles and scattered rhonchi noted. ABDOMEN: Laparotomy surgical incisions seen, and dressing is dry and intact MUSCULOSKELETAL: No joint swelling or deformity. EXTREMITIES: No cyanosis, clubbing, or pedal edema. Generalized edema noted of upper and lower extremities NEUROLOGICAL: Unable to completely assess as patient is lethargic although arousable, diffusely weak appears dysarthric SKIN: No rashes. Assessment: Acute abdomen due to ischemic bowel status post post expiratory laparotomy with repair of a strangulated right inguinal hernia with small bowel resection and repair of a left internal hernia and repair of an incisional hernia. Acute respiratory failure, nonhypoxic and the patient was kept intubated on mechanical ventilator postop due to mentation, improving currently on 2 L via nasal cannula Acute metabolic encephalopathy due to sepsis with concerns of septic shock. Improving Acute leukocytosis secondary to above Acute kidney injury Volume overload; mild diastolic dysfunction status post IV lasix x 1 Altered mentation with dysarthria concern for an acute stroke - Brain CT reviewed Acute lactic acidosis, improved Mild troponin elevation, likely type II myocardial ischemia mismatch secondary to sepsis History of dementia History of paroxysmal atrial fibrillation current rhythm is sinus and the patient has been taking Eliquis on outpatient basis Hyperlipidemia History of fall Previous history of bowel resection back in 2013 for a bowel perforation requiring subsequent PEG tube insertion and removal GI prophylaxis DVT prophylaxis No code Plan: Patient has been transferred out of the ICU on the medical floor with multiple consultations following. Patient is continued on IV Zosyn Patient has been extubated successfully currently on 2 L, wean FiO2 as tolerated. Patient would benefit from incentive spirometer although si gnificantly weak and unsure if patient can tolerate using Patient is currently n.p.o. and maintained on TPN for nutrition Tolerating some regular diet thus far although not eating much recommend supplements between meals and monitoring for aspiration precautions with head of the bed elevated 30 to 45 degrees Encourage PT/OT therapy evaluation and recommend daily for continued weakness. Patient will be returning to [facility] once cleared by consultations and stabilized Adjustments to medications being made as patient is currently sinus rhythm Eliquis has been held and patient noted to have a large jelly/tarry BM today that was occult positive Patient with worsening mentation has prompted a septic work up and neurological evaluation Worsening hypoxia and received a dose of IV lasix Monitor renal function and electrolytes Discussed clinical findings and plan of care with patients son Don over the phone Patient has been transferred to medicine service with general surgery following Due to multiple significant complex medical issues, overall prognosis is guarded. CODE STATUS is no code at this time The impression and plan of care has been dictated by Lesly Guerrero, Nurse Practitioner as directed. Dr. Sheyla MD I have performed a history and examination and MDM of this patient, discussed the same with the dictator, and agree with the dictator's assessment and plan as written ,documented as a scribe. Based on total visit time, I have performed more than 50% of the visit. Objective - Vital Signs Vital signs: Vital Signs Temp 98.4 F 01/31/25 09:42 Pulse 91 01/31/25 09:42 Resp 20 01/31/25 09:42 BP 135/67 01/31/25 09:42 Pulse Ox 96 01/31/25 09:42 FiO2 21 01/27/25 07:49 Intake & Output 01/30/25 01/31/25 01/31/25 18:59 06:59 18:59 Intake Total 390 480 Output Total 600 400 750 Balance -210 80 -750 Intake: Oral 390 480 Output: Urine 600 400 750 Uretheral ([place]) 400 Other: Voiding Method Indwelling Catheter Indwelling Catheter # Bowel Movements 1 1 ABP, PAP, CO, CI - Last Documented Arterial Blood Pressure 136/41 - Labs CBC & Chem 7: 01/31/25 04:40 01/31/25 04:40 Labs: Abnormal Lab Results - Last 24 Hours (Table) 01/30/25 01/31/25 01/31/25 Range/Units 18:20 00:14 04:00 WBC (4.50-10.00) 10*3/uL RBC (4.10-5.20) 10*6/uL Hgb (12.0-15.0) g/dL Hct (37.2-46.3) % Immature Gran # (0.00-0.04) 10*3/uL Neutrophils # (1.80-7.70) 10*3/uL Lymphocytes # (0.90-5.00) 10*3/uL Sodium (137-145) mmol/L Carbon Dioxide (22-30) mmol/L BUN (7-17) mg/dL Creatinine (0.52-1.04) mg/dL Glucose (74-99) mg/dL POC Glucose (mg/dL) 114 H 113 H (70-110) mg/dL Calcium (8.4-10.2) mg/dL Phosphorus (2.5-4.5) mg/dL Total Protein (6.3-8.2) g/dL Albumin (3.5-5.0) g/dL Stool Occult Blood Positive H (Negative) 01/31/25 01/31/25 01/31/25 Range/Units 04:40 04:40 06:03 WBC 11.77 H (4.50-10.00) 10*3/uL RBC 3.53 L (4.10-5.20) 10*6/uL Hgb 10.6 L (12.0-15.0) g/dL Hct 32.0 L (37.2-46.3) % Immature Gran # 0.28 H (0.00-0.04) 10*3/uL Neutrophils # 9.83 H (1.80-7.70) 10*3/uL Lymphocytes # 0.79 L (0.90-5.00) 10*3/uL Sodium 133 L (137-145) mmol/L Carbon Dioxide 34 H (22-30) mmol/L BUN 24 H (7-17) mg/dL Creatinine 0.49 L (0.52-1.04) mg/dL Glucose 130 H (74-99) mg/dL POC Glucose (mg/dL) 168 H (70-110) mg/dL Calcium 7.7 L (8.4-10.2) mg/dL Phosphorus 2.4 L (2.5-4.5) mg/dL Total Protein 4.0 L (6.3-8.2) g/dL Albumin 1.9 L (3.5-5.0) g/dL Stool Occult Blood (Negative) 01/31/25 01/31/25 Range/Units 07:18 12:02 WBC (4.50-10.00) 10*3/uL RBC (4.10-5.20) 10*6/uL Hgb (12.0-15.0) g/dL Hct (37.2-46.3) % Immature Gran # (0.00-0.04) 10*3/uL Neutrophils # (1.80-7.70) 10*3/uL Lymphocytes # (0.90-5.00) 10*3/uL Sodium (137-145) mmol/L Carbon Dioxide (22-30) mmol/L BUN (7-17) mg/dL Creatinine (0.52-1.04) mg/dL Glucose (74-99) mg/dL POC Glucose (mg/dL) 133 H 121 H (70-110) mg/dL Calcium (8.4-10.2) mg/dL Phosphorus (2.5-4.5) mg/dL Total Protein (6.3-8.2) g/dL Albumin (3.5-5.0) g/dL Stool Occult Blood (Negative) Assessment and Plan Time with Patient: Greater than 30
[2025-01-31 15:26] LABS: Appearance,Urine Clear (Clear); Bacteria,Urine Rare /hpf; Bilirubin,Urine Negative (Negative); Blood,Urine Trace (Negative); Color,Urine Colorless; Glucose,Urine (UA) Negative (Negative); Hyaline Casts,Urine 1 /lpf (0-2); Ketones,Urine Negative (Negative); Leukocyte Esterase,Urine Negative (Negative); Mucus,Urine Rare /hpf; Nitrite,Urine Negative (Negative); Protein,Urine Negative (Negative); RBC,Urine <1 /hpf (0-5); Specific Gravity,Urine 1.008 (1.001-1.035); Urobilinogen,Urine <2.0 mg/dL (<2.0); WBC,Urine 1 /hpf (0-5)
[2025-01-31 18:22] LABS: Glucose,Whole Blood 127 mg/dL (70-110)
[2025-01-31] MEDS: HEPARIN SODIUM,PORCINE 5,000 UNIT/ML 1 ML VIAL SQ SCH (20:27)
[2025-01-31] MEDS: MVI, ADULT NO.4 WITH VIT K 10 ML, TRACE (CONC-1ML/DOSE) 1 ML, SODIUM CHLORIDE 4MEQ/ML V... IV SCH (23:27)
[2025-01-31 23:32] LABS: Glucose,Whole Blood 136 mg/dL (70-110)
[2025-02-01 04:45] LABS: ALT 38 U/L (4-34); AST 40 U/L (14-36); African American GFR (CKD) >90 (>60 ml/min/1.73 sqM); Albumin 1.7 g/dL (3.5-5.0); Albumin/Globulin Ratio 0.9; Alkaline Phosphatase 47 U/L (38-126); Anion Gap 1 mmol/L; Blood Urea Nitrogen 24 mg/dL (7-17); Calcium 7.6 mg/dL (8.4-10.2); Carbon Dioxide 33 mmol/L (22-30); Chloride 97 mmol/L (98-107); Glucose 119 mg/dL (74-99); Magnesium 1.7 mg/dL (1.6-2.3); Non-African American GFR(CKD) 89 (>60 ml/min/1.73 sqM); Phosphorus 2.8 mg/dL (2.5-4.5); Potassium 3.5 mmol/L (3.5-5.1); Sodium 131 mmol/L (137-145); Total Bilirubin 0.4 mg/dL (0.2-1.3); Total Protein 3.7 g/dL (6.3-8.2)
[2025-02-01 05:51] LABS: Glucose,Whole Blood 139 mg/dL (70-110)
[2025-02-01 08:23] LABS: Basophils # (A) 0.02 X 10*3/uL (0.00-0.10); Basophils % (A) 0.2 %; Eosinophils # (A) 0.11 X 10*3/uL (0.04-0.35); Eosinophils % (A) 1.2 %; HCT 30.1 % (37.2-46.3); HGB 9.7 g/dL (12.0-15.0); Lymphocytes # (A) 0.51 X 10*3/uL (0.90-5.00); Lymphocytes % (A) 5.5 %; MCH 29.6 pg (27.0-32.0); MCHC 32.2 g/dL (32.0-37.0); MCV 91.8 FL (80.0-97.0); Mean Platelet Volume 10.6 FL (9.5-12.2); Monocytes # (A) 0.51 X 10*3/uL (0.20-1.00); Monocytes % (A) 5.5 %; NRBC Per 100 WBC 0.03 X 10*3/uL (0.00-0.01); Neutrophils # (A) 7.97 X 10*3/uL (1.80-7.70); Neutrophils % (A) 86.1 %; Platelet Count 249 X 10*3/uL (140-440); RBC 3.28 X 10*6/uL (4.10-5.20); RDW 13.7 % (11.5-14.5); WBC 9.26 X 10*3/uL (4.50-10.00)
[2025-02-01 10:30] LABS: Chol/HDL Ratio 4.72 Ratio; LDL Cholesterol,Calculated 86.8 mg/dL (0.0-131.0)
[2025-02-01 10:41] LABS: Glucose,Whole Blood 140 mg/dL (70-110)
--- NOTE | 2025-02-01 11:41 | P.CNNES ---
History of Present Illness Consult date: 02/01/25 Requesting physician: Lesly Guerrero Reason for Consult: dysarthria, questionable left frontal subacute cva on ct History of Present Illness: This is an 84-year-old woman who presents to the emergency department because of acute abdomen. Neurology is consulted because of dysarthria and concern for subacute stroke over the left frontal. Patient is not a great historian but history is obtained from medical record as well as the reteam nurse practitioner. It seems that the patient has a acute abdomen secondary to acute ischemia of the bowel and strangulated right inguinal hernia status post exploratory laparotomy. Yesterday nurse practitioner noted that the patient had dysarthria and the patient had CT of the head which was reported as no acute intracranial hemorrhage. No midline shift. Seems that the patient has acute hypoxic respiratory failure secondary to fluid overload and she is on diuretic. Patient has history of paroxysmal atrial fibrillation and she was on Eliquis but it seems that it has been held because of her acute abdomen and she has occult blood. I reviewed lab workup. I reviewed the CT of the head and I do not appreciate any acute or subacute ischemia. Review of Systems Limited but as per HPI. Past Medical History Past Medical History: GERD/Reflux, Hyperlipidemia, Pneumonia Additional Past Medical History / Comment(s): PERFORATED BOWEL, STATES "MY STATED I FLAT LINE FOR 8 MIN WHEN I WAS IN THE HOSPITAL IN 2013 AND HAD TO HAVE A TUBE DOWN MY THROAT AND NOW I HAVE A LITTLE TROUBLE WITH MY SPEECH" History of Any Multi-Drug Resistant Organisms: None Reported Past Surgical History: Bowel Resection, Tonsillectomy Additional Past Surgical History / Comment(s): bowel resection 01/23/2014 W/ PEG TUB PLACEMENT, PEG TUBE REMOVAL, rt cataract Past Anesthesia/Blood Transfusion Reactions: No Reported Reaction Past Psychological History: No Psychological Hx Reported Past Alcohol Use History: None Reported Past Drug Use History: None Reported - Past Family History Father Family Medical History: Cancer Additional Family Medical History / Comment(s): PROSTATE Mother Additional Family Medical History / Comment(s): HEART PROBLEMS Medications and Allergies Home Medications Medication Instructions Recorded Confirmed Type HYDROcodone/APAP 5-325MG [[place] 1 tab PO Q6HR PRN #28 tab 12/24/24 01/22/25 Rx 5-325] Apixaban [Eliquis] 2.5 mg PO BID@0900,2100 01/22/25 01/22/25 History HYDROcodone/APAP 5-325MG [[place] 1 tab PO DAILY@0900 01/22/25 01/22/25 History 5-325] Lactose-Reduced Food [Ensure Plus] 1 can PO DAILY@0900 01/22/25 01/22/25 History Ondansetron [Zofran] 4 mg PO Q8H PRN 01/22/25 01/22/25 History Sennosides [Senokot] 8.6 mg PO BID@0900,209901/22/25 01/22/25 History Allergies Allergy/AdvReac Type Severity Reaction Status Date / Time Sulfa (Sulfonamide Allergy Unknown Unknown Verified 01/22/25 08:00 Antibiotics) Physical Examination - Vital Signs Vital Signs: Vital Signs Temp Pulse Pulse Resp BP Pulse Ox 02/01/25 09:02 101 H 18 02/01/25 08:49 107 H 18 02/01/25 07:05 97.9 F 82 17 125/62 95 02/01/25 00:42 97.3 F L 98 16 127/53 99 01/31/25 20:05 92 01/31/25 20:00 16 01/31/25 19:52 92 01/31/25 19:16 98.1 F 95 16 107/56 95 01/31/25 15:54 94 01/31/25 13:05 97.5 F L 96 18 117/57 97 01/31/25 12:19 84 01/31/25 12:05 87 Intake and Output 01/31/25 02/01/25 02/01/25 22:59 06:59 14:59 Intake Total 100 240 Output Total 375 425 Balance -275 -425 240 Intake: Oral 100 240 Output: Urine 375 425 Other: Voiding Method Indwelling Catheter Indwelling Catheter # Bowel Movements 2 General: Lying in bed and is not in acute distress. Neuro: The patient is drowsy but is awake able to voice. She is oriented to sunitha f, place as well as the year correctly. She is somewhat slow responding but she is responding appropriately. No aphasia from limited language Pupils are round about 3 mm bilaterally and reactive to light. Visual owens are full to confrontation. Extraocular movement is limited because of her ove rall cooperation. No facial weakness. She does have dysarthria/voice but appears she has respiratory issues. Motor strength is very limited in assessment and she briefly raise bilateral upper distally above gravity and wiggling the toes symmetrically. Sensation is normal to touch. Results - Laboratory Findings CBC and BMP: 02/01/25 03:37 02/01/25 03:37 Abnormal Lab Findings: Abnormal Labs 01/22/25 01/22/25 01/22/25 08:23 08:23 08:23 WBC 10.03 H RBC 6.04 H Hgb 18.2 H Hct 53.7 H Plt Count Immature Gran # Neutrophils # Neutrophils # (Manual) 8.02 H Lymphocytes # Lymphocytes # (Manual) 0.70 L Monocytes # Monocytes # (Manual) 1.30 H Eosinophils # Metamyelocytes # (Man) Myelocytes # (Manual) Nucleated RBCs NRBC/100 WBC Diff PT 13.0 H INR 1.2 H ABG pH ABG pCO2 ABG pO2 ABG HCO3 ABG Total CO2 ABG O2 Saturation Hemoglobin Sodium 132 L Potassium Chloride 87 L Carbon Dioxide 32 H BUN 64 H Creatinine 1.73 H Glucose 149 H POC Glucose (mg/dL) Plasma Lactic Acid Rip Calcium 8.0 L Ionized Calcium Morgan Phosphorus Magnesium Total Bilirubin 1.8 H AST 51 H ALT Alkaline Phosphatase Troponin I Total Protein 5.4 L Albumin 2.9 L Triglycerides HDL Cholesterol Free T3 pg/mL 1.40 L Urine Blood Urine Bacteria Urine Mucus Stool Occult Blood 01/22/25 01/22/25 01/22/25 08:23 08:23 08:25 WBC RBC Hgb Hct Plt Count Immature Gran # Neutrophils # Neutrophils # (Manual) Lymphocytes # Lymphocytes # (Manual) Monocytes # Monocytes # (Manual) Eosinophils # Metamyelocytes # (Man) Myelocytes # (Manual) Nucleated RBCs NRBC/100 WBC Diff PT INR ABG pH 7.49 H ABG pCO2 51 H ABG pO2 49 L* ABG HCO3 39 H ABG Total CO2 40 H ABG O2 Saturation 83.8 L Hemoglobin 17.0 H Sodium Potassium Chloride Carbon Dioxide BUN Creatinine Glucose POC Glucose (mg/dL) Plasma Lactic Acid Rip 4.5 H* Calcium Ionized Calcium Morgan Phosphorus Magnesium Total Bilirubin AST ALT Alkaline Phosphatase Troponin I 0.090 H* Total Protein Albumin Triglycerides HDL Cholesterol Free T3 pg/mL Urine Blood Urine Bacteria Urine Mucus Stool Occult Blood 01/22/25 01/22/25 01/22/25 13:57 14:37 14:37 WBC RBC Hgb 15.1 H D Hct Plt Count Immature Gran # Neutrophils # Neutrophils # (Manual) Lymphocytes # Lymphocytes # (Manual) Monocytes # Monocytes # (Manual) Eosinophils # Metamyelocytes # (Man) Myelocytes # (Manual) Nucleated RBCs NRBC/100 WBC Diff PT INR ABG pH 7.46 H ABG pCO2 ABG pO2 341 H ABG HCO3 31 H ABG Total CO2 32 H ABG O2 Saturation >100.0 H Hemoglobin Sodium 134 L Potassium 3.3 L Chloride Carbon Dioxide BUN 61 H Creatinine 1.74 H Glucose 137 H POC Glucose (mg/dL) Plasma Lactic Acid Rip Calcium 7.2 L Ionized Calcium Morgan Phosphorus Magnesium Total Bilirubin AST ALT Alkaline Phosphatase Troponin I Total Protein Albumin Triglycerides HDL Cholesterol Free T3 pg/mL Urine Blood Urine Bacteria Urine Mucus Stool Occult Blood 01/22/25 01/22/25 01/22/25 21:25 21:25 21:25 WBC 13.51 H RBC Hgb Hct Plt Count Immature Gran # 0.10 H Neutrophils # Neutrophils # (Manual) 12.42 H Lymphocytes # Lymphocytes # (Manual) 0.95 L Monocytes # Monocytes # (Manual) Eosinophils # Metamyelocytes # (Man) Myelocytes # (Manual) Nucleated RBCs NRBC/100 WBC Diff PT INR ABG pH ABG pCO2 ABG pO2 ABG HCO3 ABG Total CO2 ABG O2 Saturation Hemoglobin Sodium 133 L Potassium Chloride Carbon Dioxide BUN 57 H Creatinine 1.97 H Glucose 156 H POC Glucose (mg/dL) Plasma Lactic Acid Rip 2.9 H* Calcium 6.8 L Ionized Calcium Morgan Phosphorus Magnesium Total Bilirubin 1.4 H AST ALT Alkaline Phosphatase 36 L Troponin I Total Protein 3.4 L Albumin 1.7 L Triglycerides HDL Cholesterol Free T3 pg/mL Urine Blood Urine Bacteria Urine Mucus Stool Occult Blood 01/23/25 01/23/25 01/23/25 00:13 01:05 04:45 WBC RBC Hgb Hct Plt Count Immature Gran # Neutrophils # Neutrophils # (Manual) Lymphocytes # Lymphocytes # (Manual) Monocytes # Monocytes # (Manual) Eosinophils # Metamyelocytes # (Man) Myelocytes # (Manual) Nucleated RBCs NRBC/100 WBC Diff PT INR ABG pH ABG pCO2 ABG pO2 ABG HCO3 ABG Total CO2 ABG O2 Saturation Hemoglobin Sodium 133 L Potassium Chloride Carbon Dioxide BUN 57 H Creatinine 1.91 H Glucose 172 H POC Glucose (mg/dL) 205 H Plasma Lactic Acid Rip 3.4 H* Calcium 7.3 L Ionized Calcium Morgan Phosphorus Magnesium Total Bilirubin AST ALT Alkaline Phosphatase Troponin I Total Protein Albumin Triglycerides HDL Cholesterol Free T3 pg/mL Urine Blood Urine Bacteria Urine Mucus Stool Occult Blood 01/23/25 01/23/25 01/23/25 04:45 04:45 05:06 WBC 15.12 H RBC Hgb Hct Plt Count Immature Gran # Neutrophils # Neutrophils # (Manual) Lymphocytes # Lymphocytes # (Manual) Monocytes # Monocytes # (Manual) Eosinophils # Metamyelocytes # (Man) Myelocytes # (Manual) Nucleated RBCs NRBC/100 WBC Diff PT INR ABG pH 7.34 L ABG pCO2 50 H ABG pO2 ABG HCO3 27 H ABG Total CO2 28 H ABG O2 Saturation Hemoglobin Sodium Potassium Chloride Carbon Dioxide BUN Creatinine Glucose POC Glucose (mg/dL) Plasma Lactic Acid Rip 3.6 H* Calcium Ionized Calcium Morgan Phosphorus Magnesium Total Bilirubin AST ALT Alkaline Phosphatase Troponin I Total Protein Albumin Triglycerides HDL Cholesterol Free T3 pg/mL Urine Blood Urine Bacteria Urine Mucus Stool Occult Blood 01/23/25 01/23/25 01/24/25 11:42 17:56 01:17 WBC RBC Hgb Hct Plt Count Immature Gran # Neutrophils # Neutrophils # (Manual) Lymphocytes # Lymphocytes # (Manual) Monocytes # Monocytes # (Manual) Eosinophils # Metamyelocytes # (Man) Myelocytes # (Manual) Nucleated RBCs NRBC/100 WBC Diff PT INR ABG pH ABG pCO2 ABG pO2 ABG HCO3 ABG Total CO2 ABG O2 Saturation Hemoglobin Sodium Potassium Chloride Carbon Dioxide BUN Creatinine Glucose POC Glucose (mg/dL) 136 H 157 H 157 H Plasma Lactic Acid Rip Calcium Ionized Calcium Morgan Phosphorus Magnesium Total Bilirubin AST ALT Alkaline Phosphatase Troponin I Total Protein Albumin Triglycerides HDL Cholesterol Free T3 pg/mL Urine Blood Urine Bacteria Urine Mucus Stool Occult Blood 01/24/25 01/24/25 01/24/25 03:15 03:15 04:16 WBC 12.53 H RBC 3.84 L Hgb 11.6 L Hct 35.1 L Plt Count Immature Gran # 0.19 H Neutrophils # Neutrophils # (Manual) 11.40 H Lymphocytes # Lymphocytes # (Manual) 0.88 L Monocytes # Monocytes # (Manual) Eosinophils # Metamyelocytes # (Man) Myelocytes # (Manual) Nucleated RBCs NRBC/100 WBC Diff PT INR ABG pH ABG pCO2 49 H ABG pO2 ABG HCO3 27 H ABG Total CO2 28 H ABG O2 Saturation 97.8 H Hemoglobin Sodium 131 L Potassium Chloride Carbon Dioxide BUN 51 H Creatinine 1.37 H Glucose 147 H POC Glucose (mg/dL) Plasma Lactic Acid Rip Calcium 7.7 L Ionized Calcium Morgan Phosphorus Magnesium Total Bilirubin AST ALT Alkaline Phosphatase Troponin I Total Protein Albumin Triglycerides HDL Cholesterol Free T3 pg/mL Urine Blood Urine Bacteria Urine Mucus Stool Occult Blood 01/24/25 01/24/25 01/24/25 06:15 12:00 17:41 WBC RBC Hgb Hct Plt Count Immature Gran # Neutrophils # Neutrophils # (Manual) Lymphocytes # Lymphocytes # (Manual) Monocytes # Monocytes # (Manual) Eosinophils # Metamyelocytes # (Man) Myelocytes # (Manual) Nucleated RBCs NRBC/100 WBC Diff PT INR ABG pH ABG pCO2 ABG pO2 ABG HCO3 ABG Total CO2 ABG O2 Saturation Hemoglobin Sodium Potassium Chloride Carbon Dioxide BUN Creatinine Glucose POC Glucose (mg/dL) 135 H 134 H 147 H Plasma Lactic Acid Rip Calcium Ionized Calcium Morgan Phosphorus Magnesium Total Bilirubin AST ALT Alkaline Phosphatase Troponin I Total Protein Albumin Triglycerides HDL Cholesterol Free T3 pg/mL Urine Blood Urine Bacteria Urine Mucus Stool Occult Blood 01/24/25 01/24/25 01/25/25 18:59 23:42 04:03 WBC RBC Hgb Hct Plt Count Immature Gran # Neutrophils # Neutrophils # (Manual) Lymphocytes # Lymphocytes # (Manual) Monocytes # Monocytes # (Manual) Eosinophils # Metamyelocytes # (Man) Myelocytes # (Manual) Nucleated RBCs NRBC/100 WBC Diff PT INR ABG pH ABG pCO2 ABG pO2 130 H ABG HCO3 30 H ABG Total CO2 31 H ABG O2 Saturation 99.7 H Hemoglobin Sodium Potassium Chloride Carbon Dioxide BUN Creatinine Glucose POC Glucose (mg/dL) 123 H 118 H Plasma Lactic Acid Rip Calcium Ionized Calcium Morgan Phosphorus Magnesium Total Bilirubin AST ALT Alkaline Phosphatase Troponin I Total Protein Albumin Triglycerides HDL Cholesterol Free T3 pg/mL Urine Blood Urine Bacteria Urine Mucus Stool Occult Blood 01/25/25 01/25/25 01/26/25 04:45 04:45 04:13 WBC 10.02 H RBC 3.70 L Hgb 11.1 L Hct 33.6 L Plt Count Immature Gran # 0.14 H Neutrophils # 8.13 H Neutrophils # (Manual) Lymphocytes # 0.69 L Lymphocytes # (Manual) Monocytes # Monocytes # (Manual) Eosinophils # 0.02 L Metamyelocytes # (Man) Myelocytes # (Manual) Nucleated RBCs NRBC/100 WBC Diff PT INR ABG pH ABG pCO2 ABG pO2 76 L ABG HCO3 29 H ABG Total CO2 30 H ABG O2 Saturation Hemoglobin 10.9 L Sodium 132 L Potassium 3.2 L Chloride Carbon Dioxide BUN 41 H Creatinine Glucose POC Glucose (mg/dL) Plasma Lactic Acid Rip Calcium 8.1 L Ionized Calcium Morgan Phosphorus Magnesium Total Bilirubin AST ALT Alkaline Phosphatase Troponin I Total Protein Albumin Triglycerides HDL Cholesterol Free T3 pg/mL Urine Blood Urine Bacteria Urine Mucus Stool Occult Blood 01/26/25 01/26/25 01/27/25 05:00 05:00 04:00 WBC 10.21 H RBC 3.47 L 3.66 L Hgb 10.6 L 10.9 L Hct 31.7 L 33.6 L Plt Count 139 L Immature Gran # 0.44 H 0.77 H Neutrophils # 7.79 H Neutrophils # (Manual) Lymphocytes # 0.89 L 0.81 L Lymphocytes # (Manual) Monocytes # 1.03 H 1.10 H Monocytes # (Manual) Eosinophils # 0.03 L Metamyelocytes # (Man) Myelocytes # (Manual) Nucleated RBCs NRBC/100 WBC Diff PT INR ABG pH ABG pCO2 ABG pO2 ABG HCO3 ABG Total CO2 ABG O2 Saturation Hemoglobin Sodium 131 L Potassium Chloride Carbon Dioxide BUN 25 H Creatinine Glucose POC Glucose (mg/dL) Plasma Lactic Acid Rip Calcium 7.9 L Ionized Calcium Morgan Phosphorus Magnesium Total Bilirubin AST ALT Alkaline Phosphatase Troponin I Total Protein Albumin Triglycerides HDL Cholesterol Free T3 pg/mL Urine Blood Urine Bacteria Urine Mucus Stool Occult Blood 01/27/25 01/27/25 01/28/25 04:00 15:45 00:03 WBC RBC Hgb Hct Plt Count Immature Gran # Neutrophils # Neutrophils # (Manual) Lymphocytes # Lymphocytes # (Manual) Monocytes # Monocytes # (Manual) Eosinophils # Metamyelocytes # (Man) Myelocytes # (Manual) Nucleated RBCs NRBC/100 WBC Diff PT INR ABG pH ABG pCO2 ABG pO2 ABG HCO3 ABG Total CO2 ABG O2 Saturation Hemoglobin Sodium 135 L Potassium Chloride Carbon Dioxide BUN 19 H Creatinine Glucose POC Glucose (mg/dL) 135 H Plasma Lactic Acid Rip Calcium 8.0 L Ionized Calcium Morgan 4.4 L Phosphorus Magnesium Total Bilirubin AST ALT Alkaline Phosphatase Troponin I Total Protein Albumin Triglycerides HDL Cholesterol Free T3 pg/mL Urine Blood Urine Bacteria Urine Mucus Stool Occult Blood 01/28/25 01/28/25 01/28/25 03:58 03:58 03:58 WBC 10.30 H RBC 3.40 L Hgb 10.1 L Hct 31.0 L Plt Count Immature Gran # 0.99 H Neutrophils # Neutrophils # (Manual) 7.93 H Lymphocytes # Lymphocytes # (Manual) Monocytes # Monocytes # (Manual) Eosinophils # Metamyelocytes # (Man) Myelocytes # (Manual) Nucleated RBCs NRBC/100 WBC Diff PT INR ABG pH ABG pCO2 ABG pO2 ABG HCO3 ABG Total CO2 ABG O2 Saturation Hemoglobin Sodium 134 L Potassium 3.4 L Chloride Carbon Dioxide 32 H BUN 21 H Creatinine Glucose 134 H POC Glucose (mg/dL) Plasma Lactic Acid Rip Calcium 7.6 L Ionized Calcium Morgan Phosphorus Magnesium 1.5 L Total Bilirubin AST ALT Alkaline Phosphatase Troponin I Total Protein 3.6 L Albumin 1.7 L Triglycerides HDL Cholesterol Free T3 pg/mL Urine Blood Urine Bacteria Urine Mucus Stool Occult Blood 01/28/25 01/28/25 01/29/25 11:53 18:40 00:20 WBC RBC Hgb Hct Plt Count Immature Gran # Neutrophils # Neutrophils # (Manual) Lymphocytes # Lymphocytes # (Manual) Monocytes # Monocytes # (Manual) Eosinophils # Metamyelocytes # (Man) Myelocytes # (Manual) Nucleated RBCs NRBC/100 WBC Diff PT INR ABG pH ABG pCO2 ABG pO2 ABG HCO3 ABG Total CO2 ABG O2 Saturation Hemoglobin Sodium Potassium Chloride Carbon Dioxide BUN Creatinine Glucose POC Glucose (mg/dL) 169 H 121 H 127 H Plasma Lactic Acid Rip Calcium Ionized Calcium Morgan Phosphorus Magnesium Total Bilirubin AST ALT Alkaline Phosphatase Troponin I Total Protein Albumin Triglycerides HDL Cholesterol Free T3 pg/mL Urine Blood Urine Bacteria Urine Mucus Stool Occult Blood 01/29/25 01/29/25 01/29/25 06:10 06:13 06:20 WBC 10.04 H RBC 3.58 L Hgb 10.8 L Hct 32.6 L Plt Count Immature Gran # 0.94 H Neutrophils # Neutrophils # (Manual) 8.63 H Lymphocytes # Lymphocytes # (Manual) 0.70 L Monocytes # Monocytes # (Manual) Eosinophils # Metamyelocytes # (Man) 0.30 H Myelocytes # (Manual) 0.20 H Nucleated RBCs 1 H NRBC/100 WBC Diff PT INR ABG pH ABG pCO2 ABG pO2 ABG HCO3 ABG Total CO2 ABG O2 Saturation Hemoglobin Sodium 134 L Potassium Chloride Carbon Dioxide 34 H BUN 22 H Creatinine Glucose 133 H POC Glucose (mg/dL) 126 H Plasma Lactic Acid Rip Calcium 7.5 L Ionized Calcium Morgan Phosphorus Magnesium Total Bilirubin AST ALT Alkaline Phosphatase Troponin I Total Protein 3.9 L Albumin 1.8 L Triglycerides HDL Cholesterol Free T3 pg/mL Urine Blood Urine Bacteria Urine Mucus Stool Occult Blood 01/29/25 01/29/25 01/29/25 13:00 18:12 23:59 WBC RBC Hgb Hct Plt Count Immature Gran # Neutrophils # Neutrophils # (Manual) Lymphocytes # Lymphocytes # (Manual) Monocytes # Monocytes # (Manual) Eosinophils # Metamyelocytes # (Man) Myelocytes # (Manual) Nucleated RBCs NRBC/100 WBC Diff PT INR ABG pH ABG pCO2 ABG pO2 ABG HCO3 ABG Total CO2 ABG O2 Saturation Hemoglobin Sodium Potassium Chloride Carbon Dioxide BUN Creatinine Glucose POC Glucose (mg/dL) 140 H 130 H 127 H Plasma Lactic Acid Rip Calcium Ionized Calcium Morgan Phosphorus Magnesium Total Bilirubin AST ALT Alkaline Phosphatase Troponin I Total Protein Albumin Triglycerides HDL Cholesterol Free T3 pg/mL Urine Blood Urine Bacteria Urine Mucus Stool Occult Blood 01/30/25 01/30/25 01/30/25 05:08 05:08 12:00 WBC 11.17 H RBC 3.51 L Hgb 10.5 L Hct 31.2 L Plt Count Immature Gran # 0.57 H Neutrophils # Neutrophils # (Manual) 10.28 H Lymphocytes # Lymphocytes # (Manual) 0.67 L Monocytes # Monocytes # (Manual) Eosinophils # Metamyelocytes # (Man) Myelocytes # (Manual) Nucleated RBCs NRBC/100 WBC Diff PT INR ABG pH ABG pCO2 ABG pO2 ABG HCO3 ABG Total CO2 ABG O2 Saturation Hemoglobin Sodium 133 L Potassium Chloride Carbon Dioxide 35 H BUN 23 H Creatinine 0.48 L Glucose 118 H POC Glucose (mg/dL) 114 H Plasma Lactic Acid Rip Calcium 7.8 L Ionized Calcium Morgan Phosphorus 2.4 L Magnesium Total Bilirubin AST ALT Alkaline Phosphatase Troponin I Total Protein 3.8 L Albumin 1.8 L Triglycerides HDL Cholesterol Free T3 pg/mL Urine Blood Urine Bacteria Urine Mucus Stool Occult Blood 01/30/25 01/31/25 01/31/25 18:20 00:14 04:00 WBC RBC Hgb Hct Plt Count Immature Gran # Neutrophils # Neutrophils # (Manual) Lymphocytes # Lymphocytes # (Manual) Monocytes # Monocytes # (Manual) Eosinophils # Metamyelocytes # (Man) Myelocytes # (Manual) Nucleated RBCs NRBC/100 WBC Diff PT INR ABG pH ABG pCO2 ABG pO2 ABG HCO3 ABG Total CO2 ABG O2 Saturation Hemoglobin Sodium Potassium Chloride Carbon Dioxide BUN Creatinine Glucose POC Glucose (mg/dL) 114 H 113 H Plasma Lactic Acid Rip Calcium Ionized Calcium Morgan Phosphorus Magnesium Total Bilirubin AST ALT Alkaline Phosphatase Troponin I Total Protein Albumin Triglycerides HDL Cholesterol Free T3 pg/mL Urine Blood Urine Bacteria Urine Mucus Stool Occult Blood Positive H 01/31/25 01/31/25 01/31/25 04:40 04:40 04:40 WBC 11.77 H RBC 3.53 L Hgb 10.6 L Hct 32.0 L Plt Count Immature Gran # 0.28 H Neutrophils # 9.83 H Neutrophils # (Manual) Lymphocytes # 0.79 L Lymphocytes # (Manual) Monocytes # Monocytes # (Manual) Eosinophils # Metamyelocytes # (Man) Myelocytes # (Manual) Nucleated RBCs NRBC/100 WBC Diff PT INR ABG pH ABG pCO2 ABG pO2 ABG HCO3 ABG Total CO2 ABG O2 Saturation Hemoglobin Sodium 133 L Potassium Chloride Carbon Dioxide 34 H BUN 24 H Creatinine 0.49 L Glucose 130 H POC Glucose (mg/dL) Plasma Lactic Acid Rip Calcium 7.7 L Ionized Calcium Morgan Phosphorus 2.4 L Magnesium Total Bilirubin AST ALT Alkaline Phosphatase Troponin I Total Protein 4.0 L Albumin 1.9 L Triglycerides 173.00 H HDL Cholesterol 32.60 L Free T3 pg/mL Urine Blood Urine Bacteria Urine Mucus Stool Occult Blood 01/31/25 01/31/25 01/31/25 06:03 07:18 12:02 WBC RBC Hgb Hct Plt Count Immature Gran # Neutrophils # Neutrophils # (Manual) Lymphocytes # Lymphocytes # (Manual) Monocytes # Monocytes # (Manual) Eosinophils # Metamyelocytes # (Man) Myelocytes # (Manual) Nucleated RBCs NRBC/100 WBC Diff PT INR ABG pH ABG pCO2 ABG pO2 ABG HCO3 ABG Total CO2 ABG O2 Saturation Hemoglobin Sodium Potassium Chloride Carbon Dioxide BUN Creatinine Glucose POC Glucose (mg/dL) 168 H 133 H 121 H Plasma Lactic Acid Rip Calcium Ionized Calcium Morgan Phosphorus Magnesium Total Bilirubin AST ALT Alkaline Phosphatase Troponin I Total Protein Albumin Triglycerides HDL Cholesterol Free T3 pg/mL Urine Blood Urine Bacteria Urine Mucus Stool Occult Blood 01/31/25 01/31/25 01/31/25 13:10 18:21 23:29 WBC RBC Hgb Hct Plt Count Immature Gran # Neutrophils # Neutrophils # (Manual) Lymphocytes # Lymphocytes # (Manual) Monocytes # Monocytes # (Manual) Eosinophils # Metamyelocytes # (Man) Myelocytes # (Manual) Nucleated RBCs NRBC/100 WBC Diff PT INR ABG pH ABG pCO2 ABG pO2 ABG HCO3 ABG Total CO2 ABG O2 Saturation Hemoglobin Sodium Potassium Chloride Carbon Dioxide BUN Creatinine Glucose POC Glucose (mg/dL) 127 H 136 H Plasma Lactic Acid Rip Calcium Ionized Calcium Morgan Phosphorus Magnesium Total Bilirubin AST ALT Alkaline Phosphatase Troponin I Total Protein Albumin Triglycerides HDL Cholesterol Free T3 pg/mL Urine Blood Trace H Urine Bacteria Rare H Urine Mucus Rare H Stool Occult Blood 02/01/25 02/01/25 02/01/25 03:37 03:37 05:49 WBC RBC 3.28 L Hgb 9.7 L Hct 30.1 L Plt Count Immature Gran # 0.14 H Neutrophils # 7.97 H Neutrophils # (Manual) Lymphocytes # 0.51 L Lymphocytes # (Manual) Monocytes # Monocytes # (Manual) Eosinophils # Metamyelocytes # (Man) Myelocytes # (Manual) Nucleated RBCs NRBC/100 WBC Diff 0.03 H PT INR ABG pH ABG pCO2 ABG pO2 ABG HCO3 ABG Total CO2 ABG O2 Saturation Hemoglobin Sodium 131 L Potassium Chloride 97 L Carbon Dioxide 33 H BUN 24 H Creatinine 0.49 L Glucose 119 H POC Glucose (mg/dL) 139 H Plasma Lactic Acid Rip Calcium 7.6 L Ionized Calcium Morgan Phosphorus Magnesium Total Bilirubin AST 40 H ALT 38 H Alkaline Phosphatase Troponin I Total Protein 3.7 L Albumin 1.7 L Triglycerides HDL Cholesterol Free T3 pg/mL Urine Blood Urine Bacteria Urine Mucus Stool Occult Blood Assessment and Plan Assessment: This is an 84-year-old woman who presents the emergency department because of acute abdomen. She was found to have acute abdomen secondary to acute ischemia bowel and strangulated right inguinal hernia and had status post exploratory laparotomy. She has acute hypoxic respiratory failure due to fluid overload. Yesterday was felt the patient had dysarthria and she had a CT of the head which was unremarkable. Acute dysarthria/hoarseness of the voice and I feel it is probable due to her acute hypoxic respiratory failure/fluid overload. Rule out any acute stroke Altered mental status due to metabolic and septic encephalopathy. Acute abdomen secondary to acute ischemic bowel and strangulated right inguinal hernia status post exploratory laparotomy and repair of strangulated inguinal hernia and bowel resection. Acute hypoxic respiratory failure secondary due to fluid overload Acute kidney injury improving Underlying history of paroxysmal A-fib and eliquis held because of acute abdomen and FOBT Underlying dementia Dyslipidemia Plan: MRI of the brain is ordered by the primary team is pending If the patient does have a stroke then we will get a rest of the stroke workup. Will defer the use of anticoagulation or antiplatelet to the primary team once patient is more stable. Will defer the rest of the medical matter of the primary and other specialist Thank you for the consultation. Time with Patient: Greater than 30
--- NOTE | 2025-02-01 12:08 | P.PN ---
Subjective Progress Note Date: 02/01/25 SURGICAL PROGRESS NOTE CHIEF COMPLAINT: Strangulated right inguinal hernia, ischemic small bowel HISTORY OF PRESENT ILLNESS: Postop day #10 status post repair of strangulated right inguinal hernia with small bowel resection, repair of left internal hernia and repair of incisional hernia. Nursing staff reports drainage from the distal aspect of the incision. They are changing the dressing twice a shift. Patient did not eat breakfast this morning. She does have TPN. She is having bowel movements. She is lying in bed comfortably. She is scheduled for an MRI of the brain for stroke evaluation today. Seen by neurology. Afebrile. WBC is down from 11.7-9.26 Hgb 9.[address] Nguyen is covering for Dr. Stone PHYSICAL EXAM: VITAL SIGNS: Reviewed. GENERAL: Well-developed in no acute distress. ABDOMEN: Soft. Nondistended. Midline incision with minimal serosanguineous drainage noted on the dressing at the distal aspect. No erythema around the incision. ASSESSMENT: 1. Strangulated right inguinal hernia, ischemic small bowel, left internal hernia, incisional hernia 2. Severe protein calorie malnutrition PLAN: -Continue regular diet -Continue TPN for now until oral intake improves -Discontinue IV fluids -Continue antibiotics -Will have nursing staff chlorhexidine wipe incision daily and cover with ABD pad. -DVT prophylaxis subcu heparin Physician Curatorial Assistant note has been reviewed by physician. Signing provider agrees with the documented findings, assessment, and plan of care. I have personally seen and examined the patient, reviewed the JEWEL STAKER /PAs history, exam and MDM and agree with the assessment and plan as written. Based on total visit time, I have performed more than 50% of the visit. As above: Patient with changes in mental status over the last 48 hours. No fevers. White blood cell count normal. Neurology consulted. MRI pending to evaluate for possible acute stroke. Continue TPN along with diet for now. Objective - Vital Signs Vital signs: Vital Signs Temp 97.9 F 02/01/25 07:05 Pulse 100 02/01/25 11:55 Resp 18 02/01/25 11:55 BP 125/62 02/01/25 07:05 Pulse Ox 95 02/01/25 07:05 FiO2 21 01/27/25 07:49 Intake & Output 01/31/25 02/01/25 02/01/25 18:59 06:59 18:59 Intake Total 100 240 Output Total 1825 425 Balance -1725 -425 240 Intake: Oral 100 240 Output: Urine 2733 455 Other: Voiding Method Indwelling Catheter Indwelling Catheter Indwelling Catheter # Bowel Movements 2 ABP, PAP, CO, CI - Last Documented Arterial Blood Pressure 136/41 - Labs CBC & Chem 7: 02/01/25 03:37 02/01/25 03:37 Labs: Abnormal Lab Results - Last 24 Hours (Table) 01/29/25 01/31/25 01/31/25 Range/Units 13:00 04:40 12:02 RBC (4.10-5.20) X 10*6/uL Hgb (12.0-15.0) g/dL Hct (37.2-46.3) % Immature Gran # (0.00-0.04) X 10*3/uL Neutrophils # (1.80-7.70) X 10*3/uL Lymphocytes # (0.90-5.00) X 10*3/uL NRBC/100 WBC Diff (0.00-0.01) X 10*3/uL Sodium (137-145) mmol/L Chloride (98-107) mmol/L Carbon Dioxide (22-30) mmol/L BUN (7-17) mg/dL Creatinine (0.52-1.04) mg/dL Glucose (74-99) mg/dL POC Glucose (mg/dL) 140 H 121 H (70-110) mg/dL Calcium (8.4-10.2) mg/dL AST (14-36) U/L ALT (4-34) U/L Total Protein (6.3-8.2) g/dL Albumin (3.5-5.0) g/dL Triglycerides 173.00 H (0.00-149.00) mg/dL HDL Cholesterol 32.60 L (40.00-60.00) mg/dL Urine Blood (Negative) Urine Bacteria (None) /hpf Urine Mucus (None) /hpf 01/31/25 01/31/25 01/31/25 Range/Units 13:10 18:21 23:29 RBC (4.10-5.20) X 10*6/uL Hgb (12.0-15.0) g/dL Hct (37.2-46.3) % Immature Gran # (0.00-0.04) X 10*3/uL Neutrophils # (1.80-7.70) X 10*3/uL Lymphocytes # (0.90-5.00) X 10*3/uL NRBC/100 WBC Diff (0.00-0.01) X 10*3/uL Sodium (137-145) mmol/L Chloride (98-107) mmol/L Carbon Dioxide (22-30) mmol/L BUN (7-17) mg/dL Creatinine (0.52-1.04) mg/dL Glucose (74-99) mg/dL POC Glucose (mg/dL) 127 H 136 H (70-110) mg/dL Calcium (8.4-10.2) mg/dL AST (14-36) U/L ALT (4-34) U/L Total Protein (6.3-8.2) g/dL Albumin (3.5-5.0) g/dL Triglycerides (0.00-149.00) mg/dL HDL Cholesterol (40.00-60.00) mg/dL Urine Blood Trace H (Negative) Urine Bacteria Rare H (None) /hpf Urine Mucus Rare H (None) /hpf 02/01/25 02/01/25 02/01/25 Range/Units 03:37 03:37 05:49 RBC 3.28 L (4.10-5.20) X 10*6/uL Hgb 9.7 L (12.0-15.0) g/dL Hct 30.1 L (37.2-46.3) % Immature Gran # 0.14 H (0.00-0.04) X 10*3/uL Neutrophils # 7.97 H (1.80-7.70) X 10*3/uL Lymphocytes # 0.51 L (0.90-5.00) X 10*3/uL NRBC/100 WBC Diff 0.03 H (0.00-0.01) X 10*3/uL Sodium 131 L (137-145) mmol/L Chloride 97 L (98-107) mmol/L Carbon Dioxide 33 H (22-30) mmol/L BUN 24 H (7-17) mg/dL Creatinine 0.49 L (0.52-1.04) mg/dL Glucose 119 H (74-99) mg/dL POC Glucose (mg/dL) 139 H (70-110) mg/dL Calcium 7.6 L (8.4-10.2) mg/dL AST 40 H (14-36) U/L ALT 38 H (4-34) U/L Total Protein 3.7 L (6.3-8.2) g/dL Albumin 1.7 L (3.5-5.0) g/dL Triglycerides (0.00-149.00) mg/dL HDL Cholesterol (40.00-60.00) mg/dL Urine Blood (Negative) Urine Bacteria (None) /hpf Urine Mucus (None) /hpf
[2025-02-01 12:17] LABS: Glucose,Whole Blood 120 mg/dL (70-110)
[2025-02-01] MEDS: MAGNESIUM SULFATE-D5W PMX 1 GM in DEXTROSE/WATER 1 100ML.BAG IVPB SCH (12:40)
[2025-02-01] MEDS: POTASSIUM CHLORIDE 20 MEQ in WATER FOR INJECTION 1 100ML.BAG IVPB SCH (12:40)
[2025-02-01] MEDS: MVI, ADULT NO.4 WITH VIT K 10 ML, TRACE (CONC-1ML/DOSE) 1 ML, SODIUM CHLORIDE 4MEQ/ML V... IV SCH (13:07)
--- NOTE | 2025-02-01 13:20 | P.PN ---
Subjective Progress Note Date: 02/01/25 This is a 84-year-old female patient who presented to the emergency department with acute abdomen. The patient had abdominal pain and she had a CT scan of the abdomen and pelvis done in the Emergency Department that showed evidence of biliary air within the liver with pneumatosis intestinalis within the stomach wall. Patient also had dilated fluid-filled small bowel and transition at the left inguinal hernia level. Based on that, the patient was taken to the operating room. Noted the patient had a DNR/DNI CODE STATUS. The CODE STATUS was switched for the sake of the procedure and she was placed on a full code. In the operating room, the patient underwent a exploratory laparotomy and the patient was found to have strangulated right inguinal hernia, ischemic small bowel and incisional hernia. The patient underwent a repair of the strangulated right inguinal hernia with small bowel resection and repair of the left internal hernia repair of the incisional hernia. Estimated blood loss was 20 cc. Noted postop, the patient was kept intubated and she was brought into the intensive care unit for further monitoring. At this point in time, the patient remains intubated on the mechanical ventilator. She is on propofol running at 55 mcg/kg/min. She has already received a total of 2 L of IV fluids and she is currently on lactated Ringer at rate of 150 cc an hour. The patient is on a r ate of 14, tidal volume of 400, FiO2 of 100% with a PEEP of 5. The blood gases showed a pH of 7.46 with a [id number] and PO2 of 341. Chest x-ray postop showed adequate expansion of both lungs. Orotracheal tube was just above the tess. NG tube was in place. No airspace disease. No consolidation. No pneumothorax. No pleural effusion. No noted air under the diaphragm. The patient is currently on no pressors. Hemodynamically stable. She is on no antibiotics for now. Blood work from this morning showed a WBC count of 10, hemoglobin of 18 and a platelet count of 213. Sodium is at 132, BUN 64 with a creatinine of 1.7 and a potassium level of 4.1 and a chloride is 87 with a bicarb level of 32. Initial lactic acid level was at 4.5. proBNP level is 3230. TSH was 1.7 with a free T4 of 2.1. The viral screen was negative. LFTs were normal. Troponin was 0.09. 01/23/2025, the patient remains intubated on mechanical ventilator. The patient is currently on propofol for respiratory. The patient is on assist-control mode of mechanical ventilation at rate of 14, tidal volume of 400, FiO2 40% with a PEEP of 5. Blood gas showed a pH of 7.34 with a [id number] and PO2 of 86. Remains on lactated Ringer at rate of 150 cc an hour. Net fluid balance is +6.3 L over the past 24 hours and the patient remains on norepinephrine running at 0.3 mcg/kg/min. The patient also went into atrial fibrillation with RVR. The patient was started on albuterol protocol. The patient converted to normal sinus rhythm. Amiodarone drip is still running at 0.5 mg/min. The patient's white cell count is 15 with a hemoglobin 15.20 platelet count of 183. Sodium is at 133, BUN is 57 with a creatinine of 0.9 and a potassium level of 3.5. Lactic acid level has returned to 1.7. Calcium is at 7.3. Surgical wound bed is dry clean and intact. No other significant events overnight. On 01/24/2025, the patient is being seen for a follow-up. The patient remains intubated on mechanical ventilator. The patient remains on propofol running at 45 mcg/kg/min. Calm and comfortable and pressor requirements have improved compared to yesterday. For now, and this morning, the patient remains on lactated Ringer at rate of 150 cc an hour. The patient is on norepinephrine at 0.18 mcg/kg/min and vasopressin physiologic dose. Fluid balance is +6.2 L over the past 24 hours as the patient received several fluid boluses yesterday. Current CVP is at 8. Also, the patient is on assist-control mode of mechanical ventilation at rate of 14, tidal volume of 400, FiO2 40% with a PEEP of 5. pH is 7.35 with a pCO2 of 49 and pO2 of 93. The patient is afebrile. The patient remains on a combination of Zosyn and vancomycin. The patient is also on amiodarone at 0.5 mL milligrams per minute regarding her atrial fibrillation which is essentially well-controlled for now. The white cell count is at 12.5, hemoglobin is 11.6 and the platelet count of 174. There is 73% neutrophilia. Sodium is at 131, potassium 3.5, BUN 51 with a creatinine of 1.3. Potassium is at 3.5. Renal function continues to improve and the serum bicarb is at 23. Blood sugars at 147. The patient's echocardiogram done on 01/23/2025 was reviewed and it shows a normal preserved LV function with ejection fraction of 50 to 55%. Mild MR, mild TR, no significant valvular heart disease. The patient remains NPO. No other significant events overnight. Seen today on 01/25/2025, patient remains in the ICU intubated and mechanically ventilated, she is now postoperative day #3 on assist-control rate 14 tidal volume 400 FiO2 40% PEEP of 5 ABG showed a pO2 of 130 pCO2 44 pH of 7.44 and her FiO2 was cut down to 30%. Patient remains on LR at 150 mL/h propofol at 15 mcg/kg/min amiodarone at 0.5 mg/min. Empirically remains on Zosyn for her abdominal sepsis. Patient has underlying dementia and she is F resident. Patient is sedated, does not seem to be opening her eyes with verbal stimuli or deep painful stimuli, I am planning to give the patient today a sedation holiday and assess mental status off sedation. WBC count is 10.0 hemoglobin 11.1. Platelets are 1 42,000. Potassium is a little low at 3.2, renal profile is normal BUN 41 creatinine 0.98 blood sugar is 106 chest x-ray showed endotracheal tube to be lying low close to the tess, there is a small moderate left pleural effusion and small right pleural effusion with atelectasis. Patient was seen today on 01/26/2025, remains in the ICU intubated and mechanically ventilated. On assist-control rate 14 tidal volume 400 FiO2 30% and PEEP of 5 ABG showed a pO2 of 76 pCO2 41 pH of 7.45, hence no ventilator changes were made. Chest x-ray showed minimal pleural effusions, and mild interstitial prominence, with minimal basilar opacities/atelectasis. Patient is on amiodarone drip at 0.5 mg/min propofol 25 mcg/kg/min LR at 75 cc/h remains on Zosyn remains on heparin subcu and the patient remains DNR. WBC count is 10.2 hemoglobin 10.6, basic metabolic profile is normal BUN is 25 creatinine 0.73. Medications limon remains on multiple meds as listed patient is also on GI and DVT prophylaxis not requiring any pressors today. Patient is quite sedated, yesterday we attempted to awaken the patient and give the patient a weaning trial however the patient was having intermittent episodes of vomiting hence we held back on further weaning. We will initiate that again today and if tolerated may go to pressure support trial and CPAP. Seen today on 01/27/2025, remains in the ICU, patient was extubated yesterday she is now on nasal cannula, at 2 L/min. Her nasogastric tube will be discontinued today. Patient has a CVP of 6 today, urine output is about 40 cc/h hence I recommended 1 dose of Lasix 40 mg IV push since her chest x-ray is showing interstitial edema. Patient is to be given TPN today after nasogastric tube discontinuation. And this should be addressed by dietitian. Patient looks frail, chronically ill, weak, but nonetheless she seems to be tolerating the extubation rather well and better than expected. WBC count is 9.7 hemoglobin 10.9 electrolytes are normal renal profile is normal BUN is 19 creatinine 0.61, chest x-ray showed moderate left and small right-sided pleural effusion with bibasilar interstitial opacities. Patient was seen today on 01/28/2025, remains on 2 L nasal cannula, not in any distress, patient diuresed well yesterday, she is -4.2 L in the last 24 hours, however her chest x-ray continues to show worsening interstitial edema, hence more Lasix will be given today 20 mg IV push. Patient seems to be frail, extre nicci weak, but arousable, follows simple instructions. Labs today were reviewed WBC count is 10.3 hemoglobin 10.1 electrolytes are normal except for low potassium 3.4 renal profile is normal The patient is seen today January 29, 2025 in follow-up on the regular medical floor. She was transferred out of the intensive care unit yesterday. She is currently sitting up in bed. Awake and alert in no acute distress. She remains quite weak and debilitated. Maintaining good O2 saturations in the 90s on 2 L/min per nasal cannula. She is afebrile. Hemodynamically stable. Blood culture revealed no growth. White count 10.0. Hemoglobin 10.8. Platelets 213. Sodium 134. Potassium 3.5. Bicarb 34. BUN 22. Creatinine 0.54. Glucose 133. She is being nourished with TPN at 30 mL/h along with lipids every 72 hours. Heparin for DVT prophylaxis. Remains on bronchodilators. Remains on Protonix. Antibiotics in the form of Zosyn. The patient is seen today January 30, 2025 in follow-up on the regular medical floor. She is currently resting in bed. Awake and alert in no acute distress. Maintaining O2 saturations in the 90s on 2 L/min per nasal cannula. She has been afebrile. Hemodynamically stable. 205. Sodium 133. Potassium 3.9. Bicarb 35. BUN 23. Creatinine 0.48. Glucose 118. She is continued on DuoNeb and elations. Heparin for DVT prophylaxis. Continued on Zosyn. Remains on TPN and lipids for nutritional support. Her diet has been advanced to regular per surgical services. The patient is seen today January 31, 2025 in follow-up on the regular medical floor. She is currently awake and alert. A rapid response team was called on her early this morning due to increasing shortness of breath. X-ray revealed persistent central venous congestion with small left pleural effusion and tiny right pleural effusion. She was given Lasix 40 mg IVP x 1. She was monitored on the floor for 30 minutes and showing signs of improvement. Lung sounds improved. She was maintaining good O2 saturations in the 90s on 3 L/min per nasal cannula. Presently she is resting comfortably in bed. No worsening shortness of breath, cough or congestion. She is afebrile. Hemodynamically sta ble. She remains on DuoNeb inhalations. Being nourished with TPN at 30 mL/h. Lipids every 72 hours. Remains antibiotics in the form of Zosyn. White count 11.7. Hemoglobin 10.6. Platelets 272. Sodium 133. Potassium 3.8. Bicarb 34. BUN 24. Creatinine 0.49. Glucose 130. Stool for occult blood was positive. The patient is seen today February 01, 2025 in follow-up on the regular medical floor. She is currently resting in bed. Awake and alert in no acute distress. She remains quite weak and debilitated. She is maintaining O2 saturations in the mid 90s on 2 L/min per nasal cannula. She has been afebrile. Hemodynamically stable. CT scan of the brain revealed no acute intracranial hemorrhage or midline shift. MRI of the brain is pending. She remains off Eliquis due to recent GI bleed. She is continued on heparin for DVT prophylaxis. Continued on bronchodilators. Continues to be nourished with TPN at 30 mL/h. Lipids every 72 hours. Remains on antibiotics in the form of Zosyn. White count 9.2. Hemoglobin 9.7. Platelets 249. Sodium 131. Potassium 3.5. Bicarb 33. BUN 24. Creatinine 0.49. Glucose 119. Objective - Vital Signs Vital signs: Vital Signs Temp 98.2 F 02/01/25 12:33 Pulse 96 02/01/25 12:33 Resp 17 02/01/25 12:33 BP 127/66 02/01/25 12:33 Pulse Ox 96 02/01/25 12:33 FiO2 21 01/27/25 07:49 Intake & Output 01/31/25 02/01/25 02/01/25 18:59 06:59 18:59 Intake Total 100 240 Output Total 1825 425 Balance -1725 -425 240 Intake: Oral 100 240 Output: Urine 1825 425 Other: Voiding Method Indwelling Catheter Indwelling Catheter Indwelling Catheter # Bowel Movements 2 ABP, PAP, CO, CI - Last Documented Arterial Blood Pressure 136/41 - Exam GENERAL EXAM: Alert, frail, weak 84-year-old female, resting in bed, on 2 L nasal cannula, in no apparent distress. HEAD: Normocephalic. EYES: Normal reaction of pupils, equal size. NOSE: Clear with pink turbinates. THROAT: No erythema or exudates. NECK: No masses, no JVD. CHEST: No chest wall deformity. LUNGS: Equal air entry with crackles in the bilateral bases. CVS: S1 and S2 normal with no audible murmur, regular rhythm. ABDOMEN: Prevena wound VAC in place. No hepatosplenomegaly, normal bowel sounds, no guarding or rigidity. SPINE: No scoliosis or deformity SKIN: No rashes CENTRAL NERVOUS SYSTEM: No focal deficits, tone is normal in all 4 extremities. EXTREMITIES: There is no peripheral edema. No clubbing, no cyanosis. Peripheral pulses are intact. - Labs CBC & Chem 7: 02/01/25 03:37 02/01/25 03:37 Labs: Abnormal Lab Results - Last 24 Hours (Table) 01/29/25 01/31/25 01/31/25 Range/Units 13:00 04:40 13:10 RBC (4.10-5.20) X 10*6/uL Hgb (12.0-15.0) g/dL Hct (37.2-46.3) % Immature Gran # (0.00-0.04) X 10*3/uL Neutrophils # (1.80-7.70) X 10*3/uL Lymphocytes # (0.90-5.00) X 10*3/uL NRBC/100 WBC Diff (0.00-0.01) X 10*3/uL Sodium (137-145) mmol/L Chloride (98-107) mmol/L Carbon Dioxide (22-30) mmol/L BUN (7-17) mg/dL Creatinine (0.52-1.04) mg/dL Glucose (74-99) mg/dL POC Glucose (mg/dL) 140 H (70-110) mg/dL Calcium (8.4-10.2) mg/dL AST (14-36) U/L ALT (4-34) U/L Total Protein (6.3-8.2) g/dL Albumin (3.5-5.0) g/dL Triglycerides 173.00 H (0.00-149.00) mg/dL HDL Cholesterol 32.60 L (40.00-60.00) mg/dL Urine Blood Trace H (Negative) Urine Bacteria Rare H (None) /hpf Urine Mucus Rare H (None) /hpf 01/31/25 01/31/25 02/01/25 Range/Units 18:21 23:29 03:37 RBC 3.28 L (4.10-5.20) X 10*6/uL Hgb 9.7 L (12.0-15.0) g/dL Hct 30.1 L (37.2-46.3) % Immature Gran # 0.14 H (0.00-0.04) X 10*3/uL Neutrophils # 7.97 H (1.80-7.70) X 10*3/uL Lymphocytes # 0.51 L (0.90-5.00) X 10*3/uL NRBC/100 WBC Diff 0.03 H (0.00-0.01) X 10*3/uL Sodium (137-145) mmol/L Chloride (98-107) mmol/L Carbon Dioxide (22-30) mmol/L BUN (7-17) mg/dL Creatinine (0.52-1.04) mg/dL Glucose (74-99) mg/dL POC Glucose (mg/dL) 127 H 136 H (70-110) mg/dL Calcium (8.4-10.2) mg/dL AST (14-36) U/L ALT (4-34) U/L Total Protein (6.3-8.2) g/dL Albumin (3.5-5.0) g/dL Triglycerides (0.00-149.00) mg/dL HDL Cholesterol (40.00-60.00) mg/dL Urine Blood (Negative) Urine Bacteria (None) /hpf Urine Mucus (None) /hpf 02/01/25 02/01/25 02/01/25 Range/Units 03:37 05:49 12:16 RBC (4.10-5.20) X 10*6/uL Hgb (12.0-15.0) g/dL Hct (37.2-46.3) % Immature Gran # (0.00-0.04) X 10*3/uL Neutrophils # (1.80-7.70) X 10*3/uL Lymphocytes # (0.90-5.00) X 10*3/uL NRBC/100 WBC Diff (0.00-0.01) X 10*3/uL Sodium 131 L (137-145) mmol/L Chloride 97 L (98-107) mmol/L Carbon Dioxide 33 H (22-30) mmol/L BUN 24 H (7-17) mg/dL Creatinine 0.49 L (0.52-1.04) mg/dL Glucose 119 H (74-99) mg/dL POC Glucose (mg/dL) 139 H 120 H (70-110) mg/dL Calcium 7.6 L (8.4-10.2) mg/dL AST 40 H (14-36) U/L ALT 38 H (4-34) U/L Total Protein 3.7 L (6.3-8.2) g/dL Albumin 1.7 L (3.5-5.0) g/dL Triglycerides (0.00-149.00) mg/dL HDL Cholesterol (40.00-60.00) mg/dL Urine Blood (Negative) Urine Bacteria (None) /hpf Urine Mucus (None) /hpf Assessment and Plan Assessment: Acute abdomen secondary to an acute ischemic bowel and strangulated right inguinal hernia. Status post exploratory laparotomy, repair of strangulated inguinal hernia and small bowel resection with a left internal hernia repair and repair of incisional hernia on 01/22/2025. Kept on the ventilator in the ICU postoperatively. Subsequently extubated and currently on 2 L nasal cannula Acute hypoxic respiratory failure secondary to fluid volume overload, responding well to diuretics Suspect septic shock secondary to abdominal sepsis, patient required norepinephrine in spite of fluid boluses recovered Acute kidney injury, improved Acute lactic acidosis secondary to ischemic small bowel, improved Acute troponin leak secondary to sepsis type II myocardial ischemia Underlying dementia Dyslipidemia History of previous bowel resection in 2013 and bowel perforation requiring PEG tube placement at the time Poor overall functional performance based on the above-mentioned multiple comorbidities Plan: The patient was seen and evaluated Labs and medications reviewed Remains on O2 at 2 L/min per nasal cannula Remains on antibiotics in the form of Zosyn Remains on bronchodilators Continue to utilize the incentive spirometer Heparin for DVT prophylaxis Protonix for GI prophylaxis Continue TPN/lipids for nutritional support DNR CODE STATUS Prognosis remains poor Plan is to return to [facility] at discharge This patient was seen independently by the pulmonary nurse practitioner addressing pulmonary issues I have personally seen and examined the patient, performed the documentation and the assessment and plan as written. Number of minutes spent on the visit: 23 Dictation was produced using [employer] dictation software. Please excuse any grammatical, word or spelling errors.
[2025-02-01 16:42] LABS: Glucose,Whole Blood 151 mg/dL (70-110)
--- NOTE | 2025-02-01 22:23 | P.PN ---
Subjective Progress Note Date: 02/01/25 patient is a 84-year-old lady with past medical history significant for GERD, hyperlipidemia who is a resident of [facility] who initially presented to the ER for nausea vomiting nominal pain for the last 3 days. Workup in the ER showed a CT scan showing biliary air within the liver with pneumatosis intestinalis within the stomach wall, Mesenteric ischemia should be considered,Dilated fluid-filled small bowel loops,Some of transition may be in left inguinal hernia. Patient was admitted under surgery and was taken for emergent exploratory laparotomy with repair of strangulated right inguinal hernia with small bowel resection,repair of left internal hernia and repair of incisional hernia. Postoperatively patient was intubated and was admitted to ICU 01/24. Patient seen and examined. Patient continues to be on mechanical ventilator, labs done this morning showedWBC 12.53, hemoglobin 11.6, sodium 131, potassium 3.5, BUN 15, creatinine 1.37, calcium 10.7. 01/25. Patient seen and examined. Continues to be on mechanical ventilation. Currently on amiodarone drip. Patient also on IV Levophed and vasopressin. Continue IV Zosyn. 01/26. Patient seen and examined. Labs done today showed WBC 10.21, hemoglobin 10.6, platelet count 139, sodium 131, potassium 3.8, BUN 25, creatinine 0.73 patient was extubated this morning 01/27/2025 Patient is seen in follow-up continues to be in the ICU was recently extubated maintained on 2 L via nasal cannula. Patient remains n.p.o. and awaiting enteral nutrition with TPN. Multiple consultations following as patient remains in the ICU and is postop day #5 from resection and small bowel inguinal hernia repair. Chest x-ray showing some edema and vascular congestion is being given a dose of Lasix and recommend monitoring kidney functions closely, current BUN is 19 with a creatinine of 0.6. Patient was continued on IV Zosyn and is being discontinued being closely monitored off IV antibiotics. Prognosis remains extremely guarded at this time and patient is in no code. Magnesium is 1.6 today and will monitor and follow-up with repeat labs and replace per protocol. 01/28/2025 Patient is seen in follow-up today lethargic although arousable and more alert today. Patient is responding appropriately and following commands although lethargic and fatigues easily. Patient continued on 2 L via nasal cannula and remains n.p.o. although being evaluated by speech and being started on a diet and will continue on TPN for now and will be weaned slowly. Patient is afebrile with no reports of chest pain or shortness of breath. Patient is having bowel movements and general surgery following closely. Patient is a downgrade from the ICU to [facility]. Magnesium is slightly low at 1.6 and potassium and is being replaced per protocol. Will follow-up on repeat labs. Plan will be for returning to [facility] once cleared by consultations in stable. 01/29/2025 Patient is seen in follow-up today with son at the bedside okay does awaken and respond appropriately and follows commands although fatigues easily and falls asleep. Patient is denying any chest pain or shortness of breath. Patient has been started on a diet and tolerating thus far still not eating much and is maintained on TPN. Patient did have magnesium and potassium replaced which are within normal limits and will follow-up on repeat labs and replace per protocol. Patient is extremely weak and will be going to [facility] on discharge. Will attempt to wean TPN and encourage oral intake over the weekend and discuss further with consultations regarding possible discharge planning to [facility] next week. 01/30/2025 Patient is evaluated in follow-up in the medical floor. She is awake alert and oriented. She does continue to fall asleep easily. Family at the bedside states that they will help encourage her to be awake and to eat meals. She re tobin on TPN at this time as she is continued to have poor oral intake. White blood cell count today 11.17, hemoglobin 10.5, sodium 133, BUN of 23 creatinine of 0.48. Patient is currently afebrile and is maintaining oxygen saturations on 2 L of oxygen via nasal cannula. 01/31/2025 Patient is evaluated today in follow up on the medical floor. She is confused and lethargic today; appears to be encephalopathic. Chest xray done showing CHF and given a dose of IV lasix. Does have lower extremity edema however lungs are essentially clear. Remains on TPN. Brain CT was completed as patient is curre ntly dysarthric which has been a change from yesterday, The brain CT dose reveal a questionable area in the left frontal lobe of possible subacute or chronic infarct; 02/01/2025 Patient is evaluated today in follow up. Patient remains lethargic. Was able to sit up at the bedside with PT earlier this AM. [facility] pending. Neurology following. Patient continues with poor oral intake, remains on TPN. Discussion with family at the bedside regarding hospice and comfort measures. Patient with advanced dementia at baseline. Labs today reveal white blood cell count 9.26, hgb 9.7, sodium 131, BUN 24, creatinine 0.49. Magnesium 1.7. LFTs elevated. Review of systems: Unable to complete due to patients current mentation All medications have been reviewed PHYSICAL EXAMINATION: GENERAL: The patient is lethargic, alert and oriented x1. Patient fatigues easily and falls asleep. Well-developed, elderly appearing, ill-appearing, obese HEENT: Pupils are round and equally reacting to light. EOMI. No scleral icterus. No conjunctival pallor. Normocephalic, atraumatic. No pharyngeal erythema. No thyromegaly. CARDIOVASCULAR: S1 and S2 muffled PULMONARY: Diminished breath sounds bilaterally with faint crackles and scattered rhonchi noted. ABDOMEN: Laparotomy surgical incisions seen, and dressing is dry and intact MUSCULOSKELETAL: No joint swelling or deformity. EXTREMITIES: No cyanosis, clubbing, or pedal edema. Generalized edema noted of upper and lower extremities NEUROLOGICAL: Unable to completely assess as patient is lethargic although arousable, diffusely weak appears dysarthric SKIN: No rashes. Assessment: Acute abdomen due to ischemic bowel status post post expiratory laparotomy with repair of a strangulated right inguinal hernia with small bowel resection and repair of a left internal hernia and repair of an incisional hernia. Acute respiratory failure, nonhypoxic and the patient was kept intubated on mechanical ventilator postop due to mentation, improving currently on 2 L via nasal cannula Acute metabolic encephalopathy due to sepsis with concerns of septic shock. Improving Acute leukocytosis secondary to above Acute kidney injury Volume overload; mild diastolic dysfunction status post IV lasix x 1 Altered mentation with dysarthria concern for an acute stroke - Brain CT reviewed Acute lactic acidosis, improved Mild troponin elevation, likely type II myocardial ischemia mismatch secondary to sepsis History of dementia History of paroxysmal atrial fibrillation current rhythm is sinus and the patient has been taking Eliquis on outpatient basis Hyperlipidemia History of fall Previous history of bowel resection back in 2013 for a bowel perforation requiring subsequent PEG tube insertion and removal GI prophylaxis DVT prophylaxis No code Plan: Patient has been transferred out of the ICU on the medical floor with multiple consultations following. Patient is continued on IV Zosyn Patient has been extubated successfully currently on 2 L, wean FiO2 as tolerated. Patient would benefit from incentive spirometer although significantly weak and unsure if patient can tolerate using Patient is currently n.p.o. and maintained on TPN for nutrition Tolerating some regular diet thus far although not eating much recommend supplements between gloria ls and monitoring for aspiration precautions with head of the bed elevated 30 to 45 degrees Encourage PT/OT therapy evaluation and recommend daily for continued weakness. Patient will be returning to [facility] once cleared by consultations and stabilized Adjustments to medications being made as patient is currently sinus rhythm Eliquis has been held and patient noted to have a large jelly/tarry BM today that was occult positive Patient with worsening mentation has prompted a septic work up and neurological evaluation Worsening hypoxia and received a dose of IV lasix Monitor renal function and electrolytes Discussed clinical findings and plan of care with patients son Don over the phone Patient has been transferred to medicine service with general surgery following Due to multiple significant complex medical issues, overall prognosis is guarded. CODE STATUS is no code at this time Hospice discussion with family at the bedside. Will follow up tomorrow. The impression and plan of care has been dictated by Lesly Guerrero, Nurse Practitioner as directed. Dr. Sheyla MD I have performed a history and examination and MDM of this patient, discussed the same with the dictator, and agree with the dictator's assessment and plan as written ,documented as a scribe. Based on total visit time, I have performed more than 50% of the visit. Objective - Vital Signs Vital signs: Vital Signs Temp 98.3 F 02/01/25 19:13 Pulse 105 H 02/01/25 20:08 Resp 17 02/01/25 19:13 BP 128/75 02/01/25 19:13 Pulse Ox 97 02/01/25 19:13 FiO2 21 01/27/25 07:49 Intake & Output 02/01/25 02/01/25 02/02/25 06:59 18:59 06:59 Intake Total 1260 Output Total 425 501 Balance -425 759 Weight 83.2 kg Intake: Oral 720 Blood Product 540 Output: Urine 425 500 Uretheral (Soria) 500 Urine/Stool Mix 1 Other: Voiding Method Indwelling Catheter Indwelling Catheter Indwelling Catheter ABP, PAP, CO, CI - Last Documented Arterial Blood Pressure 136/41 - Labs CBC & Chem 7: 02/01/25 03:37 02/01/25 03:37 Labs: Abnormal Lab Results - Last 24 Hours (Table) 01/29/25 01/31/25 01/31/25 Range/Units 13:00 04:40 23:29 RBC (4.10-5.20) X 10*6/uL Hgb (12.0-15.0) g/dL Hct (37.2-46.3) % Immature Gran # (0.00-0.04) X 10*3/uL Neutrophils # (1.80-7.70) X 10*3/uL Lymphocytes # (0.90-5.00) X 10*3/uL NRBC/100 WBC Diff (0.00-0.01) X 10*3/uL Sodium (137-145) mmol/L Chloride (98-107) mmol/L Carbon Dioxide (22-30) mmol/L BUN (7-17) mg/dL Creatinine (0.52-1.04) mg/dL Glucose (74-99) mg/dL POC Glucose (mg/dL) 140 H 136 H (70-110) mg/dL Calcium (8.4-10.2) mg/dL AST (14-36) U/L ALT (4-34) U/L Total Protein (6.3-8.2) g/dL Albumin (3.5-5.0) g/dL Triglycerides 173.00 H (0.00-149.00) mg/dL HDL Cholesterol 32.60 L (40.00-60.00) mg/dL 02/01/25 02/01/25 02/01/25 Range/Units 03:37 03:37 05:49 RBC 3.28 L (4.10-5.20) X 10*6/uL Hgb 9.7 L (12.0-15.0) g/dL Hct 30.1 L (37.2-46.3) % Immature Gran # 0.14 H (0.00-0.04) X 10*3/uL Neutrophils # 7.97 H (1.80-7.70) X 10*3/uL Lymphocytes # 0.51 L (0.90-5.00) X 10*3/uL NRBC/100 WBC Diff 0.03 H (0.00-0.01) X 10*3/uL Sodium 131 L (137-145) mmol/L Chloride 97 L (98-107) mmol/L Carbon Dioxide 33 H (22-30) mmol/L BUN 24 H (7-17) mg/dL Creatinine 0.49 L (0.52-1.04) mg/dL Glucose 119 H (74-99) mg/dL POC Glucose (mg/dL) 139 H (70-110) mg/dL Calcium 7.6 L (8.4-10.2) mg/dL AST 40 H (14-36) U/L ALT 38 H (4-34) U/L Total Protein 3.7 L (6.3-8.2) g/dL Albumin 1.7 L (3.5-5.0) g/dL Triglycerides (0.00-149.00) mg/dL HDL Cholesterol (40.00-60.00) mg/dL 02/01/25 02/01/25 Range/Units 12:16 16:41 RBC (4.10-5.20) X 10*6/uL Hgb (12.0-15.0) g/dL Hct (37.2-46.3) % Immature Gran # (0.00-0.04) X 10*3/uL Neutrophils # (1.80-7.70) X 10*3/uL Lymphocytes # (0.90-5.00) X 10*3/uL NRBC/100 WBC Diff (0.00-0.01) X 10*3/uL Sodium (137-145) mmol/L Chloride (98-107) mmol/L Carbon Dioxide (22-30) mmol/L BUN (7-17) mg/dL Creatinine (0.52-1.04) mg/dL Glucose (74-99) mg/dL POC Glucose (mg/dL) 120 H 151 H (70-110) mg/dL Calcium (8.4-10.2) mg/dL AST (14-36) U/L ALT (4-34) U/L Total Protein (6.3-8.2) g/dL Albumin (3.5-5.0) g/dL Triglycerides (0.00-149.00) mg/dL HDL Cholesterol (40.00-60.00) mg/dL Assessment and Plan Time with Patient: Less than 30
[2025-02-02 00:04] LABS: Glucose,Whole Blood 128 mg/dL (70-110)
[2025-02-02 06:09] LABS: Glucose,Whole Blood 134 mg/dL (70-110)
[2025-02-02 06:10] LABS: ALT 44 U/L (4-34); AST 42 U/L (14-36); African American GFR (CKD) >90 (>60 ml/min/1.73 sqM); Albumin 1.8 g/dL (3.5-5.0); Albumin/Globulin Ratio 0.8; Alkaline Phosphatase 50 U/L (38-126); Anion Gap 0 mmol/L; Blood Urea Nitrogen 24 mg/dL (7-17); Calcium 7.6 mg/dL (8.4-10.2); Carbon Dioxide 32 mmol/L (22-30); Chloride 101 mmol/L (98-107); Globulin 2.2 g/dL; Glucose 123 mg/dL (74-99); Non-African American GFR(CKD) >90 (>60 ml/min/1.73 sqM); Phosphorus 2.8 mg/dL (2.5-4.5); Potassium 4.1 mmol/L (3.5-5.1); Sodium 133 mmol/L (137-145); Total Bilirubin 0.5 mg/dL (0.2-1.3)
[2025-02-02 08:38] LABS: Basophils # (A) 0.02 X 10*3/uL (0.00-0.10); Basophils % (A) 0.2 %; HCT 30.4 % (37.2-46.3); HGB 9.9 g/dL (12.0-15.0); Lymphocytes # (A) 0.85 X 10*3/uL (0.90-5.00); Lymphocytes % (A) 8.9 %; MCH 29.8 pg (27.0-32.0); MCHC 32.6 g/dL (32.0-37.0); MCV 91.6 FL (80.0-97.0); Mean Platelet Volume 10.2 FL (9.5-12.2); Monocytes # (A) 0.66 X 10*3/uL (0.20-1.00); Monocytes % (A) 6.9 %; NRBC Per 100 WBC 0 X 10*3/uL (0.00-0.01); Neutrophils # (A) 7.88 X 10*3/uL (1.80-7.70); Neutrophils % (A) 82.2 %; Platelet Count 291 X 10*3/uL (140-440); RBC 3.32 X 10*6/uL (4.10-5.20); RDW 13.9 % (11.5-14.5); WBC 9.59 X 10*3/uL (4.50-10.00)
--- NOTE | 2025-02-02 10:29 | P.PN ---
Subjective Progress Note Date: 02/02/25 SURGICAL PROGRESS NOTE CHIEF COMPLAINT: Strangulated right inguinal hernia, ischemic small bowel HISTORY OF PRESENT ILLNESS: Postop day #11 status post repair of strangulated right inguinal hernia with small bowel resection, repair of left internal hernia and repair of incisional hernia. Patient has not eating. She is on TPN for nutrition support. She is scheduled for MRI of the brain today. She is having bowel movements. She has minimal drainage from the distal incision site. Medicine service had discussion with family regarding hospice. Awaiting their decision. Mildly tachycardic. WBC is 9.59 Hgb 9[address] Nguyen is covering for Dr. Stone PHYSICAL EXAM: VITAL SIGNS: Reviewed. GENERAL: Well-developed in no acute distress. ABDOMEN: Soft. Nondistended. Midline incision with minimal serosanguineous drainage noted on the dressing at distal aspect of incision. No erythema incision site. ASSESSMENT: 1. Strangulated right inguinal hernia, ischemic small bowel, left internal hernia, incisional hernia 2. Severe protein calorie malnutrition PLAN: -Continue regular diet -Continue TPN for now until oral intake improves -Continue antibiotics -continue daily cleaning of incision with chlorhexidine wipe -DVT prophylaxis subcu heparin Physician Residential Recycle Driver note has been reviewed by physician. Signing provider agrees with the documented findings, assessment, and plan of care. I have personally seen and examined the patient, reviewed the ADOPTION SERVICES MANAGER /PAs history, exam and MDM and agree with the assessment and plan as written. Based on total visit time, I have performed more than 50% of the visit. As above: Patient remains confused. Tolerating small amounts of diet. Awaiting MRI to help patient make further decisions regarding extent of care. Objective - Vital Signs Vital signs: Vital Signs Temp 97.5 F L 02/02/25 07:16 Pulse 101 H 02/02/25 08:25 Resp 18 02/02/25 08:25 BP 135/64 02/02/25 07:16 Pulse Ox 95 02/02/25 08:16 FiO2 21 01/27/25 07:49 Intake & Output 02/01/25 02/02/25 02/02/25 18:59 06:59 18:59 Intake Total 1260 360 Output Total 501 550 Balance 759 -190 Weight 83.2 kg Intake: Intake, IV Titration 360 Amount Mvi, Adult No.4 with Vit 360 K 10 ml Trace (Conc-1Ml/ Dose) 1 ml Sodium Chloride 4Meq/ml Vial 40 meq Potassium Chloride 30 meq Magnesium Sulfate gm 1 gm Calcium Gluconate 1 gm Sodium Phosphate 24 mmol In Amino Acid 5%- D15w 1,000 ml @ 30 mls/hr IV .Q24H [facility] Rx#: [id number] Oral 720 Blood Product 540 Output: Urine 500 550 Uretheral (Soria) 500 Urine/Stool Mix 1 Other: Voiding Method Indwelling Catheter Indwelling Catheter # Bowel Movements 1 ABP, PAP, CO, CI - Last Documented Arterial Blood Pressure 136/41 - Labs CBC & Chem 7: 02/02/25 05:01 02/02/25 05:01 Labs: Abnormal Lab Results - Last 24 Hours (Table) 01/29/25 01/31/25 02/01/25 Range/Units 13:00 04:40 12:16 RBC (4.10-5.20) X 10*6/uL Hgb (12.0-15.0) g/dL Hct (37.2-46.3) % Immature Gran # (0.00-0.04) X 10*3/uL Neutrophils # (1.80-7.70) X 10*3/uL Lymphocytes # (0.90-5.00) X 10*3/uL Sodium (137-145) mmol/L Carbon Dioxide (22-30) mmol/L BUN (7-17) mg/dL Creatinine (0.52-1.04) mg/dL Glucose (74-99) mg/dL POC Glucose (mg/dL) 140 H 120 H (70-110) mg/dL Calcium (8.4-10.2) mg/dL AST (14-36) U/L ALT (4-34) U/L Total Protein (6.3-8.2) g/dL Albumin (3.5-5.0) g/dL Triglycerides 173.00 H (0.00-149.00) mg/dL HDL Cholesterol 32.60 L (40.00-60.00) mg/dL 02/01/25 02/02/25 02/02/25 Range/Units 16:41 00:00 05:01 RBC (4.10-5.20) X 10*6/uL Hgb (12.0-15.0) g/dL Hct (37.2-46.3) % Immature Gran # (0.00-0.04) X 10*3/uL Neutrophils # (1.80-7.70) X 10*3/uL Lymphocytes # (0.90-5.00) X 10*3/uL Sodium 133 L (137-145) mmol/L Carbon Dioxide 32 H (22-30) mmol/L BUN 24 H (7-17) mg/dL Creatinine 0.46 L (0.52-1.04) mg/dL Glucose 123 H (74-99) mg/dL POC Glucose (mg/dL) 151 H 128 H (70-110) mg/dL Calcium 7.6 L (8.4-10.2) mg/dL AST 42 H (14-36) U/L ALT 44 H (4-34) U/L Total Protein 4.0 L (6.3-8.2) g/dL Albumin 1.8 L (3.5-5.0) g/dL Triglycerides (0.00-149.00) mg/dL HDL Cholesterol (40.00-60.00) mg/dL 02/02/25 02/02/25 Range/Units 05:01 06:07 RBC 3.32 L (4.10-5.20) X 10*6/uL Hgb 9.9 L (12.0-15.0) g/dL Hct 30.4 L (37.2-46.3) % Immature Gran # 0.08 H (0.00-0.04) X 10*3/uL Neutrophils # 7.88 H (1.80-7.70) X 10*3/uL Lymphocytes # 0.85 L (0.90-5.00) X 10*3/uL Sodium (137-145) mmol/L Carbon Dioxide (22-30) mmol/L BUN (7-17) mg/dL Creatinine (0.52-1.04) mg/dL Glucose (74-99) mg/dL POC Glucose (mg/dL) 134 H (70-110) mg/dL Calcium (8.4-10.2) mg/dL AST (14-36) U/L ALT (4-34) U/L Total Protein (6.3-8.2) g/dL Albumin (3.5-5.0) g/dL Triglycerides (0.00-149.00) mg/dL HDL Cholesterol (40.00-60.00) mg/dL Microbiology - Last 24 Hours (Table) 01/31/25 12:57 Blood Culture - Preliminary Blood
--- NOTE | 2025-02-02 11:45 | P.PN ---
Subjective Progress Note Date: 02/02/25 This is a 84-year-old female patient who presented to the emergency department with acute abdomen. The patient had abdominal pain and she had a CT scan of the abdomen and pelvis done in the Emergency Department that showed evidence of biliary air within the liver with pneumatosis intestinalis within the stomach wall. Patient also had dilated fluid-filled small bowel and transition at the left inguinal hernia level. Based on that, the patient was taken to the operating room. Noted the patient had a DNR/DNI CODE STATUS. The CODE STATUS was switched for the sake of the procedure and she was placed on a full code. In the operating room, the patient underwent a exploratory laparotomy and the patient was found to have strangulated right inguinal hernia, ischemic small bowel and incisional hernia. The patient underwent a repair of the strangulated right inguinal hernia with small bowel resection and repair of the left internal hernia repair of the incisional hernia. Estimated blood loss was 20 cc. Noted postop, the patient was kept intubated and she was brought into the intensive care unit for further monitoring. At this point in time, the patient remains intubated on the mechanical ventilator. She is on propofol running at 55 mcg/kg/min. She has already received a total of 2 L of IV fluids and she is currently on lactated Ringer at rate of 150 cc an hour. The patient is on a r ate of 14, tidal volume of 400, FiO2 of 100% with a PEEP of 5. The blood gases showed a pH of 7.46 with a [id number] and PO2 of 341. Chest x-ray postop showed adequate expansion of both lungs. Orotracheal tube was just above the tess. NG tube was in place. No airspace disease. No consolidation. No pneumothorax. No pleural effusion. No noted air under the diaphragm. The patient is currently on no pressors. Hemodynamically stable. She is on no antibiotics for now. Blood work from this morning showed a WBC count of 10, hemoglobin of 18 and a platelet count of 213. Sodium is at 132, BUN 64 with a creatinine of 1.7 and a potassium level of 4.1 and a chloride is 87 with a bicarb level of 32. Initial lactic acid level was at 4.5. proBNP level is 3230. TSH was 1.7 with a free T4 of 2.1. The viral screen was negative. LFTs were normal. Troponin was 0.09. 01/23/2025, the patient remains intubated on mechanical ventilator. The patient is currently on propofol for respiratory. The patient is on assist-control mode of mechanical ventilation at rate of 14, tidal volume of 400, FiO2 40% with a PEEP of 5. Blood gas showed a pH of 7.34 with a [id number] and PO2 of 86. Remains on lactated Ringer at rate of 150 cc an hour. Net fluid balance is +6.3 L over the past 24 hours and the patient remains on norepinephrine running at 0.3 mcg/kg/min. The patient also went into atrial fibrillation with RVR. The patient was started on albuterol protocol. The patient converted to normal sinus rhythm. Amiodarone drip is still running at 0.5 mg/min. The patient's white cell count is 15 with a hemoglobin 15.20 platelet count of 183. Sodium is at 133, BUN is 57 with a creatinine of 0.9 and a potassium level of 3.5. Lactic acid level has returned to 1.7. Calcium is at 7.3. Surgical wound bed is dry clean and intact. No other significant events overnight. On 01/24/2025, the patient is being seen for a follow-up. The patient remains intubated on mechanical ventilator. The patient remains on propofol running at 45 mcg/kg/min. Calm and comfortable and pressor requirements have improved compared to yesterday. For now, and this morning, the patient remains on lactated Ringer at rate of 150 cc an hour. The patient is on norepinephrine at 0.18 mcg/kg/min and vasopressin physiologic dose. Fluid balance is +6.2 L over the past 24 hours as the patient received several fluid boluses yesterday. Current CVP is at 8. Also, the patient is on assist-control mode of mechanical ventilation at rate of 14, tidal volume of 400, FiO2 40% with a PEEP of 5. pH is 7.35 with a pCO2 of 49 and pO2 of 93. The patient is afebrile. The patient remains on a combination of Zosyn and vancomycin. The patient is also on amiodarone at 0.5 mL milligrams per minute regarding her atrial fibrillation which is essentially well-controlled for now. The white cell count is at 12.5, hemoglobin is 11.6 and the platelet count of 174. There is 73% neutrophilia. Sodium is at 131, potassium 3.5, BUN 51 with a creatinine of 1.3. Potassium is at 3.5. Renal function continues to improve and the serum bicarb is at 23. Blood sugars at 147. The patient's echocardiogram done on 01/23/2025 was reviewed and it shows a normal preserved LV function with ejection fraction of 50 to 55%. Mild MR, mild TR, no significant valvular heart disease. The patient remains NPO. No other significant events overnight. Seen today on 01/25/2025, patient remains in the ICU intubated and mechanically ventilated, she is now postoperative day #3 on assist-control rate 14 tidal volume 400 FiO2 40% PEEP of 5 ABG showed a pO2 of 130 pCO2 44 pH of 7.44 and her FiO2 was cut down to 30%. Patient remains on LR at 150 mL/h propofol at 15 mcg/kg/min amiodarone at 0.5 mg/min. Empirically remains on Zosyn for her abdominal sepsis. Patient has underlying dementia and she is F resident. Patient is sedated, does not seem to be opening her eyes with verbal stimuli or deep painful stimuli, I am planning to give the patient today a sedation holiday and assess mental status off sedation. WBC count is 10.0 hemoglobin 11.1. Platelets are 1 42,000. Potassium is a little low at 3.2, renal profile is normal BUN 41 creatinine 0.98 blood sugar is 106 chest x-ray showed endotracheal tube to be lying low close to the tess, there is a small moderate left pleural effusion and small right pleural effusion with atelectasis. Patient was seen today on 01/26/2025, remains in the ICU intubated and mechanically ventilated. On assist-control rate 14 tidal volume 400 FiO2 30% and PEEP of 5 ABG showed a pO2 of 76 pCO2 41 pH of 7.45, hence no ventilator changes were made. Chest x-ray showed minimal pleural effusions, and mild interstitial prominence, with minimal basilar opacities/atelectasis. Patient is on amiodarone drip at 0.5 mg/min propofol 25 mcg/kg/min LR at 75 cc/h remains on Zosyn remains on heparin subcu and the patient remains DNR. WBC count is 10.2 hemoglobin 10.6, basic metabolic profile is normal BUN is 25 creatinine 0.73. Medications limon remains on multiple meds as listed patient is also on GI and DVT prophylaxis not requiring any pressors today. Patient is quite sedated, yesterday we attempted to awaken the patient and give the patient a weaning trial however the patient was having intermittent episodes of vomiting hence we held back on further weaning. We will initiate that again today and if tolerated may go to pressure support trial and CPAP. Seen today on 01/27/2025, remains in the ICU, patient was extubated yesterday she is now on nasal cannula, at 2 L/min. Her nasogastric tube will be discontinued today. Patient has a CVP of 6 today, urine output is about 40 cc/h hence I recommended 1 dose of Lasix 40 mg IV push since her chest x-ray is showing interstitial edema. Patient is to be given TPN today after nasogastric tube discontinuation. And this should be addressed by dietitian. Patient looks frail, chronically ill, weak, but nonetheless she seems to be tolerating the extubation rather well and better than expected. WBC count is 9.7 hemoglobin 10.9 electrolytes are normal renal profile is normal BUN is 19 creatinine 0.61, chest x-ray showed moderate left and small right-sided pleural effusion with bibasilar interstitial opacities. Patient was seen today on 01/28/2025, remains on 2 L nasal cannula, not in any distress, patient diuresed well yesterday, she is -4.2 L in the last 24 hours, however her chest x-ray continues to show worsening interstitial edema, hence more Lasix will be given today 20 mg IV push. Patient seems to be frail, extre nicci weak, but arousable, follows simple instructions. Labs today were reviewed WBC count is 10.3 hemoglobin 10.1 electrolytes are normal except for low potassium 3.4 renal profile is normal The patient is seen today January 29, 2025 in follow-up on the regular medical floor. She was transferred out of the intensive care unit yesterday. She is currently sitting up in bed. Awake and alert in no acute distress. She remains quite weak and debilitated. Maintaining good O2 saturations in the 90s on 2 L/min per nasal cannula. She is afebrile. Hemodynamically stable. Blood culture revealed no growth. White count 10.0. Hemoglobin 10.8. Platelets 213. Sodium 134. Potassium 3.5. Bicarb 34. BUN 22. Creatinine 0.54. Glucose 133. She is being nourished with TPN at 30 mL/h along with lipids every 72 hours. Heparin for DVT prophylaxis. Remains on bronchodilators. Remains on Protonix. Antibiotics in the form of Zosyn. The patient is seen today January 30, 2025 in follow-up on the regular medical floor. She is currently resting in bed. Awake and alert in no acute distress. Maintaining O2 saturations in the 90s on 2 L/min per nasal cannula. She has been afebrile. Hemodynamically stable. 205. Sodium 133. Potassium 3.9. Bicarb 35. BUN 23. Creatinine 0.48. Glucose 118. She is continued on DuoNeb and elations. Heparin for DVT prophylaxis. Continued on Zosyn. Remains on TPN and lipids for nutritional support. Her diet has been advanced to regular per surgical services. The patient is seen today January 31, 2025 in follow-up on the regular medical floor. She is currently awake and alert. A rapid response team was called on her early this morning due to increasing shortness of breath. X-ray revealed persistent central venous congestion with small left pleural effusion and tiny right pleural effusion. She was given Lasix 40 mg IVP x 1. She was monitored on the floor for 30 minutes and showing signs of improvement. Lung sounds improved. She was maintaining good O2 saturations in the 90s on 3 L/min per nasal cannula. Presently she is resting comfortably in bed. No worsening shortness of breath, cough or congestion. She is afebrile. Hemodynamically sta ble. She remains on DuoNeb inhalations. Being nourished with TPN at 30 mL/h. Lipids every 72 hours. Remains antibiotics in the form of Zosyn. White count 11.7. Hemoglobin 10.6. Platelets 272. Sodium 133. Potassium 3.8. Bicarb 34. BUN 24. Creatinine 0.49. Glucose 130. Stool for occult blood was positive. The patient is seen today February 01, 2025 in follow-up on the regular medical floor. She is currently resting in bed. Awake and alert in no acute distress. She remains quite weak and debilitated. She is maintaining O2 saturations in the mid 90s on 2 L/min per nasal cannula. She has been afebrile. Hemodynamically stable. CT scan of the brain revealed no acute intracranial hemorrhage or midline shift. MRI of the brain is pending. She remains off Eliquis due to recent GI bleed. She is continued on heparin for DVT prophylaxis. Continued on bronchodilators. Continues to be nourished with TPN at 30 mL/h. Lipids every 72 hours. Remains on antibiotics in the form of Zosyn. White count 9.2. Hemoglobin 9.7. Platelets 249. Sodium 131. Potassium 3.5. Bicarb 33. BUN 24. Creatinine 0.49. Glucose 119. The patient is seen today February 02, 2025 in follow-up on the regular medical floor. She is currently awake and alert in no acute distress. Maintaining O2 saturations in the 90s on 2 L/min per nasal cannula. She has been afebrile. Hemodynamically stable. She is maintaining good O2 saturations in the mid 90s on 2 L/min per nasal cannula. Blood cultures revealed no growth. White count 9.5. Hemoglobin 9.9. Platelets 291. Sodium 133. Potassium 4.1. Bicarb 32. BUN 24. Creatinine 0.46. Glucose 123. She remains on DuoNeb and elations. Heparin for DVT prophylaxis. Being nourished with TPN at 30 mL/h and lipids every 72 hours. Antibiotics in the form of Zosyn. Objective - Vital Signs Vital signs: Vital Signs Temp 97.5 F L 02/02/25 07:16 Pulse 100 02/02/25 11:36 Resp 18 02/02/25 11:36 BP 135/64 02/02/25 07:16 Pulse Ox 95 02/02/25 08:16 FiO2 21 01/27/25 07:49 Intake & Output 02/01/25 02/02/25 02/02/25 18:59 06:59 18:59 Intake Total 1260 360 Output Total 501 550 Balance 759 -190 Weight 83.2 kg Intake: Intake, IV Titration 360 Amount Mvi, Adult No.4 with Vit 360 K 10 ml Trace (Conc-1Ml/ Dose) 1 ml Sodium Chloride 4Meq/ml Vial 40 meq Potassium Chloride 30 meq Magnesium Sulfate gm 1 gm Calcium Gluconate 1 gm Sodium Phosphate 24 mmol In Amino Acid 5%- D15w 1,000 ml @ 30 mls/hr IV .Q24H [facility] Rx#: [id number] Oral 720 Blood Product 540 Output: Urine 500 550 Uretheral (S[place]) 500 Urine/Stool Mix 1 Other: Voiding Method Indwelling Catheter Indwelling Catheter Indwelling Catheter # Bowel Movements 1 ABP, PAP, CO, CI - Last Documented Arterial Blood Pressure 136/41 - Exam GENERAL EXAM: Alert, frail, weak 84-year-old female, resting in bed, on 2 L nasal cannula, in no apparent distress. HEAD: Normocephalic. EYES: Normal reaction of pupils, equal size. NOSE: Clear with pink turbinates. THROAT: No erythema or exudates. NECK: No masses, no JVD. CHEST: No chest wall deformity. LUNGS: Equal air entry with crackles in the bilateral bases. CVS: S1 and S2 normal with no audible murmur, regular rhythm. ABDOMEN: Midline incision with minimal serosanguineous drainage. Dressing applied. No hepatosplenomegaly, no guarding or rigidity. SPINE: No scoliosis or deformity SKIN: No rashes CENTRAL NERVOUS SYSTEM: No focal deficits, tone is normal in all 4 extremities. EXTREMITIES: There is no peripheral edema. No clubbing, no cyanosis. Peripheral pulses are intact. - Labs CBC & Chem 7: 02/02/25 05:01 02/02/25 05:01 Labs: Abnormal Lab Results - Last 24 Hours (Table) 02/01/25 02/01/25 02/02/25 Range/Units 12:16 16:41 00:00 RBC (4.10-5.20) X 10*6/uL Hgb (12.0-15.0) g/dL Hct (37.2-46.3) % Immature Gran # (0.00-0.04) X 10*3/uL Neutrophils # (1.80-7.70) X 10*3/uL Lymphocytes # (0.90-5.00) X 10*3/uL Sodium (137-145) mmol/L Carbon Dioxide (22-30) mmol/L BUN (7-17) mg/dL Creatinine (0.52-1.04) mg/dL Glucose (74-99) mg/dL POC Glucose (mg/dL) 120 H 151 H 128 H (70-110) mg/dL Calcium (8.4-10.2) mg/dL AST (14-36) U/L ALT (4-34) U/L Total Protein (6.3-8.2) g/dL Albumin (3.5-5.0) g/dL 02/02/25 02/02/25 02/02/25 Range/Units 05:01 05:01 06:07 RBC 3.32 L (4.10-5.20) X 10*6/uL Hgb 9.9 L (12.0-15.0) g/dL Hct 30.4 L (37.2-46.3) % Immature Gran # 0.08 H (0.00-0.04) X 10*3/uL Neutrophils # 7.88 H (1.80-7.70) X 10*3/uL Lymphocytes # 0.85 L (0.90-5.00) X 10*3/uL Sodium 133 L (137-145) mmol/L Carbon Dioxide 32 H (22-30) mmol/L BUN 24 H (7-17) mg/dL Creatinine 0.46 L (0.52-1.04) mg/dL Glucose 123 H (74-99) mg/dL POC Glucose (mg/dL) 134 H (70-110) mg/dL Calcium 7.6 L (8.4-10.2) mg/dL AST 42 H (14-36) U/L ALT 44 H (4-34) U/L Total Protein 4.0 L (6.3-8.2) g/dL Albumin 1.8 L (3.5-5.0) g/dL Microbiology - Last 24 Hours (Table) 01/31/25 12:57 Blood Culture - Preliminary Blood Assessment and Plan Assessment: Acute abdomen secondary to an acute ischemic bowel and strangulated right inguinal hernia. Status post exploratory laparotomy, repair of strangulated inguinal hernia and small bowel resection with a left internal hernia repair and repair of incisional hernia on 01/22/2025. Kept on the ventilator in the ICU postoperatively. Subsequently extubated and currently on 2 L nasal cannula Acute hypoxic respiratory failure secondary to fluid volume overload, responding well to diuretics Suspect septic shock secondary to abdominal sepsis, patient required norepinephrine in spite of fluid boluses recovered Acute kidney injury, improved Acute lactic acidosis secondary to ischemic small bowel, improved Acute troponin leak secondary to sepsis type II myocardial ischemia Underlying dementia Dyslipidemia History of previous bowel resection in 2013 and bowel perforation requiring PEG tube placement at the time Poor overall functional performance based on the above-mentioned multiple comorbidities Failure to thrive Plan: The patient was seen and evaluated Labs and medications reviewed On O2 at 2 L/min per nasal cannula Remains on Zosyn Plan to discontinue tomorrow Remains on bronchodilators Continue to utilize the incentive spirometer Heparin for DVT prophylaxis Protonix for GI prophylaxis Continue TPN/lipids for nutritional support Remains with very poor oral intake Appears failure to thrive DNR CODE STATUS Prognosis remains poor May need to consider hospice This patient was seen independently by the pulmonary nurse practitioner addressing pulmonary issues I have personally seen and examined the patient, performed the documentation and the assessment and plan as written. Number of minutes spent on the visit: 25 Dictation was produced using [employer] dictation software. Please excuse any grammatical, word or spelling errors.
[2025-02-02 12:19] LABS: Glucose,Whole Blood 126 mg/dL (70-110)
[2025-02-02 17:09] LABS: Glucose,Whole Blood 116 mg/dL (70-110)
[2025-02-03 00:13] LABS: Glucose,Whole Blood 119 mg/dL (70-110)
[2025-02-03 05:04] LABS: Ionized Calcium 4.6 mg/dL (4.5-5.3)
[2025-02-03 05:16] LABS: African American GFR (CKD) >90 (>60 ml/min/1.73 sqM); Anion Gap 2 mmol/L; Blood Urea Nitrogen 22 mg/dL (7-17); Calcium 7.8 mg/dL (8.4-10.2); Carbon Dioxide 32 mmol/L (22-30); Chloride 98 mmol/L (98-107); Glucose 114 mg/dL (74-99); Magnesium 1.9 mg/dL (1.6-2.3); Non-African American GFR(CKD) 89 (>60 ml/min/1.73 sqM); Phosphorus 2.6 mg/dL (2.5-4.5); Potassium 3.8 mmol/L (3.5-5.1); Sodium 132 mmol/L (137-145)
[2025-02-03 05:59] LABS: Glucose,Whole Blood 118 mg/dL (70-110)
--- NOTE | 2025-02-03 06:48 | P.PN ---
Subjective Progress Note Date: 02/02/25 patient is a 84-year-old lady with past medical history significant for GERD, hyperlipidemia who is a resident of [facility] who initially presented to the ER for nausea vomiting nominal pain for the last 3 days. Workup in the ER showed a CT scan showing biliary air within the liver with pneumatosis intestinalis within the stomach wall, Mesenteric ischemia should be considered,Dilated fluid-filled small bowel loops,Some of transition may be in left inguinal hernia. Patient was admitted under surgery and was taken for emergent exploratory laparotomy with repair of strangulated right inguinal hernia with small bowel resection,repair of left internal hernia and repair of incisional hernia. Postoperatively patient was intubated and was admitted to ICU 01/24. Patient seen and examined. Patient continues to be on mechanical ventilator, labs done this morning showedWBC 12.53, hemoglobin 11.6, sodium 131, potassium 3.5, BUN 15, creatinine 1.37, calcium 10.7. 01/25. Patient seen and examined. Continues to be on mechanical ventilation. Currently on amiodarone drip. Patient also on IV Levophed and vasopressin. Continue IV Zosyn. 01/26. Patient seen and examined. Labs done today showed WBC 10.21, hemoglobin 10.6, platelet count 139, sodium 131, potassium 3.8, BUN 25, creatinine 0.73 patient was extubated this morning 01/27/2025 Patient is seen in follow-up continues to be in the ICU was recently extubated maintained on 2 L via nasal cannula. Patient remains n.p.o. and awaiting enteral nutrition with TPN. Multiple consultations following as patient remains in the ICU and is postop day #5 from resection and small bowel inguinal hernia repair. Chest x-ray showing some edema and vascular congestion is being given a dose of Lasix and recommend monitoring kidney functions closely, current BUN is 19 with a creatinine of 0.6. Patient was continued on IV Zosyn and is being discontinued being closely monitored off IV antibiotics. Prognosis remains extremely guarded at this time and patient is in no code. Magnesium is 1.6 today and will monitor and follow-up with repeat labs and replace per protocol. 01/28/2025 Patient is seen in follow-up today lethargic although arousable and more alert today. Patient is responding appropriately and following commands although lethargic and fatigues easily. Patient continued on 2 L via nasal cannula and remains n.p.o. although being evaluated by speech and being started on a diet and will continue on TPN for now and will be weaned slowly. Patient is afebrile with no reports of chest pain or shortness of breath. Patient is having bowel movements and general surgery following closely. Patient is a downgrade from the ICU to [facility]. Magnesium is slightly low at 1.6 and potassium and is being replaced per protocol. Will follow-up on repeat labs. Plan will be for returning to [facility] once cleared by consultations in stable. 01/29/2025 Patient is seen in follow-up today with son at the bedside okay does awaken and respond appropriately and follows commands although fatigues easily and falls asleep. Patient is denying any chest pain or shortness of breath. Patient has been started on a diet and tolerating thus far still not eating much and is maintained on TPN. Patient did have magnesium and potassium replaced which are within normal limits and will follow-up on repeat labs and replace per protocol. Patient is extremely weak and will be going to [facility] on discharge. Will attempt to wean TPN and encourage oral intake over the weekend and discuss further with consultations regarding possible discharge planning to [facility] next week. 01/30/2025 Patient is evaluated in follow-up in the medical floor. She is awake alert and oriented. She does continue to fall asleep easily. Family at the bedside states that they will help encourage her to be awake and to eat meals. She re tobin on TPN at this time as she is continued to have poor oral intake. White blood cell count today 11.17, hemoglobin 10.5, sodium 133, BUN of 23 creatinine of 0.48. Patient is currently afebrile and is maintaining oxygen saturations on 2 L of oxygen via nasal cannula. 01/31/2025 Patient is evaluated today in follow up on the medical floor. She is confused and lethargic today; appears to be encephalopathic. Chest xray done showing CHF and given a dose of IV lasix. Does have lower extremity edema however lungs are essentially clear. Remains on TPN. Brain CT was completed as patient is curre ntly dysarthric which has been a change from yesterday, The brain CT dose reveal a questionable area in the left frontal lobe of possible subacute or chronic infarct; 02/01/2025 Patient is evaluated today in follow up. Patient remains lethargic. Was able to sit up at the bedside with PT earlier this AM. [facility] pending. Neurology following. Patient continues with poor oral intake, remains on TPN. Discussion with family at the bedside regarding hospice and comfort measures. Patient with advanced dementia at baseline. Labs today reveal white blood cell count 9.26, hgb 9.7, sodium 131, BUN 24, creatinine 0.49. Magnesium 1.7. LFTs elevated. 02/02/2025 Patient evaluated today on the medical floor. More awake alert x 1-2; recognizes her son at the bedside. Patient continues to have little to no appetite and poor oral intake. Remains on TPN. Family would like to speak with hospice. Review of systems: Unable to complete due to patients current mentation All medications have been reviewed PHYSICAL EXAMINATION: GENERAL: The patient is lethargic, alert and oriented x1. Patient fatigues easily and falls asleep. Well-developed, elderly appearing, ill-appearing, obese HEENT: Pupils are round and equally reacting to light. EOMI. No scleral icterus. No conjunctival pallor. Normocephalic, atraumatic. No pharyngeal erythema. No thyromegaly. CARDIOVASCULAR: S1 and S2 muffled PULMONARY: Diminished breath sounds bilaterally with faint crackles and scattered rhonchi noted. ABDOMEN: Laparotomy surgical incisions seen, and dressing is dry and intact MUSCULOSKELETAL: No joint swelling or deformity. EXTREMITIES: No cyanosis, clubbing, or pedal edema. Generalized edema noted of upper and lower extremities NEUROLOGICAL: Unable to completely assess as patient is lethargic although arousable, diffusely weak appears dysarthric SKIN: No rashes. Assessment: Acute abdomen due to ischemic bowel status post post expiratory laparotomy with repair of a strangulated right inguinal hernia with small bowel resection and repair of a left internal hernia and repair of an incisional hernia. Acute respiratory failure, nonhypoxic and the patient was kept intubated on mechanical ventilator postop due to mentation, improving currently on 2 L via nasal cannula Acute metabolic encephalopathy due to sepsis with concerns of septic shock. Improving Acute leukocytosis secondary to above Acute kidney injury Volume overload; mild diastolic dysfunction status post IV lasix x 1 Altered mentation with dysarthria concern for an acute stroke - Brain CT reviewed Acute lactic acidosis, improved Mild troponin elevation, likely type II myocardial ischemia mismatch secondary to sepsis History of dementia History of paroxysmal atrial fibrillation current rhythm is sinus and the patient has been taking Eliquis on outpatient basis Hyperlipidemia History of fall Previous history of bowel resection back in 2013 for a bowel perforation requiring subsequent PEG tube insertion and removal GI prophylaxis DVT prophylaxis No code Plan: Patient has been transferred out of the ICU on the medical floor with multiple consultations following. Patient is continued on IV Zosyn Patient has been extubated successfully currently on 2 L, wean FiO2 as tolerated. Patient would benefit from incentive spirometer although significantly weak and unsure if patient can tolerate using Patient is currently n.p.o. and maintained on TPN for nutrition Tolerating some regular diet thus far although not eating much recommend supplements between meals and monitoring for aspiration precautions with head of the bed elevated 30 to 45 degrees Encourage PT/OT therapy evaluation and recommend daily for continued weakness. Patient will be returning to [facility] once cleared by consultations and stabilized Adjustments to medications being made as patient is currently sinus rhythm Eliquis has been held and patient noted to have a large jelly/tarry BM today that was occult positive Patient with worsening mentation has prompted a septic work up and neurological evaluation Worsening hypoxia and received a dose of IV lasix Monitor renal function and electrolytes Discussed clinical findings and plan of care with patients son Don over the phone Patient has been transferred to medicine service with general surgery following Due to multiple significant complex medical issues, overall prognosis is guard ed. CODE STATUS is no code at this time Hospice has been consulted for informational meeting with the family today. The impression and plan of care has been dictated by Lesly Guerrero, Nurse Practitioner as directed. Dr. Sheyla MD I have performed a history and examination and MDM of this patient, discussed the same with the dictator, and agree with the dictator's assessment and plan as written ,documented as a scribe. Based on total visit time, I have performed more than 50% of the visit. Objective - Vital Signs Vital signs: Vital Signs Temp 98.9 F 02/03/25 01:18 Pulse 99 02/03/25 06:02 Resp 18 02/03/25 01:18 BP 136/67 02/03/25 01:18 Pulse Ox 93 L 02/03/25 05:50 FiO2 21 01/27/25 07:49 Intake & Output 02/02/25 02/02/25 02/03/25 06:59 18:59 06:59 Intake Total 360 854.5 Output Total 550 300 475 Balance -190 554.5 -475 Intake: Intake, IV Titration 360 854.5 Amount Mvi, Adult No.4 with Vit 360 854.5 K 10 ml Trace (Conc-1Ml/ Dose) 1 ml Sodium Chloride 4Meq/ml Vial 40 meq Potassium Chloride 30 meq Magnesium Sulfate gm 1 gm Calcium Gluconate 1 gm Sodium Phosphate 24 mmol In Amino Acid 5%- D15w 1,000 ml @ 30 mls/hr IV .Q24H [facility] Rx#: [id number] Output: Urine 550 300 475 Other: Voiding Method Indwelling Catheter Indwelling Catheter Indwelling Catheter # Bowel Movements 1 ABP, PAP, CO, CI - Last Documented Arterial Blood Pressure 136/41 - Labs CBC & Chem 7: 02/02/25 05:01 02/03/25 04:15 Labs: Abnormal Lab Results - Last 24 Hours (Table) 02/02/25 02/02/25 02/02/25 Range/Units 05:01 12:07 17:04 RBC 3.32 L (4.10-5.20) X 10*6/uL Hgb 9.9 L (12.0-15.0) g/dL Hct 30.4 L (37.2-46.3) % Immature Gran # 0.08 H (0.00-0.04) X 10*3/uL Neutrophils # 7.88 H (1.80-7.70) X 10*3/uL Lymphocytes # 0.85 L (0.90-5.00) X 10*3/uL Sodium (137-145) mmol/L Carbon Dioxide (22-30) mmol/L BUN (7-17) mg/dL Creatinine (0.52-1.04) mg/dL Glucose (74-99) mg/dL POC Glucose (mg/dL) 126 H 116 H (70-110) mg/dL Calcium (8.4-10.2) mg/dL 02/03/25 02/03/25 02/03/25 Range/Units 00:09 04:15 05:58 RBC (4.10-5.20) X 10*6/uL Hgb (12.0-15.0) g/dL Hct (37.2-46.3) % Immature Gran # (0.00-0.04) X 10*3/uL Neutrophils # (1.80-7.70) X 10*3/uL Lymphocytes # (0.90-5.00) X 10*3/uL Sodium 132 L (137-145) mmol/L Carbon Dioxide 32 H (22-30) mmol/L BUN 22 H (7-17) mg/dL Creatinine 0.50 L (0.52-1.04) mg/dL Glucose 114 H (74-99) mg/dL POC Glucose (mg/dL) 119 H 118 H (70-110) mg/dL Calcium 7.8 L (8.4-10.2) mg/dL Microbiology - Last 24 Hours (Table) 01/31/25 12:57 Blood Culture - Preliminary Blood Assessment and Plan Time with Patient: Less than 30
--- NOTE | 2025-02-03 12:03 | P.PN ---
Subjective Progress Note Date: 02/03/25 This is a 84-year-old female patient who presented to the emergency department with acute abdomen. The patient had abdominal pain and she had a CT scan of the abdomen and pelvis done in the Emergency Department that showed evidence of biliary air within the liver with pneumatosis intestinalis within the stomach wall. Patient also had dilated fluid-filled small bowel and transition at the left inguinal hernia level. Based on that, the patient was taken to the operating room. Noted the patient had a DNR/DNI CODE STATUS. The CODE STATUS was switched for the sake of the procedure and she was placed on a full code. In the operating room, the patient underwent a exploratory laparotomy and the patient was found to have strangulated right inguinal hernia, ischemic small bowel and incisional hernia. The patient underwent a repair of the strangulated right inguinal hernia with small bowel resection and repair of the left internal hernia repair of the incisional hernia. Estimated blood loss was 20 cc. Noted postop, the patient was kept intubated and she was brought into the intensive care unit for further monitoring. At this point in time, the patient remains intubated on the mechanical ventilator. She is on propofol running at 55 mcg/kg/min. She has already received a total of 2 L of IV fluids and she is currently on lactated Ringer at rate of 150 cc an hour. The patient is on a r ate of 14, tidal volume of 400, FiO2 of 100% with a PEEP of 5. The blood gases showed a pH of 7.46 with a VLZ320 and PO2 of 341. Chest x-ray postop showed adequate expansion of both lungs. Orotracheal tube was just above the tess. NG tube was in place. No airspace disease. No consolidation. No pneumothorax. No pleural effusion. No noted air under the diaphragm. The patient is currently on no pressors. Hemodynamically stable. She is on no antibiotics for now. Blood work from this morning showed a WBC count of 10, hemoglobin of 18 and a platelet count of 213. Sodium is at 132, BUN 64 with a creatinine of 1.7 and a potassium level of 4.1 and a chloride is 87 with a bicarb level of 32. Initial lactic acid level was at 4.5. proBNP level is 3230. TSH was 1.7 with a free T4 of 2.1. The viral screen was negative. LFTs were normal. Troponin was 0.09. 01/23/2025, the patient remains intubated on mechanical ventilator. The patient is currently on propofol for respiratory. The patient is on assist-control mode of mechanical ventilation at rate of 14, tidal volume of 400, FiO2 40% with a PEEP of 5. Blood gas showed a pH of 7.34 with a [id number] and PO2 of 86. Remains on lactated Ringer at rate of 150 cc an hour. Net fluid balance is +6.3 L over the past 24 hours and the patient remains on norepinephrine running at 0.3 mcg/kg/min. The patient also went into atrial fibrillation with RVR. The patient was started on albuterol protocol. The patient converted to normal sinus rhythm. Amiodarone drip is still running at 0.5 mg/min. The patient's white cell count is 15 with a hemoglobin 15.20 platelet count of 183. Sodium is at 133, BUN is 57 with a creatinine of 0.9 and a potassium level of 3.5. Lactic acid level has returned to 1.7. Calcium is at 7.3. Surgical wound bed is dry clean and intact. No other significant events overnight. On 01/24/2025, the patient is being seen for a follow-up. The patient remains intubated on mechanical ventilator. The patient remains on propofol running at 45 mcg/kg/min. Calm and comfortable and pressor requirements have improved compared to yesterday. For now, and this morning, the patient remains on lactated Ringer at rate of 150 cc an hour. The patient is on norepinephrine at 0.18 mcg/kg/min and vasopressin physiologic dose. Fluid balance is +6.2 L over the past 24 hours as the patient received several fluid boluses yesterday. Current CVP is at 8. Also, the patient is on assist-control mode of mechanical ventilation at rate of 14, tidal volume of 400, FiO2 40% with a PEEP of 5. pH is 7.35 with a pCO2 of 49 and pO2 of 93. The patient is afebrile. The patient remains on a combination of Zosyn and vancomycin. The patient is also on amiodarone at 0.5 mL milligrams per minute regarding her atrial fibrillation which is essentially well-controlled for now. The white cell count is at 12.5, hemoglobin is 11.6 and the platelet count of 174. There is 73% neutrophilia. Sodium is at 131, potassium 3.5, BUN 51 with a creatinine of 1.3. Potassium is at 3.5. Renal function continues to improve and the serum bicarb is at 23. Blood sugars at 147. The patient's echocardiogram done on 01/23/2025 was reviewed and it shows a normal preserved LV function with ejection fraction of 50 to 55%. Mild MR, mild TR, no significant valvular heart disease. The patient remains NPO. No other significant events overnight. Seen today on 01/25/2025, patient remains in the ICU intubated and mechanically ventilated, she is now postoperative day #3 on assist-control rate 14 tidal volume 400 FiO2 40% PEEP of 5 ABG showed a pO2 of 130 pCO2 44 pH of 7.44 and her FiO2 was cut down to 30%. Patient remains on LR at 150 mL/h propofol at 15 mcg/kg/min amiodarone at 0.5 mg/min. Empirically remains on Zosyn for her abdominal sepsis. Patient has underlying dementia and she is F resident. Patient is sedated, does not seem to be opening her eyes with verbal stimuli or deep painful stimuli, I am planning to give the patient today a sedation holiday and assess mental status off sedation. WBC count is 10.0 hemoglobin 11.1. Platelets are 1 42,000. Potassium is a little low at 3.2, renal profile is normal BUN 41 creatinine 0.98 blood sugar is 106 chest x-ray showed endotracheal tube to be lying low close to the tess, there is a small moderate left pleural effusion and small right pleural effusion with atelectasis. Patient was seen today on 01/26/2025, remains in the ICU intubated and mechanically ventilated. On assist-control rate 14 tidal volume 400 FiO2 30% and PEEP of 5 ABG showed a pO2 of 76 pCO2 41 pH of 7.45, hence no ventilator changes were made. Chest x-ray showed minimal pleural effusions, and mild interstitial prominence, with minimal basilar opacities/atelectasis. Patient is on amiodarone drip at 0.5 mg/min propofol 25 mcg/kg/min LR at 75 cc/h remains on Zosyn remains on heparin subcu and the patient remains DNR. WBC count is 10.2 hemoglobin 10.6, basic metabolic profile is normal BUN is 25 creatinine 0.73. Medications limon remains on multiple meds as listed patient is also on GI and DVT prophylaxis not requiring any pressors today. Patient is quite sedated, yesterday we attempted to awaken the patient and give the patient a weaning trial however the patient was having intermittent episodes of vomiting hence we held back on further weaning. We will initiate that again today and if tolerated may go to pressure support trial and CPAP. Seen today on 01/27/2025, remains in the ICU, patient was extubated yesterday she is now on nasal cannula, at 2 L/min. Her nasogastric tube will be discontinued today. Patient has a CVP of 6 today, urine output is about 40 cc/h hence I recommended 1 dose of Lasix 40 mg IV push since her chest x-ray is showing interstitial edema. Patient is to be given TPN today after nasogastric tube discontinuation. And this should be addressed by dietitian. Patient looks frail, chronically ill, weak, but nonetheless she seems to be tolerating the extubation rather well and better than expected. WBC count is 9.7 hemoglobin 10.9 electrolytes are normal renal profile is normal BUN is 19 creatinine 0.61, chest x-ray showed moderate left and small right-sided pleural effusion with bibasilar interstitial opacities. Patient was seen today on 01/28/2025, remains on 2 L nasal cannula, not in any distress, patient diuresed well yesterday, she is -4.2 L in the last 24 hours, however her chest x-ray continues to show worsening interstitial edema, hence more Lasix will be given today 20 mg IV push. Patient seems to be frail, extre nicci weak, but arousable, follows simple instructions. Labs today were reviewed WBC count is 10.3 hemoglobin 10.1 electrolytes are normal except for low potassium 3.4 renal profile is normal The patient is seen today January 29, 2025 in follow-up on the regular medical floor. She was transferred out of the intensive care unit yesterday. She is currently sitting up in bed. Awake and alert in no acute distress. She remains quite weak and debilitated. Maintaining good O2 saturations in the 90s on 2 L/min per nasal cannula. She is afebrile. Hemodynamically stable. Blood culture revealed no growth. White count 10.0. Hemoglobin 10.8. Platelets 213. Sodium 134. Potassium 3.5. Bicarb 34. BUN 22. Creatinine 0.54. Glucose 133. She is being nourished with TPN at 30 mL/h along with lipids every 72 hours. Heparin for DVT prophylaxis. Remains on bronchodilators. Remains on Protonix. Antibiotics in the form of Zosyn. The patient is seen today January 30, 2025 in follow-up on the regular medical floor. She is currently resting in bed. Awake and alert in no acute distress. Maintaining O2 saturations in the 90s on 2 L/min per nasal cannula. She has been afebrile. Hemodynamically stable. 205. Sodium 133. Potassium 3.9. Bicarb 35. BUN 23. Creatinine 0.48. Glucose 118. She is continued on DuoNeb and elations. Heparin for DVT prophylaxis. Continued on Zosyn. Remains on TPN and lipids for nutritional support. Her diet has been advanced to regular per surgical services. The patient is seen today January 31, 2025 in follow-up on the regular medical floor. She is currently awake and alert. A rapid response team was called on her early this morning due to increasing shortness of breath. X-ray revealed persistent central venous congestion with small left pleural effusion and tiny right pleural effusion. She was given Lasix 40 mg IVP x 1. She was monitored on the floor for 30 minutes and showing signs of improvement. Lung sounds improved. She was maintaining good O2 saturations in the 90s on 3 L/min per nasal cannula. Presently she is resting comfortably in bed. No worsening shortness of breath, cough or congestion. She is afebrile. Hemodynamically sta ble. She remains on DuoNeb inhalations. Being nourished with TPN at 30 mL/h. Lipids every 72 hours. Remains antibiotics in the form of Zosyn. White count 11.7. Hemoglobin 10.6. Platelets 272. Sodium 133. Potassium 3.8. Bicarb 34. BUN 24. Creatinine 0.49. Glucose 130. Stool for occult blood was positive. The patient is seen today February 01, 2025 in follow-up on the regular medical floor. She is currently resting in bed. Awake and alert in no acute distress. She remains quite weak and debilitated. She is maintaining O2 saturations in the mid 90s on 2 L/min per nasal cannula. She has been afebrile. Hemodynamically stable. CT scan of the brain revealed no acute intracranial hemorrhage or midline shift. MRI of the brain is pending. She remains off Eliquis due to recent GI bleed. She is continued on heparin for DVT prophylaxis. Continued on bronchodilators. Continues to be nourished with TPN at 30 mL/h. Lipids every 72 hours. Remains on antibiotics in the form of Zosyn. White count 9.2. Hemoglobin 9.7. Platelets 249. Sodium 131. Potassium 3.5. Bicarb 33. BUN 24. Creatinine 0.49. Glucose 119. The patient is seen today February 02, 2025 in follow-up on the regular medical floor. She is currently awake and alert in no acute distress. Maintaining O2 saturations in the 90s on 2 L/min per nasal cannula. She has been afebrile. Hemodynamically stable. She is maintaining good O2 saturations in the mid 90s on 2 L/min per nasal cannula. Blood cultures revealed no growth. White count 9.5. Hemoglobin 9.9. Platelets 291. Sodium 133. Potassium 4.1. Bicarb 32. BUN 24. Creatinine 0.46. Glucose 123. She remains on DuoNeb inhalations. Heparin for DVT prophylaxis. Being nourished with TPN at 30 mL/h and lipids every 72 hours. Antibiotics in the form of Zosyn. The patient is seen today February 03, 2025 in follow-up on the regular medical floor. She is more awake and alert today. Maintaining O2 saturations in the mid 90s on 2 L/min per nasal cannula. Answering yes/no questions appropriately. Unfortunately she still has no appetite. She needs increased encouragement to eat anything at all. Sodium 132. Potassium 3.8. Bicarb 32. BUN 22. Cr eatinine 0.50. Glucose 118. She remains on TPN at 30 mL/h. Lipids every 72 hours. Continued on bronchodilators. Continued on Zosyn. Heparin for DVT prophylaxis. She is currently afebrile. Hemodynamically stable. Objective - Vital Signs Vital signs: Vital Signs Temp 98.3 F 02/03/25 07:18 Pulse 97 02/03/25 11:32 Resp 18 02/03/25 07:18 BP 132/63 02/03/25 07:18 Pulse Ox 96 02/03/25 07:18 FiO2 21 01/27/25 07:49 Intake & Output 02/02/25 02/03/25 02/03/25 18:59 06:59 18:59 Intake Total 854.5 Output Total 300 475 Balance 554.5 -475 Intake: Intake, IV Titration 854.5 Amount Mvi, Adult No.4 with Vit 854.5 K 10 ml Trace (Conc-1Ml/ Dose) 1 ml Sodium Chloride 4Meq/ml Vial 40 meq Potassium Chloride 30 meq Magnesium Sulfate gm 1 gm Calcium Gluconate 1 gm Sodium Phosphate 24 mmol In Amino Acid 5%- D15w 1,000 ml @ 30 mls/hr IV .Q24H [facility] Rx#: [id number] Output: Urine 300 475 Other: Voiding Method Indwelling Catheter Indwelling Catheter ABP, PAP, CO, CI - Last Documented Arterial Blood Pressure 136/41 - Exam GENERAL EXAM: Alert, frail, very weak 84-year-old female, on 2 L nasal cannula, in no apparent distress. HEAD: Normocephalic. EYES: Normal reaction of pupils, equal size. NOSE: Clear with pink turbinates. THROAT: No erythema or exudates. NECK: No masses, no JVD. CHEST: No chest wall deformity. LUNGS: Equal air entry with crackles in the bilateral bases. CVS: S1 and S2 normal with no audible murmur, regular rhythm. ABDOMEN: Midline incision with minimal serosanguineous drainage. Dressing applied. No hepatosplenomegaly, no guarding or rigidity. SPINE: No scoliosis or deformity SKIN: No rashes CENTRAL NERVOUS SYSTEM: No focal deficits, tone is normal in all 4 extremities. EXTREMITIES: There is no peripheral edema. No clubbing, no cyanosis. Peripheral pulses are intact. - Labs CBC & Chem 7: 02/02/25 05:01 02/03/25 04:15 Labs: Abnormal Lab Results - Last 24 Hours (Table) 02/02/25 02/02/25 02/03/25 Range/Units 12:07 17:04 00:09 Sodium (137-145) mmol/L Carbon Dioxide (22-30) mmol/L BUN (7-17) mg/dL Creatinine (0.52-1.04) mg/dL Glucose (74-99) mg/dL POC Glucose (mg/dL) 126 H 116 H 119 H (70-110) mg/dL Calcium (8.4-10.2) mg/dL Triglycerides (0.00-149.00) mg/dL 02/03/25 02/03/25 Range/Units 04:15 05:58 Sodium 132 L (137-145) mmol/L Carbon Dioxide 32 H (22-30) mmol/L BUN 22 H (7-17) mg/dL Creatinine 0.50 L (0.52-1.04) mg/dL Glucose 114 H (74-99) mg/dL POC Glucose (mg/dL) 118 H (70-110) mg/dL Calcium 7.8 L (8.4-10.2) mg/dL Triglycerides 173.00 H (0.00-149.00) mg/dL Microbiology - Last 24 Hours (Table) 01/31/25 12:57 Blood Culture - Preliminary Blood Assessment and Plan Assessment: Acute abdomen secondary to an acute ischemic bowel and strangulated right inguinal hernia. Status post exploratory laparotomy, repair of strangulated i nguinal hernia and small bowel resection with a left internal hernia repair and repair of incisional hernia on 01/22/2025. Kept on the ventilator in the ICU postoperatively. Subsequently extubated and currently on 2 L nasal cannula Acute hypoxic respiratory failure secondary to fluid volume overload, responding well to diuretics Suspect septic shock secondary to abdominal sepsis, patient required norepinephrine in spite of fluid boluses recovered Acute kidney injury, improved Acute lactic acidosis secondary to ischemic small bowel, improved Acute troponin leak secondary to sepsis type II myocardial ischemia Underlying dementia Dyslipidemia History of previous bowel resection in 2013 and bowel perforation requiring PEG tube placement at the time Poor overall functional performance based on the above-mentioned multiple comorbidities Failure to thrive Plan: The patient was seen and evaluated Labs and medications reviewed On oxygen at 2 L/min per nasal cannula Completed Zosyn Remains on bronchodilators Continue to utilize the incentive spirometer Heparin for DVT prophylaxis Protonix for GI prophylaxis Continue TPN/lipids for nutritional support Remains with very poor oral intake Appears failure to thrive DNR CODE STATUS Prognosis remains poor Plan is for discharge to ECF with hospice This patient was seen independently by the pulmonary nurse practitioner addressing pulmonary issues I have personally seen and examined the patient, performed the documentation and the assessment and plan as written. Number of minutes spent on the visit: 23 Dictation was produced using [employer] dictation software. Please excuse any grammatical, word or spelling errors.
--- NOTE | 2025-02-03 12:14 | P.PN ---
Subjective Progress Note Date: 02/03/25 SURGICAL PROGRESS NOTE CHIEF COMPLAINT: Strangulated right inguinal hernia, ischemic small bowel HISTORY OF PRESENT ILLNESS: Postop day #12 status post repair of strangulated right inguinal hernia with small bowel resection, repair of left internal hernia and repair of incisional hernia. Patient's family has decided to proceed with comfort care and hospice. Possible discharge later today to ECF with hospice. Patient is lying in bed comfortably. Dr. Nguyen is covering for Dr. Stone PHYSICAL EXAM: VITAL SIGNS: Reviewed. GENERAL: Comfortable. No acute distress. ABDOMEN: Soft. Nondistended. Midline incision with minimal serous drainage at the lower aspect of the incision. No erythema incision site. ASSESSMENT: 1. Strangulated right inguinal hernia, ischemic small bowel, left internal hernia, incisional hernia 2. Severe protein calorie malnutrition PLAN: -Agree with plan for discharge to ECF with hospice -Continue regular diet -DVT prophylaxis subcu heparin Physician [employer] note has been reviewed by physician. Signing provider agrees with the documented findings, assessment, and plan of care. Objective - Vital Signs Vital signs: Vital Signs Temp 98.3 F 02/03/25 07:18 Pulse 97 02/03/25 11:32 Resp 18 02/03/25 07:18 BP 132/63 02/03/25 07:18 Pulse Ox 96 02/03/25 07:18 FiO2 21 01/27/25 07:49 Intake & Output 02/02/25 02/03/25 02/03/25 18:59 06:59 18:59 Intake Total 854.5 Output Total 300 475 Balance 554.5 -475 Intake: Intake, IV Titration 854.5 Amount Mvi, Adult No.4 with Vit 854.5 K 10 ml Trace (Conc-1Ml/ Dose) 1 ml Sodium Chloride 4Meq/ml Vial 40 meq Potassium Chloride 30 meq Magnesium Sulfate gm 1 gm Calcium Gluconate 1 gm Sodium Phosphate 24 mmol In Amino Acid 5%- D15w 1,000 ml @ 30 mls/hr IV .Q24H [facility] Rx#: [id number] Output: Urine 300 475 Other: Voiding Method Indwelling Catheter Indwelling Catheter ABP, PAP, CO, CI - Last Documented Arterial Blood Pressure 136/41 - Labs CBC & Chem 7: 02/02/25 05:01 02/03/25 04:15 Labs: Abnormal Lab Results - Last 24 Hours (Table) 02/02/25 02/02/25 02/03/25 Range/Units 12:07 17:04 00:09 Sodium (137-145) mmol/L Carbon Dioxide (22-30) mmol/L BUN (7-17) mg/dL Creatinine (0.52-1.04) mg/dL Glucose (74-99) mg/dL POC Glucose (mg/dL) 126 H 116 H 119 H (70-110) mg/dL Calcium (8.4-10.2) mg/dL Triglycerides (0.00-149.00) mg/dL 02/03/25 02/03/25 Range/Units 04:15 05:58 Sodium 132 L (137-145) mmol/L Carbon Dioxide 32 H (22-30) mmol/L BUN 22 H (7-17) mg/dL Creatinine 0.50 L (0.52-1.04) mg/dL Glucose 114 H (74-99) mg/dL POC Glucose (mg/dL) 118 H (70-110) mg/dL Calcium 7.8 L (8.4-10.2) mg/dL Triglycerides 173.00 H (0.00-149.00) mg/dL Microbiology - Last 24 Hours (Table) 01/31/25 12:57 Blood Culture - Preliminary Blood
[2025-02-03 12:33] LABS: Glucose,Whole Blood 117 mg/dL (70-110)
[2025-02-03 12:57] VITALS: BP 122/64; PULSE 92; RESP 16; TEMP 99.5
--- NOTE | 2025-02-03 15:15 | P.DS ---
Providers Date of admission: 01/22/25 10:40 Attending physician: Skylar Carrion Consults: 01/22/25 14:35 Consult Physician Routine Consulting Provider: Syd Hackett Consult Reason/Comments: Mechanical Ventilator Management Do you want consulting provider notified?: Already Contacted 01/22/25 17:13 Consult Physician Routine Consulting Provider: Sapna Cam Consult Reason/Comments: Medical Management Do you want consulting provider notified?: Yes 01/31/25 13:35 Consult Physician Routine Consulting Provider: Lilly Koroma Consult Reason/Comments: dysarthria; questionable left frontal lobe subacute infarct on CT Do you want consulting provider notified?: Yes Primary care physician: Laith Pablo Hospital Course: Final Diagnosis Acute abdomen due to ischemic bowel status post post expiratory laparotomy with repair of a strangulated right inguinal hernia with small bowel resection and repair of a left internal hernia and repair of an incisional hernia. Acute respiratory failure, nonhypoxic and the patient was kept intubated on mechanical ventilator postop due to mentation, improving currently on 2 L via nasal cannula Acute metabolic encephalopathy due to sepsis with concerns of septic shock. Improving Acute leukocytosis secondary to above Acute kidney injury Volume overload; mild diastolic dysfunction status post IV lasix x 1 Altered mentation with dysarthria concern for an acute stroke - Brain CT reviewed Acute lactic acidosis, improved Mild troponin elevation, likely type II myocardial ischemia mismatch secondary to sepsis History of dementia History of paroxysmal atrial fibrillation current rhythm is sinus and the patient has been taking Eliquis on outpatient basis Hyperlipidemia History of fall Previous history of bowel resection back in 2013 for a bowel perforation requiring subsequent PEG tube insertion and removal Discharge Disposition Patient will be discharging to [facility] today with hospice services. PICC line to be removed. Hospital Course This patient is a 84-year-old lady with past medical history significant for GERD, hyperlipidemia who is a resident of [facility] who initially presented to the ER for nausea vomiting nominal pain for the last 3 days. Workup in the ER showed a CT scan showing biliary air within the liver with pneumatosis intestinalis within the stomach wall, Mesenteric ischemia should be considered,Dilated fluid-filled small bowel loops,Some of transition may be in left inguinal hernia. Patient was admitted under surgery and was taken for emergent exploratory laparotomy with repair of strangulated right inguinal hernia with small bowel resection,repair of left internal hernia and repair of incisional hernia. Postoperatively patient was intubated and was admitted to ICU. Patient was placed NPO and started on TPN. Multiple consultations following. Patient had Chest x-ray showing some edema and vascular congestion is being given a dose of Lasix and recommend monitoring kidney functions closely. Patient is responding appropriately and following commands although lethargic and fatigues easily. Patient continued on 2 L via nasal cannula and remains n.p.o. although being evaluated by speech and being started on a diet and will continue on TPN for now and will be weaned slowly. Patient is afebrile with no reports of chest pain or shortness of breath. Patient is having bowel movements and general surgery following closely. Patient is a downgrade from the ICU to [facility]. While on the medical floor patient has continued with poor to no oral intake. She has been working with physical therapy although not tolerating and barely able to sit at the edge of the bed with assistance. Her mentation has been wax and waning. She has been continued on TPN. Hospice was discussed with family who were consulted and patient [place] [facility] [place]. Patient does have advanced dementia at baseline and per family was not eating much at the rehab prior to admission. Please see medication reconciliation for a list of current medications. Thank you for allowing us to participate in the care of this patient. The impression and plan of care has been dictated by Lesly Guerrero, Nurse Practitioner as directed. Dr. Sheyla MD I have performed a history and physical examination and medical decision making of this patient, discussed the same with the dictator, and agree with the dictators assessment and plan as written, documented as a scribe. Based on total visit time, I have performed more than 50% of this visit. Patient Condition at Discharge: Fair Plan - Discharge Summary Discharge Rx Participant: No New Discharge Prescriptions: Continue HYDROcodone/APAP 5-325MG [Fletcher 5-325] 1 tab PO Q6HR PRN #28 tab PRN Reason: Pain HYDROcodone/APAP 5-325MG [Fletcher 5-325] 1 tab PO DAILY@0900 Lactose-Reduced Food [Ensure Plus] 1 can PO DAILY@0900 Sennosides [Senokot] 8.6 mg PO BID@0900,2100 Apixaban [Eliquis] 2.5 mg PO BID@0900,2100 Ondansetron [Zofran] 4 mg PO Q8H PRN PRN Reason: Nausea Discharge Medication List HYDROcodone/APAP 5-325MG [Fletcher 5-325] 1 tab PO Q6HR PRN #28 tab 12/24/24 [Rx] Apixaban [Eliquis] 2.5 mg PO BID@0900,209901/22/25 [History] HYDROcodone/APAP 5-325MG [Fletcher 5-325] 1 tab PO DAILY@89901/22/25 [History] Lactose-Reduced Food [Ensure Plus] 1 can PO DAILY@89901/22/25 [History] Ondansetron [Zofran] 4 mg PO Q8H PRN 01/22/25 [History] Sennosides [Senokot] 8.6 mg PO BID@899,209901/22/25 [History] Follow up Appointment(s)/Referral(s): Laith Pablo MD [Primary Care Provider] - 1-2 days [facility] [NON-STAFF] - 1 Week [facility], [NON-STAFF] - 1 Week Fam Stone MD [STAFF PHYSICIAN] - 10 Days Activity/Diet/Wound Care/Special Instructions: Patient will be discharged to [facility] with hospice
[2025-02-03] MEDS ORDERED: MVI, ADULT NO.4 WITH VIT K 10 ML, TRACE (CONC-1ML/DOSE) 1 ML, SODIUM CHLORIDE 4MEQ/ML V... IV SCH (18:00)
== END 2025-02-03 19:26 | DRG 329 ==
LOC: EC 07:39 → SUPCPDRO 07:39 → 2SICU 10:40 → EC 10:50 → 2SICU 13:30 → 5NMEDONC 01-28 18:40
PROVIDERS: ADMIT Internal Medicine; ATTEND Internal Medicine
PROC: 02HV33Z Insertion of Infusion Device into Superior Vena Cava, Percutaneous Approach (ICD-10-PCS; 2025-01-22)
PROC: 4A133J1 Monitoring of Arterial Pulse, Peripheral, Percutaneous Approach (ICD-10-PCS; 2025-01-22)
PROC: 03HY32Z Insertion of Monitoring Device into Upper Artery, Percutaneous Approach (ICD-10-PCS; 2025-01-22)
PROC: 4A133B1 Monitoring of Arterial Pressure, Peripheral, Percutaneous Approach (ICD-10-PCS; 2025-01-22)
PROC: 0YU50JZ Supplement Right Inguinal Region with Synthetic Substitute, Open Approach (ICD-10-PCS; principal; 2025-01-22 10:23)
PROC: 0DB80ZZ Excision of Small Intestine, Open Approach (ICD-10-PCS; principal; 2025-01-22 10:23)
PROC: 0WQF0ZZ Repair Abdominal Wall, Open Approach (ICD-10-PCS; principal; 2025-01-22 10:23)
PROC: 0WUF0JZ Supplement Abdominal Wall with Synthetic Substitute, Open Approach (ICD-10-PCS; principal; 2025-01-22 10:23)
PROC: 3E043XZ Introduction of Vasopressor into Central Vein, Percutaneous Approach (ICD-10-PCS; 2025-01-23)
DX: K40.30 Unilateral inguinal hernia, with obstruction, without gangrene, not specified as recurrent (principal); A41.9 Sepsis, unspecified organism; J96.01 Acute respiratory failure with hypoxia; K55.019 Acute (reversible) ischemia of small intestine, extent unspecified; K65.1 Peritoneal abscess; R65.20 Severe sepsis without septic shock; E43 Unspecified severe protein-calorie malnutrition; G93.41 Metabolic encephalopathy; I21.A1 Myocardial infarction type 2; I63.9 Cerebral infarction, unspecified; F03.90 Unspecified dementia, unspecified severity, without behavioral disturbance, psychotic disturbance, mood disturbance, and anxiety; I50.9 Heart failure, unspecified; Z68.31 Body mass index [BMI] 31.0-31.9, adult; N17.9 Acute kidney failure, unspecified; J98.11 Atelectasis; E87.21 Acute metabolic acidosis; I48.0 Paroxysmal atrial fibrillation; K21.9 Gastro-esophageal reflux disease without esophagitis; R47.1 Dysarthria and anarthria; Z51.5 Encounter for palliative care; Z66 Do not resuscitate; R62.7 Adult failure to thrive; K43.2 Incisional hernia without obstruction or gangrene; K63.89 Other specified diseases of intestine; E78.5 Hyperlipidemia, unspecified; Z79.01 Long term (current) use of anticoagulants; Z96.642 Presence of left artificial hip joint; Z87.01 Personal history of pneumonia (recurrent); Z88.2 Allergy status to sulfonamides
CPT/HCPCS: 36415; 36573; 36600; 70450; 71045; 71046; 74176; 80048; 80053; 80061; 81001; 82272; 82330; 82805; 83605; 83735; 83880; 84100; 84132; 84439; 84443; 84478; 84481; 84484; 85025; 85027; 85610; 85730; 87040; 87636; 88307; 93005; 93306; 94002; 94003; 94640; 94760; 99285